=== PATIENT | male | born 1950 | race Caucasian/White ===

== ENCOUNTER → 2019-12-24 08:23 | Outpatient (BNVA) | payer MEDICARE, SELFPAY | PROVIDERS: Family Provider Family Medicine; PCP Family Medicine; Visit Provider Otolaryngology | DX: R05 Cough (principal); R47.02 Dysphasia | CPT/HCPCS: 31575; 99214 ==

== ENCOUNTER 2020-01-21 09:07 | Day surgery (SDC) | payer MEDICARE, SELFPAY ==
[2020-01-20 12:01] VITALS: BMI 54.6
[2020-01-21] VITALS (10 sets, daily range): BP systolic 103–177; BP diastolic 49–87; PULSE 69–80; RESP 18–27; TEMP 36.2–37.2; O2SAT 93–100
--- NOTE | 2020-01-21 10:22 | ECG_ITS ---
Measurements Intervals [place] Rate: 0 P: [place]: 0 QRS: 0 QRSD: 0 T: 0 QT: 0 QTc: 0 NSR Baseline artifact Electronically Signed On 01-22-2020 12:42:59 CDT by Homa Mercer [email or web address]
--- NOTE | 2020-01-21 10:42 | ANES.PREANE2 ---
Pre-Anesthetic Assessment Pre-Anesthetic Assessment: Height/Weight: Height 1.52 m Weight 127.006 kg Temp Pulse Resp BP Pulse Ox 98.3 F 80 22 H 177/87 96 01/21/20 10:02 01/21/20 10:02 01/21/20 10:02 01/21/20 10:02 01/21/20 10:02 Preop Diagnosis: dysphagia Proposed Procedure: Operation Date: 01/21/20 11:50 Proposed Procedures p EGD poss dilation and biopsy [id number] R47.02(Not Applicable) - Beau Dockery MD s Bronchoscopy(Not Applicable) - Beau Dockery MD Last intake: Intake Last Liquid Date 01/21/20 Last Liquid Time 07:00 Last Solid Date 01/20/20 Last Solid Time 21:00 Social: Packs per day: 1 Pack years: 8 Comment: Exam: Pre-Anes Outpt Exam: alert, oriented x 3, clear to auscultation bilaterally and regular rate & rhythm Airway: Submandibular: WNL Cervical ROM: Other MP: 3 Dentition: Caps Pulmonary: Pulmonary: Sleep apnea CV/HEM: CV/HEM: HTN Comments: rx'd 5y GI: GI: GERD Comments: dysphagia Musc/skel: Musc/skel: Lower Back Pain (right radiculopathy) Neuropsych: Comments: Parkinson's with stimulator Anesthetic Plan: ASA status: 3 PFSH Anesthesia PFSH: Medical History (Updated 12/24/19 @ 09:32 by Beau Dockery MD) Dysphasia Hypertension Parkinson disease Social History Smoking and tobacco status: former smoker Alcohol intake: current Alcohol intake frequency: few times a week Data Anesthesia Cardiac Studies: No Data to Display
[2020-01-21] MEDS: sodium chloride 0.9% 1,000 ML 30 ML IV (11:00)
--- NOTE | 2020-01-21 11:35 | W.PM.OPSUD ---
Surgery/Procedure H&P Update DATE OF PROCEDURE: January 21, 2020 DATE H&P PERFORMED: 12/24/19 H&P UPDATE INFORMATION: I have reviewed H&P completed within last 30 days, I have examined patient prior to procedure and No changes to prior documentation PREOP DIAGNOSIS: dysphagia PLANNED PROCEDURE: Operation Date: 01/21/20 11:50 Proposed Procedures p EGD poss dilation and biopsy [id number] R47.02(Not Applicable) - Beau Dockery MD s Bronchoscopy(Not Applicable) - Beau Dockery MD
--- NOTE | 2020-01-21 12:09 | P.OP_ITS ---
Operative Report Date of procedure: January 21, 2020 Pre-op Diagnosis: dysphagia Post-op diagnosis: same Post-op Findings: Inflammatory changes of bronchopulmonary segments, stricture versus achalasia cricopharyngeus, erosive distal esophagitis, antral gastritis Procedure Done: Flexible fiberoptic bronchoscopy with bronchoalveolar lavage, esophagogastroduodenoscopy with biopsy of esophagus and gastric mucosa, dilation to 58 Upper Sor[place] Pathology: Gastric biopsy, esophageal biopsy, bronchoalveolar lavage for lipid- laden macrophage only Surgeon: Beau Dockery Anesthesia: General Condition: stable Disposition: PACU Brief History: Mr. Matthew is a 69-year-old male with dysphasia who has failed medical management. Procedure: The patient was taken to the operating room and under satisfactory general endotracheal anesthesia the bronchoscope was introduced into the trachea. Right and left bronchopulmonary segments 1 through 10 were examined mild to moderate inflammatory changes without endobronchial lesions were identified. A BAL was performed from the right lower lobe. This was sent for lipid-laden macrophages only. The gastroscope was introduced into the trachea the scope had some difficulty passing the cricopharyngeus area. The esophagus stomach and duodenum were examined the duodenal mucosa was normal the gastric mucosa demonstrated some mild inflammatory changes and a biopsy was taken the distal esophagus was significant for an erosion of approximately 10% of the distal esophagus measuring approximately 1.5 cm in extension. A biopsy was taken. Patient tolerated procedure well was allowed to awaken after he was dilated to a 58 Upper Sorbian. He was then taken to the recovery room where he was observed during observation care instructions and counseling were given once the patient verbalized understanding of all instructions and met discharge criteria was discharged in satisfactory and stable condition.
--- NOTE | 2020-01-21 12:23 | SUR.PHASEI ---
1214 PT TO PACU SLEEPY WITH GOOD RESP NOTED HOB AT 30 PT SX WITH LORI PT HAS DIFFICULTY NORMALLY MOVING ORAL SECRETIONS. ORAL AIRWAY OUT PER EXECUTIVE CYBER LEADER AT BEDSIDE PT MORE ALERT COUGHS AND MOVES SECRETIONS ASSISTED WITH LORI SX. VSS
--- NOTE | 2020-01-21 12:35 | SUR.PHASEI ---
PT MORE AWAKE PT ASSISTED UP IN BED AND NOW ON RA TRIAL. PT VERBALIZED APPROP QUESTIONS, PT ISOLATION MASK PLACED PER PT REQUEST HE WAS WEARING ONE PREOPERATIVELY.
--- NOTE | 2020-01-21 12:40 | SUR.PHASEI ---
1236 PT PLACED ON 3LNC FOR COMFORT SATS DOWN TO 93% QUICKLY UP TO 97%
[2020-01-21] MEDS: cetylpyridinium Lozenge 1 EACH MUCOUS MEM (13:22)
== END 2020-01-21 14:50 | disposition home or self-care (01) ==
PROVIDERS: Family Provider Family Medicine; PCP Family Medicine; Visit Provider Otolaryngology
PROC: 0DJ08ZZ Inspection of Upper Intestinal Tract, Via Natural or Artificial Opening Endoscopic (ICD-10-PCS; CPT 43235; principal; 2020-01-21 11:50)
PROC: 0BJ08ZZ Inspection of Tracheobronchial Tree, Via Natural or Artificial Opening Endoscopic (ICD-10-PCS; CPT 31622; 2020-01-21 11:50)
DX: R13.10 Dysphagia, unspecified (principal); K20.9 Esophagitis, unspecified; Z82.49 Family history of ischemic heart disease and other diseases of the circulatory system; Z83.3 Family history of diabetes mellitus; Z87.891 Personal history of nicotine dependence; I10 Essential (primary) hypertension; K21.9 Gastro-esophageal reflux disease without esophagitis
CPT/HCPCS: 31624; 43239; 43450; 74360; 12345; 80500; 88305; 88313; 93005; 93010; J2001; J2704; J3010; J7030

== ENCOUNTER 2020-01-23 16:45 | Emergency (ER) | payer MEDICARE, SELFPAY ==
[2020-01-23 16:48] VITALS: BP 171/88; PULSE 95; RESP 20; TEMP 36.7; O2SAT 96; BMI 39.0
--- NOTE | 2020-01-23 17:10 | ED_ITS ---
Entered by Emily Thacker, acting as scribe for Osbaldo Eason MD, [facility] [place] - SOB/Dyspnea General: Chief Complaint: Shortness of Breath/Dyspnea Stated Complaint: Complication after surgery/drainage Time Seen by Provider: 01/23/20 17:09 Source: patient Mode of arrival: ambulatory Limitations: no limitations History of Present Illness: HPI Narrative: 69 yo male presents with shortness of breath and cough. pt states this started 2 days ago. pt states he had a recent EGD. pt states he has had chest pain with cough. pt denies any other symptoms at this time. Patient had an EGD and a bronchoscopy 2 days ago as well as an esophageal dilation at the same time. Patient states that since then he has had increased secretions causing increased cough and shortness of breath. Because of his symptoms he presented to the emergency department to be evaluated MD elicited complaint: shortness of breath and cough Onset (ago): day(s) (2 days ago) Timing: constant and progressively worsening Severity: moderate Exacerbating factors: coughing and deep breaths Relieving factors: nothing Associated symptoms: Reports chest pain (with cough) and cough; Deny abdominal pain, fever(s), nausea, polydipsia, polyuria or vomiting Treatment prior to arrival: none Related Data: Home oxygen amount: none Review of Systems General: Reports: 10 or more systems reviewed and unremarkable except in HPI and below Const: Denies: fever, chills or body aches Eyes: Denies: change in vision or blurry vision ENMT: Reports: throat pain (post EGD) Card: Reports: chest pain (with cough) Resp: Reports: shortness of breath and productive cough GI: Denies: abdominal pain, nausea or vomiting : Denies: flank pain, painful urination, urinary frequency, urinary urgency or urinary hesitancy Musc: Denies: neck pain, back pain or extremity swelling Skin/Breast: Denies: rash, itching or redness Neuro: Denies: headache, numbness in extremities or weakness in extremities Endo: Denies: excessive urination, excessive thirst or tired all the time [facility] ED PFSH: Medical History (Updated 12/24/19 @ 09:32 by Beau Dockery MD) Dysphasia Hypertension Parkinson disease Social History Smoking and tobacco status: never smoked Alcohol intake: current Alcohol intake frequency: few times a week Physical Exam Const: COMMON NORMALS: no apparent distress, average body habitus, oriented x3, no limitations, healthy appearing, alert and well nourished HENMT: COMMON NORMALS: normocephalic, head/scalp atraumatic and moist oral mucous membranes HEAD & SCALP: normocephalic and atraumatic Eye: COMMON NORMALS: PERRL, EOMs intact bilaterally, conjunctivae normal and no scleral icterus CONJUNCTIVA: Yes conjunctivae normal PUPIL: Yes PERRL Neck/C-Spine: COMMON NORMALS: full ROM, supple, no meningeal signs, no JVD and no carotid bruits Chest: COMMONS NORMALS: inspection of chest normal and palpation of chest normal Cardio: COMMON NORMALS: no JVD, regular rate, regular rhythm, S1 normal heart sound, S2 normal heart sound, no gallops, no clicks, no murmurs, no rub and peripheral pulses 2+ throughout RATE: regular rate RHYTHM: regular rhythm HEART SOUNDS: S1 normal and S2 normal PERIPHERAL PULSES: pulses 2+ throughout GI: COMMON NORMALS: normal to inspection, nondistended, normoactive bowel sounds, soft to palpation, non-tender, no hepatosplenomegaly, no masses and no bruits PALPATION: Yes soft and Yes no hepatosplenomegaly : COMMON NORMALS: Yes no CVA tenderness BLADDER/KIDNEY EXAM: Yes no CVA tenderness Back/Pelvis: COMMON NORMALS: no CVA tenderness Extremity: COMMON NORMALS: normal to inspection, full ROM, normal capillary refill, no calf tenderness and no pedal edema Neuro: COMMON NORMALS: oriented x3 SENSORIUM/ORIENTATION: Yes alert MENINGEAL SIGNS: Yes no meningeal signs Skin: COMMON NORMALS: no rashes or lesions noted, no wounds, skin turgor normal, no jaundice, no petechiae and no mottling GENERAL SKIN EXAM: no rashes or lesions noted and turgor normal Course Reevaluation(s): Reevaluation #1: Discussed his labs and imaging findings with him. Other than mild leukocytosis, negative. Leukocytosis might be reactive following his procedures, bronchoscopy and upper GI endoscopy. He obtained improvement following the DuoNeb treatment. We will discharge him home with an albuterol inhaler prescription and cough medication prescription. He voiced understanding and is in agreement with the plan. Time: 19:22 Vital Signs: Vital signs: Vital Signs Temperature 98.1 F 01/23/20 16:48 Pulse Rate 82 01/23/20 19:35 Respiratory Rate 16 01/23/20 19:35 Blood Pressure 156/98 01/23/20 19:35 Pulse Oximetry 98 01/23/20 19:35 MDM - SOB/Dyspnea MDM Narrative: Medical decision making narrative: Patient with increased cough and shortness of breath following an upper GI endoscopy, bronchoscopy and esophageal dilation done 2 days ago. On examination patient had clear lung so unds. Evaluation was unremarkable in the emergency department other than mild leukocytosis which I believe is reactive. Chest x-ray negative for acute findings. The patient obtain significant improvement following a DuoNeb treatment. He is discharged home and managed as a case of acute bronchitis. Lab Data: Labs: Lab Results 01/23/20 01/23/20 01/23/20 Range/Units 17:22 17:27 17:27 WBC 15.0 H (4.0-10.0) 10^3/ uL RBC 4.83 (4.1-5.3) 10^6/u L Hgb 14.9 (11.7-16.6) g/dL Hct 45.8 (42.0-52.0) % MCV 94.8 H (80-94) fL MCH 30.8 (28.0-34.0) pg MCHC 32.5 (30.0-36.0) g/dL RDW 12.6 (12.1-15.1) % Plt Count 189 (130-400) 10^3/c mm MPV 11.1 H (7.4-10.4) fL Neut % (Auto) 74.7 % Lymph % (Auto) 10.5 % Moody % (Auto) 12.7 % Eos % (Auto) 0.3 % Baso % (Auto) 0.5 % Neut # (Auto) 11.2 H (1.8-7.7) 10^3/u L Lymph # (Auto) 1.6 (0.8-4.8) 10^3/u L Moody # (Auto) 1.9 H (0.2-0.9) 10^3/u L Eos # (Auto) 0.1 (0.0-0.8) 10^3/u L Baso # (Auto) 0.1 (0.0-0.1) 10^3/u L Nucleated RBC % (a uto) 0 % Nucleated RBCs # 0.0 /100WBC D-Dimer 0.42 (0-0.59) ug/mIFE U Sodium (136-145) mmol/L Potassium (3.5-5.1) mmol/L Chloride (98-107) mmol/L Carbon Dioxide (22-29) mmol/L Anion Gap (5-19) BUN (8-23) mg/dL Creatinine (0.7-1.2) mg/dL GFR Calculation (90-130) mL/min Glucose (65-115) mg/dL Calculated Osmolal ity (285-295) mOsm/k g Calcium (8.5-10.5) mg/dL Total Bilirubin (0.15-1.2) mg/dL AST (0-40) U/L ALT (0-41) U/L Alkaline Phosphata se (40-130) IU/L Total Protein (6.6-8.7) g/dL Albumin (3.5-5.2) g/dL Globulin (1.3-4.6) g/dL Influenza Type A A g Negative (Negative) POC Influenza B Ag Negative (Negative) 01/23/20 Range/Units 17:27 WBC (4.0-10.0) 10^3/ uL RBC (4.1-5.3) 10^6/u L Hgb (11.7-16.6) g/dL Hct (42.0-52.0) % MCV (80-94) fL MCH (28.0-34.0) pg MCHC (30.0-36.0) g/dL RDW (12.1-15.1) % Plt Count (130-400) 10^3/c mm MPV (7.4-10.4) fL Neut % (Auto) % Lymph % (Auto) % Moody % (Auto) % Eos % (Auto) % Baso % (Auto) % Neut # (Auto) (1.8-7.7) 10^3/u L Lymph # (Auto) (0.8-4.8) 10^3/u L Moody # (Auto) (0.2-0.9) 10^3/u L Eos # (Auto) (0.0-0.8) 10^3/u L Baso # (Auto) (0.0-0.1) 10^3/u L Nucleated RBC % (a uto) % Nucleated RBCs # /100WBC D-Dimer (0-0.59) ug/mIFE U Sodium 137 (136-145) mmol/L Potassium 4.0 (3.5-5.1) mmol/L Chloride 101 (98-107) mmol/L Carbon Dioxide 24 (22-29) mmol/L Anion Gap 16.0 (5-19) BUN 23 (8-23) mg/dL Creatinine 1.1 (0.7-1.2) mg/dL GFR Calculation 66.6 L (90-130) mL/min Glucose 115 (65-115) mg/dL Calculated Osmolal ity 282 L (285-295) mOsm/k g Calcium 9.3 (8.5-10.5) mg/dL Total Bilirubin 0.6 (0.15-1.2) mg/dL AST 15 (0-40) U/L ALT < 5 (0-41) U/L Alkaline Phosphata se 68 (40-130) IU/L Total Protein 6.6 (6.6-8.7) g/dL Albumin 3.8 (3.5-5.2) g/dL Globulin 2.8 (1.3-4.6) g/dL Influenza Type A A g (Negative) POC Influenza B Ag (Negative) Imaging Data^: CXR: Radiologist's impression: [address] [address] XRay Report Signed Patient: Laura Matthew #: [id number] : 1Acct#:[id number] Age/Sex: 69 / MADM Date: 01/23/20 Loc: ERRoom/Bed: Attending Dr: Ordering Provider/Ordering MD: Osbaldo Eason MD, [facility] [place] of Service: 01/23/20 Procedure(s): XR chest 2V* [id number] Accession Number(s): [id number] Report Number: [id number] PROCEDURE INFORMATION: Exam: XR Chest, 2 Views Exam date and time: 01/23/2020 6:01 PM Age: 69 years old Clinical indication: Shortness of breath and other: Lethargy; Prior surgery; Surgery type: Endoscopy yesterday; Additional info: SOB TECHNIQUE: Imaging protocol: XR of the chest Views: 2 views. COMPARISON: CR Chest 2 views* [id number] 09/23/2019 12:28 PM FINDINGS: Lungs: No visible active interstitial or alveolar airspace disease. Pleural space: Unremarkable. No pleural effusion. No pneumothorax. Heart/Mediastinum: Mild cardiomegaly. Bones/joints: Age-appropriate degenerative disease of the spine. Other findings: Bilateral electrical stimulating devices. Heavy body habitus. XR/XR chest 2V* [id number] IMPRESSION: Nonacute. Dictated By:Milton Coffey Signed By:Milton CoffeySicholo Date/Time:01/23/201816 Discharge Plan Discharge Patient Disposition: Home, Self-Care Condition: Stable Prescriptions: New albuterol sulfate 90 mcg/actuation HFA aerosol inhaler 4 inh INHALATION Q4H PRN (Reason: shortness of breath or wheezing) Qty: 8.5 RF: 0 promethazine-codeine 6.25-10 mg/5 mL syrup 5 ml PO Q6H PRN (Reason: cough) Qty: 100 RF: 0 Continued metoprolol succinate 50 mg tablet extended release 24 hr 50 mg PO DAILY RF: 0 carbidopa-levodopa [Sinemet CR] 50-200 mg tablet extended release 1.5 tab PO .FIVE TIMES DAILY RF: 0 gabapentin 100 mg capsule 100 mg PO TID RF: 0 clonazepam 0.5 mg tablet 0.5 mg PO DAILY RF: 0 ropinirole 1 mg tablet 1 mg PO QID RF: 0 Discharge Orders: Discharge Order (Routine); Ordered 01/23/20 Ordered By: Osbaldo Eason Referrals: Braxton Dobbins MD [Primary Care Provider] - 1-3 days Patient Instructions: Acute Bronchitis (ED) Activity Restrictions/Additional Instructions: Return for any new or worsening symptoms. Use the inhaler every 4 hours for the next 2 days then as needed thereafter. Take the cough medicine as needed for cough. Do not drive or operate heavy machinery while taking the cough medicine as it will make you drowsy. Discharge Date/Time: 01/23/20 19:38 Coding Level of Care Code ED Publications Distribution Clerk for Chg Fwd Exam Comprehensive The documentation recorded by the [place] Bridget Annette, accurately reflects the service I personally performed and the decisions made by , Osbaldo Eason MD, [facility] [place] Jan 23, 2020 16:45
--- NOTE | 2020-01-23 17:21 | XRR_ITS ---
PROCEDURE INFORMATION: Exam: XR Chest, 2 Views Exam date and time: 01/23/2020 6:01 PM Age: 69 years old Clinical indication: Shortness of breath and other: Lethargy; Prior surgery; Surgery type: Endoscopy yesterday; Additional info: SOB TECHNIQUE: Imaging protocol: XR of the chest Views: 2 views. COMPARISON: CR Chest 2 views* [id number] 09/23/2019 12:28 PM FINDINGS: Lungs: No visible active interstitial or alveolar airspace disease. Pleural space: Unremarkable. No pleural effusion. No pneumothorax. Heart/Mediastinum: Mild cardiomegaly. Bones/joints: Age-appropriate degenerative disease of the spine. Other findings: Bilateral electrical stimulating devices. Heavy body habitus. XR/XR chest 2V* [id number] IMPRESSION: Nonacute.
[2020-01-23 17:25] VITALS: PULSE 87; RESP 18; O2SAT 98
[2020-01-23] MEDS: ipratropium-albuterol 3 mL Neb INHALATION (17:30)
[2020-01-23 17:35] VITALS: PULSE 88
[2020-01-23 17:56] LABS: D Dimer 0.42 ug/mIFEU (0-0.59)
[2020-01-23 17:57] LABS: Alanine Aminotransferase < 5 U/L (0-41); Albumin Level 3.8 g/dL (3.5-5.2); Alkaline Phosphatase 68 IU/L (40-130); Aspartate Amino Transferase 15 U/L (0-40); Blood Urea Nitrogen 23 mg/dL (8-23); Calcium 9.3 mg/dL (8.5-10.5); Carbon Dioxide 24 mmol/L (22-29); Chloride 101 mmol/L (98-107); Globulin 2.8 g/dL (1.3-4.6); Glomerular Filtration Rate 66.6 mL/min (90-130); Glucose 115 mg/dL (65-115); Osmolality Calculated 282 mOsm/kg (285-295); Sodium 137 mmol/L (136-145); Total Bilirubin 0.6 mg/dL (0.15-1.2); Total Protein 6.6 g/dL (6.6-8.7)
[2020-01-23 18:04] LABS: Influenza A by IFA Negative (Negative); Influenza B by IFA Negative (Negative)
[2020-01-23 18:07] LABS: Basophils # 0.1 10^3/uL (0.0-0.1); Basophils % 0.5 %; Eosinophils # 0.1 10^3/uL (0.0-0.8); Eosinophils % 0.3 %; Hematocrit 45.8 % (42.0-52.0); Hemoglobin 14.9 g/dL (11.7-16.6); Lymphocytes # 1.6 10^3/uL (0.8-4.8); Lymphocytes % 10.5 %; Mean Corpuscular HGB Conc 32.5 g/dL (30.0-36.0); Mean Corpuscular Hemoglobin 30.8 pg (28.0-34.0); Mean Corpuscular Volume 94.8 fL (80-94); Mean Platelet Volume 11.1 fL (7.4-10.4); Monocytes # 1.9 10^3/uL (0.2-0.9); Monocytes % 12.7 %; Neutrophils # 11.2 10^3/uL (1.8-7.7); Neutrophils % 74.7 %; Nucleated Red Blood Cells % 0 %; Platelet Count 189 10^3/cmm (130-400); Red Blood Count 4.83 10^6/uL (4.1-5.3); Red Cell Distribution Width 12.6 % (12.1-15.1)
[2020-01-23 18:31] VITALS: BP 196/85; RESP 16; O2SAT 97
[2020-01-23 19:35] VITALS: BP 156/98; PULSE 82; RESP 16; O2SAT 98
== END 2020-01-23 19:38 | disposition home or self-care (01) ==
PROVIDERS: Emergency Provider Family Medicine; Family Provider Family Medicine; PCP Family Medicine
DX: J20.9 Acute bronchitis, unspecified (principal); I10 Essential (primary) hypertension; G20 Parkinson's disease
CPT/HCPCS: 12345; 71046; 80053; 85025; 85378; 87804; 94640; 99282

== ENCOUNTER 2020-01-24 09:51 | Inpatient (IN) | payer MEDICARE, SELFPAY ==
[2020-01-24] VITALS (21 sets, daily range): BP systolic 119–196; BP diastolic 64–92; PULSE 57–104; RESP 14–24; TEMP 35.1–36.8; O2SAT 95–100; BMI 39.7
--- NOTE | 2020-01-24 10:02 | W.ED.GENADLT ---
HPI - General Adult General: Stated complaint: THROAT SWELLING PFSH ED PFSH: Medical History (Updated 12/24/19 @ 09:32 by Beau Dockery MD) Dysphasia Hypertension Parkinson disease Social History Smoking and tobacco status: never smoked Alcohol intake: current Alcohol intake frequency: few times a week Discharge Plan Discharge Prescriptions: No Action metoprolol succinate 50 mg tablet extended release 24 hr 50 mg PO DAILY RF: 0 carbidopa-levodopa [Sinemet CR] 50-200 mg tablet extended release 1.5 tab PO .FIVE TIMES DAILY RF: 0 gabapentin 100 mg capsule 100 mg PO TID RF: 0 clonazepam 0.5 mg tablet 0.5 mg PO DAILY RF: 0 ropinirole 1 mg tablet 1 mg PO QID RF: 0 albuterol sulfate 90 mcg/actuation HFA aerosol inhaler 4 inh INHALATION Q4H PRN (Reason: shortness of breath or wheezing) Qty: 8.5 RF: 0 promethazine-codeine 6.25-10 mg/5 mL syrup 5 ml PO Q6H PRN (Reason: cough) Qty: 100 RF: 0 Coding Level of Care Code ED Retail Support Manager for Chg Fwd
--- NOTE | 2020-01-24 10:11 | XR_ITS ---
WS: [id number] XR chest 1V portable [id number] REASON FOR EXAM: cough/congestion FINDINGS: Cardiomegaly changes are noted . Arteriosclerotic changes in the arch of the aorta. Bilater al electrical stimulating devices are seen. The lung rock are clear there is no pneumonia, pleural effusion, pulmonary edema, or mass effect. XR/XR chest 1V portable [id number] IMPRESSION: Cardiomegaly Bilateral electrical stimulator.
--- NOTE | 2020-01-24 10:16 | CTR_ITS ---
PROCEDURE INFORMATION: Exam: CT Neck With Contrast Exam date and time: 01/24/2020 10:23 AM Age: 69 years old Clinical indication: Dysphagia / difficulty swallowing; Additional info: Difficulty breathing/swallowing following egd/bronchoscopy TECHNIQUE: Imaging protocol: Computed tomography images of the neck with intravenous contrast. Total DLP: 937.35 mGy-cm Radiation optimization: All CT scans at this facility use at least one of these dose optimization techniques: automated exposure control; mA and/or kV adjustment per patient size (includes targeted exams where dose is matched to clinical indication); or iterative reconstruction. Contrast material: OMNI 300; Contrast volume: 48 ml; Contrast route: LT AC; COMPARISON: No relevant prior studies available. FINDINGS: Nasopharynx: Unremarkable. Oropharynx: Narrowing of the oropharyngeal airway. No significant tonsillar enlargement. Hypopharynx: Narrowing of the hypopharyngeal airway. Larynx: Epiglottis appears swollen in conjunction with more generalized soft tissue swelling described below. Retropharyngeal space: There is ill-defined soft tissue edema in the retropharyngeal space with thickening of the soft tissue and contribution to narrowing of the hypopharyngeal and oropharyngeal airway. Submandibular/Parotid glands: Glands are normal in size. Thyroid: No nodules. Lymph nodes: No lymphadenopathy. Trachea: Visualized trachea is unremarkable. Lungs: Unremarkable as visualized. Bones/joints: There is multilevel disc degeneration and facet arthropathy in the cervical spine. Soft tissues: There is deep right lateral cervical soft tissue swelling and irregular fluid collections extending from the level of the expected location of the right piriform sinus inferiorly to envelop the right superior cornu of the thyroid cartilage, and more inferiorly between the thyroid cartilage in the right lobe of the thyroid. This contributes to narrowing of the hypopharyngeal airway. There is stranding in the subcutaneous tissue of the anterior neck which can be due to inflammation or edema. CT/CT neck w con* [id number] IMPRESSION: Retropharyngeal and right deep cervical soft tissue swelling and fluid collections contributing to narrowing of the oropharyngeal and hypopharyngeal airway. Radiation Dose CTDIVOL = (mGy): DLP = 937.35 (mGy-cm)
--- NOTE | 2020-01-24 10:22 | CTR_ITS ---
PROCEDURE INFORMATION: Exam: CT Chest With Contrast Exam date and time: 01/24/2020 10:28 AM Age: 69 years old Clinical indication: Shortness of breath; Additional info: Recent egd/bronchoscopy; Trouble breathing/swallowing TECHNIQUE: Imaging protocol: Computed tomography of the chest with intravenous contrast. Total DLP: 939.71 mGy-cm Radiation optimization: All CT scans at this facility use at least one of these dose optimization techniques: automated exposure control; mA and/or kV adjustment per patient size (includes targeted exams where dose is matched to clinical indication); or iterative reconstruction. Contrast material: OMNI 300; Contrast volume: 48 ml; Contrast route: LT AC; COMPARISON: CR XR chest 1V portable [id number] 01/24/2020 10:16 AM FINDINGS: Tubes, catheters and devices: Stable left-sided pain management/neurostimulator device in in the left neck. Stable right-sided pain management/neurostimulator device in the right neck. Moderate thoracic spondylosis. Lungs: Unremarkable. No consolidation. No masses. Pleural space: Unremarkable. No pneumothorax. No pleural effusion. Heart: Severe calcified coronary artery disease. Aorta: Unremarkable. No aortic aneurysm. Lymph nodes: Unremarkable. No enlarged lymph nodes. Liver: Multiple hepatic cysts at least one of which measures larger than 1.0 cm in size. Other low-attenuation lesions in the liver are too small to characterize. The largest in the left posterior liver measures 2.6 x 2.0 x 1.4 cm. Gallbladder and bile ducts: Surgical clips in the gallbladder fossa consistent with cholecystectomy. Spleen: Calcified splenic granulomas. Kidneys and ureters: Right renal cyst measuring >1.0 cm . Left renal cyst measuring < 1.0 cm . Bones/joints: See Tubes, catheters and devices finding. Soft tissues: Unremarkable. CT/CT chest w con* [id number] IMPRESSION: 1. Stable left-sided pain management/neurostimulator device in in the left neck. 2. Severe calcified coronary artery disease. Radiation Dose CTDIVOL = (mGy): DLP = 939.71 (mGy-cm)
[2020-01-24 10:35] LABS: Basophils # 0.1 10^3/uL (0.0-0.1); Basophils % 0.5 %; Eosinophils % 0.1 %; Hematocrit 46.4 % (42.0-52.0); Hemoglobin 15.9 g/dL (11.7-16.6); Lymphocytes # 1.1 10^3/uL (0.8-4.8); Mean Corpuscular HGB Conc 34.3 g/dL (30.0-36.0); Mean Corpuscular Hemoglobin 30.7 pg (28.0-34.0); Mean Corpuscular Volume 89.6 fL (80-94); Mean Platelet Volume 10.9 fL (7.4-10.4); Monocytes # 2.1 10^3/uL (0.2-0.9); Monocytes % 10.3 %; Neutrophils # 17.3 10^3/uL (1.8-7.7); Neutrophils % 83.1 %; Nucleated Red Blood Cells % 0 %; Platelet Count 211 10^3/cmm (130-400); Red Blood Count 5.18 10^6/uL (4.1-5.3); Red Cell Distribution Width 12.2 % (12.1-15.1); White Blood Count 20.9 10^3/uL (4.0-10.0)
[2020-01-24 10:38] LABS: Alanine Aminotransferase 10 U/L (0-41); Albumin Level 4.2 g/dL (3.5-5.2); Alkaline Phosphatase 78 IU/L (40-130); Anion Gap 14.9 (5-19); Aspartate Amino Transferase 23 U/L (0-40); Blood Urea Nitrogen 18 mg/dL (8-23); Calcium 9.4 mg/dL (8.5-10.5); Carbon Dioxide 26 mmol/L (22-29); Chloride 97 mmol/L (98-107); Globulin 3.3 g/dL (1.3-4.6); Glomerular Filtration Rate 83.9 mL/min (90-130); Glucose 165 mg/dL (65-115); Osmolality Calculated 278 mOsm/kg (285-295); Potassium 3.9 mmol/L (3.5-5.1); Sodium 134 mmol/L (136-145); Total Bilirubin 1.8 mg/dL (0.15-1.2); Total Protein 7.5 g/dL (6.6-8.7)
[2020-01-24] MEDS: iohexol 300 mg/mL 100 mL Btl IV ×2 (11:03→11:04)
[2020-01-24] MEDS: piperacillin-tazobactam 3.375 GM in sodium chloride 0.9% (plus) 50 ML IV ×2 (12:01→21:15)
[2020-01-24] MEDS: dexamethasone 10 mg/mL INJ IVP (12:19)
[2020-01-24 12:27] LABS: Lactate (Lactic Acid level) 1.1 mmol/L (0.5-2.2)
[2020-01-24] MEDS: midazolam 1 mg/mL INJ 2 mL 2 MG IVP (12:45)
[2020-01-24] MEDS: ketamine 100 mg/mL Inj 5 mL 400 MG IM (12:50)
[2020-01-24 12:52] LABS: Influenza A by IFA Negative (Negative); Influenza B by IFA Negative (Negative)
[2020-01-24] MEDS: lidocaine 2% INJ 20 mL INJECTION (13:00)
[2020-01-24] MEDS: succinylcholine 20 mg/mL SDV 10mL 193.911 MG IV (13:09)
--- NOTE | 2020-01-24 13:09 | XR_ITS ---
WS: [id number] XR chest 1V portable [id number] REASON FOR EXAM: intubation FINDINGS: Examination: View chest Endotracheal tube is now seen in good position and a feeding tube in the stomach. In the right lower lung there is evidence of atelectasis changes. These imaging accentuated since previous exam January. A dual electrode stimulators are seen. XR/XR chest 1V portable [id number] IMPRESSION: Tracheal tube in good position as well as good positioning of the feeding tube.
[2020-01-24] MEDS: propofol 1,000 MG/100 ML INJ 7.8 MG IV (13:27)
[2020-01-24 13:58] LABS: ABG PCO2 35.4 mmHg (35-45); ABG PH Result 7.41 (7.35-7.45); Alveolar-Arterial Oxygen Gradi 274.5 mmHg (5-10); Base Excess ABG -1.7 mmol/L (-2.0-2.0); Blood Gas Allen Test Pos; Blood Gas Sample Site Radial, left; Blood Gas Sample Type Arterial; Blood Gas Tidal Volume 0.5; Carboxyhemoglobin 0.6 %THgb (0.4-20.1); HCO3 ABG 22.3 mmol/L (22-26); HGB O2 Sat 99.2 % (95-100); Ionized Calcium Level - ABG 1.1 mmol/L (1.1-1.4); Methemoglobin 0.4 % (0.4-1.5); Oxygen Device VENT; Potassium Level - ABG 4.3 mmol/L (3.5-5.0); Total Hemoglobin 16.3 g/dL (14-18)
--- NOTE | 2020-01-24 14:41 | P.HP_ITS ---
Providers/Chief Complaint Primary Care Provider: Braxton Dobbins MD Chief Complaint: THROAT SWELLING History of Present Illness Fabiola Matthew is a 69 year old male with a past medical history of Parkinson's disease, with a brain stimulator placed, hypertension, depression, anxiety, who presents to the emergency room due to complaints of cough, shortness of breath, sore throat, dysphasia. Most of the history was obtained from patient's sister, patient's girlfriend, secondhand accounts. Patient is currently intubated, and sedated on the ventilator. Patient has a history of Parkinson's disease, he was having complaints of productive cough, globus sensation, which was thought to be secondary to his Parkinson's disease and possibly cricopharyngeus muscle dysfunction, possibly stricture. On January 20, 2018, patient had a flexible fiberoptic bronchoscopy with bronchial lavage, and a esophagogastroduodenoscopy with biopsy of esophagus and gastric mucosa and dilation by Dr. Dockery patient went home, against the advice of family member state at home by himself. The next morning on , patient had some complaints of sore throat, he was able to have dinner with his girlfriend, he did complain of some sore throat, dysphasia, no fevers. 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 Patient presented to the emergency room on Sunday night, with similar complaints, was diagnosed with a sore throat, and sent home. However patient continued to have sore throat, dysphasia, which progressed to difficulty breathing, episodes of shortness of breath, no fevers, no vomiting, no lightheadedness, dizziness. Patient presented to the emergency room, Retropharyngeal and right deep cervical soft tissue swelling and fluid collections contributing to narrowing of the oropharyngeal and hypopharyngeal airway. Due to concerns for compromised airway and shortness of breath, patient was intubated by Dr. Camp. Her presentation patient was afebrile, respiratory rate 20s to 27, blood pressure 131/61, pulse ox 99, white blood cell count 20.9, arterial blood gas on ventilator shows pH is 7.41, PCO2 35.4, bicarb 22.3. Influenza was negative. No recent travel. No infectious contacts. No known contact to COVID 19. Review of Systems General: Reports: ROS unobtainable due to endotracheal tube and ROS unobtainable due to mental status Medications/Allergies Home Medications Medication Instructions Recorded Confirmed Last Taken Type furosemide [Lasix] 40 mg PO DAILY 01/24/20 01/24/20 Unknown History potassium chloride 20 meq PO DAILY 01/24/20 01/24/20 Unknown History sertraline 25 mg PO DAILY 01/24/20 01/24/20 Unknown History tramadol 50 mg PO BID PRN 01/24/20 01/24/20 Unknown History Allergies Allergy/AdvReac Type Severity Reaction Status Date / Time No Known Allergies Allergy Unverified 12/24/19 08:42 PFSH Acute PFSH: Medical History (Updated 01/24/20 @ 15:02 by Sam Lackey MD) Dysphasia Hypertension Parkinson disease Social History Smoking and tobacco status: former smoker Alcohol intake: current Alcohol intake frequency: few times a week Vitals/I&O/Wt Last Vital Signs Temp 98.3 F 01/24/20 10:06 Pulse 96 01/24/20 12:54 Resp 20 H 01/24/20 13:27 BP 196/92 01/24/20 10:06 Pulse Ox 96 01/24/20 12:48 01/23/20 01/24/20 01/24/20 22:59 06:59 14:59 Intake Total 0 / 0 Balance 0 / 0 Weight last 48 hrs Weight 129.274 kg Physical Exam Const: COMMON NORMALS: no apparent distress OTHER: Intubated, sedated HENMT: COMMON NORMALS: normocephalic HEAD & SCALP: normocephalic Eye: COMMON NORMALS: PERRL GENERAL EYE: normal appearance of both eyes PUPIL: Yes PERRL DIRECT OPHTHALMOSCOPY: Yes no papilledema Neck/C-Spine: COMMON NORMALS: full ROM, no lymphadenopathy, no JVD and thyroid normal THYROID: thyroid normal Lymph: LYMPHATIC: no lymphadenopathy noted Resp: COMMON NORMALS: normal respiratory effort, no retractions, no use of accessory muscles and clear to auscultation bilaterally AUSCULTATION: clear to auscultation bilaterally Cardio: COMMON NORMALS: no JVD, regular rate, regular rhythm, S1 normal heart sound, S2 normal heart sound, no gallops, no clicks and no murmurs RATE: regular rate RHYTHM: regular rhythm HEART SOUNDS: S1 normal and S2 normal GI: COMMON NORMALS: normal to inspection, nondistended, normoactive bowel sounds, soft to palpation, non-tender and no hepatosplenomegaly PALPATION: Yes soft and Yes no hepatosplenomegaly Extremity: COMMON NORMALS: normal to inspection, full ROM and no pedal edema Neuro: OTHER: Intubated and sedated PERRLA Psych: COMMON NORMALS: thought process normal Urinary Catheter Management^: [place]: Cath Placed During This Visit: yes Urinary Catheter Date of Insertion: 01/24/20 Urinary Catheter Time of Insertion: 13:56 Data : 01/24/20 10:15 01/24/20 10:15 Micro: Microbiology 01/24/20 11:59 Blood Culture - Preliminary Blood SPECIMEN COLLECTED 01/24/20 10:15 Blood Culture - Preliminary Blood SPECIMEN COLLECTED A&P Assessment and plan (1) Dysphasia: -Retropharyngeal and right deep cervical soft tissue swelling and fluid collections contributing to narrowing of the oropharyngeal and hypopharyngeal airway. Oropharynx narrowing of oropharyngeal airway. Retropharyngeal space: There is ill-defined soft tissue edema in the retrophar yngeal space with thickening of the soft tissue and contribution to narrowing of the hypopharyngeal and oropharyngeal airway. -Patient was intubated, and sedated in the emergency room due to concerns for shortness of breath and compromised airway -CT chest no pneumomediastinum, no fevers, normotensive -Differential includes retropharyngeal abscess, retropharyngeal swelling Plan: -Admit to cardiac intensive care unit -Mechanical ventilation, minimize FiO2, minimize PEEP -Lovenox for DVT prophylaxis -Pepcid for GI prophylaxis -Propofol and fentanyl for sedation -Broad-spectrum antibiotics vancomycin, Zosyn, Flagyl -Solu-Medrol 40 every 12 hours -Tube feeding -Blood cultures -Patient's sister and girlfriend notified -I have spoken to Dr. Dockery, he is out of town, continue interventions as above, plan for extubation hopefully on Sunday -If patient has fevers, tachycardia, increased inflammatory markers, will monitor for acute mediastinitis and or empyema Status: Acute Code(s): R47.02 - Dysphasia (2) Parkinson disease: -Continue carbidopa levodopa -Continue Requip Status: Acute Code(s): G20 - Parkinson's disease (3) Hypertension: Continue metoprolol Status: Acute Code(s): I10 - Essential (primary) hypertension (4) Depression with anxiety: -Continue sertraline Status: Acute Code(s): F41.8 - Other specified anxiety disorders Attestations Medical Necessity Statement*: Patient requires admission, inpatient, ICU admission, greater than 2 minutes, for retropharyngeal soft tissue swelling versus abscess Coding Level of Care Code Acute Director Business Systems for [facility] Fwd Diagnoses Dysphasia R47.02 Parkinson disease G20 Hypertension I10 Depression with anxiety F41.8
[2020-01-24] MEDS: metroNIDAZOLE IV 500 MG/100 ML PREMIX 100 MG IV ×2 (16:17→23:51)
[2020-01-24] MEDS: ropinirole 1 mg Tablet OG-TUBE ×2 (16:18→21:55)
[2020-01-24] MEDS: enoxaparin 40 mg/0.4 mL Syringe SUBCUT (16:18)
[2020-01-24] MEDS: carbidopa-levodopa 25-100mg Tablet 3 EACH OG-TUBE ×3 (16:18→23:52)
[2020-01-24] MEDS: gabapentin 300 mg Capsule PO ×2 (16:18→21:56)
[2020-01-24] MEDS: propofol 1,000 MG/100 ML INJ 31 MG IV ×3 (16:29→23:34)
[2020-01-24 16:33] LABS: C Reactive Protein 198.2 mg/L (0.0-4.9)
[2020-01-24 18:03] LABS: Glucose Point of Care 207 mg/dL (70-110)
[2020-01-24] MEDS: dextrose 5%-sod chloride 0.45% 1,000 ML 75 ML IV (18:06)
[2020-01-24] MEDS: famotidine 20 mg/2 mL INJ IVP (18:06)
[2020-01-25] VITALS (22 sets, daily range): BP systolic 118–156; BP diastolic 63–78; PULSE 52–69; RESP 13–18; TEMP 34.9–37.1; O2SAT 89–95
[2020-01-25] MEDS: propofol 1,000 MG/100 ML INJ 31 MG IV ×2 (02:57→06:21)
[2020-01-25] MEDS: piperacillin-tazobactam 3.375 GM in sodium chloride 0.9% (plus) 50 ML IV ×3 (04:55→21:44)
[2020-01-25] MEDS: carbidopa-levodopa 25-100mg Tablet 3 EACH OG-TUBE ×6 (04:58→23:20)
[2020-01-25] MEDS: ropinirole 1 mg Tablet OG-TUBE ×5 (05:00→22:41)
[2020-01-25 05:06] LABS: Basophils % 0.2 %; Eosinophils % 0.1 %; Hematocrit 43.4 % (42.0-52.0); Hemoglobin 14.4 g/dL (11.7-16.6); Lymphocytes # 0.8 10^3/uL (0.8-4.8); Lymphocytes % 5.4 %; Mean Corpuscular HGB Conc 33.2 g/dL (30.0-36.0); Mean Corpuscular Hemoglobin 30.6 pg (28.0-34.0); Mean Corpuscular Volume 92.3 fL (80-94); Mean Platelet Volume 11.4 fL (7.4-10.4); Monocytes # 0.8 10^3/uL (0.2-0.9); Neutrophils # 13.7 10^3/uL (1.8-7.7); Neutrophils % 88.3 %; Nucleated Red Blood Cells % 0 %; Platelet Count 170 10^3/cmm (130-400); Red Cell Distribution Width 12.4 % (12.1-15.1); White Blood Count 15.5 10^3/uL (4.0-10.0)
[2020-01-25 05:33] LABS: Estmated Average Glucose 126
[2020-01-25 05:37] LABS: Procalcitonin 0.66 ng/mL (0-0.5)
[2020-01-25 05:40] LABS: Alanine Aminotransferase < 5 U/L (0-41); Albumin Level 3.5 g/dL (3.5-5.2); Alkaline Phosphatase 68 IU/L (40-130); Aspartate Amino Transferase 22 U/L (0-40); Blood Urea Nitrogen 29 mg/dL (8-23); Calcium 8.9 mg/dL (8.5-10.5); Carbon Dioxide 24 mmol/L (22-29); Chloride 99 mmol/L (98-107); Globulin 2.9 g/dL (1.3-4.6); Glomerular Filtration Rate 74.3 mL/min (90-130); Glucose 246 mg/dL (65-115); Magnesium 2.3 mg/dL (1.7-2.3); Osmolality Calculated 283 mOsm/kg (285-295); Phosphorus 4.2 mg/dL (2.5-4.5); Sodium 134 mmol/L (136-145); Total Bilirubin 1.1 mg/dL (0.15-1.2); Total Protein 6.4 g/dL (6.6-8.7)
[2020-01-25 05:46] LABS: ABG PCO2 40.9 mmHg (35-45); ABG PH Result 7.37 (7.35-7.45); Arterial Blood Gas Hematocrit 45.8 % (42-52); Base Excess ABG -1.7 mmol/L (-2.0-2.0); Blood Gas Allen Test Pos; Blood Gas Sample Site Radial, right; Blood Gas Sample Type Arterial; Blood Gas Tidal Volume 0.5; HCO3 ABG 23.6 mmol/L (22-26); Oxygen Device VENT; PO2 ABG 57.3 mmHg (80.0-100.0)
[2020-01-25 08:09] LABS: Glucose Point of Care 182 mg/dL (70-110)
[2020-01-25] MEDS: gabapentin 300 mg Capsule PO ×3 (08:59→21:43)
[2020-01-25] MEDS: CLONazepam 0.5 mg Tablet PO (08:59)
[2020-01-25] MEDS: sertraline 50 mg Tablet 25 MG PO (08:59)
[2020-01-25] MEDS: metroNIDAZOLE IV 500 MG/100 ML PREMIX 100 MG IV ×3 (09:01→23:20)
[2020-01-25] MEDS: metoprolol succinate ER (24 HR) 50 mg Tablet PO (09:02)
[2020-01-25] MEDS: famotidine 20 mg/2 mL INJ IVP ×2 (09:02→17:00)
[2020-01-25 09:27] LABS: Glucose Point of Care 190 mg/dL (70-110)
[2020-01-25] MEDS: propofol 1,000 MG/100 ML INJ 38.8 MG IV ×4 (09:57→23:41)
--- NOTE | 2020-01-25 11:54 | PM.PN ---
Subjective Subjective: Interval history: Patient had 1 hypothermic episode overnight, remains normotensive, has good tidal volumes, minimal PEEP, minimal FiO2, blood cultures so far unremarkable, good urine output Family has been made aware, plans on consulting Dr. Dockery tomorrow, possible aspiration, Vitals/I&O/Wt Last Vital Signs Temp 94.8 F L 01/25/20 06:00 Pulse 56 L 01/25/20 08:00 Resp 14 01/25/20 10:13 BP 118/68 01/25/20 08:00 Pulse Ox 94 01/25/20 08:00 01/24/20 01/25/20 01/25/20 22:59 06:59 14:59 Intake Total 734.91 / 784.91 450 / 1234.91 100 / 100 Output Total 280 / 280 950 / 1230 Balance 454.91 / 504.91 -500 / 4.91 100 / 100 Weight last 48 hrs Weight 129.274 kg Physical Exam Narrative: EXAM NARRATIVE: Intubated, sedated, on a ventilator HENMT: COMMON NORMALS: normocephalic HEAD & SCALP: normocephalic Neck/C-Spine: COMMON NORMALS: no JVD Resp: COMMON NORMALS: normal respiratory effort, no retractions, no use of accessory muscles and clear to auscultation bilaterally AUSCULTATION: clear to auscultation bilaterally Cardio: COMMON NORMALS: no JVD, regular rate, regular rhythm, S1 normal heart sound and S2 normal heart sound RATE: regular rate RHYTHM: regular rhythm HEART SOUNDS: S1 normal and S2 normal GI: COMMON NORMALS: normal to inspection, nondistended, normoactive bowel sounds, soft to palpation, non-tender, no hepatosplenomegaly, no masses and no bruits PALPATION: Yes soft and Yes no hepatosplenomegaly Extremity: COMMON NORMALS: normal capillary refill, no clubbing, cyanosis or edema, no calf tenderness and no pedal edema Urinary Catheter Management^: [place]: Cath Placed During This Visit: yes Urinary Catheter Date of Insertion: 01/24/20 Urinary Catheter Time of Insertion: 13:56 Data : 01/25/20 04:15 01/25/20 04:15 Micro: Microbiology 01/24/20 10:15 Blood Culture - Preliminary Blood NEGATIVE TO DATE 01/24/20 13:25 Gram Stain - Final Sputum - Endotracheal Tube Aspirate Sputum Culture - Preliminary 01/24/20 11:59 Blood Culture - Preliminary Blood SPECIMEN COLLECTED A&P Assessment and plan (1) Dysphasia: -Retropharyngeal and right deep cervical soft tissue swelling and fluid collections contributing to narrowing of the oropharyngeal and hypopharyngeal airway. Oropharynx narrowing of oropharyngeal airway. Retropharyngeal space: There is ill-defined soft tissue edema in the retropharyngeal space with thickening of the soft tissue and contribution to narrowing of the hypopharyngeal and oropharyngeal airway. -Patient was intubated, and sedated in the emergency room due to concerns for shortness of breath and compromised airway -CT chest no pneumomediastinum, no fevers, normotensive -Differential includes retropharyngeal abscess, retropharyngeal swelling Plan: -Admit to cardiac intensive care unit -Mechanical ventilation, minimize FiO2, minimize PEEP -Lovenox for DVT prophylaxis -Pepcid for GI prophylaxis -Propofol and fentanyl for sedation -Broad-spectrum antibiotics vancomycin, Zosyn, Flagyl -Solu-Medrol 40 every 12 hours -Tube feeding -Blood cultures -Patient has had 1 hypothermic episode, continue to monitor, titrate down propofol if required -Patient's sister and girlfriend notified -I have spoken to Dr. Dockery, he is out of town, continue interventions as above, plan for extubation hopefully on Sunday -If patient has fevers, tachycardia, increased inflammatory markers, will monitor for acute mediastinitis and or empyema Status: Acute Code(s): R47.02 - Dysphasia (2) Parkinson disease: -Continue carbidopa levodopa -Continue Requip Status: Acute Code(s): G20 - Parkinson's disease (3) Hypertension: Continue metoprolol Status: Acute Code(s): I10 - Essential (primary) hypertension (4) Depression with anxiety: -Continue sertraline Status: Acute Code(s): F41.8 - Other specified anxiety disorders Attestations Medical Necessity Statement*: Physician due to dysphasia, retropharyngeal abscess swelling, requiring mechanical ventilation Coding Level of Care Code Acute Slab Grinder for [facility] F[facility] Diagnoses Dysphasia R47.02 Parkinson disease G20 Hypertension I10 Depression with anxiety F41.8
[2020-01-25 12:07] LABS: Glucose Point of Care 205 mg/dL (70-110)
--- NOTE | 2020-01-25 13:07 | PC.PT ---
PT note; PT evaluation remains on hold, per nursing, patient still intubated and sedated
[2020-01-25] MEDS: dextrose 5%-sod chloride 0.45% 1,000 ML 75 ML IV (13:58)
[2020-01-25] MEDS: enoxaparin 40 mg/0.4 mL Syringe SUBCUT (16:11)
[2020-01-25 17:41] LABS: Creatine Phosphokinase 42 U/L (39-308); Vancomycin Trough 15.8 ug/mL (10-15)
[2020-01-25 19:13] LABS: Glucose Point of Care 178 mg/dL (70-110)
[2020-01-26] VITALS (21 sets, daily range): BP systolic 127–177; BP diastolic 66–96; PULSE 59–79; RESP 13–22; TEMP 35.9–36.4; O2SAT 91–97
[2020-01-26] MEDS: propofol 1,000 MG/100 ML INJ 38.8 MG IV ×2 (02:17→04:54)
[2020-01-26] MEDS: piperacillin-tazobactam 3.375 GM in sodium chloride 0.9% (plus) 50 ML IV ×3 (04:08→19:39)
[2020-01-26] MEDS: dextrose 5%-sod chloride 0.45% 1,000 ML 75 ML IV ×2 (04:09→19:40)
[2020-01-26] MEDS: carbidopa-levodopa 25-100mg Tablet 3 EACH OG-TUBE ×5 (04:10→19:44)
[2020-01-26 05:08] LABS: ABG PH Result 7.36 (7.35-7.45); Arterial Blood Gas Hematocrit 43.4 % (42-52); Base Excess ABG -0.6 mmol/L (-2.0-2.0); Blood Gas Allen Test Pos; Blood Gas Sample Site Radial, right; Blood Gas Sample Type Arterial; Blood Gas Tidal Volume 0.5; HCO3 ABG 25.1 mmol/L (22-26); Oxygen Device VENT; PO2 ABG 97.3 mmHg (80.0-100.0)
[2020-01-26 05:41] LABS: Basophils % 0.2 %; Eosinophils # 1.4 10^3/uL (0.0-0.8); Eosinophils % 7.5 %; Hematocrit 44.4 % (42.0-52.0); Hemoglobin 14.2 g/dL (11.7-16.6); Mean Corpuscular Hemoglobin 30.7 pg (28.0-34.0); Mean Corpuscular Volume 95.9 fL (80-94); Monocytes # 1.3 10^3/uL (0.2-0.9); Monocytes % 6.8 %; Neutrophils # 15.1 10^3/uL (1.8-7.7); Neutrophils % 79.1 %; Nucleated Red Blood Cells % 0 %; Platelet Count 172 10^3/cmm (130-400); Red Blood Count 4.63 10^6/uL (4.1-5.3); Red Cell Distribution Width 12.4 % (12.1-15.1); White Blood Count 19.1 10^3/uL (4.0-10.0)
[2020-01-26] MEDS: ropinirole 1 mg Tablet OG-TUBE ×5 (05:48→21:18)
[2020-01-26 06:11] LABS: Alanine Aminotransferase < 5 U/L (0-41); Albumin Level 2.8 g/dL (3.5-5.2); Alkaline Phosphatase 65 IU/L (40-130); Anion Gap 11.6 (5-19); Aspartate Amino Transferase 16 U/L (0-40); Blood Urea Nitrogen 23 mg/dL (8-23); Calcium 8.7 mg/dL (8.5-10.5); Carbon Dioxide 25 mmol/L (22-29); Chloride 102 mmol/L (98-107); Globulin 3.3 g/dL (1.3-4.6); Glomerular Filtration Rate 83.9 mL/min (90-130); Glucose 278 mg/dL (65-115); Magnesium 2.7 mg/dL (1.7-2.3); Osmolality Calculated 285 mOsm/kg (285-295); Phosphorus 3.6 mg/dL (2.5-4.5); Potassium 4.6 mmol/L (3.5-5.1); Sodium 134 mmol/L (136-145); Total Bilirubin 0.4 mg/dL (0.15-1.2); Total Protein 6.1 g/dL (6.6-8.7)
[2020-01-26 06:48] LABS: Procalcitonin 0.42 ng/mL (0-0.5)
[2020-01-26 06:55] LABS: Slide Review Slide Review Perform
--- NOTE | 2020-01-26 07:00 | XR_ITS ---
WS: [id number] CHEST XRAY TECHNIQUE: Portable chest. CLINICAL INFORMATION: sob COMPARISON: January 24, 2020 FINDINGS: Shallow inspiration. Cardiomegaly. Mild pulmonary vascular congestion. Tiny left pleural ef fusion. Thoracic curve convex right. Hypertrophic changes thoracic spine. Tubes/Lines: Endotracheal tube with tip above the meliza measuring 2.6 cm. Enteric tube with tip belo w the diaphragm. XR/XR chest 1V portable [id number] IMPRESSION: 1. Cardiomegaly with mild pulmonary vascular congestion. No focal pneumonia. 2. Small left pleural effusion. 3. Endotracheal tube and enteric tubes in good position. 4. Bilateral electrode stimulators may represent vagal nerve stimulators
[2020-01-26 07:32] LABS: Glucose Point of Care 183 mg/dL (70-110)
--- NOTE | 2020-01-26 08:12 | P.CONIM_ITS ---
Providers/Reason For Consult Consulting Physican/Specialty*: Nose and throat Reason for Consult*: Swelling in pharynx Attending Physician: Topher Azar MD Primary Care Provider: Braxton Dobbins MD History of Present Illness History of Present Illness Fabiola Matthew is a 69 year old male who is well-known to me. Presented to the hospital with shortness of breath. Fabiola Matthew is a 69 year old male with a past medical history of Parkinson's disease, with a brain stimulator placed, hypertension, depression, anxiety, who presents to the emergency room due to complaints of cough, shortness of breath, sore throat, dysphasia. Patient is currently intubated, and sedated on the ventilator. Patient has a history of Parkinson's disease, he was having complaints of productive cough, globus sensation, which was thought to be secondary to his Parkinson's disease and poss ibly cricopharyngeus muscle dysfunction, possibly stricture. On January 20, 2018, I performed a flexible fiberoptic bronchoscopy with bronchial lavage, and a esophagogastroduodenoscopy with biopsy of esophagus and gastric mucosa and dilation. The patient went home, against the advice of family member state at home by himself. The next morning on , patient had some complaints of sore throat, he was able to have dinner with his girlfriend, he did complain of some sore throat, dysphasia, no fevers. 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 Patient presented to the emergency room on Sunday night, with similar complaints, was diagnosed with a sore throat, and sent home. However patient continued to have sore throat, dysphasia, which progressed to difficulty breathing, episodes of shortness of breath, no fevers, no vomiting, no lightheadedness, dizziness. Patient presented to the emergency room, Ret ropharyngeal and right deep cervical soft tissue swelling and fluid collections contributing to narrowing of the oropharyngeal and hypopharyngeal airway. Due to concerns for compromised airway and shortness of breath, patient was intubated by Dr. Camp. Her presentation patient was afebrile, respiratory rate 20s to 27, blood pressure 131/61, pulse ox 99, white blood cell count 20.9, arterial blood gas on ventilator shows pH is 7.41, PCO2 35.4, bicarb 22.3. Influenza was negative. No recent travel. No infectious contacts. No known contact to COVID 19. He was intubated. The history today was given by his significant other Alanna. Review of Systems Const: Reports: change in weight Eyes: Denies: change in vision ENMT: Reports: nasal discharge; Denies: throat pain, painful swallowing, hoarseness, oral sores/lesions, ear pain, ear discharge, change in hearing, disequilibrium, nasal congestion, nose bleeds or facial/sinus pain Card: Reports: other (No abnormal BP, CAD, [place], Heart Stent, Hypertension); Denies: chest pain or palpitations Resp: Reports: non-productive cough GI: Reports: heartburn/indigestion; Denies: belching Musc: Reports: other (no neck stiffness); Denies: neck pain or muscle weakness Skin/Breast: Denies: rash, itching, new lesion or changing lesion Neuro: Denies: numbness in extremities, dizziness, vertigo or seizure-like activity Endo: Reports: other (no diabetes mellitus, goiter, and thyroid problems ) Tomy/Lymph: Denies: easy bruising, easy bleeding or enlarged lymph nodes All/Imm: Denies: hives Meds/Allergies Home Medications and Allergies Home Medications Medication Instructions Recorded Confirmed Type carbidopa ER 50 mg-levodopa 200 mg See Rx Instructions .ROUTE 12/24/19 01/24/20 History tablet,extended release .COMPLEX tab clonazepam 0.5 mg tablet 0.5 mg PO DAILY 12/24/19 01/24/20 History gabapentin 100 mg capsule 300 mg PO TID 12/24/19 01/24/20 History metoprolol succinate 50 mg 50 mg PO DAILY 12/24/19 01/24/20 History tablet,extended release 24 hr ropinirole 1 mg tablet See Rx Instructions .ROUTE .COMPLEX 12/24/19 01/24/20 History albuterol sulfate 4 inh INHALATION Q4H PRN #8.5 gm 01/23/20 01/24/20 Rx promethazine-codeine 5 ml PO Q6H PRN #100 ml 01/23/20 01/24/20 Rx furosemide [Lasix] 40 mg PO DAILY 01/24/20 01/24/20 History potassium chloride 20 meq PO DAILY 01/24/20 01/24/20 History sertraline 25 mg PO DAILY 01/24/20 01/24/20 History tramadol 50 mg PO BID PRN 01/24/20 01/24/20 History Allergies Allergy/AdvReac Type Severity Reaction Status Date / Time No Known Allergies Allergy Unverified 12/24/19 08:42 Current Medications Current Medications Generic Name Dose Route Start Last Admin Trade Name Freq PRN Reason Stop Dose Admin Carbidopa/Levodopa 3 each 01/24/20 15:14 01/26/20 04:10 Sinemet OG-TUBE 3 each 6XD BIBI Administration Clonazepam 0.5 mg 01/25/20 09:00 01/25/20 08:59 Klonopin PO 0.5 mg DAILY BIBI Administration Enoxaparin Sodium 40 mg 01/24/20 16:00 01/25/20 16:11 Lovenox SUBCUT 40 mg Q24H BIBI Administration Famotidine 20 mg 01/24/20 18:00 01/25/20 17:00 Pepcid Inj IVP 20 mg BID BIBI Administration Gabapentin 300 mg 01/24/20 15:14 01/25/20 21:43 Neurontin PO 300 mg TID BIBI Administration Propofol 1,000 mg in 100 mls @ 0 mls/hr 01/24/20 12:30 01/26/20 07:41 Diprivan IV Infused .Q0M BIBI Titration Protocol Per Protocol Fentanyl 1,000 mcg/ Sodium 100 mls @ 0 mls/hr 01/24/20 15:14 01/26/20 05:57 Chloride IV 40 mcg/hr .Q0M BIBI 4 mls/hr Administration Protocol Per Protocol Dextrose/Sodium Chloride 1,000 mls @ 75 mls/hr 01/24/20 15:14 01/26/20 04:09 Dextrose 5%-Sod Chloride 0.45% IV 75 mls/hr .[id number] BIBI Administration Vancomycin HCl 2,000 mg/ 500 mls @ 250 mls/hr 01/24/20 16:30 01/26/20 05:52 Sodium Chloride IV 250 mls/hr Q12H BIBI Administration Protocol Piperacillin Sod/Tazobactam 50 mls @ 12.5 mls/hr 01/24/20 18:00 01/26/20 04:08 Sod 3.375 gm/ Sodium Chloride IV 12.5 mls/hr Q8H BIBI Administration Protocol Metronidazole 500 mg in 100 mls @ 100 mls/hr 01/24/20 16:00 01/26/20 01:33 Flagyl Iv IV Infused Q8H BIBI Infusion Protocol Methylprednisolone Sodium Succinate 40 mg 01/25/20 08:00 01/25/20 17:00 Solu-Medrol IVP 40 mg BID BIBI Administration Metoprolol Succinate 50 mg 01/25/20 09:00 01/25/20 09:02 Toprol Xl PO 50 mg DAILY BIBI Administration Ropinirole HCl 1 mg 01/24/20 15:14 01/26/20 05:48 Requip OG-TUBE 1 mg 5XD BIBI Administration Sertraline HCl 25 mg 01/25/20 09:00 01/25/20 08:59 Zoloft PO 25 mg DAILY BIBI Administration PFSH Acute PFSH: Medical History (Updated 01/26/20 @ 08:15 by Beau Dockery MD) Airway obstruction Dysphasia Hypertension Parkinson disease Family History Other Cancer Hypertension Denies family history of Diabetes Social History Smoking and tobacco status: former smoker Alcohol intake: current Alcohol intake frequency: few times a week Vitals/I&O/Wt Last Vital Signs Temp 97.6 F 01/26/20 04:00 Pulse 60 01/26/20 04:00 Resp 14 01/26/20 07:36 BP 132/72 01/26/20 04:00 Pulse Ox 93 01/26/20 04:00 01/25/20 01/26/20 01/26/20 22:59 06:59 14:59 Intake Total 350 / 2195.25 4011.333 / 6206.583 100 / 100 Output Total 1900 / 1900 750 / 2650 Balance -1550 / 295.25 3261.333 / 3556.583 100 / 100 Weight last 48 hrs Weight 285 lb Physical Exam Const: GENERAL APPEARANCE: patient mechanically ventilated HENMT: COMMON NORMALS: normocephalic, head/scalp atraumatic, EAC's normal, nasal mucous membranes and turbinates normal and moist oral mucous membranes HEAD & SCALP: normal to inspection, normocephalic and atraumatic FACE & SINUS: normal facial exam NOSE: nasal mucous membranes and turbinates normal EXTERNAL AUDITORY CANAL: EAC's normal MOUTH: oral and palatal mucosa normal, lip normal, tongue normal, salivary glands and ducts normal and moist mucous membranes abnormal Neck/C-Spine: COMMON NORMALS: no lymphadenopathy, supple and thyroid normal THYROID: thyroid normal Urinary Catheter Management^: [place]: Cath Placed During This Visit: yes Urinary Catheter Date of Insertion: 01/24/20 Urinary Catheter Time of Insertion: 13:56 Data Micro: Micro: Microbiology 01/24/20 11:59 Blood Culture - Pr eliminary Blood NEGATIVE TO JED E 01/24/20 10:15 Blood Culture - Pr eliminary Blood NEGATIVE TO JED E 01/24/20 13:25 Gram Stain - Final Sputum - Endotrac heal Tube Aspirate Sputum Culture - P reliminary A&P Assessment and plan (1) Depression with anxiety: Status: Acute Code(s): F41.8 - Other specified anxiety disorders (2) Parkinson disease: Status: Acute Code(s): G20 - Parkinson's disease (3) Hypertension: Status: Acute Code(s): I10 - Essential (primary) hypertension (4) Dysphasia: Status: Acute Code(s): R47.02 - Dysphasia (5) Airway obstruction: I performed a nasopharyngoscopy bedside. The flexible fiberoptic nasopha ryngoscope was used to examine the hypopharynx and larynx secondary to hyperactive gag reflex. The details of the exam are identified within the substance of the physical examination portion of the record. The exam was performed after anesthetizing the naris with topical 4% lidocaine. The patient tolerated procedure well and no complications occurred. [id number] although difficult to assess does not appear that there is substantial amount of edema and hypopharynx the larynx was not able to be visualized secondary to the ET tube placement. Would recommend extubation of the bronchoscope. He can be reintubated if there is still edema. Appreciate the opportunity to be present during extubation. Status: Acute Code(s): J98.8 - Other specified respiratory disorders Coding Level of Care Code Acute Liaison Inspection Laboratory Assistant for [facility] Exam Expanded Problem Focused Diagnoses Depression with anxiety F41.8 Parkinson disease G20 Hypertension I10 Dysphasia R47.02 Airway obstruction J98.8
[2020-01-26] MEDS: CLONazepam 0.5 mg Tablet PO (08:49)
[2020-01-26] MEDS: sertraline 50 mg Tablet 25 MG PO (08:49)
[2020-01-26] MEDS: metoprolol succinate ER (24 HR) 50 mg Tablet PO (08:49)
[2020-01-26] MEDS: gabapentin 300 mg Capsule PO ×3 (08:49→21:18)
[2020-01-26] MEDS: metroNIDAZOLE IV 500 MG/100 ML PREMIX 100 MG IV (08:50)
[2020-01-26] MEDS: famotidine 20 mg/2 mL INJ IVP ×2 (08:50→17:51)
--- NOTE | 2020-01-26 08:51 | PM.PN ---
Subjective Subjective: Interval history: The patient is currently intubated. Dr. Dockery has seen the patient and the goal will be extubation today. The patient seems to be comfortable on the ventilator. His temperature is more stable today. Vitals/I&O/Wt Last Vital Signs Temp 97.6 F 01/26/20 04:00 Pulse 60 01/26/20 04:00 Resp 14 01/26/20 07:36 BP 132/72 01/26/20 04:00 Pulse Ox 93 01/26/20 04:00 01/25/20 01/26/20 01/26/20 22:59 06:59 14:59 Intake Total 350 / 2195.25 4011.333 / 6206.583 100 / 100 Output Total 1900 / 1900 750 / 2650 Balance -1550 / 295.25 3261.333 / 3556.583 100 / 100 Weight last 48 hrs Weight 285 lb Physical Exam Narrative: EXAM NARRATIVE: General: Sedated on the ventilator Eyes: Pupils equal, round and reactive to light and accommodation bilaterally. Mouth: ET tube in place without obvious thrush noted. Cardiac: Regular rate and rhythm with a grade 2/6 systolic murmur Lungs: Clear to auscultation bilaterally Abdomen: Soft, nontender, no hepatomegaly appreciated. Extremities: Trace edema in the bilateral lower extremities Urinary Catheter Management^: [place]: Cath Placed During This Visit: yes Urinary Catheter Date of Insertion: 01/24/20 Urinary Catheter Time of Insertion: 13:56 Data : 01/26/20 05:17 01/26/20 05:17 Micro: Microbiology 01/24/20 13:25 Gram Stain - Final Sputum - Endotracheal Tube Aspirate Sputum Culture - Final 01/24/20 11:59 Blood Culture - Preliminary Blood NEGATIVE TO DATE 01/24/20 10:15 Blood Culture - Preliminary Blood NEGATIVE TO DATE A&P Additional A&P Information 1. Retropharyngeal edema -because of the patient's edema is unclear at this time. It could be secondary to infection versus swelling after his procedure last week, or possibly unrelated to these. I spoke with Dr. Dockery who would like to extubate the patient today if possible in conjunction with Dr. Camp. They will plan to extubate over a bronchoscope to look for swelling that may prevent successful extubation. They will look for signs of abscess or further edema at that time. I appreciate their assistance and expertise with this patient. 2. Leukocytosis -the patient's white blood cell count has increased to 19. The underlying cause of this is possibly secondary to being on IV steroids. I cannot rule out an underlying abscess. We will see what they visualized with the bronchoscope and go from there in terms of need for further antibiotics. Currently he is on vancomycin, Zosyn and Flagyl. 3. Hypertension -patient's blood pressure is currently stable. Continue new with current medications. 4. Parkinson's disease -continue with home medications. 5. Nutritional support -continue with tube feedings until the patient is able to be extubated and swallow. 6. Prophylaxis -continue with GI prophylaxis and DVT prophylaxis. Attestations Medical Necessity Statement*: The patient continues to need inpatient therapy for the above issues. He continues need ICU care as he is intubated. Time Spent in Patient Care: Greater than 35 minutes (>than 50% of time spent in counselling and/or direct pt care on unit). Coding Level of Care Code Acute Levi Maker for Katherin Campos
[2020-01-26] MEDS: propofol 1,000 MG/100 ML INJ 23.3 MG IV (09:53)
--- NOTE | 2020-01-26 11:14 | PM.ACPR ---
Procedure/Consent Time out: Time Out Performed: Yes Consent: Consent for Procedure: Agrees to proceed with procedure Additional Consent Information: Consent was obtained verbally Procedure Narrative: Name of the procedure: Fiberoptic bronchoscopy endotracheal intubation. Medication: Ketamine 100 mg, Versed 1 mg, fentanyl 25 mcg, Precedex drip, nebulized lidocaine, atomized lidocaine Date: 01/24/2020, time: 2 PM Brief history: This is a 69-year-old gentleman who underwent cricopharyngeal dilation for stenosis presented to the emergency department with worsening shortness of breath with change in voice and drooling. A CT scan revealed significant swelling of the airway involving the epiglottis. Description of the procedure: The procedure was explained to the patient and a verbal consent was obtained. The patient was in bed sitting at a 90 degree angle. He was given the aforementioned medications. The fiberoptic bronchoscopy intubation was then attempted. On the first attempt, the vocal cords could not be visualized and the patient rapidly desaturated within less than a minute. The patient then underwent bag mask ventilation with improvement in his oxygen saturation level. An oral airway was then inserted and the bronchoscope was advanced through the oral airway. There was significant erythema and swelling in the glottic area. The epiglottis was swollen and erythematous. The true vocal cords were not visible. The false vocal cords were erythematous and swollen. Given the patient's critical clinical condition, the fiberoptic bronchoscope was rapidly advanced through the vocal cords after anesthetizing with 1% lidocaine. The endotracheal tube was then advanced over the bronchoscope. There was positive color change for end-tidal CO2 detector, positive fogging, bilateral positive breath sound and absence of epigastric breath sound, there was bilateral chest rise. There was no immediate complications. The patient was stable with stable hemodynamics. Acute Procedures Epistaxis Control: Time out performed: Yes
[2020-01-26 11:15] LABS: Glucose Point of Care 176 mg/dL (70-110)
--- NOTE | 2020-01-26 12:52 | PM.CONSULT ---
Providers/Reason For Consult Consulting Physican/Specialty*: Pulmonary critical care medicine Reason for Consult*: Threatened airway following cricopharyngeal dilation Attending Physician: Braxton Dobbins MD Primary Care Provider: Braxton Dobbins MD History of Present Illness History of Present Illness Fabiola Matthew is a 69 year old male that I had evaluated on January 23 in the ED with threatened airway. The patient recently underwent cricopharyngeal dilation for stenosis. On the CT scan obtained in the ED, the patient had significant swelling of the hypopharynx and retropharyngeal area with narrowing of the oral and hypopharyngeal airway. The patient was intubated with fiberoptic bronchoscope and treated with broad-spectrum antibiotic and steroid therapy. I had evaluated the patient today. The patient was doing well on the ventilator pressure support mode. Subsequently the patient was extubated. Dr. Dockery had performed a bronchoscopy during the removal of the endotracheal tube. Post extubation laryngoscopy did not reveal any significant erythema or swelling of the true or false vocal cords. There was no significant swelling in the subglottic or tracheal area. Post extubation, the patient is doing well. He is little sleepy but easily arousable following commands and answering questions. Oxygen saturation is 92% without any stridor or any use of accessory muscle . Review of Systems Narrative: Limited due to clinical condition. Meds/Allergies Home Medications and Allergies Home Medications Medication Instructions Recorded Confirmed Type carbidopa ER 50 mg-levodopa 200 mg See Rx Instructions .ROUTE 12/24/19 01/24/20 History tablet,extended release .COMPLEX tab clonazepam 0.5 mg tablet 0.5 mg PO DAILY 12/24/19 01/24/20 History gabapentin 100 mg capsule 300 mg PO TID 12/24/19 01/24/20 History metoprolol succinate 50 mg 50 mg PO DAILY 12/24/19 01/24/20 History tablet,extended release 24 hr ropinirole 1 mg tablet See Rx Instructions .ROUTE .COMPLEX 12/24/19 01/24/20 History albuterol sulfate 4 inh INHALATION Q4H PRN #8.5 gm 01/23/20 01/24/20 Rx promethazine-codeine 5 ml PO Q6H PRN #100 ml 01/23/20 01/24/20 Rx furosemide [Lasix] 40 mg PO DAILY 01/24/20 01/24/20 History potassium chloride 20 meq PO DAILY 01/24/20 01/24/20 History sertraline 25 mg PO DAILY 01/24/20 01/24/20 History tramadol 50 mg PO BID PRN 01/24/20 01/24/20 History Allergies Allergy/AdvReac Type Severity Reaction Status Date / Time No Known Allergies Allergy Unverified 12/24/19 08:42 Current Medications Current Medications Generic Name Dose Route Start Last Admin Trade Name Frederick PRN Reason Stop Dose Admin Carbidopa/Levodopa 3 each 01/24/20 15:14 01/26/20 11:22 Sinemet OG-TUBE 3 each 6XD BIBI Administration Clonazepam 0.5 mg 01/25/20 09:00 01/26/20 08:49 Klonopin PO 0.5 mg DAILY BIBI Administration Enoxaparin Sodium 40 mg 01/24/20 16:00 01/25/20 16:11 Lovenox SUBCUT 40 mg Q24H BIBI Administration Famotidine 20 mg 01/24/20 18:00 01/26/20 08:50 Pepcid Inj IVP 20 mg BID BIBI Administration Gabapentin 300 mg 01/24/20 15:14 01/26/20 08:49 Neurontin PO 300 mg TID BIBI Administration Fentanyl 1,000 mcg/ Sodium 100 mls @ 0 mls/hr 01/24/20 15:14 01/26/20 11:06 Chloride IV 0 mcg/hr .Q0M BIBI 0 mls/hr Titration Protocol Per Protocol Dextrose/Sodium Chloride 1,000 mls @ 75 mls/hr 01/24/20 15:14 01/26/20 04:09 Dextrose 5%-Sod Chloride 0.45% IV 75 mls/hr .[id number] BIBI Administration Piperacillin Sod/Tazobactam 50 mls @ 12.5 mls/hr 01/24/20 18:00 01/26/20 11:23 Sod 3.375 gm/ Sodium Chloride IV 12.5 mls/hr Q8H BIBI Administration Protocol Metoprolol Succinate 50 mg 01/25/20 09:00 01/26/20 08:49 Toprol Xl PO 50 mg DAILY BIBI Administration Ropinirole HCl 1 mg 01/24/20 15:14 01/26/20 09:53 Requip OG-TUBE 1 mg 5XD BIBI Administration PFSH Acute PFSH: Medical History Airway obstruction Dysphasia Hypertension Parkinson disease Family History Other Cancer Hypertension Denies family history of Diabetes Social History Smoking and tobacco status: former smoker Alcohol intake: current Alcohol intake frequency: few times a week Vitals/I&O/Wt Last Vital Signs Temp 96.6 F L 01/26/20 08:00 Pulse 63 01/26/20 08:00 Resp 13 01/26/20 11:06 BP 138/72 01/26/20 08:00 Pulse Ox 95 01/26/20 08:00 01/25/20 01/26/20 01/26/20 22:59 06:59 14:59 Intake Total 350 / 2195.25 4011.333 / 6206.583 197.048 / 197.048 Output Total 1900 / 1900 750 / 2650 Balance -1550 / 295.25 3261.333 / 3556.583 197.048 / 197.048 Physical Exam Narrative: EXAM NARRATIVE: General: Patient is sleepy, easily arousable, answers questions and follows commands, no acute distress Neck: No JVD, no cervical or supraclavicular lymphadenopathy. There is no significant swelling in the submandibular area and anterior neck Respiratory: Auscultation: Bilateral clear to auscultation both anterior and posteriorly, no crackles wheezing or rhonchi Cardiovascular: Regular rate and rhythm, S1-S2 present, no murmur, no right ventricular heave, no peripheral edema. Abdomen: Soft, nontender, nondistended, positive bowel sound Skin: No rash Neuro: The patient appears to be sleepy however easily arousable and follows commands no focal deficit Urinary Catheter Management^: [place]: Cath Placed During This Visit: yes Urinary Catheter Date of Insertion: 01/24/20 Urinary Catheter Time of Insertion: 13:56 Data Labs: Other Labs: I have reviewed the patient's laboratory, radiologic and microbiologic data. The patient has leukocytosis possibly secondary to the steroid. The hyperglycemia is also likely secondary to the steroids. Chest x-ray obtained this morning revealed questionable pulmonary vascular congestion. There was no evidence of infiltrate. Micro: Micro: Microbiology 01/24/20 13:25 Gram Stain - Final Sputum - Endotrac heal Tube Aspirate Sputum Culture - F inal 01/24/20 11:59 Blood Culture - Pr eliminary Blood NEGATIVE TO JED E 01/24/20 10:15 Blood Culture - Pr eliminary Blood NEGATIVE TO JED E A&P Assessment and plan (1) Airway obstruction: The patient suffered from significant upper airway swelling resulting in significant narrowing of the airway. He was intubated on Sunday and was treated with broad-spectrum antibiotic and steroid. He was extubated today and post extubation laryngoscopy did not reveal any significant vocal cord edema, erythema. There is also no significant subglottic airway narrowing. I am going to discontinue the steroid therapy at this point. I will continue with Zosyn which will provide adequate coverage. The patient is currently doing well without any evidence of respiratory difficulty. Once the patient is able to swallow I will start all his home medications. The patient will likely be ready to be transferred to the floor soon. I am giving him 40 mg of IV Lasix. Thank you for the consultation. Status: Acute Code(s): J98.8 - Other specified respiratory disorders Coding Level of Care Code Acute Tester [employer] for [facility] Diagnoses Airway obstruction J98.8
[2020-01-26] MEDS: FUROsemide 10 mg/mL SDV 2mL 40 MG IVP (13:44)
--- NOTE | 2020-01-26 14:41 | PC.OT ---
OT note: Pt just recently extubated when therapist went to ICU to attempt eval. Discussed with nursing and will hold at this time. Will attempt again tomorrow as able.
[2020-01-26] MEDS: enoxaparin 40 mg/0.4 mL Syringe SUBCUT (15:02)
--- NOTE | 2020-01-26 15:57 | PM.OP ---
Operative Report Date of procedure: January 26, 2020 Pre-op Diagnosis: airway obstruction Post-op diagnosis: same Post-op Findings: Normal patent airway Procedure Done: Direct laryngoscopy Pathology: none sent Surgeon: Beau Dockery Anesthesia: None Complications: None Condition: stable Disposition: no change Procedure: The flexible fiberoptic nasopharyngoscope was used to examine the hypopharynx and larynx after the patient was extubated over the bronchoscope. The exam showed no significant airway obstruction. The procedure was terminated. The patient tolerated the procedure well.
--- NOTE | 2020-01-26 15:59 | PC.PT ---
PT note; nursing recommends hold PT evaluation today, patient now extubated hopefully we'll be able to participate tomorrow
[2020-01-26 16:24] LABS: Glucose Point of Care 148 mg/dL (70-110)
--- NOTE | 2020-01-26 16:45 | PC.NURSE ---
Addendum entered by Desiree Burton 01/26/20 16:46: Witnessed Rosas Blanco RN waste 110 mL of fentanyl. Original Note: fentanyl waste 110ml of fentanyl wasted. Witnessed by Tiny Burton RN.
[2020-01-26] MEDS: amlodipine 5 mg Tablet 2.5 MG PO (18:05)
[2020-01-27] VITALS (15 sets, daily range): BP systolic 108–169; BP diastolic 68–92; PULSE 67–83; RESP 14–30; TEMP 36.3–36.4; O2SAT 90–96
[2020-01-27] MEDS: carbidopa-levodopa 25-100mg Tablet 3 EACH OG-TUBE ×6 (00:58→19:58)
[2020-01-27] MEDS: TRAMadol 50 mg Tablet PO (01:01)
[2020-01-27] MEDS: piperacillin-tazobactam 3.375 GM in sodium chloride 0.9% (plus) 50 ML IV ×3 (03:58→20:54)
[2020-01-27 04:21] LABS: Basophils % 0.2 %; Eosinophils % 0.1 %; Hematocrit 43.3 % (42.0-52.0); Hemoglobin 14.3 g/dL (11.7-16.6); Lymphocytes % 12.5 %; Mean Corpuscular Hemoglobin 30.3 pg (28.0-34.0); Mean Corpuscular Volume 91.7 fL (80-94); Mean Platelet Volume 11.5 fL (7.4-10.4); Monocytes # 1.6 10^3/uL (0.2-0.9); Monocytes % 10.1 %; Neutrophils # 12.1 10^3/uL (1.8-7.7); Neutrophils % 75.6 %; Nucleated Red Blood Cells % 0 %; Platelet Count 224 10^3/cmm (130-400); Red Blood Count 4.72 10^6/uL (4.1-5.3); Red Cell Distribution Width 12.4 % (12.1-15.1); White Blood Count 16.1 10^3/uL (4.0-10.0)
[2020-01-27 04:43] LABS: Alanine Aminotransferase < 5 U/L (0-41); Albumin Level 3.2 g/dL (3.5-5.2); Alkaline Phosphatase 60 IU/L (40-130); Anion Gap 13.1 (5-19); Aspartate Amino Transferase 22 U/L (0-40); Blood Urea Nitrogen 24 mg/dL (8-23); Calcium 8.8 mg/dL (8.5-10.5); Carbon Dioxide 27 mmol/L (22-29); Chloride 104 mmol/L (98-107); Glomerular Filtration Rate 74.3 mL/min (90-130); Glucose 139 mg/dL (65-115); Magnesium 2.3 mg/dL (1.7-2.3); Osmolality Calculated 289 mOsm/kg (285-295); Phosphorus 3.3 mg/dL (2.5-4.5); Potassium 4.1 mmol/L (3.5-5.1); Sodium 140 mmol/L (136-145); Total Bilirubin 0.5 mg/dL (0.15-1.2); Total Protein 6.2 g/dL (6.6-8.7)
[2020-01-27] MEDS: dextrose 5%-sod chloride 0.45% 1,000 ML 75 ML IV (05:51)
[2020-01-27] MEDS: ropinirole 1 mg Tablet OG-TUBE ×5 (05:52→19:57)
[2020-01-27 07:36] LABS: Glucose Point of Care 102 mg/dL (70-110)
--- NOTE | 2020-01-27 08:13 | PM.PN ---
Subjective Subjective: Interval history: The patient is feeling well today. He is not having any shortness of breath or chest pains. The patient has been able to swallow clear liquids. He has been able to swallow pills as well. He has no pain at this time. He does feel weak in general. Vitals/I&O/Wt Last Vital Signs Temp 96.8 F L 01/26/20 14:00 Pulse 74 01/27/20 04:00 Resp 25 H 01/27/20 04:00 BP 135/74 01/27/20 04:00 Pulse Ox 93 01/27/20 04:00 01/26/20 01/27/20 01/27/20 22:59 06:59 14:59 Intake Total 1150 / 2596.769 7398 / 2897.048 Output Total 1900 / 3550 1400 / 4950 Balance -750 / -2202.952 150 / -2052.952 Physical Exam Narrative: EXAM NARRATIVE: General: Sedated on the ventilator Mouth: Mucosal membranes are moist without signs of thrush. Cardiac: Regular rate and rhythm without murmur Lungs: Clear to auscultation bilaterally, no wheezes, crackles or rhonchi. Abdomen: Soft, nontender, no hepatomegaly appreciated. Extremities: Trace edema in the bilateral lower extremities Urinary Catheter Management^: [place]: Cath Placed During This Visit: yes Urinary Catheter Date of Insertion: 01/24/20 Urinary Catheter Time of Insertion: 13:56 Data : 01/27/20 03:56 01/27/20 03:56 Micro: Microbiology 01/24/20 13:25 Gram Stain - Final Sputum - Endotracheal Tube Aspirate Sputum Culture - Final A&P Additional A&P Information 1. Retropharyngeal edema -the patient swelling has significantly improved. Dr. Dockery and Dr. Camp evaluated the patient and a bronchoscopy was done during extubation and the swelling has gone down well. The patient is showing no further signs of complications with breathing. We will continue with Zosyn and likely Augmentin as an outpatient. 2. Leukocytosis -the patient's white blood cell count has begun to decrease. The patient's steroids were stopped yesterday. Continue with Zosyn. 3. Hypertension -patient's blood pressure was elevated yesterday and amlodipine 2.5 mg was started. his blood pressure is in a more normal range. Continue with current medications. 4. Parkinson's disease -continue with home medications. 5. Nutritional support -the patient is currently doing well with clear liquids. We will have speech therapy evaluate and advance his diet as tolerated. 6. Prophylaxis -continue with GI prophylaxis and DVT prophylaxis. Attestations Medical Necessity Statement*: My hope is to be able to discharge him over the next few days. The patient is more stable and we will transfer him to the medical floor. Coding Level of Care Code Acute Cloth Shrinking Machine Operator Helper for Katherin Campos
[2020-01-27] MEDS: CLONazepam 0.5 mg Tablet PO (08:24)
[2020-01-27] MEDS: gabapentin 300 mg Capsule PO ×3 (08:24→19:58)
[2020-01-27] MEDS: metoprolol succinate ER (24 HR) 50 mg Tablet PO (08:24)
[2020-01-27] MEDS: amlodipine 5 mg Tablet 2.5 MG PO (08:24)
[2020-01-27] MEDS: FUROsemide 20 mg Tablet PO (08:24)
[2020-01-27] MEDS: famotidine 20 mg/2 mL INJ IVP ×2 (08:25→18:21)
--- NOTE | 2020-01-27 11:30 | PC.NURSE ---
Removed ramirez catheter, catheter tip in place. Patient tolerated well. Called report to Farzana Partida RN. Took patient to 259-1 in wheelchair. Patient resting in bed, bed in lowest position, call light in place. Farzana Partida RN at bedside.
--- NOTE | 2020-01-27 12:04 | PC.SOCIAL ---
IMM Updated Updated pt on Pg 2 IMM. NO questions voiced. Provided pt a copy & left on their bedside table. Signed, dated, & timed copy in chart.
[2020-01-27] MEDS: enoxaparin 40 mg/0.4 mL Syringe SUBCUT (15:08)
--- NOTE | 2020-01-27 15:15 | PM.PN ---
Subjective Subjective: Interval history: Doing better with no difficulty breathing. Vitals/I&O/Wt Last Vital Signs Temp 97.5 F L 01/27/20 11:29 Pulse 76 01/27/20 11:29 Resp 18 01/27/20 11:29 BP 149/90 01/27/20 11:29 Pulse Ox 93 01/27/20 11:29 01/27/20 01/27/20 01/27/20 06:59 14:59 22:59 Intake Total 1550 / 2897.048 750 / 750 Output Total 1400 / 4950 Balance 150 / -2052.952 750 / 750 Physical Exam Narrative: EXAM NARRATIVE: Const: The patient is in no apparent distress, average body habitus, oriented x3, no limitations and healthy appearing GENERAL APPEARANCE: Cooperative, comfortable, well kempt and well developed ORIENTATION/CONSCIOUSNESS: Awake, oriented to person, oriented to place and oriented to time HENMT: Normocephalic, head/scalp atraumatic, head and scalp normal to inspection, FACE & SINUS: Normal facial exam, sinuses nontender and face symmetric NOSE: external nose normal, nares normal, no nasal polyps, nasal mucous membranes and turbinates normal and septum deviated EXTERNAL EAR: External ears normal EXTERNAL AUDITORY CANAL: EAC's normal TYMPANIC MEMBRANE: TM's normal bilaterally HEARING: Normal to whisper AU ORAL CAVITY: Oral and palatal mucosa normal, lip normal, tongue normal, salivary glands and ducts normal and moist mucous membranes abnormal OROPHARYNX: Oropharynx normal, uvula midline Urinary Catheter Management^: [place]: Cath Placed During This Visit: yes Urinary Catheter Date of Insertion: 01/24/20 Urinary Catheter Time of Insertion: 13:56 Data : 01/27/20 03:56 01/27/20 03:56 A&P Additional A&P Information Retropharyngeal edema - agree with Dr. Dobbins Attestations Medical Necessity Statement*: Follow-up extubation Coding Level of Care Code Acute Public Service Officer for Katherin Campos
--- NOTE | 2020-01-27 18:29 | PC.NURSE ---
Received report from DARIEN Ramírez at 1035. States patient received an esophageal dilation on sun, then went out to eat on eating steak. Came in on sunday due to swelling and irritation, was exubated in ER on sunday. Went to ICU, exubated on sunday, swallow eval this am, mechanical soft diet. Can take pills whole, NKA. Is hypertension takes amlodipine 2.5mg. Has been on oxygen 2L/NC stats at 98%. No home oxygen. PT/OT treating and evaling. Has Parkinson's, A&Ox3, Sinus Rhythm, Lungs are clear, ramirez removed in ICU. IV's in R forearm, R hand, and Left hand. Has SCDs and Lovenox. Up with assist x1 and walker.
--- NOTE | 2020-01-27 19:39 | PC.NURSE ---
Call to Dr. Dobbins as patient has not had BM for 5 days and is needing something to help. He ordered Lactulose 30 GM Q6H until BM.
[2020-01-27] MEDS: lactulose oral liq 20 gm/30 mL UDC 30 GM PO (19:58)
[2020-01-28] VITALS (9 sets, daily range): BP systolic 140–180; BP diastolic 77–95; PULSE 69–87; RESP 16–20; TEMP 36.3–37.1; O2SAT 92–96
[2020-01-28] MEDS: carbidopa-levodopa 25-100mg Tablet 3 EACH OG-TUBE ×6 (00:16→23:04)
[2020-01-28] MEDS: piperacillin-tazobactam 3.375 GM in sodium chloride 0.9% (plus) 50 ML IV ×3 (04:12→19:28)
[2020-01-28 06:15] LABS: Basophils # 0.1 10^3/uL (0.0-0.1); Basophils % 0.4 %; Eosinophils # 0.1 10^3/uL (0.0-0.8); Hematocrit 46.2 % (42.0-52.0); Hemoglobin 15.1 g/dL (11.7-16.6); Lymphocytes # 1.7 10^3/uL (0.8-4.8); Lymphocytes % 13.6 %; Mean Corpuscular HGB Conc 32.7 g/dL (30.0-36.0); Mean Corpuscular Volume 91.7 fL (80-94); Mean Platelet Volume 11.2 fL (7.4-10.4); Monocytes # 1.4 10^3/uL (0.2-0.9); Monocytes % 11.3 %; Neutrophils # 8.5 10^3/uL (1.8-7.7); Neutrophils % 69.8 %; Nucleated Red Blood Cells % 0 %; Platelet Count 215 10^3/cmm (130-400); Red Blood Count 5.04 10^6/uL (4.1-5.3); Red Cell Distribution Width 12.2 % (12.1-15.1); White Blood Count 12.2 10^3/uL (4.0-10.0)
[2020-01-28 06:35] LABS: Alanine Aminotransferase < 5 U/L (0-41); Albumin Level 3.1 g/dL (3.5-5.2); Alkaline Phosphatase 65 IU/L (40-130); Anion Gap 15.6 (5-19); Aspartate Amino Transferase 26 U/L (0-40); Blood Urea Nitrogen 18 mg/dL (8-23); Carbon Dioxide 26 mmol/L (22-29); Chloride 100 mmol/L (98-107); Globulin 2.7 g/dL (1.3-4.6); Glomerular Filtration Rate 83.9 mL/min (90-130); Glucose 102 mg/dL (65-115); Magnesium 2.2 mg/dL (1.7-2.3); Osmolality Calculated 283 mOsm/kg (285-295); Phosphorus 3.6 mg/dL (2.5-4.5); Potassium 3.6 mmol/L (3.5-5.1); Sodium 138 mmol/L (136-145); Total Bilirubin 0.6 mg/dL (0.15-1.2); Total Protein 5.8 g/dL (6.6-8.7)
--- NOTE | 2020-01-28 08:27 | XR_ITS ---
WS: [id number] PORTABLE CHEST HISTORY: Cough COMPARISON: 01/26/2020 Generators for bilateral stimulators project over the lungs. Generators obscure portions of the lungs . No consolidations are identified. Better inspiration as compared to the most recent study. Nasogastric and endotracheal tubes have been removed. No pleural effusion or pneumothorax. Cardiac size: Normal. Mediastinum/Aorta: Normal mediastinum. No osseous abnormality seen. XR/XR chest 1V portable [id number] IMPRESSION: 1. Improved aeration with less vascular congestion as compared to the most rec ent study. 2. Portions of the lungs are being obscured by the vagal nerve stimulator gene rators. 3. No pneumonia.
--- NOTE | 2020-01-28 08:28 | PM.PN ---
Subjective Subjective: Interval history: The patient is feeling better today. He has still had some difficulty getting to the bathroom, however has been able to get there with assistance. The patient has had a cough and has some sputum production. He has been able to swallow reasonably well. He still has some pain and swelling in the throat, however he feels that it is improved compared to yesterday. Vitals/I&O/Wt Last Vital Signs Temp 98.4 F 01/28/20 08:00 Pulse 87 01/28/20 08:00 Resp 20 H 01/28/20 08:00 BP 140/84 01/28/20 08:00 Pulse Ox 96 01/28/20 08:00 01/27/20 01/28/20 01/28/20 22:59 06:59 14:59 Intake Total 650 / 1400 70.625 / 1470.625 Output Total 450 / 450 300 / 750 Balance 200 / 950 -229.375 / 720.625 Physical Exam Narrative: EXAM NARRATIVE: General: Alert and oriented x3 Mouth: Mucosal membranes are moist without signs of thrush. Cardiac: Regular rate and rhythm without murmur Lungs: Decreased air movement in the right lower lung. No wheezes or rhonchi noted. Abdomen: Soft, nontender, no hepatomegaly appreciated. Extremities: Trace edema in the bilateral lower extremities Urinary Catheter Management^: [place]: Cath Placed During This Visit: yes Urinary Catheter Date of Insertion: 01/24/20 Urinary Catheter Time of Insertion: 13:56 Data : 01/28/20 05:22 01/28/20 05:22 A&P Additional A&P Information 1. Retropharyngeal edema -the patient swelling has continued to improve. The patient is showing no further signs of complications with breathing. His voice is starting to improve and his swallowing is improving. We will continue with Zosyn for another day and likely Augmentin as an outpatient. Possible discharge tomorrow. 2. Leukocytosis -the patient's white blood cell count has continued to decrease. Continue with Zosyn. 3. Hypertension -patient's blood pressure has improved with amlodipine 2.5 mg. It is still slightly elevated, so we will increase to 5 mg. 4. Parkinson's disease -continue with home medications. 5. Nutritional support -the patient is currently doing well with mechanical soft diet. Continue per recommendations of speech therapy. 6. Prophylaxis -continue with GI prophylaxis and DVT prophylaxis. Attestations Medical Necessity Statement*: The patient continues to need inpatient care. Hopefully he can be discharged over the next 1 to 2 days. We will continue with IV antibiotics. Coding Level of Care Code Acute [place] Consultant for Katherin Campos
[2020-01-28] MEDS: CLONazepam 0.5 mg Tablet PO (09:11)
[2020-01-28] MEDS: amlodipine 5 mg Tablet PO (09:12)
[2020-01-28] MEDS: ropinirole 1 mg Tablet OG-TUBE ×5 (09:12→19:31)
[2020-01-28] MEDS: metoprolol succinate ER (24 HR) 50 mg Tablet PO (09:12)
[2020-01-28] MEDS: gabapentin 300 mg Capsule PO ×3 (09:12→19:31)
[2020-01-28] MEDS: FUROsemide 20 mg Tablet PO (09:12)
[2020-01-28] MEDS: famotidine 20 mg/2 mL INJ IVP ×2 (09:25→19:05)
[2020-01-28] MEDS: TRAMadol 50 mg Tablet PO (11:54)
[2020-01-28] MEDS: enoxaparin 40 mg/0.4 mL Syringe SUBCUT (14:57)
[2020-01-29] VITALS (8 sets, daily range): BP systolic 136–159; BP diastolic 73–89; PULSE 70–84; RESP 18–24; TEMP 36.4–36.8; O2SAT 94–97
[2020-01-29] MEDS: piperacillin-tazobactam 3.375 GM in sodium chloride 0.9% (plus) 50 ML IV ×3 (04:35→20:24)
[2020-01-29] MEDS: ropinirole 1 mg Tablet OG-TUBE ×5 (04:36→21:33)
[2020-01-29] MEDS: carbidopa-levodopa 25-100mg Tablet 3 EACH OG-TUBE ×6 (04:36→23:01)
--- NOTE | 2020-01-29 08:03 | P.PN_ITS ---
Subjective Subjective: Interval history: The patient had some elevated blood pressures yesterday up into the 180s and was unable to ambulate with physical therapy secondary to this. He has had some significant difficulty with ambulation still and feels weak in general. The patient continues to have a cough and some phlegm in his throat. He feels that he is gradually improving, however contin ues to be significantly weak. Vitals/I&O/Wt Last Vital Signs Temp 97.7 F 01/29/20 04:00 Pulse 72 01/29/20 04:00 Resp 24 H 01/29/20 04:00 BP 147/79 01/29/20 04:00 Pulse Ox 95 01/29/20 04:00 01/28/20 01/29/20 01/29/20 22:59 06:59 14:59 Intake Total 410 / 679.375 530 / 1209.375 Output Total 675 / 925 Balance -265 / -245.625 530 / 284.375 Physical Exam Narrative: EXAM NARRATIVE: General: Alert and oriented x3 Mouth: Mucosal membranes are moist without signs of thrush. Cardiac: Regular rate and rhythm without murmur Lungs: Decreased air movement bilaterally. No wheezes or rhonchi noted. Abdomen: Soft, nontender, no hepatomegaly appreciated. Extremities: Trace edema in the bilateral lower extremities Urinary Catheter Management^: Zarco: Cath Placed During This Visit: yes Urinary Catheter Date of Insertion: 01/24/20 Urinary Catheter Time of Insertion: 13:56 Data : 01/28/20 05:22 01/28/20 05:22 A&P Additional A&P Information 1. Retropharyngeal edema -the patient swelling has continued to improve. The patient is showing no further signs of complications with breathing. His voice is starting to improve and his swallowing is improving. We will continue with Zosyn and likely Augmentin as an outpatient. The patient continues to feel weak, and will need to be discharged to a care home facility. We will work on getting this set up likely for tomorrow. 2. Leukocytosis -the patient's white blood cell count has continued to decrease. Continue with Zosyn. 3. Hypertension -the patient's blood pressure has been getting significantly elevated. His metoprolol has been increased. Continue with amlodipine. We will watch this throughout the day to be sure that it is not getting significantly elevated again. Likely discharge to care home tomorrow. 4. Parkinson's disease -continue with home medications. 5. Nutritional support -the patient is currently doing well with mechanical soft diet. Continue per recommendations of speech therapy. 6. Prophylaxis -continue with GI prophylaxis and DVT prophylaxis. Attestations Medical Necessity Statement*: The patient continues need inpatient therapy as we work on managing his blood pressure and swelling in his throat. I suspect that we will be able to discharge him tomorrow as long as things continue to improve. Coding Level of Care Code Acute Climatology Professor for Katherin Campos
[2020-01-29] MEDS: gabapentin 300 mg Capsule PO ×3 (09:04→20:23)
[2020-01-29] MEDS: amlodipine 5 mg Tablet PO (09:05)
[2020-01-29] MEDS: FUROsemide 20 mg Tablet PO (09:05)
[2020-01-29] MEDS: metoprolol succinate ER (24 HR) 100 mg Tablet PO (09:05)
[2020-01-29] MEDS: famotidine 20 mg/2 mL INJ IVP ×2 (09:35→18:12)
--- NOTE | 2020-01-29 11:07 | PC.CHAP ---
Pastoral Care Encounter/Spiritual Assessment Type of Contact [] Declined clinical research management associate visit [] Patient/Family/Request visit [] Outpatient visit [] Follow-up visit [] Physician referral [] Code/Alert [x] Routine visit [] Staff referral [] Actively dying [] Patient sleeping [] Family support [] [] Out of room [] Palliative care [] [] Receiving care in room [] Pre-surgical visit [] Trauma [] Long length of stay [] ICU visit [] Other: Relational/Emotional Strength [x] Patient feels connected with others/family/visitors/staff [] Distress [] Loneliness/isolation [] Abandonment Spirituality of Patient [x] Person of Yesika [x] Attends Mormonism of their Yesika [x] Believes in Prayer [x] Reads Bible or Bahai materials [] There are Spiritual issues to be addressed Civil Engineering Teacher Interventions [x] Prayer [x] Active listening [x] Non-anxious presence [x] Spiritual/emotional support [] Crisis/trauma care [x] Spiritual counseling [] Bereavement support [] Provided bereavement packet [] Provided Bible/devotional materials [] Provided toy/stuffed animal, coloring book to patient or family member [] Provided Communion [] Anointing/Grant [] Salvation [] Completed spiritual assessment [] Other: Impact on Illness or Injury [] Angry [] Fearful [x] Anxious [] Often cries [] Exhaustion [] Unable to work [] Unable to attend sabianism [] Unable to walk/stand [] Unable to read [] Unable to drive [] Unable to eat/drink [] Unable to sleep [] Unable to be with family [] Patient intubated [] Other: Summary Time spent with patient 5 minutes
--- NOTE | 2020-01-29 13:46 | P.PN_ITS ---
Subjective Subjective: Interval history: Doing well. Some mild discomfort in the throat. He is breathing fine Vitals/I&O/Wt Last Vital Signs Temp 97.6 F 01/29/20 11:18 Pulse 70 01/29/20 11:18 Resp 18 01/29/20 11:18 BP 142/84 01/29/20 11:18 Pulse Ox 97 01/29/20 11:18 01/28/20 01/29/20 01/29/20 22:59 06:59 14:59 Intake Total 410 / 679.375 530 / 1209.375 650 / 650 Output Total 675 / 925 600 / 600 Balance -265 / -245.625 530 / 284.375 50 / 50 Physical Exam Narrative: EXAM NARRATIVE: Const: The patient is in no apparent distress, average body habitus, oriented x3, no limitations and healthy appearing GENERAL APPEARANCE: Cooperative, comfortable, well kempt and well developed ORIENTATION/CONSCIOUSNESS: Awake, oriented to person, oriented to place and oriented to time HENMT: Normocephalic, head/scalp atraumatic, head and scalp normal to inspection, FACE & SINUS: Normal facial exam, sinuses nontender and face symmetric NOSE: external nose normal, nares normal, no nasal polyps, nasal mucous membranes and turbinates normal and septum deviated ORAL CAVITY: Oral and palatal mucosa normal, lip normal, tongue normal, salivary glands and ducts normal and moist mucous membranes abnormal OROPHARYNX: Oropharynx normal, uvula midline Eye: PERRL, EOMs intact bilaterally, conjunctivae normal, no scleral icterus and normal visual rock by confrontation. Alignment normal, periorbital findings normal, eyelids normal, conjunctivae normal, sclerae normal, corneas normal. Neck/C-Spine: Full ROM, no lymphadenopathy in levels I-IV, supple, no meningeal signs, no JVD Urinary Catheter Management^: Zarco: Cath Placed During This Visit: yes Urinary Catheter Date of Insertion: 01/24/20 Urinary Catheter Time of Insertion: 13:56 Data : 01/28/20 05:22 01/28/20 05:22 Micro: Microbiology 01/24/20 11:59 Blood Culture - Final Blood NO GROWTH AFTER 5 DAYS 01/24/20 10:15 Blood Culture - Final Blood NO GROWTH AFTER 5 DAYS A&P Additional A&P Information Retropharyngeal edema -continues improvement. Attestations Medical Necessity Statement*: Retropharyngeal edema needing follow-up Coding Level of Care Code Acute Provider Relations Representative for Chg Andres
[2020-01-29] MEDS: enoxaparin 40 mg/0.4 mL Syringe SUBCUT (15:09)
[2020-01-30] MEDS: piperacillin-tazobactam 3.375 GM in sodium chloride 0.9% (plus) 50 ML IV (03:12)
[2020-01-30] MEDS: carbidopa-levodopa 25-100mg Tablet 3 EACH OG-TUBE ×3 (03:12→11:24)
[2020-01-30 04:00] VITALS: BP 153/85; PULSE 70; RESP 16; TEMP 36.7; O2SAT 96
[2020-01-30] MEDS: ropinirole 1 mg Tablet OG-TUBE ×2 (05:25→10:20)
[2020-01-30 07:33] VITALS: BP 162/82; PULSE 71; RESP 16; TEMP 36.8; O2SAT 94
[2020-01-30 07:39] VITALS: PULSE 71; RESP 18; O2SAT 96
[2020-01-30] MEDS: FUROsemide 20 mg Tablet PO (08:31)
[2020-01-30] MEDS: gabapentin 300 mg Capsule PO (08:32)
[2020-01-30] MEDS: amlodipine 5 mg Tablet PO (08:32)
[2020-01-30] MEDS: metoprolol succinate ER (24 HR) 100 mg Tablet PO (08:32)
[2020-01-30] MEDS: famotidine 20 mg/2 mL INJ IVP (08:32)
--- NOTE | 2020-01-30 09:42 | P.DS_ITS ---
Discharge Providers Date of Admission: 01/24/20 14:15 Date of Discharge: January 30, 2020 Attending Provider at Admission: Braxton Dobbins MD Attending Provider at Discharge: Braxton Dobbins MD Primary Care Provider: Braxton Dobbins MD Diagnoses at Discharge Discharge Diagnosis (1) Airway obstruction: Status: Acute (2) Parkinson disease: Status: Acute (3) Hypertension: Status: Acute (4) Dysphasia: Status: Acute Reason for Visit Reason for Visit: Reason For Visit: THROAT SWELLING Hospital Course Hospital Course: The patient was admitted to the hospital secondary to swelling in his upper airway that led to dyspnea and necessity of intubation to protect his airway. The patient had recently had a dilation of the upper airway secondary to breathing issues. CT scan shows signs of retropharyngeal edema with fluid collections concerning for possible infection. The patient was placed on Zosyn, steroids and was on the ventilator for 2 days. The patient was seen by Dr. Dockery and Dr. Camp and he was extubated after 2 days. They did a bronchoscopy at the time of extubation and no further significant swelling was noted. The patient has done well since extubation and his breathing has gradually improved as has his dyspnea. He does continue to have a cough. The patient's blood pressure was also significantly elevated during his hospitalization and we have been working to bring this down. His blood pressure is now in the 140s to 150s range systolic. His metoprolol has been increased and amlodipine was added. These may need to be further adjusted depending on how he does as an outpatient. The patient has had significant weakness since intubation and has required physical therapy. He is starting to improve with this, however we will continue to need physical therapy in order to complete his ADLs at home. The patient will be admitted to a fdc facility for rehabilitation. He has a good prognosis. Currently the patient is doing well and is in agreement with discharge home. All questions were answered. Physical Exam Narrative: EXAM NARRATIVE: General: Alert and oriented x3 Mouth: Mucosal membranes are moist without signs of thrush. Cardiac: Regular rate and rhythm without murmur Lungs: Decreased air movement bilaterally. No wheezes or rhonchi noted. Abdomen: Soft, nontender, no hepatomegaly appreciated. Extremities: Trace edema in the bilateral lower extremities Urinary Catheter Management^: Zarco: Cath Placed During This Visit: yes Urinary Catheter Date of Insertion: 01/24/20 Urinary Catheter Time of Insertion: 13:56 Discharge Data Data Completed and Pending: Completed Studies During Hospitalization Category Date Time Status CT chest w con* 7 1260 Urgent Cat Scan 01/24/20 10:[address] neck w con* 70 491 Urgent Cat Scan 01/24/20 10:16 Completed XR chest 1V swetha ble [id number] Routine Exams 01/26/20 07:00 Completed XR chest 1V swetha ble [id number] Routine Exams 01/28/20 08:27 Completed XR chest 1V swetha ble [id number] Stat Exams 01/24/20 13:09 Completed XR chest 1V swetha ble [id number] Urgent Exams 01/24/20 10:11 Completed Vitals: Last Vital Signs Temp 98.2 F 01/30/20 07:33 Pulse 71 01/30/20 07:39 Resp 18 01/30/20 07:39 BP 162/82 01/30/20 07:33 Pulse Ox 96 01/30/20 07:39 Discharge Plan Discharge Patient Disposition: Xfer SNF Condition: Good Prescriptions: New codeine-guaifenesin 10-100 mg/5 mL liquid 5 ml PO Q6H PRN (Reason: cough) Qty: 120 RF: 0 amoxicillin-pot clavulanate [Augmentin] 875-125 mg tablet 1 tab PO BID Qty: 14 RF: 0 amlodipine 5 mg Tablet 5 mg PO DAILY Qty: 30 RF: 0 metoprolol succinate 100 mg Tablet Extended Release 24 Hr 100 mg PO DAILY Qty: 30 RF: 0 Continued carbidopa-levodopa [Sinemet CR] 50-200 mg tablet extended release See Rx Instructions .ROUTE .COMPLEX RF: 0 gabapentin 100 mg capsule 300 mg PO TID RF: 0 clonazepam 0.5 mg tablet 0.5 mg PO DAILY RF: 0 ropinirole 1 mg tablet See Rx Instructions .ROUTE .COMPLEX RF: 0 Lasix 40 mg Tablet 40 mg PO DAILY RF: 0 tramadol 50 mg Tablet 50 mg PO BID PRN (Reason: Pain) RF: 0 sertraline 25 mg Tablet 25 mg PO DAILY RF: 0 potassium chloride 20 mEq Tablet Extended Release 20 meq PO DAILY RF: 0 albuterol sulfate 90 mcg/actuation HFA aerosol inhaler 4 inh INHALATION Q4H PRN (Reason: shortness of breath or wheezing) Qty: 8.5 RF: 0 Discontinued metoprolol succinate 50 mg tablet extended release 24 hr 50 mg PO DAILY RF: 0 promethazine-codeine 6.25-10 mg/5 mL syrup 5 ml PO Q6H PRN (Reason: cough) Qty: 100 RF: 0 Discharge Orders: Discharge Order (Routine); Ordered 01/30/20 Ordered By: Braxton Dobbins Referrals: Braxton Dobbins MD [Primary Care Provider] - (Follow-up with Dr. Dobbins upon discharge from fdc facility.) Discharge Diet: As Directed and Soft Mechanical Discharge Activity: Increase activity as tolerated and As per PT/OT instructions Discharge Attestations Time Spent in Discharge Care*: greater than 30 min Specific Discharge Activities: Specific discharge activities: educating patient, educating and/or supporting family/caregiver and documenting/other paperwork Quality Metrics Clinical Quality Measures During this hospital stay, did patient experience: None Coding Level of Care Code Acute Torch Straightener And Heater for Chg Fwd Diagnoses Airway obstruction J98.8 Parkinson disease G20 Hypertension I10 Dysphasia R47.02
[2020-01-30 10:41] VITALS: BP 162/82; PULSE 71; RESP 18; TEMP 36.8; O2SAT 96
[2020-01-30 10:58] VITALS: BP 143/79; PULSE 75; RESP 18; TEMP 36.6; O2SAT 94
== END 2020-01-30 12:50 | disposition skilled nursing facility (03) | DRG 208 ==
LOC: ER 14:42 → ICU 14:57 → MEDSURG 01-27 10:58
PROVIDERS: Family Medicine; Internal Medicine; Physician Assistant; Admitting Provider Family Medicine; Emergency Provider Family Medicine; Family Provider Family Medicine; PCP Family Medicine; Visit Provider Family Medicine
DX: J98.8 Other specified respiratory disorders (principal); G20 Parkinson's disease; I10 Essential (primary) hypertension; R13.10 Dysphagia, unspecified; J39.2 Other diseases of pharynx; F41.8 Other specified anxiety disorders; Z87.891 Personal history of nicotine dependence; Z79.52 Long term (current) use of systemic steroids; Z79.2 Long term (current) use of antibiotics; Z79.82 Long term (current) use of aspirin; Z79.84 Long term (current) use of oral hypoglycemic drugs; Z79.899 Other long term (current) drug therapy
CPT/HCPCS: 12345; 36415; 36416; 36600; 51702; 70491; 71045; 71046; 71260; 80051; 80053; 80202; 80500; 82550; 82803; 82810; 82962; 83036; 83605; 83735; 83986; 84100; 84145; 85025; 85378; 86140; 86141; 87040; 87070; 87205; 87804; 88305; 88313; 92610; 93005; 93010; 94002; 94003; 94640; 94664; 94799; 96372; 96374; 96375; 97110; 97116; 97161; 97166; 97530; 97535; 99282; 99283; J0330; J1100; J1650; J1940; J2001; J2250; J2543; J2704; J2920; J2930; J3010; J3370; J3490; J7030; J7040; J7611; J7799; Q9967; S0030

== ENCOUNTER 2020-02-25 08:09 | Emergency (ER) | payer MEDICARE, SELFPAY ==
[2020-02-25] VITALS (8 sets, daily range): BP systolic 120–161; BP diastolic 51–75; PULSE 86–95; RESP 16–24; TEMP 36.7–37; O2SAT 94–96; BMI 36.2
--- NOTE | 2020-02-25 08:48 | XR_ITS ---
WS: [id number] CHEST XRAY TECHNIQUE: Portable chest. CLINICAL INFORMATION: dyspnea/cough COMPARISON: January 28, 2020 FINDINGS: Bilateral vagal nerve stimulators extending cephalad off the [id number]. Heart: Cardiomegaly. Shallow inspiration. Lungs: Lungs are well aerated. No acute pulmonary infiltrates. Bones: Normal visualized bony structures. XR/XR chest 1V portable [id number] IMPRESSION: Bilateral vagal nerve stimulators. No acute chest findings.
--- NOTE | 2020-02-25 08:48 | W.ED.WEAKNES ---
HPI - Weakness General: Chief complaint: Weakness Stated complaint: GENERAL WEAKNESS, RECENT UTI Time Seen by Provider: 02/25/20 08:38 History of Present Illness: HPI Narrative: 69-year-old male brought in by EMS after he fell at home. He is complaining of generalized weakness he fell out of bed and was unable to get up he was down for somewhere in the range of an hour and finally was able to call someone he states he called his primary care doctor's office and then EMS came to get him brought him to the emergency room denies striking his head denies loss of consciousness is been having a fever with a measured temp up to 100 the last 2 days he has been being treated with Cipro from Dr. Dobbins for urinary tract infection feels like he is not getting his bladder completely emptied at times he denies any flank pain. Is not on any anticoagulants he has a mild cough with production of thin almost watery sputum was observed in the exam room. He does deny any abdominal pain he has had nausea but no vomiting or diarrhea denies hematochezia melena hematemesis coffee-ground emesis no hematuria. Due to his generalized weakness and frequency and urgency with urination he has been wearing a diaper which is a new event for him. MD Complaint: generalized weakness and lack of energy Onset (ago): day(s) Duration: constant Location: generalized Severity: severe Relieving factors: none Exacerbating factors: none Context: new medication (Ciprofloxacin) Associated symptoms: Reports chills, decreased appetite, dysuria, fever(s) and nausea; Denies syncope or vomiting Review of Systems Const: Reports: fever, chills and change in appetite ENMT: Denies: throat pain, ear pain, nasal discharge or nasal congestion Card: Denies: syncope Resp: Denies: shortness of breath, productive cough or non-productive cough GI: Reports: nausea; Denies: vomiting : Reports: painful urination, urinary frequency and urinary urgency; Denies: flank pain Skin/Breast: Denies: rash or itching [facility] ED PFSH: Medical History Airway obstruction Dysphasia Hypertension Parkinson disease Family History Other Cancer Hypertension Denies family history of Diabetes Social History Smoking and tobacco status: former smoker Alcohol intake: current Alcohol intake frequency: few times a week 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 Physical Exam Const: COMMON NORMALS: no apparent distress GENERAL APPEARANCE: cooperative and comfortable ORIENTATION/CONSCIOUSNESS: Yes awake, Yes oriented to person, Yes oriented to place and Yes oriented to time HENMT: COMMON NORMALS: normocephalic, head/scalp atraumatic, hearing grossly normal bilaterally, external ears normal, moist oral mucous membranes and oropharynx normal HEAD & SCALP: normocephalic and atraumatic EXTERNAL EAR: Yes external ears normal Eye: COMMON NORMALS: PERRL, EOMs intact bilaterally, conjunctivae normal and no scleral icterus CONJUNCTIVA: Yes conjunctivae normal PUPIL: Yes PERRL Neck/C-Spine: COMMON NORMALS: full ROM, no lymphadenopathy, supple and no JVD Lymph: LYMPHATIC: no lymphadenopathy noted and no lymphedema noted Resp: COMMON NORMALS: normal respiratory effort, no retractions, no use of accessory muscles and clear to auscultation bilaterally AUSCULTATION: clear to auscultation bilaterally Cardio: COMMON NORMALS: no JVD, regular rate, regular rhythm and no murmurs RATE: regular rate RHYTHM: regular rhythm GI: COMMON NORMALS: soft to palpation and no hepatosplenomegaly AUSCULTATION: Yes normoactive bowel sounds PALPATION: Yes soft, No tender, No guarding and Yes no hepatosplenomegaly Extremity: COMMON NORMALS: normal to inspection, normal capillary refill, no clubbing, cyanosis or edema, no calf tenderness and no pedal edema Neuro: SENSORIUM/ORIENTATION: Yes oriented to person, Yes oriented to place and Yes oriented to time Skin: COMMON NORMALS: no rashes or lesions noted GENERAL SKIN EXAM: no rashes or lesions noted Course Vital Signs: Vital signs: Vital Signs Temperature 98.6 F 02/25/20 09:06 Pulse Rate 90 02/25/20 12:05 Respiratory Rate 18 02/25/20 13:58 Blood Pressure 135/69 02/25/20 12:05 Pulse Oximetry 95 02/25/20 12:05 MDM - Weakness MDM Narrative: Medical decision making narrative: Reviewed findings with the patient and his attending Dr. Dobbins really cannot find any significant is very slightly lowered sodium PET scan for by his Lasix is white count is slightly elevated but it is actually lower than it usually is. He was able to ambulate and is not significantly orthostatic given a liter of fluids we will go and discharge him home continue Cipro him follow-up later this week with Dr. Dobbins to evaluate for possible home health assistance. Based on the patient's recent hospitalization we did try to get him admitted to the local [facility] but were unable to do so he could not qualify instead he opted to go home and do home health and follow-up with Dr. Dobbins Lab Data: Labs: Lab Results 02/25/20 02/25/20 02/25/20 Range/Units 08:25 08:25 09:55 WBC 14.2 H (4.0-10.0) 10^3/ uL RBC 4.51 (4.1-5.3) 10^6/u L Hgb 13.7 (11.7-16.6) g/dL Hct 40.8 L (42.0-52.0) % MCV 90.5 (80-94) fL MCH 30.4 (28.0-34.0) pg MCHC 33.6 (30.0-36.0) g/dL RDW 12.6 (12.1-15.1) % Plt Count 119 L (130-400) 10^3/c mm MPV 11.3 H (7.4-10.4) fL Neut % (Auto) 88.1 % Lymph % (Auto) 3.7 % Hinds % (Auto) 6.2 % Eos % (Auto) 0.0 % Baso % (Auto) 0.5 % Neut # (Auto) 12.5 H (1.8-7.7) 10^3/u L Lymph # (Auto) 0.5 L (0.8-4.8) 10^3/u L Hinds # (Auto) 0.9 (0.2-0.9) 10^3/u L Eos # (Auto) 0.0 (0.0-0.8) 10^3/u L Baso # (Auto) 0.1 (0.0-0.1) 10^3/u L Nucleated RBC % (a uto) 0 % Nucleated RBCs # 0.0 /100WBC Sodium 131 L (136-145) mmol/L Potassium 3.5 (3.5-5.1) mmol/L Chloride 94 L (98-107) mmol/L Carbon Dioxide 23 (22-29) mmol/L Anion Gap 17.5 (5-19) BUN 15 (8-23) mg/dL Creatinine 1.1 (0.7-1.2) mg/dL GFR Calculation 66.6 L (90-130) mL/min Glucose 155 H (65-115) mg/dL Calculated Osmolal ity 271 L (285-295) mOsm/k g Calcium 8.7 (8.5-10.5) mg/dL Total Bilirubin 1.2 (0.15-1.2) mg/dL AST 30 (0-40) U/L ALT 13 (0-41) U/L Alkaline Phosphata se 78 (40-130) IU/L Total Protein 6.7 (6.6-8.7) g/dL Albumin 3.5 (3.5-5.2) g/dL Globulin 3.2 (1.3-4.6) g/dL Urine Color Yellow (Yellow) Urine Appearance Clear (CLEAR) Urine pH 5.0 (5-7) Ur Specific Gravit y 1.020 (1.005-1.030) Urine Protein 1+ H (Negative) Urine Glucose (UA) Norm (Normal) Urine Ketones 1+ H (Negative) Urine Blood 2+ H (Negative) Urine Nitrate Negative (Negative) Urine Bilirubin 1+ H (NEGATIVE) Urine Urobilinogen 1 H (Negative) mg/dL Ur Leukocyte Maribel ase 1+ H (Negative) Urine RBC 0-4 H (0-2) /hpf Urine WBC 40-55 H (0-5) /hpf Ur Squamous Epith Cells 5-10 H (0-5) Urine Bacteria 1+ H (NONE) Urine Mucus 2+ Discharge Plan Discharge Patient Disposition: Home, Self-Care Clinical Impression: Generalized weakness, Parkinson disease, Acute UTI Condition: Stable Prescriptions: No Action carbidopa-levodopa [Sinemet CR] 50-200 mg tablet extended release See Rx Instructions .ROUTE .COMPLEX RF: 0 gabapentin 100 mg capsule 300 mg PO TID RF: 0 clonazepam 0.5 mg tablet 0.5 mg PO BEDTIME PRN (Reason: unknown) RF: 0 ropinirole 1 mg tablet See Rx Instructions .ROUTE .COMPLEX RF: 0 furosemide [Lasix] 40 mg Tablet 40 mg PO DAILY PRN (Reason: unknown) RF: 0 tramadol 50 mg Tablet 50 mg PO BID PRN (Reason: Pain) RF: 0 potassium chloride 20 mEq Tablet Extended Release 20 meq PO DAILY RF: 0 metoprolol succinate 100 mg Tablet Extended Release 24 Hr 100 mg PO DAILY Qty: 30 RF: 0 amlodipine 5 mg Tablet 5 mg PO DAILY Qty: 30 RF: 0 famotidine 40 mg tablet 40 mg PO DAILY RF: 0 Cipro 500 mg Tablet 500 mg PO BID RF: 0 Aspir-81 81 mg Tablet,Delayed Release (Dr/Ec) 81 mg PO DAILY RF: 0 Tylenol Extra Strength 500 mg Tablet 500 mg PO PRN RF: 0 Brainstrong Memory Support 1 tab PO DAILY RF: 0 Cenforce-200 200 mg PO PRN RF: 0 Discharge Orders: Discharge Order (Routine); Ordered 02/25/20 Ordered By: Diogenes Gomes Referrals: Braxton Dobbins MD [Primary Care Provider] - Activity Restrictions/Additional Instructions: Follow-up with Dr. Dobbins within the week. Discharge Date/Time: 02/25/20 14:58 Coding Level of Care Code ED Director Of National Sales for Chg Fwd Exam Comprehensive
[2020-02-25 08:59] LABS: Basophils # 0.1 10^3/uL (0.0-0.1); Basophils % 0.5 %; Hematocrit 40.8 % (42.0-52.0); Hemoglobin 13.7 g/dL (11.7-16.6); Lymphocytes # 0.5 10^3/uL (0.8-4.8); Lymphocytes % 3.7 %; Mean Corpuscular HGB Conc 33.6 g/dL (30.0-36.0); Mean Corpuscular Hemoglobin 30.4 pg (28.0-34.0); Mean Corpuscular Volume 90.5 fL (80-94); Mean Platelet Volume 11.3 fL (7.4-10.4); Monocytes # 0.9 10^3/uL (0.2-0.9); Monocytes % 6.2 %; Neutrophils # 12.5 10^3/uL (1.8-7.7); Neutrophils % 88.1 %; Nucleated Red Blood Cells % 0 %; Platelet Count 119 10^3/cmm (130-400); Red Blood Count 4.51 10^6/uL (4.1-5.3); Red Cell Distribution Width 12.6 % (12.1-15.1); White Blood Count 14.2 10^3/uL (4.0-10.0)
[2020-02-25] MEDS: ondansetron 2 mg/ML SDV 2 mL 4 MG IVP (09:02)
[2020-02-25] MEDS: sodium chloride 0.9% 1,000 ML 999 ML IV ×2 (09:02→10:42)
[2020-02-25 09:10] LABS: Alanine Aminotransferase 13 U/L (0-41); Albumin Level 3.5 g/dL (3.5-5.2); Alkaline Phosphatase 78 IU/L (40-130); Anion Gap 17.5 (5-19); Aspartate Amino Transferase 30 U/L (0-40); Blood Urea Nitrogen 15 mg/dL (8-23); Calcium 8.7 mg/dL (8.5-10.5); Carbon Dioxide 23 mmol/L (22-29); Chloride 94 mmol/L (98-107); Globulin 3.2 g/dL (1.3-4.6); Glomerular Filtration Rate 66.6 mL/min (90-130); Glucose 155 mg/dL (65-115); Osmolality Calculated 271 mOsm/kg (285-295); Potassium 3.5 mmol/L (3.5-5.1); Sodium 131 mmol/L (136-145); Total Bilirubin 1.2 mg/dL (0.15-1.2); Total Protein 6.7 g/dL (6.6-8.7)
[2020-02-25 10:33] LABS: Urine Appearance Clear (CLEAR); Urine Color Yellow (Yellow)
[2020-02-25 10:34] LABS: Add Urine Microscopic? YES; Bilirubin Urine 1+ (NEGATIVE); Blood Urine 2+ (Negative); Glucose Urine UA Norm (Normal); Ketones Urine 1+ (Negative); Leukocyte Esterase Urine 1+ (Negative); Nitrate Urine Negative (Negative); Protein Urine 1+ (Negative); Urobilinogen Urine 1 mg/dL (Negative)
[2020-02-25 10:42] LABS: Add Urine Culture? Yes; Bacteria Urine 1+; Mucus Urine 2+; RBC Urine 0-4 /hpf (0-2); WBC Urine 40-55 /hpf (0-5)
--- NOTE | 2020-02-25 14:33 | DCPLANNER ---
farm field manager was asked to speak with patient about home health services. farm field manager spoke with patient about home health services, patient stated that he would like to use [facility], case management rn had patient sign Patient Choice Letter stating that [facility] was his first choice. farm field manager also gave patient the performance data sheet for medicare. farm field manager was then asked to see if patient could go to a senior living facility. farm field manager spoke with patient, he stated that he was just at [facility], and would like to go back their. farm field manager called [facility] and spoke with Agnes, faxed patents information to the nursing facility. Agnes from [facility] called case management rn and stated that after reviewing patients records that he would not be able to go back to the snf on the hospital stay that he had due to the reason of ED visit was not related. farm field manager informed ED physician and nurse that patient would not be able to go back to the snf. farm field manager called [facility] to see if the company had received a referral for patient for home health. farm field manager was told they did have a referral and that patient was on the schedule for a nurse and physical therapy to go and see patient on 02.26.20 to start services. farm field manager informed ED physician and nurse that patient would be seen by home health on 02.26.20.
--- NOTE | 2020-02-25 14:57 | PC.CHAP ---
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] Patient/Family/Request visit [] Outpatient visit [] Follow-up visit [] Physician referral [] Code/Alert [] Routine visit [] Staff referral [] Actively dying [] Patient sleeping [] Family support [] [] Out of room [] Palliative care [] [] Receiving care in room [] Pre-surgical visit [] Trauma [] Long length of stay [] ICU visit [x] Other: ER Relational/Emotional Strength [x] Patient feels connected with others/family/visitors/staff [x] Distress [] Loneliness/isolation [] Abandonment Spirituality of Patient [x] Person of Yesika [x] Attends Temple of their Yesika [x] Believes in Prayer [x] Reads Bible or Mandaen materials [] There are Spiritual issues to be addressed Preschool Assistant Principal Interventions [x] Prayer [x] Active listening [x] Non-anxious presence [x] Spiritual/emotional support [] Crisis/trauma care [] Spiritual counseling [] Bereavement support [] Provided bereavement packet [] Provided Bible/devotional materials [] Provided toy/stuffed animal, coloring book to patient or family member [] Provided Communion [] Anointing/[place] [] Salvation [] Completed spiritual assessment [] Other: Impact on Illness or Injury [] Angry [x] Fearful [x] Anxious [] Often cries [] Exhaustion [] Unable to work [x] Unable to attend quaker [x] Unable to walk/stand [] Unable to read [x] Unable to drive [] Unable to eat/drink [] Unable to sleep [] Unable to be with family [] Patient intubated [] Other: Summary Patient is somewhat anxious about being alone at home. He is unable to go to a Penitentiary at this time. He shared he has fallen 3 times in the last 2 days. Once at midnight and was unable to get up, he was able to reach the phone and call his son, who came and helped him. Daughter is coming to take him home. Patient is a person of strong yesika and request prayer. We prayed for strength in his body and peace in his mind. Time spent with patient 20 min
== END 2020-02-25 14:58 | disposition home or self-care (01) ==
PROVIDERS: Emergency Provider Family Medicine; Family Provider Family Medicine; PCP Family Medicine
DX: R53.1 Weakness (principal); G20 Parkinson's disease; N39.0 Urinary tract infection, site not specified; Z79.82 Long term (current) use of aspirin; I10 Essential (primary) hypertension; Z87.891 Personal history of nicotine dependence
CPT/HCPCS: 12345; 36415; 71045; 80053; 81001; 85025; 87040; 87086; 96360; 96361; 96374; 96375; 99284; J2405; J7030

== ENCOUNTER 2020-03-26 06:00 | Outpatient (RCR) | payer MEDICARE, SELFPAY | END 2020-04-04 23:59 | disposition home or self-care (01) | LOC: SPS 06:00 | PROVIDERS: PCP Family Medicine; Referring Provider Family Medicine; Visit Provider Family Medicine | DX: G20 Parkinson's disease (principal) | CPT/HCPCS: 92524; 92610; 97162 ==

== ENCOUNTER 2020-04-05 06:00 | Outpatient (RCR) | payer MEDICARE, SELFPAY | END 2020-05-04 23:59 | disposition home or self-care (01) | LOC: SPS 06:00 | PROVIDERS: PCP Family Medicine; Visit Provider Family Medicine | DX: G20 Parkinson's disease (principal) | CPT/HCPCS: 92507; 97110; 97112 ==

== ENCOUNTER 2020-04-07 13:14 | Emergency (ER) | payer OTHER, SELFPAY ==
[2020-04-07 13:21] VITALS: BP 147/72; PULSE 85; RESP 17; TEMP 37.1; O2SAT 95; BMI 37.6
[2020-04-07 13:27] VITALS: O2SAT 94
--- NOTE | 2020-04-07 13:43 | ED_ITS ---
HPI - Fall General: Chief Complaint: Fall Stated Complaint: fall Time Seen by Provider: 04/07/20 13:19 History of Present Illness: HPI Narrative: 70-year-old male who has a history of Parkinson's. He slipped in the bathroom and hit his left hand he has a small skin tear on the dorsum of the left hand is not actively bleeding he denies any other injury or illness he reports his fall just to be a mechanical fall of stumbling. No other recent illness or injury he is awake and alert denies striking his head. He has an abrasion of the back of his hand he states his immunizations are up-to-date MD complaint: fall Onset (ago): minute(s) Fall from: standing Fall witnessed: no Place fall occurred: other (At hospital while visiting) Loss of consciousness: None Prolonged down time: no Symptoms prior to fall: none Context: tripped/slipped Location of injury - extremities: Left: hand (Skin tear dorsum of hand) Severity: mild Associated symptoms-after fall: Denies abdominal pain or chest pain Review of Systems Const: Denies: fever(s), chills, body aches, change in appetite, fatigue or malaise ENMT: Denies: throat pain, ear or mastoid pain, nasal discharge or nasal congestion Card: Denies: chest pain, edema, dyspnea on exertion or orthopnea Resp: Denies: dyspnea, productive cough or non-productive cough GI: Denies: abdominal pain, nausea, vomiting, hematemesis, coffee ground emesis, diarrhea, constipation, bloating, hematochezia or melena : Denies: flank pain, dysuria, urinary frequency or urinary urgency Skin/Breast: Denies: rash or pruritus PFSH ED PFSH: Medical History Airway obstruction Dysphasia Hypertension Parkinson disease Family History Other Cancer Hypertension Denies family history of Diabetes Social History Smoking and tobacco status: former smoker Alcohol intake: current Alcohol intake frequency: few times a week 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 Physical Exam Const: COMMON NORMALS: average body habitus, patient oriented x3 and alert GENERAL APPEARANCE: cooperative, comfortable, well kempt and well developed NUTRITIONAL APPEARANCE: obese ORIENTATION/CONSCIOUSNESS: Yes awake, Yes oriented to person and Yes oriented to place HENMT: COMMON NORMALS: normocephalic, atraumatic, EAC's normal, TM's normal bilaterally, Normal external nose present, moist oral mucous membranes and oropharynx normal HEAD & SCALP: normocephalic and atraumatic NOSE: Normal external nose present EXTERNAL AUDITORY CANAL: EAC's normal TYMPANIC MEMBRANE: TM's normal bilaterally MOUTH: Normal oral and palatal mucosa present, lip normal and tongue normal THROAT: posterior oropharynx normal and tonsils normal Eye: COMMON NORMALS: Equal, round and reactive pupils present, EOMs intact bilaterally, conjunctivae normal and no scleral icterus CONJUNCTIVA: Yes conjunctivae normal PUPIL: Yes Equal, round and reactive pupils present Neck/C-Spine: COMMON NORMALS: full ROM, no lymphadenopathy, supple, no meningeal signs and Thyroid normal THYROID: Thyroid normal and asymmetrical Lymph: LYMPHATIC: no lymphadenopathy noted Resp: COMMON NORMALS: normal respiratory effort, No retractions, No use of accessory muscles and clear to auscultation bilaterally AUSCULTATION: clear to auscultation bilaterally Cardio: COMMON NORMALS: regular rate and regular rhythm RATE: regular rate RHYTHM: regular rhythm HEART SOUNDS: no murmurs GI: COMMON NORMALS: Normal to inspection, nondistended, normoactive bowel sounds present, Soft to palpation and No hepatosplenomegaly present PALPATION: Yes Soft to palpation and Yes No hepatosplenomegaly present : COMMON NORMALS: Yes no CVA tenderness BLADDER/KIDNEY EXAM: Yes no CVA tenderness Back/Pelvis: COMMON NORMALS: no CVA tenderness LUMBAR SPINE/LOWER BACK: Yes normal to inspection Extremity: COMMON NORMALS: no clubbing, cyanosis or edema, no calf tenderness and no pedal edema Neuro: COMMON NORMALS: patient oriented x3 SENSORIUM/ORIENTATION: Yes alert, Yes oriented to person and Yes oriented to place MENINGEAL SIGNS: Yes no meningeal signs Psych: APPEARANCE: Yes well kempt Skin: COMMON NORMALS: no rashes or lesions noted and turgor normal NARRATIVE SKIN EXAM: [id number] skin tear on the dorsum of the left hand no active bleeding no gaping not amenable repair. GENERAL SKIN EXAM: no rashes or lesions noted and turgor normal Course Vital Signs: Vital signs: Vital Signs Temperature 98.8 F 04/07/20 13:21 Pulse Rate 73 04/07/20 14:53 Respiratory Rate 17 04/07/20 13:21 Blood Pressure 137/75 04/07/20 14:53 Pulse Oximetry 95 04/07/20 14:53 MDM - Fall 2 MDM Narrative: Medical decision making narrative: Patient is doing well x-ray shows no fracture we will go ahead and discharge home wound care instructions given topical antibiotic to the abrasion follow-up as needed Discharge Plan Discharge Patient Disposition: Home, Self-Care Clinical Impression: Parkinson disease, Fall, Abrasion Condition: Stable Prescriptions: New mupirocin 2 % ointment 1 applic TOPICAL TID Qty: 15 RF: 0 No Action carbidopa-levodopa [Sinemet CR] 50-200 mg tablet extended release See Rx Instructions .ROUTE .COMPLEX RF: 0 gabapentin 100 mg capsule 300 mg PO TID RF: 0 clonazepam 0.5 mg tablet 0.5 mg PO BEDTIME PRN (Reason: unknown) RF: 0 ropinirole 1 mg tablet See Rx Instructions .ROUTE .COMPLEX RF: 0 furosemide [Lasix] 40 mg Tablet 40 mg PO DAILY PRN (Reason: unknown) RF: 0 tramadol 50 mg Tablet 50 mg PO BID PRN (Reason: Pain) RF: 0 potassium chloride 20 mEq Tablet Extended Release 20 meq PO DAILY RF: 0 metoprolol succinate 100 mg Tablet Extended Release 24 Hr 100 mg PO DAILY Qty: 30 RF: 0 amlodipine 5 mg Tablet 5 mg PO DAILY Qty: 30 RF: 0 famotidine 40 mg tablet 40 mg PO DAILY RF: 0 aspirin [Aspir-81] 81 mg Tablet,Delayed Release (Dr/Ec) 81 mg PO DAILY RF: 0 acetaminophen [Tylenol Extra Strength] 500 mg Tablet 500 mg PO PRN RF: 0 Cenforce-200 200 mg PO PRN PRN (Reason: Sexual Activity) RF: 0 sertraline 25 mg Tablet 25 mg PO DAILY RF: 0 Referrals: Braxton Dobbins MD [Primary Care Provider] - Discharge Diet: Usual diet Discharge Activity: Resume usual activity Discharge Date/Time: 04/07/20 14:53 Coding Level of Care Code ED Right Of Way Man for Katherin Campos
--- NOTE | 2020-04-07 13:53 | XR_ITS ---
WS: [id number] XR hand LT min 3V* [id number] REASON FOR EXAM: fall/pain FINDINGS: Severe degenerated of arthritis of the distal and interphalangeal joints of the second thro ugh fifth phalanges. Large [place] the nodes are seen along the interphalangeal joints. Degenerate changes of the greater lesser multangular. No definite fractures are seen in the hand. IMPRESSION: Severe osteoarthritic changes of the hand. No definite fractures identified.
[2020-04-07 14:53] VITALS: BP 137/75; PULSE 73; O2SAT 95
== END 2020-04-07 14:53 | disposition home or self-care (01) ==
PROVIDERS: Emergency Provider Family Medicine; PCP Family Medicine
DX: S60.512A Abrasion of left hand, initial encounter (principal); G20 Parkinson's disease; Z79.82 Long term (current) use of aspirin; W01.0XXA Fall on same level from slipping, tripping and stumbling without subsequent striking against object, initial encounter; I10 Essential (primary) hypertension; Z87.891 Personal history of nicotine dependence
CPT/HCPCS: 12345; 73130; 99281; 99282

== ENCOUNTER 2020-04-13 11:56 | Outpatient (CLI) | payer MEDICARE, SELFPAY ==
--- NOTE | 2020-04-13 12:07 | FL_ITS ---
WS: [id number] MODIFIED BARIUM SWALLOW HISTORY: Pharyngeal dysphagia FLUOROSCOPY TIME: 0.9 minutes. Modified barium swallow was performed by the speech pathologist. Fluoroscopy was provided with the pa tient in a lateral projection. Multiple food consistencies were provided. Limited evaluation due to body habitus. Patient was able to swallow the food consistencies without di fficulty. No laryngeal aspiration or penetration. Barium tablet swallowed without difficulty. FL/FL barium swallow modifd [id number] IMPRESSION: Limited swallowing evaluation but no aspiration identified. Please see speech therapist report also for recommendations.
== END 2020-04-13 11:57 | disposition home or self-care (01) ==
LOC: RAD 11:56
PROVIDERS: PCP Family Medicine; Visit Provider Family Medicine
DX: R13.13 Dysphagia, pharyngeal phase (principal)
CPT/HCPCS: 74230; 92611

== ENCOUNTER 2020-04-16 13:52 | Inpatient (IN) | payer MEDICARE, SELFPAY ==
[2020-04-16 14:09] VITALS: BP 160/73; PULSE 82; RESP 22; TEMP 37; O2SAT 95; BMI 41.8
--- NOTE | 2020-04-16 14:49 | XRR_ITS ---
PROCEDURE INFORMATION: Exam: XR Chest, 2 Views Exam date and time: 04/16/2020 3:44 PM Age: 70 years old Clinical indication: Shortness of breath; Prior surgery; Surgery type: Dvs; Patient HX: Short of breath, legs swollen for a week or 2 getting worse; Additional info: SOB TECHNIQUE: Imaging protocol: XR of the chest Views: 2 views. COMPARISON: No relevant prior studies available. FINDINGS: Lungs: Mildly hyperaerated lungs consistent with deep inspiratory effort vs reactive airway disease vs mild COPD . Pleural space: Unremarkable. No pleural effusion. No pneumothorax. Heart/Mediastinum: Unremarkable. No cardiomegaly. Bones/joints: Low density bone consistent with osteopenia/osteoporosis. Other findings: Bilateral pain management/neurostimulator devices in place. XR/XR chest 2V* [id number] IMPRESSION: Mildly hyperaerated lungs consistent with deep inspiratory effort vs reactive airway disease vs mild COPD .
[2020-04-16 15:40] LABS: Add Urine Microscopic? NO
[2020-04-16 15:45] LABS: Basophils # 0.1 10^3/uL (0.0-0.1); Basophils % 1.4 %; Bilirubin Urine Neg (NEGATIVE); Blood Urine Neg (Negative); Eosinophils # 0.1 10^3/uL (0.0-0.8); Eosinophils % 1.2 %; Glucose Urine UA Norm (Normal); Hematocrit 46.4 % (42.0-52.0); Hemoglobin 14.9 g/dL (11.7-16.6); Ketones Urine Negative (Negative); Leukocyte Esterase Urine Negative (Negative); Lymphocytes # 1.8 10^3/uL (0.8-4.8); Lymphocytes % 19.9 %; Mean Corpuscular HGB Conc 32.1 g/dL (30.0-36.0); Mean Corpuscular Hemoglobin 30.6 pg (28.0-34.0); Mean Corpuscular Volume 95.3 fL (80-94); Mean Platelet Volume 11.2 fL (7.4-10.4); Monocytes # 0.9 10^3/uL (0.2-0.9); Monocytes % 9.7 %; Neutrophils % 66.3 %; Nitrate Urine Negative (Negative); Nucleated Red Blood Cells % 0 %; Platelet Count 202 10^3/cmm (130-400); Protein Urine Neg (Negative); Red Blood Count 4.87 10^6/uL (4.1-5.3); Red Cell Distribution Width 13.1 % (12.1-15.1); Urine Appearance Clear (CLEAR); Urine Color Yellow (Yellow); Urobilinogen Urine Neg (Negative); White Blood Count 9.1 10^3/uL (4.0-10.0); pH Urine 5 (5-7)
[2020-04-16 16:54] VITALS: BP 162/75; PULSE 76; RESP 18; O2SAT 98
[2020-04-16 17:30] LABS: Alanine Aminotransferase 6 U/L (0-41); Albumin Level 4.1 g/dL (3.5-5.2); Alkaline Phosphatase 83 IU/L (40-130); Anion Gap 18.3 (5-19); Aspartate Amino Transferase 21 U/L (0-40); Blood Urea Nitrogen 23 mg/dL (8-23); Calcium 9.3 mg/dL (8.5-10.5); Carbon Dioxide 23 mmol/L (22-29); Chloride 103 mmol/L (98-107); Creatinine Clr Calc Pharmacy 109.1419; Globulin 2.7 g/dL (1.3-4.6); Glomerular Filtration Rate 83.7 mL/min (90-130); Glucose 122 mg/dL (65-115); NT Pro B Type Natriuretic Pept 225 pg/mL (0-125); Osmolality Calculated 288 mOsm/kg (285-295); Potassium 4.3 mmol/L (3.5-5.1); Sodium 140 mmol/L (136-145); Total Bilirubin 0.4 mg/dL (0.15-1.2); Total Protein 6.8 g/dL (6.6-8.7)
[2020-04-16] MEDS: FUROsemide 10 mg/mL SDV 4mL 40 MG IVP (18:35)
[2020-04-16 19:05] VITALS: BP 156/95; PULSE 86; RESP 20; O2SAT 96
--- NOTE | 2020-04-16 19:37 | PM.HP ---
Providers/Chief Complaint Admitting Physician: Danisha James MD Primary Care Provider: Braxton Dobbins MD Chief Complaint: swelling History of Present Illness Fabiola Matthew is a 70 year old male with history of Parkinson's, dysphagia, hypertension came in with chief complaint of gradual shortness of breath. Patient is stating that for last 6 to 8 weeks he has been feeling more short of breath on exertion, he has been gaining weight as well, he attributes gaining weight to his eating habits, he has gained about 25 pounds in the last 6 weeks. Patient is stating that he has been having choking sensation for quite some time, he is able to swallow liquid and solid diet without any difficulty but occasionally he gets this choking sensation which would make him short of breath, and dizzy. Today he was eating Setswana fries when the same thing happened, he started choking, experienced multiple bouts of cough, felt dizzy, no syncopal event. He was intubated in January for retropharyngeal edema, bronchoscopy did not reveal swelling after extubation, patient required physical therapy because of his weakness after his stay in the ICU, he was also discharged on metoprolol and amlodipine because her systolic blood pressure was ranging between 140s to 150s. He is taking Lasix but does not carry official diagnosis of heart failure. His swelling started from his feet which is progressing towards his knees now. He is endorsing orthopnea and PND, no feel shortness of breath on mild to moderate activities. he has not noticed any flulike symptoms, fever, productive cough, chest pain, palpitations, dysuria, diarrhea. 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 His Parkinson's seems to be well compensated, he follows up with neurologist in [place]. Diagnostics in the ER revealed Hypertension, he was saturating well on room air, clinical signs of heart failure however BNP not high, normal blood work, I do not see an EKG however x-ray showing neurostimulator's with very mild signs of pulmonary venous congestion Review of Systems Const: Reports: body aches and fatigue; Denies: fever(s) or chills Eyes: Denies: change in vision ENMT: Denies: throat pain Card: Reports: swelling of feet/ankles, dyspnea on exertion and orthopnea; Denies: chest pain Resp: Reports: dyspnea; Denies: productive cough or non-productive cough GI: Reports: constipation; Denies: abdominal pain, nausea or vomiting : Denies: flank pain Musc: Denies: neck pain Skin/Breast: Reports: new lesions (Fell in the bathroom on Sunday, petechia purpura left arm); Denies: rash Neuro: Denies: headache(s) Psych: Denies: anxiety or depression Endo: Denies: polyuria Tomy/Lymph: Denies: easy bruising All/Imm: Denies: urticaria Medications/Allergies Home Medications Medication Instructions Recorded Confirmed Last Taken Type carbidopa ER 50 mg-levodopa 200 mg See Rx Instructions .ROUTE 12/24/19 04/16/20 04/16/20 History tablet,extended release .COMPLEX tab clonazepam 0.5 mg tablet 0.5 mg PO BEDTIME PRN 12/24/19 04/16/20 04/15/20 History gabapentin 100 mg capsule 300 mg PO TID 12/24/19 04/16/20 04/16/20 History ropinirole 1 mg tablet See Rx Instructions .ROUTE .COMPLEX 12/24/19 04/16/20 04/16/20 History furosemide [Lasix] 40 mg PO DAILY PRN 01/24/20 04/16/20 04/16/20 History potassium chloride 20 meq PO DAILY 01/24/20 04/16/20 04/16/20 History tramadol 50 mg PO BID PRN 01/24/20 04/16/20 Unknown History metoprolol succinate 100 mg PO DAILY #30 tab 01/30/20 04/16/20 04/16/20 Rx Cenforce-200 200 mg PO PRN PRN 02/25/20 04/16/20 Unknown History acetaminophen [Tylenol Extra 500 - 1,000 mg PO PRN 02/25/20 04/16/20 Unknown History Strength] aspirin [Aspir-81] See Rx Instructions .ROUTE .COMPLEX 02/25/20 04/16/20 04/13/20 History famotidine 40 mg PO DAILY 02/25/20 04/16/20 04/16/20 History sertraline 25 mg PO DAILY PRN 04/07/20 04/16/20 04/07/20 History amlodipine 10 mg PO DAILY 04/16/20 04/16/20 04/16/20 History Allergies Allergy/AdvReac Type Severity Reaction Status Date / Time No Known Allergies Allergy Verified 04/16/20 14:13 PFSH Acute PFSH: Medical History (Updated 04/16/20 @ 20:28 by Moody Gauthier MD) Airway obstruction Dysphasia Modified barium swallow done 3 days ago 04/13/2020 did not reveal any aspiration Hypertension Parkinson disease Presence of neurostimulator Surgical History (Updated 04/16/20 @ 20:23 by Moody Gauthier MD) History of bronchoscopy Did not reveal retropharyngeal mass or swelling done in Previous back surgery S/P cholecystectomy S/P total knee arthroplasty Family History Other Cancer Hypertension Denies family history of Diabetes Social History Smoking and tobacco status: never smoked Alcohol intake: current Alcohol intake frequency: few times a week 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 Vitals/I&O/Wt Last Vital Signs Temp 98.6 F 04/16/20 14:09 Pulse 86 04/16/20 19:05 Resp 20 H 04/16/20 19:05 BP 156/95 04/16/20 19:05 Pulse Ox 96 04/16/20 19:05 Weight last 48 hrs Weight 136.078 kg Physical Exam Narrative: EXAM NARRATIVE: Head to toe examination Morbidly obese elderly male Pleasant Sitting at the bedside No active resting tremor Able to state above-mentioned his He has good facial expressions Has cushingoid appearing, nonpitting edema of arms and back of his neck S1, S2 no murmur appreciated I did not appreciate any JVD however bilateral lower extremity edema extending up to his knees bilaterally 3+ Pedal edema No active signs of cellulitis however has petechia purpura of left forearm Abdomen soft, distended, visceral obesity, bowel sound present Lungs are clear to auscultation with very mild rhonchi at the bases Appropriate mood and affect Alert oriented x3 GCS 15 No active respiratory distress Data : 04/16/20 15:36 04/16/20 16:36 A&P Assessment and plan (1) Lower extremity edema: Bilateral lower extremity edema gradually worsening He has been taking Lasix with adequate urine output I would stop his amlodipine which can contribute towards lower extremity swelling and constipation and he is endorsing both Change Lasix to Bumex 1 mg which has better GI absorption, however it will be equivalent to 40 mg of Lasix I want to monitor his response of Bumex first then he might need increased dose Echo in the morning Check TSH No proteinuria His BNP is not significantly high but because of high BMI I would not rely on BNP at this point Clinically he has signs of congestive heart failure Status: Acute (2) Sensation of foreign body in esophagus: Bronchoscopy in January did not reveal any foreign body or mass I am not sure if Parkinson's has a role to play for this etiology I am not hearing any stridor or wheezing Status: Acute (3) Insomnia: My concern for obstructive sleep apnea is high which could be contributing to versus congestive heart failure Patient is endorsing insomnia, inability to maintain sleep No official sleep study is done We will check pulse oximeter overnight Status: Acute (4) Morbid obesity: Patient is aware of complications of high BMI, he has tried multiple dietary modifications to keep his weight under normal limit but has failed, he lives alone and struggles to maintain his weight within limits Status: Acute (5) Parkinson disease: No active decompensation, I would continue his medications for now no need to increase frequency or dosages Status: Acute Additional A&P Information DVT prophylaxis: Lovenox Cardiac diet Pulse oximetry study to see if he would benefit from sleep study We will check A1c Attestations Medical Necessity Statement*: Anticipating discharge in less than 48 hours currently need evaluation for new onset edema, rule out congestive heart failure Time Spent in Patient Care: 60 Coding Level of Care Code Acute Refrigeration Specialist for Katherin Campos Diagnoses Lower extremity edema R60.0 Sensation of foreign body in esophagus K22.8 Insomnia G47.00 Morbid obesity E66.01 Parkinson disease G20
[2020-04-16 19:58] VITALS: BP 157/80; PULSE 74; RESP 19; TEMP 36.6; O2SAT 96
--- NOTE | 2020-04-16 20:12 | W.ED.SOB ---
HPI - SOB/Dyspnea General: Chief Complaint: Shortness of Breath/Dyspnea Stated Complaint: swelling Time Seen by Provider: 04/16/20 14:19 Source: patient Mode of arrival: ambulatory Limitations: no limitations History of Present Illness: HPI Narrative: Patient is a 70-year-old gentleman who was sent to the emergency department by his primary care provider with concerns of increasing lower extremity swelling and weight gain. The patient has gained at least 25 pounds recently. He does have associated shortness of breath. He has no history of congestive heart failure. He has occasional increased swelling and has to take Lasix for this. He denies any fever or cough. His primary care provider wanted to do a direct admit for overnight diuresis, however due to these coronavirus pandemic direct admits on hold now so he sent him here for evaluation and admission MD elicited complaint: shortness of breath Timing: constant and progressively worsening Severity: moderate Relieving factors: nothing Associated symptoms: Deny abdominal pain, fever(s), nausea, palpitations, polydipsia, polyuria or vomiting Review of Systems General: Reports: 10 or more systems reviewed and unremarkable except in HPI and below Const: Denies: fever(s), chills or body aches ENMT: Denies: throat pain, enlarged tonsils, odynophagia, hoarseness, mouth pain or swelling of lips/tongue Card: Denies: palpitations, irregular heart rhythm, edema or swelling of feet/ankles Resp: Reports: dyspnea and non-productive cough; Denies: productive cough GI: Denies: abdominal pain, nausea or vomiting : Denies: flank pain, dysuria, urinary frequency, urinary urgency or urinary hesitancy Musc: Reports: extremity swelling; Denies: neck pain or back pain Skin/Breast: Denies: rash, pruritus or erythema Neuro: Denies: headache(s), numbness in extremities or weakness in extremities Endo: Denies: polyuria, polydipsia or tired all the time PFSH ED PFSH: Medical History (Updated 04/16/20 @ 22:03 by Osbaldo Eason MD, [facility] [place]) Airway obstruction Dysphasia Modified barium swallow done 3 days ago 04/13/2020 did not reveal any aspiration Hypertension Parkinson disease Presence of neurostimulator Surgical History (Updated 04/16/20 @ 20:23 by oMody Gauthier MD) History of bronchoscopy Did not reveal retropharyngeal mass or swelling done in Previous back surgery S/P cholecystectomy S/P total knee arthroplasty Family History Other Cancer Hypertension Denies family history of Diabetes Social History Smoking and tobacco status: never smoked Alcohol intake: current Alcohol intake frequency: few times a week 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 Physical Exam Const: COMMON NORMALS: no acute distress, average body habitus, patient oriented x3, no limitations, healthy appearing, alert and well nourished HENMT: COMMON NORMALS: normocephalic, atraumatic and moist oral mucous membranes HEAD & SCALP: normocephalic and atraumatic Neck/C-Spine: COMMON NORMALS: no meningeal signs and no JVD Resp: COMMON NORMALS: normal respiratory effort, No retractions, No use of accessory muscles, clear to auscultation bilaterally and percussion normal AUSCULTATION: clear to auscultation bilaterally and diminished lung sounds PERCUSSION: percussion normal Cardio: COMMON NORMALS: no JVD, regular rate, regular rhythm, S1 normal heart sound present, S2 normal heart sound present, No gallops present (Cardio), No clicks present (Cardio), No murmurs present (Cardio), No rub (Cardio) and Peripheral pulses 2+ throughout RATE: regular rate RHYTHM: regular rhythm HEART SOUNDS: S1 normal heart sound present and S2 normal heart sound present PERIPHERAL PULSES: Peripheral pulses 2+ throughout GI: COMMON NORMALS: Normal to inspection, nondistended, normoactive bowel sounds present, Soft to palpation, non-tender, No hepatosplenomegaly present, no masses and no bruits PALPATION: Yes Soft to palpation and Yes No hepatosplenomegaly present : COMMON NORMALS: Yes no CVA tenderness BLADDER/KIDNEY EXAM: Yes no CVA tenderness Back/Pelvis: COMMON NORMALS: no CVA tenderness Extremity: COMMON NORMALS: normal to inspection, full ROM, capillary refill normal and no calf tenderness NARRATIVE EXTREMITY EXAM: Significant pitting pedal edema, also has some swelling in both hands. GENERAL: Yes edema Neuro: COMMON NORMALS: patient oriented x3 SENSORIUM/ORIENTATION: Yes alert MENINGEAL SIGNS: Yes no meningeal signs Skin: COMMON NORMALS: no rashes or lesions noted, no wounds, turgor normal, no jaundice, no petechiae and no mottling GENERAL SKIN EXAM: no rashes or lesions noted and turgor normal Course Consultations: Consultation #1: Dr. James, hospitalist. She kindly accepted patient to her service. Time: 18:20 Vital Signs: Vital signs: Vital Signs Temperature 97.8 F 04/16/20 19:58 Pulse Rate 74 04/16/20 19:58 Respiratory Rate 19 H 04/16/20 19:58 Blood Pressure 157/80 04/16/20 19:58 Pulse Oximetry 96 04/16/20 19:58 MDM - SOB/Dyspnea MDM Narrative: Medical decision making narrative: 70-year-old gentleman with significant weight gain and fluid overload. He does not have a history of congestive heart failure, and evaluation here is not consistent with congestive heart failure. He is admitted in observation status for further evaluation and management. Medical Records: Attestation: I reviewed the patient's medical records. Lab Data: Attestation: I reviewed the patient's lab results. Labs: Lab Results 04/16/20 04/16/20 04/16/20 Range/Units 15:36 15:36 16:36 WBC 9.1 (4.0-10.0) 10^3/ uL RBC 4.87 (4.1-5.3) 10^6/u L Hgb 14.9 (11.7-16.6) g/dL Hct 46.4 (42.0-52.0) % MCV 95.3 H (80-94) fL MCH 30.6 (28.0-34.0) pg MCHC 32.1 (30.0-36.0) g/dL RDW 13.1 (12.1-15.1) % Plt Count 202 (130-400) 10^3/c mm MPV 11.2 H (7.4-10.4) fL Neut % (Auto) 66.3 % Lymph % (Auto) 19.9 % Lipscomb % (Auto) 9.7 % Eos % (Auto) 1.2 % Baso % (Auto) 1.4 % Neut # (Auto) 6.0 (1.8-7.7) 10^3/u L Lymph # (Auto) 1.8 (0.8-4.8) 10^3/u L Lipscomb # (Auto) 0.9 (0.2-0.9) 10^3/u L Eos # (Auto) 0.1 (0.0-0.8) 10^3/u L Baso # (Auto) 0.1 (0.0-0.1) 10^3/u L Nucleated RBC % (a uto) 0 % Nucleated RBCs # 0.0 /100WBC Sodium 140 (136-145) mmol/L Potassium 4.3 (3.5-5.1) mmol/L Chloride 103 (98-107) mmol/L Carbon Dioxide 23 (22-29) mmol/L Anion Gap 18.3 (5-19) BUN 23 (8-23) mg/dL Creatinine 0.9 (0.7-1.2) mg/dL GFR Calculation 83.7 L (90-130) mL/min Glucose 122 H (65-115) mg/dL Estimat Average Gl ucose Hemoglobin A1c (4.0-6.0) % Calculated Osmolal ity 288 (285-295) mOsm/k g Calcium 9.3 (8.5-10.5) mg/dL Total Bilirubin 0.4 (0.15-1.2) mg/dL AST 21 (0-40) U/L ALT 6 (0-41) U/L Alkaline Phosphata se 83 (40-130) IU/L NT-Pro-B Natriuret Pep 225 H (0-125) pg/mL Total Protein 6.8 (6.6-8.7) g/dL Albumin 4.1 (3.5-5.2) g/dL Globulin 2.7 (1.3-4.6) g/dL TSH (0.27-4.20) uIU/ mL Urine Color Yellow (Yellow) Urine Appearance Clear (CLEAR) Urine pH 5 (5-7) Ur Specific Gravit y 1.020 (1.005-1.030) Urine Protein Neg (Negative) Urine Glucose (UA) Norm (Normal) Urine Ketones Negative (Negative) Urine Blood Neg (Negative) Urine Nitrate Negative (Negative) Urine Bilirubin Neg (NEGATIVE) Urine Urobilinogen Neg (Negative) mg/dL Ur Leukocyte Maribel ase Negative (Negative) 04/16/20 04/16/20 Range/Units 16:36 16:36 WBC (4.0-10.0) 10^3/ uL RBC (4.1-5.3) 10^6/u L Hgb (11.7-16.6) g/dL Hct (42.0-52.0) % MCV (80-94) fL MCH (28.0-34.0) pg MCHC (30.0-36.0) g/dL RDW (12.1-15.1) % Plt Count (130-400) 10^3/c mm MPV (7.4-10.4) fL Neut % (Auto) % Lymph % (Auto) % Lipscomb % (Auto) % Eos % (Auto) % Baso % (Auto) % Neut # (Auto) (1.8-7.7) 10^3/u L Lymph # (Auto) (0.8-4.8) 10^3/u L Lipscomb # (Auto) (0.2-0.9) 10^3/u L Eos # (Auto) (0.0-0.8) 10^3/u L Baso # (Auto) (0.0-0.1) 10^3/u L Nucleated RBC % (a uto) % Nucleated RBCs # /100WBC Sodium (136-145) mmol/L Potassium (3.5-5.1) mmol/L Chloride (98-107) mmol/L Carbon Dioxide (22-29) mmol/L Anion Gap (5-19) BUN (8-23) mg/dL Creatinine (0.7-1.2) mg/dL GFR Calculation (90-130) mL/min Glucose (65-115) mg/dL Estimat Average Gl ucose 131 Hemoglobin A1c 6.2 H (4.0-6.0) % Calculated Osmolal ity (285-295) mOsm/k g Calcium (8.5-10.5) mg/dL Total Bilirubin (0.15-1.2) mg/dL AST (0-40) U/L ALT (0-41) U/L Alkaline Phosphata se (40-130) IU/L NT-Pro-B Natriuret Pep (0-125) pg/mL Total Protein (6.6-8.7) g/dL Albumin (3.5-5.2) g/dL Globulin (1.3-4.6) g/dL TSH 0.93 (0.27-4.20) uIU/ mL Urine Color (Yellow) Urine Appearance (CLEAR) Urine pH (5-7) Ur Specific Gravit y (1.005-1.030) Urine Protein (Negative) Urine Glucose (UA) (Normal) Urine Ketones (Negative) Urine Blood (Negative) Urine Nitrate (Negative) Urine Bilirubin (NEGATIVE) Urine Urobilinogen (Negative) mg/dL Ur Leukocyte Maribel ase (Negative) Imaging Data^: CXR: Radiologist's impression: [address] [address] XRay Report Signed Patient: Laura Matthew #: [id number] : 1Acct#:[id number] Age/Sex: 70 / MADM Date: 04/16/20 Loc: ERRoom/Bed: Attending Dr: Ordering Provider/Ordering MD: Osbaldo Eason MD, [facility] [place] Date of Service: 04/16/20 Procedure(s): XR chest 2V* [id number] Accession Number(s): [id number] Report Number: [id number] PROCEDURE INFORMATION: Exam: XR Chest, 2 Views Exam date and time: 04/16/2020 3:44 PM Age: 70 years old Clinical indication: Shortness of breath; Prior surgery; Surgery type: Dvs; Patient HX: Short of breath, legs swollen for a week or 2 getting worse; Additional info: SOB TECHNIQUE: Imaging protocol: XR of the chest Views: 2 views. COMPARISON: No relevant prior studies available. FINDINGS: Lungs: Mildly hyperaerated lungs consistent with deep inspiratory effort vs reactive airway disease vs mild COPD . Pleural space: Unremarkable. No pleural effusion. No pneumothorax. Heart/Mediastinum: Unremarkable. No cardiomegaly. Bones/joints: Low density bone consistent with osteopenia/osteoporosis. Other findings: Bilateral pain management/neurostimulator devices in place. XR/XR chest 2V* [id number] IMPRESSION: Mildly hyperaerated lungs consistent with deep inspiratory effort vs reactive airway disease vs mild COPD . Dictated By:Daniel Cabral MD Signed By:Daniel Cabraligned Date/Time:04/16/20 1609 DD/ 1608 Discharge Plan Discharge Patient Disposition: Admitted As Inpatient Admit Provider: Danisha James Clinical Impression: Anasarca Condition: Stable Interventions: ED Discharge Assessment Last Done: 04/16/20 16:54 ED Charges Last Done: 04/16/20 16:58 Discharge Date/Time: 04/16/20 19:15 Coding Level of Care Code ED Cutch Cleaner for Katherin Campos
[2020-04-16 21:06] LABS: Estmated Average Glucose 131; Hemoglobin A1C 6.2 % (4.0-6.0)
[2020-04-16 21:16] LABS: Thyroid Stimulating Hormone 0.93 uIU/mL (0.27-4.20)
[2020-04-16] MEDS: carbidopa-levodopa ER 50-200mg Tablet 1.5 EACH PO (21:26)
[2020-04-16] MEDS: enoxaparin 40 mg/0.4 mL Syringe SUBCUT (21:26)
[2020-04-16] MEDS: gabapentin 300 mg Capsule PO (21:26)
[2020-04-16] MEDS: ropinirole 1 mg Tablet 3 MG PO (23:45)
[2020-04-17] VITALS (8 sets, daily range): BP systolic 119–166; BP diastolic 73–83; PULSE 67–79; RESP 18–20; TEMP 36.4–36.7; O2SAT 94–98
[2020-04-17] MEDS: ropinirole 1 mg Tablet 3 MG PO ×6 (02:14→22:06)
[2020-04-17] MEDS: carbidopa-levodopa ER 50-200mg Tablet 1.5 EACH PO ×6 (02:15→22:06)
[2020-04-17] MEDS: acetaminophen 500 mg Tablet PO (02:15)
[2020-04-17 05:28] LABS: Basophils # 0.1 10^3/uL (0.0-0.1); Basophils % 1.2 %; Eosinophils # 0.1 10^3/uL (0.0-0.8); Eosinophils % 1.4 %; Hematocrit 43.8 % (42.0-52.0); Hemoglobin 14.3 g/dL (11.7-16.6); Lymphocytes # 1.7 10^3/uL (0.8-4.8); Lymphocytes % 19.9 %; Mean Corpuscular HGB Conc 32.6 g/dL (30.0-36.0); Mean Corpuscular Hemoglobin 30.9 pg (28.0-34.0); Mean Corpuscular Volume 94.6 fL (80-94); Mean Platelet Volume 11.1 fL (7.4-10.4); Monocytes % 12.2 %; Neutrophils # 5.3 10^3/uL (1.8-7.7); Neutrophils % 63.3 %; Nucleated Red Blood Cells % 0 %; Platelet Count 189 10^3/cmm (130-400); Red Blood Count 4.63 10^6/uL (4.1-5.3); Red Cell Distribution Width 13.1 % (12.1-15.1); White Blood Count 8.4 10^3/uL (4.0-10.0)
[2020-04-17 06:11] LABS: Anion Gap 16.8 (5-19); Blood Urea Nitrogen 23 mg/dL (8-23); Calcium 9.3 mg/dL (8.5-10.5); Carbon Dioxide 27 mmol/L (22-29); Chloride 100 mmol/L (98-107); Glomerular Filtration Rate 74.1 mL/min (90-130); Glucose 129 mg/dL (65-115); Osmolality Calculated 288 mOsm/kg (285-295); Potassium 3.8 mmol/L (3.5-5.1); Sodium 140 mmol/L (136-145)
--- NOTE | 2020-04-17 06:21 | PC.NURSE ---
Shift Summary pt slept well, took meds whole, and had good urine output.
[2020-04-17] MEDS: metoprolol succinate ER (24 HR) 100 mg Tablet PO (09:12)
[2020-04-17] MEDS: gabapentin 300 mg Capsule PO ×3 (09:12→22:06)
[2020-04-17] MEDS: potassium chloride ER 10 mEq Tablet 20 MEQ PO (09:12)
[2020-04-17] MEDS: bumetanide 1 mg Tablet PO (09:13)
[2020-04-17] MEDS: aspirin 81 mg EC Tablet PO (09:13)
--- NOTE | 2020-04-17 13:41 | PM.PN ---
Subjective Subjective: Interval history: Feels maybe a bit better but not significantly. Not as short of breath presently. Negative about a liter overnight. Symptoms have been progressive over the last couple of months to the point that has been limiting his ability. Echocardiogram was being performed while I was in the room with him. Vitals/I&O/Wt Last Vital Signs Temp 97.6 F 04/17/20 11:15 Pulse 69 04/17/20 11:15 Resp 18 04/17/20 11:15 BP 152/83 04/17/20 11:15 Pulse Ox 98 04/17/20 11:15 04/16/20 04/17/20 04/17/20 22:59 06:59 14:59 Intake Total 800 / 800 480 / 480 Output Total 1875 / 1875 300 / 300 Balance -1075 / -1075 180 / 180 Weight last 48 hrs Weight 136.078 kg Physical Exam Narrative: EXAM NARRATIVE: Awake and alert, flat affect related to Parkinson's Extraocular movements are intact, mucous membranes are moist Clear anteriorly, decreased at the bases, no accessory muscle use Regular rhythm but distant heart sounds Abdomen is obese, soft, nontender No Zarco At least 2+ if not 3+ pitting edema Bruising to left arm secondary to recent fall as well as a healing of scratch also from the fall Data : 04/17/20 04:40 04/17/20 04:40 A&P Assessment and plan (1) Lower extremity edema: Bilateral lower extremity edema gradually worsening with significant reported weight gain TSH normal No proteinuria BNP is not significantly high Clinically appears to have CHF Status: Acute (2) Sensation of foreign body in esophagus: Bronchoscopy in January did not reveal any foreign body or mass Status: Acute (3) Insomnia: With daytime somnolence. Suggestive of obstructive sleep apnea. Obesity hypoventilation could also be present Status: Acute (4) Morbid obesity: Patient is aware of complications of high BMI, he has tried multiple dietary modifications to keep his weight under normal limit but has failed, he lives alone and struggles to maintain his weight within limits Status: Acute (5) Parkinson disease: No active decompensation, on Sinemet, has neurostimulator Status: Acute Additional A&P Information Given limited response to oral Lasix, has been changed to bumetanide, monitor response Daily weights and I's and O's Amlodipine held, agree with stopping under the circumstances Follow-up pending echo report A1c is 6.2, would benefit from education on consistent carbohydrate diet Will need follow-up of blood sugars with PCP to consider potentially metformin or other options if does not improve PT evaluation Check ABG and exertional oxygen levels Continue Lovenox for DVT prophylaxis Supportive care otherwise Plans were discussed with patient he was given an opportunity to ask questions 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 He has had a significant enough weight gain reported by him and his primary care provider, as well as a better response to IV diuresis then reported by oral diuresis that I would like to continue management a bit longer. Could benefit from other evaluation and education as noted above. Coding Level of Care Code Acute Rail Car Maintenance Mechanic for Chg Fwd Diagnoses Lower extremity edema R60.0 Sensation of foreign body in esophagus K22.8 Insomnia G47.00 Morbid obesity E66.01 Parkinson disease G20
[2020-04-17 14:34] LABS: ABG PCO2 39.8 mmHg (35-45); ABG PH Result 7.46 (7.35-7.45); Arterial Blood Gas Hematocrit 47.5 % (42-52); Base Excess ABG 3.8 mmol/L (-2.0-2.0); Blood Gas Allen Test Pos; Blood Gas Sample Site Radial, right; Blood Gas Sample Type Arterial; Oxygen Device ROOM AIR; PO2 ABG 77.4 mmHg (80.0-100.0)
--- NOTE | 2020-04-17 15:33 | PC.CHAP ---
Pastoral Care Encounter/Spiritual Assessment Type of Contact [] Declined cmo & president visit [] Patient/Family/Request visit [] Outpatient visit [] Follow-up visit [] Physician referral [] Code/Alert [X] Routine visit [] Staff referral [] Actively dying [] Patient sleeping [] Family support [] [] Out of room [] Palliative care [] [] Receiving care in room [] Pre-surgical visit [] Trauma [] Long length of stay [] ICU visit [] Other: Relational/Emotional Strength [] Patient feels connected with others/family/visitors/staff [] Distress [] Loneliness/isolation [] Abandonment Spirituality of Patient [] Person of Yesika [] Attends Amish of their Yesika [] Believes in Prayer [] Reads Bible or Anglican materials [] There are Spiritual issues to be addressed Ceramic Maker Demonstrator Interventions [X] Prayer [] Active listening [] Non-anxious presence [] Spiritual/emotional support [] Crisis/trauma care [] Spiritual counseling [] Bereavement support [] Provided bereavement packet [] Provided Bible/devotional materials [] Provided toy/stuffed animal, coloring book to patient or family member [] Provided Communion [] Anointing/[place] [] Salvation [] Completed spiritual assessment [] Other: Impact on Illness or Injury [] Angry [] Fearful [] Anxious [] Often cries [] Exhaustion [] Unable to work [] Unable to attend jew [] Unable to walk/stand [] Unable to read [] Unable to drive [] Unable to eat/drink [] Unable to sleep [] Unable to be with family [] Patient intubated [] Other: Summary Time spent with patient
--- NOTE | 2020-04-17 18:29 | USCV_ITS ---
Fabiola Matthew Age: 70 Gender: M : 1950 Exam Date: 04/17/2020 08:32 Ordering Phys: Osbaldo Eason MD [facility] [place] Technologist: Margie Gómez Exam Location: [facility] [place] Indication: Anasarca BP: 119 / 73 HR: 73 Rhythm: Sinus Technical Quality: Technically difficult study MEASUREMENTS (Male / Female) Normal Values 2D ECHO LV Diastolic Diameter PLAX 5.5 cm 4.2 - 5.9 / 3.9 - 5.3 cm LV Systolic Diameter PLAX 3.5 cm LV Chamber Size 4.9 cm IVS Diastolic Thickness 1.1 cm 0.6 - 1.0 / 0.6 - 0.9 cm IVS Systolic Thickness 1.4 cm LVPW Diastolic Thickness 1.1 cm 0.6 - 1.0 / 0.6 - 0.9 cm LVPW Systolic Thickness 1.8 cm RV Chamber Size 4.0 cm LVOT Diameter 2.1 cm LV Ejection Fraction 2D Teich 64.7 % LA Diameter 4.6 cm LA Width 3.9 cm LA Height 7.9 cm RA Width 3.6 cm RA Height 5.8 cm Aorta at Sinotubular Diameter 2.1 cm M-MODE LV Diastolic Diameter MM 6.5 cm 4.2 - 5.9 / 3.9 - 5.3 cm LV Systolic Diameter MM 4.0 cm LV Ejection Fraction MM Teich 67.9 % IVS Diastolic Thickness MM 1.3 cm 0.6 - 1.0 / 0.6 - 0.9 cm IVS Systolic Thickness MM 2.2 cm LVPW Diastolic Thickness MM 1.3 cm 0.6 - 1.0 / 0.6 - 0.9 cm LVPW Systolic Thickness MM 1.5 cm RV Diastolic Diameter MM 1.3 cm Aortic Annulus Diameter 3.5 cm LA Ao Ratio MM 1.3 MV E Point Septal Separation 0.6 cm DOPPLER AV Peak Velocity 108.0 cm/s LVOT Peak Velocity 104.0 cm/s AV Area Cont Eq vti 3.0 cm squared AV Area Cont Eq pk 3.2 cm squared MV Area PHT 3.3 cm squared Mitral E to A Ratio 1.0 MV E' Velocity 10.0 cm/s Mitral E to MV E' Ratio 7.2 Mitral E to LV E' Lateral Ratio 7.1 Mitral E to LV E' Septal Ratio 7.3 TR Peak Velocity 279.0 cm/s TR Peak Gradient 31.0 mmHg TR Mean Velocity 243.2 cm/s TR Mean Gradient 23.9 mmHg TR Velocity Time Integral 99.3 cm TV Peak E Velocity 87.0 cm/s Right Atrial Pressure 3.0 mmHg Pulmonary Artery Systolic Pressu 34.1 mmHg PV Peak Velocity 69.0 cm/s RV Acceleration Time 0.1 s RV Ejection Time 0.3 s RV AcT/ET 0.3 FINDINGS Left Ventricle Normal left ventricular size and systolic function, EF 65%.no regional wall motion abnormalities. Grade I/IV diastolic dysfunction (abnormal relaxation filling pattern), normal to mildly elevated filling pressures. Right Ventricle Possibly normal RV size and ejection fraction Right Atrium Possibly of normal size Left Atrium Mildly increased left atrial size. Mitral Valve Mild mitral annular calcification. Trace to mild mitral valve regurgitation. Aortic Valve No gross abnormalities noted Tricuspid Valve Trace tricuspid valve regurgitation. Pulmonic Valve Pulmonic valve not well visualized. Pericardium No pericardial effusion. Aorta Normal aortic annulus size. CONCLUSIONS Normal left ventricular size and systolic function, EF 65%.no regional wall motion abnormalities. Grade I/IV diastolic dysfunction (abnormal relaxation filling pattern), normal to mildly elevated filling pressures. Mildly increased left atrial size. Mild mitral annular calcification. Trace to mild mitral valve regurgitation. The right atrium and right ventricle could not be visualized as well. Trace tricuspid valve regurgitation. Estimated pulmonary artery peak systolic pressure 34 mmHg. There is no pericardial effusion. Technically difficult study because of the poor apical window. Dr Vladislav Barbour MD FACC (Electronically Signed) Final Date: 17 April 2020 23:40 S
[2020-04-17] MEDS: enoxaparin 40 mg/0.4 mL Syringe SUBCUT (22:06)
[2020-04-18] MEDS: carbidopa-levodopa ER 50-200mg Tablet 1.5 EACH PO ×6 (02:41→22:40)
[2020-04-18] MEDS: ropinirole 1 mg Tablet 3 MG PO ×6 (02:41→22:40)
[2020-04-18 03:51] VITALS: BP 143/81; PULSE 64; RESP 20; TEMP 36.5; O2SAT 97
[2020-04-18 05:29] LABS: Blood Urea Nitrogen 22 mg/dL (8-23); Calcium 9.1 mg/dL (8.5-10.5); Carbon Dioxide 27 mmol/L (22-29); Chloride 100 mmol/L (98-107); Creatine Phosphokinase 69 U/L (39-308); Creatinine Clr Calc Pharmacy 97.7982; Glomerular Filtration Rate 74.1 mL/min (90-130); Glucose 142 mg/dL (65-115); Magnesium 2.1 mg/dL (1.7-2.3); Osmolality Calculated 285 mOsm/kg (285-295); Sodium 138 mmol/L (136-145)
[2020-04-18 07:50] VITALS: BP 155/84; PULSE 69; RESP 18; TEMP 36.7; O2SAT 96
[2020-04-18] MEDS: bumetanide 1 mg Tablet PO (09:15)
[2020-04-18] MEDS: metoprolol succinate ER (24 HR) 100 mg Tablet PO (09:16)
[2020-04-18] MEDS: potassium chloride ER 10 mEq Tablet 20 MEQ PO (09:16)
[2020-04-18] MEDS: gabapentin 300 mg Capsule PO ×3 (09:16→21:39)
[2020-04-18 11:19] VITALS: BP 119/77; PULSE 69; RESP 22; TEMP 36.5
[2020-04-18 15:41] VITALS: BP 143/83; PULSE 61; RESP 22; TEMP 36.4; O2SAT 96
--- NOTE | 2020-04-18 18:27 | NUR.SHIFT ---
Shift summary, up walking in escalera x 4 times, zero complaints of pain
[2020-04-18 19:35] VITALS: BP 132/77; PULSE 66; RESP 24; TEMP 36.5; O2SAT 97
--- NOTE | 2020-04-18 21:11 | PM.PN ---
Subjective Subjective: Interval history: Does feel better today. Legs are little bit smaller. Still feels limited in his ability because of the degree of edema. 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 Vitals/I&O/Wt Last Vital Signs Temp 97.7 F 04/18/20 19:35 Pulse 66 04/18/20 19:35 Resp 24 H 04/18/20 19:35 BP 132/77 04/18/20 19:35 Pulse Ox 97 04/18/20 19:35 04/18/20 04/18/20 04/18/20 06:59 14:59 22:59 Intake Total 720 / 720 240 / 960 Output Total 200 / 2700 400 / 400 1225 / 1625 Balance -200 / -1260 320 / 320 -985 / -665 Weight last 48 hrs Weight 134.989 kg Physical Exam Narrative: EXAM NARRATIVE: Awake and alert, more animated today, sitting on the side of the bed Clear patient bilaterally without any rales rhonchi or wheezes Regular rhythm but distant heart sounds Abdomen is obese, soft, nontender No Zarco 2+ lower extremity edema, improved from yesterday No new skin findings Speech clear, tremor noted Data : 04/17/20 04:40 04/18/20 04:58 A&P Assessment and plan (1) Lower extremity edema: Bilateral lower extremity edema gradually worsening with significant reported weight gain TSH normal No proteinuria BNP is not significantly high Clinically appears to have CHF Status: Acute (2) Diastolic CHF: Ejection fraction 65% with grade 1/4 diastolic dysfunction. Estimated pulmonary artery peak systolic pressure 34 mmHg. Status: Acute Qualifiers: Heart failure chronicity: acute Qualified Code(s): I50.31 - Acute diastolic (congestive) heart failure (3) Hyperglycemia: With hemoglobin A1c at 6.2 Status: Acute (4) Sensation of foreign body in esophagus: Bronchoscopy in January did not reveal any foreign body or mass Status: Acute (5) Parkinson disease: No active decompensation, on Sinemet, has neurostimulator Status: Acute (6) Insomnia: With daytime somnolence. ALLEN/OHS are considerations however overnight pulse oximetry testing did not show any significant hypoxemia. 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 His Parkinson's is already a limitation on his mobility and the degree of edema he had at presentation was further impacting his ability to attend to his ADLs. Coding Level of Care Code Acute Driver Recruiter for Katherin Campos Diagnoses Lower extremity edema R60.0 Diastolic CHF I50.31 Heart failure chronicity: acute Hyperglycemia R73.9 Sensation of foreign body in esophagus K22.8 Parkinson disease G20 Insomnia G47.00 Morbid obesity E66.01
[2020-04-18] MEDS: enoxaparin 40 mg/0.4 mL Syringe SUBCUT (21:38)
[2020-04-19] VITALS: BP 131/66; PULSE 71; RESP 24; TEMP 36.5; O2SAT 94
[2020-04-19] MEDS: carbidopa-levodopa ER 50-200mg Tablet 1.5 EACH PO ×2 (03:00→07:08)
[2020-04-19] MEDS: ropinirole 1 mg Tablet 3 MG PO ×2 (03:00→07:08)
[2020-04-19 04:00] VITALS: BP 155/82; PULSE 66; RESP 20; TEMP 36.5; O2SAT 95
[2020-04-19 07:54] VITALS: BP 157/83; PULSE 65; RESP 19; TEMP 36.5; O2SAT 92
--- NOTE | 2020-04-19 08:11 | P.DS_ITS ---
Discharge Providers Date of Admission: 04/17/20 15:44 Date of Discharge: April 19, 2020 Attending Provider at Admission: Danisha James MD Attending Provider at Discharge: Braxton Dobbins MD Primary Care Provider: Braxton Dobbins MD Diagnoses at Discharge Discharge Diagnosis (1) Lower extremity edema: Status: Acute (2) Diastolic CHF: Status: Acute Qualifiers: Heart failure chronicity: acute Qualified Code(s): I50.31 - Acute diastolic (congestive) heart failure (3) Hyperglycemia: Status: Acute (4) Sensation of foreign body in esophagus: Status: Acute (5) Parkinson disease: Status: Acute Problem details: (6) Morbid obesity: Status: Acute (7) Hypersomnia: Status: Acute Reason for Visit Reason for Visit: swelling Hospital Course Hospital Course: The patient was admitted for concerns of significant dyspnea with exertion with a 25 pound weight gain over the last couple of months and significant swelling in his bilateral lower extremities. The patient was started on Bumex IV and had good results. He had a negative balance of approximately 3-1/2 L of fluid during his hospital stay. With this the patient's breathing is significantly improved. He denies any active chest pains. The patient was on amlodipine and this could certainly have been worsening his lower extremity edema. This will be discontinued and he will be started on losartan. The patient had an echocardiogram and it did show signs of grade 1/4 diastolic failure. There is concern that the patient may have underlying sleep apnea as he is tired throughout the day, snores at night and wakes up frequently at night. We will set up an outpatient sleep study to further evaluate. Overall the patient is doing well and would like to be discharged home today. We will follow-up with him in clinic next week and work on getting the sleep st udy set up. Physical Exam Narrative: EXAM NARRATIVE: General: Alert and oriented x3 Cardiac: Regular rate and rhythm without murmurs Lungs: No significant crackles in the bases, mild bilateral wheezing, no rhonchi. Abdomen: Soft, nontender without masses appreciated. Extremities: +1 pitting edema in the bilateral lower extremities. Discharge Data Data Completed and Pending: Completed Studies During Hospitalization Category Date Time Status XR chest 2V* 7104 6 Urgent Exams 04/16/20 14:49 Completed CV echo complete* 90009 Urgent Ultrasound 04/17/20 18:29 Completed Vitals: Last Vital Signs Temp 97.7 F 04/19/20 07:54 Pulse 65 04/19/20 07:54 Resp 19 H 04/19/20 07:54 BP 157/83 04/19/20 07:54 Pulse Ox 92 04/19/20 07:54 Discharge Plan Discharge Patient Disposition: Home, Self-Care Condition: Good Prescriptions: New bumetanide 1 mg Tablet 1 mg PO DAILY Qty: 30 RF: 0 losartan 25 mg tablet 25 mg PO DAILY Qty: 30 RF: 0 Continued carbidopa-levodopa [Sinemet CR] 50-200 mg tablet extended release See Rx Instructions .ROUTE .COMPLEX RF: 0 gabapentin 100 mg capsule 300 mg PO TID RF: 0 clonazepam 0.5 mg tablet 0.5 mg PO BEDTIME PRN (Reason: unknown) RF: 0 ropinirole 1 mg tablet See Rx Instructions .ROUTE .COMPLEX RF: 0 tramadol 50 mg Tablet 50 mg PO BID PRN (Reason: Pain) RF: 0 potassium chloride 20 mEq Tablet Extended Release 20 meq PO DAILY RF: 0 metoprolol succinate 100 mg Tablet Extended Release 24 Hr 100 mg PO DAILY Qty: 30 RF: 0 famotidine 40 mg tablet 40 mg PO DAILY RF: 0 aspirin [Aspir-81] 81 mg Tablet,Delayed Release (Dr/Ec) See Rx Instructions .ROUTE .COMPLEX RF: 0 acetaminophen [Tylenol Extra Strength] 500 mg Tablet 500 - 1,000 mg PO PRN RF: 0 Cenforce-200 200 mg PO PRN PRN (Reason: Sexual Activity) RF: 0 sertraline 25 mg Tablet 25 mg PO DAILY PRN (Reason: unknown) RF: 0 Discontinued furosemide [Lasix] 40 mg Tablet 40 mg PO DAILY PRN (Reason: unknown) RF: 0 amlodipine 5 mg tablet 10 mg PO DAILY RF: 0 Discharge Orders: Discharge Order (Routine); Ordered 04/19/20 Ordered By: Braxton Dobbins Referrals: Braxton Dobbins MD [Primary Care Provider] - Discharge Diet: Diabetic Discharge Activity: Increase activity as tolerated Discharge Attestations Time Spent in Discharge Care*: greater than 30 min Quality Metrics Clinical Quality Measures During this hospital stay, did patient experience: None Coding Level of Care Code Acute Internal Corrosion Specialist for Chg Fwd Diagnoses Lower extremity edema R60.0 Diastolic CHF I50.31 Heart failure chronicity: acute Hyperglycemia R73.9 Sensation of foreign body in esophagus K22.8 Parkinson disease G20 Morbid obesity E66.01 Hypersomnia G47.10
[2020-04-19] MEDS: bumetanide 1 mg Tablet PO (08:14)
[2020-04-19] MEDS: metoprolol succinate ER (24 HR) 100 mg Tablet PO (08:14)
[2020-04-19] MEDS: famotidine 20 mg Tablet 40 MG PO (08:14)
[2020-04-19] MEDS: gabapentin 300 mg Capsule PO (08:14)
[2020-04-19] MEDS: potassium chloride ER 10 mEq Tablet 20 MEQ PO (08:14)
[2020-04-19 08:53] VITALS: BP 157/83; PULSE 65; RESP 19; TEMP 36.5; O2SAT 92
== END 2020-04-19 09:45 | disposition home or self-care (01) | DRG 291 ==
LOC: ER 14:19 → MEDSURG 19:07
PROVIDERS: Family Medicine; Internal Medicine; Admitting Provider Hospitalist; PCP Family Medicine; Visit Provider Hospitalist
DX: I11.0 Hypertensive heart disease with heart failure (principal); I50.31 Acute diastolic (congestive) heart failure; Z68.41 Body mass index [BMI] 40.0-44.9, adult; E66.01 Morbid (severe) obesity due to excess calories; G47.10 Hypersomnia, unspecified; G20 Parkinson's disease; R73.9 Hyperglycemia, unspecified; Z79.82 Long term (current) use of aspirin; R13.10 Dysphagia, unspecified
CPT/HCPCS: 12345; 36415; 36600; 71046; 80048; 80053; 81003; 82550; 82803; 83036; 83735; 83880; 84443; 85025; 93306; 94762; 96372; 96375; 99282; G0378; J1650; J1940

== ENCOUNTER 2020-05-05 06:00 | Outpatient (RCR) | payer MEDICARE, SELFPAY | END 2020-06-04 23:59 | disposition home or self-care (01) | LOC: SPS 06:00 | PROVIDERS: PCP Family Medicine; Visit Provider Family Medicine | DX: G20 Parkinson's disease (principal) | CPT/HCPCS: 92507; 97110 ==

== ENCOUNTER 2020-05-12 15:05 | Outpatient (CLI) | payer MEDICARE, SELFPAY ==
--- NOTE | 2020-05-12 15:11 | USCV_ITS ---
Fabiola Matthew Age: 70 Gender: M : 1950 Exam Date: 05/12/2020 15:27 Ordering Phys: Braxton Dobbins MD Technologist: CONSTANTINE HAZEL Exam Location: [facility] – [place] Indication: EDEMA PROCEDURES: Venous duplex imaging was performed in bilateral lower extremities. The following venous structures were evaluated: common femoral vein, profunda vein, proximal portion of the greater saphenous vein, superficial femoral vein, and the popliteal vein. In addition, the posterior tibial and peroneal trunk were evaluated. Serial compression, augmentation maneuvers, and spectral Doppler flow evaluation were performed. FINDINGS: Normal 2-D Doppler and augmentation and compressibility throughout the lower extremity venous structures. Additional imaging through the proximal calf veins also reveals no thrombus. Limited evaluation of the greater saphenous vein is patent with no thrombus. CONCLUSIONS No DVT bilateral lower extremities. Dr. Tonya Wheeler DO (Electronically Signed) Final Date: 12 May 2020 15:56 S
== END 2020-05-12 15:06 | disposition home or self-care (01) ==
LOC: RAD 15:08
PROVIDERS: PCP Family Medicine; Visit Provider Family Medicine
DX: R60.0 Localized edema (principal)
CPT/HCPCS: 93970

== ENCOUNTER 2020-06-05 06:00 | Outpatient (RCR) | payer MEDICARE, SELFPAY | END 2020-07-05 23:59 | disposition home or self-care (01) | LOC: SPS 06:00 | PROVIDERS: PCP Family Medicine; Visit Provider Family Medicine | DX: G20 Parkinson's disease (principal) | CPT/HCPCS: 92507 ==

== ENCOUNTER 2020-06-25 12:01 | Emergency (ER) | payer MEDICARE, SELFPAY ==
[2020-06-25 12:12] VITALS: BP 173/65; PULSE 92; RESP 20; TEMP 36.2; O2SAT 97; BMI 42.5
--- NOTE | 2020-06-25 12:23 | XR_ITS ---
WS: [id number] EXAM: AP CHEST: PORTABLE UPRIGHT DATE OF EXAM: 06/25/2020, 1246 hour COMPARISON: Chest x-ray from 04/16/2020. HISTORY: Patient is 70 years old with dyspnea. Edema in both legs. History of Parkinson's disease with bilater al neurostimulator leads. FINDINGS: The cardiac silhouette is stable. Considered upper limits of normal. The mediastinal contours are similar. The pulmonary vascularity is normal. Left lung is clear. There is suspicion for a patchy infiltrate in the right mid chest presumably either in the superior segment of the lower lobe or righ t upper lobe. There is no effusion or pneumothorax. No acute bony abnormality is seen. Bilateral n eural stimulator generator packs and leads are seen overlying the chest and in both sides of the neck XR/XR chest 1V portable [id number] IMPRESSION: Suspicion for patchy pneumonitis within the right mid outer chest.
--- NOTE | 2020-06-25 12:23 | USCV_ITS ---
Fabiola Matthew Age: 70 Gender: M : 1950 Exam Date: 06/25/2020 13:56 Ordering Phys: Rosa Elena Cazares DO Technologist: CONSTANTINE HAZEL [place] [facility] [place] Indication: pain and swelling HISTORY: Lower extremity swelling. Lower extremity pain. PROCEDURES: Bilaterally, the common femoral, superficial femoral, profunda femoral, popliteal, posterior tibial, greater saphenous veins, and the peroneal trunk were identified and interrogated in the standard fashion. These veins were found to be easily compressible with spontaneous blood flow. FINDINGS: Normal 2-D Doppler and augmentation and compressibility throughout the lower extremity venous structures. Additional imaging through the proximal calf veins also reveals no thrombus. Limited evaluation of the greater saphenous vein is patent with no thrombus.. CONCLUSIONS No DVT bilateral lower extremities. Dr. Tonya Wheeler DO (Electronically Signed) Final Date: 25 June 2020 16:12 S
--- NOTE | 2020-06-25 12:24 | ECG_ITS ---
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 Measurements Intervals Seaview Rate: 83 P: 37 WI: 173 QRS: -83 QRSD: 122 T: 88 QT: 369 QTc: 435 Interpretive Statements SINUS RHYTHM Baseline artifact LEFT AXIS DEVIATION [QRS AXIS < -30] LEFT VENTRICULAR HYPERTROPHY Compared to ECG 01/21/2020 10:33:18 Left-axis deviation now present Left ventricular hypertrophy now present ST (T wave) deviation now present Myocardial infarct finding now present Electronically Signed On 06-26-2020 19:36:38 CDT by Landon Bone M.D. [id number]
[2020-06-25 12:35] LABS: Basophils # 0.1 10^3/uL (0.0-0.1); Basophils % 1.1 %; Eosinophils # 0.1 10^3/uL (0.0-0.8); Eosinophils % 1.5 %; Hematocrit 45.8 % (42.0-52.0); Hemoglobin 15.2 g/dL (11.7-16.6); Lymphocytes # 1.9 10^3/uL (0.8-4.8); Lymphocytes % 20.4 %; Mean Corpuscular HGB Conc 33.2 g/dL (30.0-36.0); Mean Corpuscular Hemoglobin 30.8 pg (28.0-34.0); Mean Corpuscular Volume 92.9 fL (80-94); Mean Platelet Volume 10.9 fL (7.4-10.4); Monocytes # 1.1 10^3/uL (0.2-0.9); Neutrophils # 5.92 10^3/uL (1.8-7.7); Neutrophils % 63.5 %; Nucleated Red Blood Cells % 0 %; Platelet Count 188 10^3/cmm (130-400); Red Blood Count 4.93 10^6/uL (4.1-5.3); Red Cell Distribution Width 12.5 % (12.1-15.1); White Blood Count 9.3 10^3/uL (4.0-10.0)
[2020-06-25] MEDS: FUROsemide 10 mg/mL SDV 4mL 40 MG IVP (12:40)
[2020-06-25 12:43] VITALS: BP 165/61; PULSE 83; RESP 24; O2SAT 97
[2020-06-25 12:46] LABS: INR 0.95 (0.8-1.2)
[2020-06-25 12:54] LABS: Troponin(5th) Baseline 15 ng/L (0-15)
[2020-06-25 13:02] LABS: Alanine Aminotransferase 20 U/L (0-41); Albumin Level 4.1 g/dL (3.5-5.2); Alkaline Phosphatase 80 IU/L (40-130); Anion Gap 13.4 (5-19); Aspartate Amino Transferase 19 U/L (0-40); Blood Urea Nitrogen 24 mg/dL (8-23); Calcium 9.2 mg/dL (8.5-10.5); Carbon Dioxide 25 mmol/L (22-29); Chloride 106 mmol/L (98-107); Globulin 2.6 g/dL (1.3-4.6); Glomerular Filtration Rate 74.1 mL/min (90-130); Glucose 119 mg/dL (65-115); NT Pro B Type Natriuretic Pept 246 pg/mL (0-125); Osmolality Calculated 288 mOsm/kg (285-295); Potassium 4.4 mmol/L (3.5-5.1); Sodium 140 mmol/L (136-145); Total Bilirubin 0.6 mg/dL (0.15-1.2); Total Protein 6.7 g/dL (6.6-8.7)
[2020-06-25 13:03] VITALS: BP 167/94; PULSE 80; RESP 20
[2020-06-25 13:28] LABS: Protein Urine Neg (Negative); Specific Gravity, Urine 1.015 (1.005-1.030); Urine Appearance Clear (CLEAR); Urine Color Straw (Yellow); pH Urine 6 (5-7)
[2020-06-25 13:29] LABS: Bilirubin Urine Neg (NEGATIVE); Blood Urine Neg (Negative); Glucose Urine UA Norm (Normal); Ketones Urine Negative (Negative); Leukocyte Esterase Urine Negative (Negative); Nitrate Urine Negative (Negative); Urobilinogen Urine Neg (Negative)
[2020-06-25 13:33] LABS: Add Urine Culture? No; Bacteria Urine TRACE; Squamous Epithelial Cell Urine 0-4 (0-5)
--- NOTE | 2020-06-25 13:38 | ED_ITS ---
HPI - Extremity Problem General: Chief complaint: Extremity Problem,Nontraumatic Stated complaint: SWOLLEN LEGS Time Seen by Provider: 06/25/20 12:19 Source: patient Mode of arrival: ambulatory Limitations: no limitations History of Present Illness: HPI Narrative: Mr. Matthew is a 70-year-old male who comes in complaining of increased leg swelling over the past several months. He has shortness of breath with exertion and orthopnea. He denies any chest pain. Patient states the pain is gotten progressively worse to the point he has a hard time even lifting his legs. He denies any fevers, chills, cough or chest pain. Patient denies having history of congestive heart failure. He states that he is supposed to see a decontamination worker in regards to this and a referral from his primary medical doctor but he has been unable to make that appointment up to this time. Associated symptoms: Deny chest pain, fever(s) or rash Review of Systems Const: Denies: fever(s), chills, body aches, fatigue, malaise or diaphoresis Eyes: Denies: change in vision, blurry vision, photophobia, eye discomfort, eye discharge or eye redness ENMT: Denies: throat pain, odynophagia, hoarseness, swelling of lips/tongue, ear or mastoid pain, ear discharge, change in hearing or nasal discharge Card: Reports: edema, swelling of feet/ankles, dyspnea on exertion and orthopnea; Denies: chest pain, palpitations, irregular heart rhythm, lightheadedness, syncope or pre-syncope Resp: Denies: dyspnea, productive cough, non-productive cough, wheezing, hemoptysis or chest congestion GI: Denies: abdominal pain, nausea, vomiting, hematemesis, coffee ground emesis, heartburn, diarrhea, constipation, GI cramping, hematochezia or melena : Denies: flank pain, dysuria, urinary frequency, urinary urgency or hematuria Musc: Denies: neck pain, back pain, extremity pain, extremity swelling, joint pain, joint swelling, joint redness, joint warmth or joint stiffness Skin/Breast: Denies: rash, pruritus, erythema or skin tenderness Neuro: Denies: headache(s), numbness in extremities, weakness in extremities, sensory changes, lack of coordination, difficulty walking, dizziness, vertigo, confusion, Slurred speech present or seizure-like activity Tomy/Lymph: Denies: easy bruising, easy bleeding, petechiae, purpura or enlarged lymph nodes All/Imm: Denies: urticaria, throat swelling, tongue swelling, facial swelling or acute wheezing PFSH ED PFSH: Medical History (Updated 06/25/20 @ 14:34 by Rosa Elena Cazares) Airway obstruction Dysphasia Modified barium swallow done 3 days ago 04/13/2020 did not reveal any aspiration Hypertension Parkinson disease Presence of neurostimulator Surgical History (Updated 04/16/20 @ 20:23 by Moody Gauthier MD) History of bronchoscopy Did not reveal retropharyngeal mass or swelling done in Previous back surgery S/P cholecystectomy S/P total knee arthroplasty Family History Other Cancer Hypertension Denies family history of Diabetes Social History Smoking and tobacco status: never smoked Alcohol intake: current Alcohol intake frequency: few times a week 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 Physical Exam Const: COMMON NORMALS: no acute distress, patient oriented x3, no limitations, healthy appearing and well nourished GENERAL APPEARANCE: cooperative, well kempt and well developed HENMT: COMMON NORMALS: normocephalic, atraumatic, external ears normal, EAC's normal and Normal external nose present HEAD & SCALP: normal to inspection, normocephalic and atraumatic FACE & SINUS: normal facial exam and face symmetric NOSE: Normal external nose present and Normal nares present EXTERNAL EAR: Yes external ears normal EXTERNAL AUDITORY CANAL: EAC's normal MOUTH: Normal oral and palatal mucosa present, lip normal and tongue normal Eye: COMMON NORMALS: Equal, round and reactive pupils present and conjunctivae normal GENERAL EYE: appearance normal, both eyes and all related structures ALIGNMENT: Yes alignment normal PERIORBITAL: periorbital findings normal EYELID: eyelids normal CONJUNCTIVA: Yes conjunctivae normal SCLERA: sclerae normal PUPIL: Yes Equal, round and reactive pupils present Neck/C-Spine: COMMON NORMALS: full ROM, no lymphadenopathy, supple, no meningeal signs and no JVD GENERAL: Yes normal visual inspection and Yes tra dhara midline Chest: COMMONS NORMALS: normal inspection of the chest and normal palpation of entire chest wall Resp: COMMON NORMALS: normal respiratory effort, No retractions, No use of accessory muscles and clear to auscultation bilaterally EFFORT & INSPECTION: Yes able to speak in complete sentences and Yes symmetric chest movement AUSCULTATION: clear to auscultation bilaterally, no crackles, no rales, no rhonchi and no wheezes Cardio: COMMON NORMALS: no JVD, regular rate, regular rhythm, S1 normal heart sound present and S2 normal heart sound present RATE: regular rate RHYTHM: regular rhythm HEART SOUNDS: S1 normal heart sound present, S2 normal heart sound present, no click, no gallops, no murmurs, no rubs and abnormal split S2 GI: COMMON NORMALS: Soft to palpation and No hepatosplenomegaly present PALPATION: Yes Soft to palpation, No Tenderness to palpation present (GI), No Guarding due to palpation present (GI), No Rigid due to palpation, Yes No hepatosplenomegaly present, No Hernia present, No Palpable mass present and No Pulsatile mass present : COMMON NORMALS: Yes no CVA tenderness BLADDER/KIDNEY EXAM: Yes no CVA tenderness Back/Pelvis: COMMON NORMALS: no CVA tenderness, thoracic and lumbar spine normal to inspection, no thoracic nor lumbar tenderness and thoraco-lumbar ROM normal Extremity: COMMON NORMALS: full ROM, capillary refill normal, no joint enlargement, no clubbing, cyanosis or edema and no calf tenderness NARRATIVE EXTREMITY EXAM: Large amount of swelling and edema to the bilateral lower extremities up to the thigh Neuro: COMMON NORMALS: patient oriented x3, CN's II-XII intact bilaterally, moves all extremities, no focal motor deficits and no sensory deficits noted MENINGEAL SIGNS: Yes no meningeal signs SPEECH: speech normal Psych: COMMON NORMALS: mental status grossly normal, Normal thought process present, cooperative, normal affect, speech normal and activity/motor behavior normal APPEARANCE: Yes well kempt SPEECH: Yes normal speech THOUGHT PROCESS: Normal thought process present Skin: COMMON NORMALS: no rashes or lesions noted, turgor normal, no jaundice, no petechiae and no mottling GENERAL SKIN EXAM: no rashes or lesions noted and turgor normal Course Vital Signs: Vital signs: Vital Signs Temperature 97.1 F L 06/25/20 12:12 Pulse Rate 80 06/25/20 13:03 Respiratory Rate 20 H 06/25/20 13:03 Blood Pressure 167/94 06/25/20 13:03 Pulse Oximetry 97 06/25/20 12:43 MDM - Extremity (Nontraumatic) MDM Narrative: Medical decision making narrative: Mr. Matthew is a nice 70-year-old male who comes in complaining of increased leg swelling, dyspnea on exertion and orthopnea. Clinically his lungs are clear and his chest x-ray shows a questionable pneumonitis but no evidence of vascular congestion. I reviewed the case in full with Dr. Dobbins who states the patient is usually not very compliant with his diuretics. He recommended increasing the patient's butamben tied to 2 mg daily along with increasing his potassium to 40 mEq daily. He would like the patient to see him in his office next week for recheck. I will go and cover his cellulitis his lower extremities and his pneumonia with Omnicef and Zithromax. I reviewed all these plans with the patient and he is in agreement. Lab Data: Attestation: I reviewed the patient's lab results. Labs: Lab Results 06/25/20 06/25/20 06/25/20 Range/Units 12:25 12:25 12:25 WBC 9.3 (4.0-10.0) 10^3/ uL RBC 4.93 (4.1-5.3) 10^6/u L Hgb 15.2 (11.7-16.6) g/dL Hct 45.8 (42.0-52.0) % MCV 92.9 (80-94) fL MCH 30.8 (28.0-34.0) pg MCHC 33.2 (30.0-36.0) g/dL RDW 12.5 (12.1-15.1) % Plt Count 188 (130-400) 10^3/c mm MPV 10.9 H (7.4-10.4) fL Neut % (Auto) 63.5 % Lymph % (Auto) 20.4 % [place] % (Auto) 12.0 % Eos % (Auto) 1.5 % Baso % (Auto) 1.1 % Neut # (Auto) 5.92 (1.8-7.7) 10^3/u L Lymph # (Auto) 1.9 (0.8-4.8) 10^3/u L [place] # (Auto) 1.1 H (0.2-0.9) 10^3/u L Eos # (Auto) 0.1 (0.0-0.8) 10^3/u L Baso # (Auto) 0.1 (0.0-0.1) 10^3/u L Nucleated RBC % (a uto) 0 % Nucleated RBCs # 0.0 /100WBC PT 13.00 (12.1-14.9) SECO NDS INR 0.95 (0.8-1.2) Sodium 140 (136-145) mmol/L Potassium 4.4 (3.5-5.1) mmol/L Chloride 106 (98-107) mmol/L Carbon Dioxide 25 (22-29) mmol/L Anion Gap 13.4 (5-19) BUN 24 H (8-23) mg/dL Creatinine 1.0 (0.7-1.2) mg/dL GFR Calculation 74.1 L (90-130) mL/min Glucose 119 H (65-115) mg/dL Calculated Osmolal ity 288 (285-295) mOsm/k g Calcium 9.2 (8.5-10.5) mg/dL Magnesium 2.0 (1.7-2.3) mg/dL Total Bilirubin 0.6 (0.15-1.2) mg/dL AST 19 (0-40) U/L ALT 20 (0-41) U/L Alkaline Phosphata se 80 (40-130) IU/L Troponin T Baselin e (0-15) ng/L NT-Pro-B Natriuret Pep 246 H (0-125) pg/mL Total Protein 6.7 (6.6-8.7) g/dL Albumin 4.1 (3.5-5.2) g/dL Globulin 2.6 (1.3-4.6) g/dL Urine Color (Yellow) Urine Appearance (CLEAR) Urine pH (5-7) Ur Specific Gravit y (1.005-1.030) Urine Protein (Negative) Urine Glucose (UA) (Normal) Urine Ketones (Negative) Urine Blood (Negative) Urine Nitrate (Negative) Urine Bilirubin (NEGATIVE) Urine Urobilinogen (Negative) mg/dL Ur Leukocyte Maribel ase (Negative) Urine RBC (0-2) /hpf Urine WBC (0-5) /hpf Ur Squamous Epith Cells (0-5) Amorphous Sediment Urine Bacteria (NONE) 06/25/20 06/25/20 Range/Units 12:25 13:00 WBC (4.0-10.0) 10^3/ uL RBC (4.1-5.3) 10^6/u L Hgb (11.7-16.6) g/dL Hct (42.0-52.0) % MCV (80-94) fL MCH (28.0-34.0) pg MCHC (30.0-36.0) g/dL RDW (12.1-15.1) % Plt Count (130-400) 10^3/c mm MPV (7.4-10.4) fL Neut % (Auto) % Lymph % (Auto) % [place] % (Auto) % Eos % (Auto) % Baso % (Auto) % Neut # (Auto) (1.8-7.7) 10^3/u L Lymph # (Auto) (0.8-4.8) 10^3/u L [place] # (Auto) (0.2-0.9) 10^3/u L Eos # (Auto) (0.0-0.8) 10^3/u L Baso # (Auto) (0.0-0.1) 10^3/u L Nucleated RBC % (a uto) % Nucleated RBCs # /100WBC PT (12.1-14.9) SECO NDS INR (0.8-1.2) Sodium (136-145) mmol/L Potassium (3.5-5.1) mmol/L Chloride (98-107) mmol/L Carbon Dioxide (22-29) mmol/L Anion Gap (5-19) BUN (8-23) mg/dL Creatinine (0.7-1.2) mg/dL GFR Calculation (90-130) mL/min Glucose (65-115) mg/dL Calculated Osmolal ity (285-295) mOsm/k g Calcium (8.5-10.5) mg/dL Magnesium (1.7-2.3) mg/dL Total Bilirubin (0.15-1.2) mg/dL AST (0-40) U/L ALT (0-41) U/L Alkaline Phosphata se (40-130) IU/L Troponin T Baselin e 15 (0-15) ng/L NT-Pro-B Natriuret Pep (0-125) pg/mL Total Protein (6.6-8.7) g/dL Albumin (3.5-5.2) g/dL Globulin (1.3-4.6) g/dL Urine Color Straw (Yellow) Urine Appearance Clear (CLEAR) Urine pH 6 (5-7) Ur Specific Gravit y 1.015 (1.005-1.030) Urine Protein Neg (Negative) Urine Glucose (UA) Norm (Normal) Urine Ketones Negative (Negative) Urine Blood Neg (Negative) Urine Nitrate Negative (Negative) Urine Bilirubin Neg (NEGATIVE) Urine Urobilinogen Neg (Negative) mg/dL Ur Leukocyte Maribel ase Negative (Negative) Urine RBC None (0-2) /hpf Urine WBC None (0-5) /hpf Ur Squamous Epith Cells 0-4 H (0-5) Amorphous Sediment Not Reportable Urine Bacteria Trace (NONE) Imaging Data^: CXR: Radiologist's impression: [address] [address] XRay Report Signed Patient: Fabiola Matthew Unit #: [id number] : 1950 Age/Sex: 70 / M ADM Date: 06/25/20 Loc: ER Room/Bed: Attending Dr: Ordering Provider/Ordering MD: Rosa Elena Cazares DO Date of Service: 06/25/20 Procedure(s): XR chest 1V portable [id number] Accession Number(s): [id number] Report Number: [id number] WS: [id number] EXAM: AP CHEST: PORTABLE UPRIGHT DATE OF EXAM: 06/25/2020, 1246 hour COMPARISON: Chest x-ray from 04/16/2020. HISTORY: Patient is 70 years old with dyspnea. Edema in both legs. History of Parkinson's disease with bilateral neurostimulator leads. FINDINGS: The cardiac silhouette is stable. Considered upper limits of normal. The mediastinal contours are similar. The pulmonary vascularity is normal. Left lung is clear. There is suspicion for a patchy infiltrate in the right mid chest presumably either in the superior segment of the lower lobe or right upper lobe. There is no effusion or pneumothorax. No acute bony abnormality is seen. Bilateral neural stimulator generator packs and leads are seen overlying the chest and in both sides of the neck XR/XR chest 1V portable [id number] IMPRESSION: Suspicion for patchy pneumonitis within the right mid outer chest. Dictated By: Dave Locke MD Signed By: Dave Locke MD Signed Date/Time: 06/25/20 1245 DD/ 1242 EKG Data^: EKG 1: Attestation: I personally reviewed and interpreted this EKG as follows: EKG interpretation date: 06/25/20 EKG interpretation time: 12:50 Interpretation: Normal sinus rhythm at 83 beats a minute, considerable baseline artifact, no definite significant ST or T wave changes, LVH. Discharge Plan Discharge Patient Disposition: Home Clinical Impression: Peripheral edema Cellulitis Qualifiers: Site of cellulitis: extremity Site of cellulitis of extremity: lower extremity Laterality: unspecified laterality Qualified Code(s): L03.119 - Cellulitis of unspecified part of limb Pneumonia Qualifiers: Pneumonia type: due to unspecified organism Laterality: right Lung location: upper lobe of lung Qualified Code(s): J18.9 - Pneumonia, unspecified organism Condition: Stable Prescriptions: New Zithromax Z-Varun 250 mg tablet See Rx Instructions .ROUTE .COMPLEX Qty: 6 RF: 0 cefdinir 300 mg capsule 300 mg PO Q12H 10 Days Qty: 20 RF: 0 No Action carbidopa-levodopa [Sinemet CR] 50-200 mg tablet extended release See Rx Instructions .ROUTE .COMPLEX RF: 0 gabapentin 100 mg capsule 300 mg PO TID RF: 0 clonazepam 0.5 mg tablet 0.5 mg PO BEDTIME PRN (Reason: unknown) RF: 0 ropinirole 1 mg tablet See Rx Instructions .ROUTE .COMPLEX RF: 0 tramadol 50 mg Tablet 50 mg PO BID PRN (Reason: Pain) RF: 0 potassium chloride 20 mEq Tablet Extended Release 20 meq PO DAILY RF: 0 metoprolol succinate 100 mg Tablet Extended Release 24 Hr 100 mg PO DAILY Qty: 30 RF: 0 famotidine 40 mg tablet 40 mg PO DAILY RF: 0 aspirin [Aspir-81] 81 mg Tablet,Delayed Release (Dr/Ec) See Rx Instructions .ROUTE .COMPLEX RF: 0 acetaminophen [Tylenol Extra Strength] 500 mg Tablet 500 - 1,000 mg PO PRN RF: 0 Cenforce-200 200 mg PO PRN PRN (Reason: Sexual Activity) RF: 0 Multiple Vitamins Tablet 1 tab PO DAILY RF: 0 bumetanide 1 mg tablet See Rx Instructions .ROUTE .COMPLEX RF: 0 sertraline 25 mg Tablet 25 mg PO DAILY PRN (Reason: unknown) RF: 0 losartan 25 mg tablet 25 mg PO DAILY Qty: 30 RF: 0 Discharge Orders: Discharge Order (Routine); Ordered 06/25/20 Ordered By: Rosa Elena Cazares Referrals: Braxton Dobbins MD [Primary Care Provider] - 1-3 days Discharge Diet: Cardiac Discharge Activity: Increase activity as tolerated Patient Instructions: Cellulitis (ED), Leg Edema (ED), Pneumonia (ED) Activity Restrictions/Additional Instructions: Please return to the ER immediately for any of the signs or symptoms listed on your discharge instruction sheets, worsening/changing of your symptoms, you are not getting better as quickly as expected, or for ANY other cause or concerns. Increase your Bumetanide to 2 mg daily and increase your potassium to 2 pills daily until instructed further by Dr. Dobbins. Take the antibiotics as I have prescribed you. Return to the ER for increased swelling, increased shortness of breath, chest pain, or for any other cause for concern. Coding Level of Care Code ED Environmental Monitoring Technician for Katherin Fwd Exam Comprehensive
[2020-06-25 14:30] VITALS: BP 181/108; PULSE 79; RESP 24
[2020-06-25 14:50] VITALS: BP 164/97; PULSE 81; RESP 22; O2SAT 97
== END 2020-06-25 14:43 | disposition home or self-care (01) ==
PROVIDERS: Emergency Provider Emergency Medicine; PCP Family Medicine
DX: R60.0 Localized edema (principal); L03.119 Cellulitis of unspecified part of limb; J18.9 Pneumonia, unspecified organism; Z79.82 Long term (current) use of aspirin; I10 Essential (primary) hypertension; G20 Parkinson's disease; Z96.659 Presence of unspecified artificial knee joint
CPT/HCPCS: 12345; 71045; 80053; 81001; 83735; 83880; 84484; 85025; 85610; 93005; 93970; 96374; 96375; 99283; 99284; J1940

== ENCOUNTER 2020-07-05 20:00 | Outpatient (CLI) | payer MEDICARE, SELFPAY | END 2020-07-05 20:01 | disposition home or self-care (01) | LOC: SLEEP 07-06 08:59 | PROVIDERS: PCP Family Medicine; Visit Provider Family Medicine | DX: G47.10 Hypersomnia, unspecified (principal); G47.33 Obstructive sleep apnea (adult) (pediatric) | CPT/HCPCS: 95810 ==

== ENCOUNTER 2020-07-27 10:06 | Inpatient (IN) | payer MEDICARE, SELFPAY ==
[2020-07-27] VITALS (14 sets, daily range): BP systolic 117–169; BP diastolic 63–84; PULSE 64–89; RESP 14–26; TEMP 36.5–36.7; O2SAT 92–100; BMI 42.3
--- NOTE | 2020-07-27 11:35 | XRR_ITS ---
PROCEDURE INFORMATION: Exam: XR Chest, 1 View Exam date and time: 07/27/2020 11:50 AM Age: 70 years old Clinical indication: Dyspnea; Prior surgery; Surgery type: Pacemaker, defib TECHNIQUE: Imaging protocol: XR of the chest Views: 1 view. COMPARISON: [place] XR chest 1V portable [id number] 06/25/2020 12:44 PM FINDINGS: Tubes, catheters and devices: Neural stimulators overlie the right and left thoraces. Lungs: Lungs are well aerated without a focal area of consolidation. Pleural space: Unremarkable. No pleural effusion. No pneumothorax. Heart/Mediastinum: The cardiac silhouette appears enlarged, some of which is magnification related to the AP projection. Bones/joints: Unremarkable. XR/XR chest 1V portable [id number] IMPRESSION: Lungs are well aerated without a focal area of consolidation.
--- NOTE | 2020-07-27 11:36 | ECG_ITS ---
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 Measurements Intervals [place] Rate: 72 P: NV: -1 QRS: 187 QRSD: 138 T: 4 QT: 390 QTc: 427 Interpretive Statements Possible sinus rhythm with Heavy baseline artifact- Need to repeat the study Electronically Signed On 07-27-2020 18:30:24 CDT by Vladislav Barbour M.D. [email or web address] [email or web address] Collegemercy health st[facility].[id number]
[2020-07-27 11:48] LABS: Basophils # 0.1 10^3/uL (0.0-0.1); Basophils % 1.3 %; Eosinophils # 0.2 10^3/uL (0.0-0.8); Eosinophils % 1.8 %; Hematocrit 45.1 % (42.0-52.0); Hemoglobin 14.6 g/dL (11.7-16.6); Lymphocytes # 1.9 10^3/uL (0.8-4.8); Lymphocytes % 18.9 %; Mean Corpuscular HGB Conc 32.4 g/dL (30.0-36.0); Mean Corpuscular Hemoglobin 30.6 pg (28.0-34.0); Mean Corpuscular Volume 94.5 fL (80-94); Mean Platelet Volume 10.9 fL (7.4-10.4); Monocytes # 1.2 10^3/uL (0.2-0.9); Monocytes % 12.3 %; Neutrophils # 6.49 10^3/uL (1.8-7.7); Neutrophils % 64.1 %; Nucleated Red Blood Cells % 0 %; Platelet Count 201 10^3/cmm (130-400); Red Blood Count 4.77 10^6/uL (4.1-5.3); Red Cell Distribution Width 12.6 % (12.1-15.1); White Blood Count 10.1 10^3/uL (4.0-10.0)
[2020-07-27] MEDS: FUROsemide 10 mg/mL SDV 10mL 80 MG IVP ×2 (11:54→21:11)
[2020-07-27 12:09] LABS: Troponin(5th) Baseline 19 ng/L (0-15)
--- NOTE | 2020-07-27 12:26 | ED_ITS ---
HPI - SOB/Dyspnea General: Chief Complaint: Shortness of Breath/Dyspnea Stated Complaint: SOB Time Seen by Provider: 07/27/20 11:25 History of Present Illness: HPI Narrative: This patient is a 70-year-old gentleman who comes in today with severe shortness of breath. He said is been gradually getting worse over the past year. It is to the point now where he can barely breathe. He has significant swelling in his legs. He said he has not been diagnosed with heart failure but according to his chart he has. He also has a history of Parkinson's disease. 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 He does not know of any covert exposures. He is on a fluid pill and feels like it still makes him pee a lot. Dr. Dobbins is his PCP. He also had some chest pain today when his shortness of breath got very severe. MD elicited complaint: shortness of breath and chest pain Pertinent past history: congestive heart failure Onset (ago): year(s) (Progressive over a year, became severe late this morning) Timing: constant Severity: severe Exacerbating factors: lying flat, exertion, movement and talking Relieving factors: rest and upright position Known history of: congestive heart failure Associated symptoms: Reports chest pain; Deny abdominal pain, fever(s), nausea or vomiting Review of Systems General: Reports: 10 or more systems reviewed and unremarkable except in HPI and below Const: Reports: fatigue; Denies: fever(s), chills or malaise Eyes: Denies: change in vision ENMT: Denies: odynophagia Card: Reports: chest pain, edema and swelling of feet/ankles Resp: Reports: dyspnea; Denies: productive cough or non-productive cough GI: Denies: abdominal pain, nausea or vomiting : Denies: flank pain Musc: Denies: neck pain or back pain Skin/Breast: Denies: rash Neuro: Denies: headache(s), numbness in extremities or weakness in extremities Tomy/Lymph: Denies: easy bruising or easy bleeding [facility] ED PFSH: Medical History Airway obstruction Dysphasia Modified barium swallow done 3 days ago 04/13/2020 did not reveal any aspiration Hypertension Parkinson disease Presence of neurostimulator Surgical History History of bronchoscopy Did not reveal retropharyngeal mass or swelling done in Previous back surgery S/P cholecystectomy S/P total knee arthroplasty Family History Other Cancer Hypertension Denies family history of Diabetes Social History Smoking and tobacco status: never smoked Alcohol intake: current Alcohol intake frequency: few times a week 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 Physical Exam Const: COMMON NORMALS: patient oriented x3, no limitations and alert GENERAL APPEARANCE: cooperative HENMT: HEAD & SCALP: normal to inspection FACE & SINUS: normal facial exam Eye: GENERAL EYE: appearance normal, both eyes and all related structures Neck/C-Spine: COMMON NORMALS: supple, no meningeal signs and no JVD Chest: COMMONS NORMALS: normal inspection of the chest Resp: EFFORT & INSPECTION: Yes tachypneic and Yes labored AUSCULTATION: diminished lung sounds Cardio: COMMON NORMALS: no JVD, regular rate, regular rhythm and No murmurs present (Cardio) RATE: regular rate RHYTHM: regular rhythm GI: COMMON NORMALS: Normal to inspection, nondistended, normoactive bowel sounds present, Soft to palpation and non-tender INSPECTION: Yes normal to inspection AUSCULTATION: Yes normoactive bowel sounds PALPATION: Yes Soft to palpation Back/Pelvis: COMMON NORMALS: thoracic and lumbar spine normal to inspection Extremity: COMMON NORMALS: normal to inspection GENERAL: Yes edema (3+ bilateral lower) Neuro: COMMON NORMALS: patient oriented x3, moves all extremities, no focal motor deficits and no sensory deficits noted SENSORIUM/ORIENTATION: Yes alert MENINGEAL SIGNS: Yes no meningeal signs Psych: COMMON NORMALS: mental status grossly normal, cooperative and normal affect Skin: COMMON NORMALS: no rashes or lesions noted and turgor normal GENERAL SKIN EXAM: no rashes or lesions noted and turgor normal Course ED course: Patient with significant fluid overload on clinical exam. Surprisingly his chest x-ray and BNP did not really reflect significant congestive heart failure. He was given a dose of IV Lasix and put out almost 2 L of urine during his stay in the ER. I spoke with Dr. Dobbins who will admit him for further diuresis and evaluation. Vital Signs: Vital signs: Vital Signs Temperature 97.7 F 07/27/20 19:47 Pulse Rate 70 07/27/20 19:47 Respiratory Rate 19 H 07/27/20 19:47 Blood Pressure 127/63 07/27/20 19:47 Pulse Oximetry 94 07/27/20 19:47 MDM - SOB/Dyspnea Lab Data: Labs: Lab Results 07/27/20 07/27/20 07/27/20 Range/Units 11:40 11:40 11:40 WBC 10.1 H (4.0-10.0) 10^3/ uL RBC 4.77 (4.1-5.3) 10^6/u L Hgb 14.6 (11.7-16.6) g/dL Hct 45.1 (42.0-52.0) % MCV 94.5 H (80-94) fL MCH 30.6 (28.0-34.0) pg MCHC 32.4 (30.0-36.0) g/dL RDW 12.6 (12.1-15.1) % Plt Count 201 (130-400) 10^3/c mm MPV 10.9 H (7.4-10.4) fL Neut % (Auto) 64.1 % Lymph % (Auto) 18.9 % [place] % (Auto) 12.3 % Eos % (Auto) 1.8 % Baso % (Auto) 1.3 % Neut # (Auto) 6.49 (1.8-7.7) 10^3/u L Lymph # (Auto) 1.9 (0.8-4.8) 10^3/u L [place] # (Auto) 1.2 H (0.2-0.9) 10^3/u L Eos # (Auto) 0.2 (0.0-0.8) 10^3/u L Baso # (Auto) 0.1 (0.0-0.1) 10^3/u L Nucleated RBC % (a uto) 0 % Nucleated RBCs # 0.0 /100WBC PT 12.40 (12.1-14.9) SECO NDS INR 0.90 (0.8-1.2) D-Dimer (0-0.59) ug/mIFE U Sodium 139 (136-145) mmol/L Potassium 4.3 (3.5-5.1) mmol/L Chloride 101 (98-107) mmol/L Carbon Dioxide 25 (22-29) mmol/L Anion Gap 17.3 (5-19) BUN 24 H (8-23) mg/dL Creatinine 0.9 (0.7-1.2) mg/dL GFR Calculation 83.7 L (90-130) mL/min Glucose 128 H (65-115) mg/dL Calculated Osmolal ity 294 (285-295) mOsm/k g Lactic Acid (0.5-2.2) mmol/L Lactic Acid (Sepsi s) (0.5-2.2) mmol/L Calcium 8.7 (8.5-10.5) mg/dL Magnesium 2.2 (1.7-2.3) mg/dL Total Bilirubin 0.8 (0.15-1.2) mg/dL AST 23 (0-40) U/L ALT 36 (0-41) U/L Alkaline Phosphata se 76 (40-130) IU/L Troponin T Baselin e (0-15) ng/L Troponin T 120 Min chilkat (0-15) ng/L Delta Troponin T (0-10) ABS# C-Reactive Protein (0.0-4.9) mg/L NT-Pro-B Natriuret Pep 200 H (0-125) pg/mL Total Protein 6.8 (6.6-8.7) g/dL Albumin 4.4 (3.5-5.2) g/dL Globulin 2.4 (1.3-4.6) g/dL Influenza Type A A g (Negative) Influenza Type B A g (Negative) SARS-CoV-2 Ag (Rap id) (Negative) 07/27/20 07/27/20 07/27/20 Range/Units 11:40 11:40 11:40 WBC (4.0-10.0) 10^3/ uL RBC (4.1-5.3) 10^6/u L Hgb (11.7-16.6) g/dL Hct (42.0-52.0) % MCV (80-94) fL MCH (28.0-34.0) pg MCHC (30.0-36.0) g/dL RDW (12.1-15.1) % Plt Count (130-400) 10^3/c mm MPV (7.4-10.4) fL Neut % (Auto) % Lymph % (Auto) % [place] % (Auto) % Eos % (Auto) % Baso % (Auto) % Neut # (Auto) (1.8-7.7) 10^3/u L Lymph # (Auto) (0.8-4.8) 10^3/u L [place] # (Auto) (0.2-0.9) 10^3/u L Eos # (Auto) (0.0-0.8) 10^3/u L Baso # (Auto) (0.0-0.1) 10^3/u L Nucleated RBC % (a uto) % Nucleated RBCs # /100WBC PT (12.1-14.9) SECO NDS INR (0.8-1.2) D-Dimer 0.85 H (0-0.59) ug/mIFE U Sodium (136-145) mmol/L Potassium (3.5-5.1) mmol/L Chloride (98-107) mmol/L Carbon Dioxide (22-29) mmol/L Anion Gap (5-19) BUN (8-23) mg/dL Creatinine (0.7-1.2) mg/dL GFR Calculation (90-130) mL/min Glucose (65-115) mg/dL Calculated Osmolal ity (285-295) mOsm/k g Lactic Acid 2.2 (0.5-2.2) mmol/L Lactic Acid (Sepsi s) (0.5-2.2) mmol/L Calcium (8.5-10.5) mg/dL Magnesium (1.7-2.3) mg/dL Total Bilirubin (0.15-1.2) mg/dL AST (0-40) U/L ALT (0-41) U/L Alkaline Phosphata se (40-130) IU/L Troponin T Baselin e 19 H (0-15) ng/L Troponin T 120 Min chilkat (0-15) ng/L Delta Troponin T (0-10) ABS# C-Reactive Protein (0.0-4.9) mg/L NT-Pro-B Natriuret Pep (0-125) pg/mL Total Protein (6.6-8.7) g/dL Albumin (3.5-5.2) g/dL Globulin (1.3-4.6) g/dL Influenza Type A A g (Negative) Influenza Type B A g (Negative) SARS-CoV-2 Ag (Rap id) (Negative) 07/27/20 07/27/20 07/27/20 Range/Units 11:40 12:45 12:45 WBC (4.0-10.0) 10^3/ uL RBC (4.1-5.3) 10^6/u L Hgb (11.7-16.6) g/dL Hct (42.0-52.0) % MCV (80-94) fL MCH (28.0-34.0) pg MCHC (30.0-36.0) g/dL RDW (12.1-15.1) % Plt Count (130-400) 10^3/c mm MPV (7.4-10.4) fL Neut % (Auto) % Lymph % (Auto) % [place] % (Auto) % Eos % (Auto) % Baso % (Auto) % Neut # (Auto) (1.8-7.7) 10^3/u L Lymph # (Auto) (0.8-4.8) 10^3/u L [place] # (Auto) (0.2-0.9) 10^3/u L Eos # (Auto) (0.0-0.8) 10^3/u L Baso # (Auto) (0.0-0.1) 10^3/u L Nucleated RBC % (a uto) % Nucleated RBCs # /100WBC PT (12.1-14.9) SECO NDS INR (0.8-1.2) D-Dimer (0-0.59) ug/mIFE U Sodium (136-145) mmol/L Potassium (3.5-5.1) mmol/L Chloride (98-107) mmol/L Carbon Dioxide (22-29) mmol/L Anion Gap (5-19) BUN (8-23) mg/dL Creatinine (0.7-1.2) mg/dL GFR Calculation (90-130) mL/min Glucose (65-115) mg/dL Calculated Osmolal ity (285-295) mOsm/k g Lactic Acid (0.5-2.2) mmol/L Lactic Acid (Sepsi s) (0.5-2.2) mmol/L Calcium (8.5-10.5) mg/dL Magnesium (1.7-2.3) mg/dL Total Bilirubin (0.15-1.2) mg/dL AST (0-40) U/L ALT (0-41) U/L Alkaline Phosphata se (40-130) IU/L Troponin T Baselin e (0-15) ng/L Troponin T 120 Min chilkat (0-15) ng/L Delta Troponin T (0-10) ABS# C-Reactive Protein 4.3 (0.0-4.9) mg/L NT-Pro-B Natriuret Pep (0-125) pg/mL Total Protein (6.6-8.7) g/dL Albumin (3.5-5.2) g/dL Globulin (1.3-4.6) g/dL Influenza Type A A g Negative (Negative) Influenza Type B A g Negative (Negative) SARS-CoV-2 Ag (Rap id) Negative (Negative) 07/27/20 07/27/20 Range/Units 13:55 13:55 WBC (4.0-10.0) 10^3/ uL RBC (4.1-5.3) 10^6/u L Hgb (11.7-16.6) g/dL Hct (42.0-52.0) % MCV (80-94) fL MCH (28.0-34.0) pg MCHC (30.0-36.0) g/dL RDW (12.1-15.1) % Plt Count (130-400) 10^3/c mm MPV (7.4-10.4) fL Neut % (Auto) % Lymph % (Auto) % [place] % (Auto) % Eos % (Auto) % Baso % (Auto) % Neut # (Auto) (1.8-7.7) 10^3/u L Lymph # (Auto) (0.8-4.8) 10^3/u L [place] # (Auto) (0.2-0.9) 10^3/u L Eos # (Auto) (0.0-0.8) 10^3/u L Baso # (Auto) (0.0-0.1) 10^3/u L Nucleated RBC % (a uto) % Nucleated RBCs # /100WBC PT (12.1-14.9) SECO NDS INR (0.8-1.2) D-Dimer (0-0.59) ug/mIFE U Sodium (136-145) mmol/L Potassium (3.5-5.1) mmol/L Chloride (98-107) mmol/L Carbon Dioxide (22-29) mmol/L Anion Gap (5-19) BUN (8-23) mg/dL Creatinine (0.7-1.2) mg/dL GFR Calculation (90-130) mL/min Glucose (65-115) mg/dL Calculated Osmolal ity (285-295) mOsm/k g Lactic Acid (0.5-2.2) mmol/L Lactic Acid (Sepsi s) 2.0 (0.5-2.2) mmol/L Calcium (8.5-10.5) mg/dL Magnesium (1.7-2.3) mg/dL Total Bilirubin (0.15-1.2) mg/dL AST (0-40) U/L ALT (0-41) U/L Alkaline Phosphata se (40-130) IU/L Troponin T Baselin e (0-15) ng/L Troponin T 120 Min chilkat 17.76 H (0-15) ng/L Delta Troponin T -1.24 L (0-10) ABS# C-Reactive Protein (0.0-4.9) mg/L NT-Pro-B Natriuret Pep (0-125) pg/mL Total Protein (6.6-8.7) g/dL Albumin (3.5-5.2) g/dL Globulin (1.3-4.6) g/dL Influenza Type A A g (Negative) Influenza Type B A g (Negative) SARS-CoV-2 Ag (Rap id) (Negative) Discharge Plan Discharge Patient Disposition: Placed in Observation Admit Provider: Braxton Dobbins Condition: Good Discharge Date/Time: 07/27/20 15:34 Coding Level of Care Code ED Manager Trust for Chg Fwd Exam Comprehensive
[2020-07-27 12:37] LABS: Lactic Sepsis W/Reflex 2.2 mmol/L (0.5-2.2)
[2020-07-27 12:38] LABS: D Dimer 0.85 ug/mIFEU (0-0.59)
[2020-07-27 12:39] LABS: C Reactive Protein 4.3 mg/L (0.0-4.9)
[2020-07-27 12:48] LABS: Alanine Aminotransferase 36 U/L (0-41); Albumin Level 4.4 g/dL (3.5-5.2); Alkaline Phosphatase 76 IU/L (40-130); Anion Gap 17.3 (5-19); Aspartate Amino Transferase 23 U/L (0-40); Blood Urea Nitrogen 24 mg/dL (8-23); Calcium 8.7 mg/dL (8.5-10.5); Carbon Dioxide 25 mmol/L (22-29); Chloride 101 mmol/L (98-107); Globulin 2.4 g/dL (1.3-4.6); Glomerular Filtration Rate 83.7 mL/min (90-130); Glucose 128 mg/dL (65-115); Magnesium 2.2 mg/dL (1.7-2.3); NT Pro B Type Natriuretic Pept 200 pg/mL (0-125); Osmolality Calculated 294 mOsm/kg (285-295); Potassium 4.3 mmol/L (3.5-5.1); Sodium 139 mmol/L (136-145); Total Bilirubin 0.8 mg/dL (0.15-1.2); Total Protein 6.8 g/dL (6.6-8.7)
--- NOTE | 2020-07-27 12:52 | PC.NURSE ---
patient swabbed for COVID at this time
[2020-07-27 13:18] LABS: Influenza A by IFA Negative (Negative); Influenza B by IFA Negative (Negative); SARS Covid-2 Antigen Negative (Negative)
[2020-07-27 13:30] LABS: Reflex Lactate Order REFLEX LACTIC ORDERD
--- NOTE | 2020-07-27 13:36 | ECG_ITS ---
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 Measurements Intervals [place] Rate: 64 P: 93 VT: 147 QRS: 50 QRSD: 110 T: -4 QT: 425 QTc: 442 Interpretive Statements Regular rhythm Heavy baseline artifact. Interpretation is not possible Need to repeat the EKG Electronically Signed On 07-27-2020 18:39:20 CDT by Vladislav Barbour M.D. [email or web address] Tr[email or web address], LLCoh[id number]
[2020-07-27 14:33] LABS: Troponin 5 2HR 17.76 ng/L (0-15)
[2020-07-27 14:36] LABS: Troponin 5 2HR Delta -1.24 ABS# (0-10)
--- NOTE | 2020-07-27 16:30 | PC.NURSE ---
Patient arrived to [facility] at 1555. Patient resting in bed, A&O. Patient cane at bedside, along with phone, clothes, watch, and home medications. Personal belongings placed in closet. No further needs at this time. Dr. Dobbins contacted for orders. Physician to see patient and put in orders.
[2020-07-27 18:23] LABS: Troponin 5 6HR 19.03 ng/L (0-15); Troponin 5 6HR Delta 0.03 ng/L (0-12)
--- NOTE | 2020-07-27 18:38 | PC.NURSE ---
Patient attempted to urinate in urinal, urine was spilled. Unable to measure output. Linen changed performed.
--- NOTE | 2020-07-27 18:49 | P.HP_ITS ---
Providers/Chief Complaint Admitting Physician: Braxton Dobbins MD Primary Care Provider: Braxton Dobbins MD Chief Complaint: SOB History of Present Illness Fabiola Matthew is a 70 year old male with past medical history of diastolic heart failure hypertension, Parkinson's disease who has been having progressively increasing shortness of breath over the last few weeks. The patient has been prescribed Bumex 2 mg twice daily at home, however he is not been taking the second dose as he is unable to take it prior to going to work and if he takes it twice after returning from work, he is up all night. The patient was getting off of work and found that he was having significant difficulty with ambulation secondary to shortness of breath. He began to develop chest pains and for this reason went to the ER. In the ER the patient was given IV Lasix and his chest pains improved and his dyspnea improved within a few hours. The patient continues to have significant fluid overload and was admitted for further diuresis. Review of Systems Narrative: The patient denies significant cough, nausea, vomiting, diarrhea, constipation, dysuria. He admits to dyspnea and chest pains and chronic problems with swallowing. Medications/Allergies Home Medications Medication Instructions Recorded Confirmed Last Taken Type carbidopa ER 50 mg-levodopa 200 mg See Rx Instructions .ROUTE 12/24/19 07/27/20 07/27/20 History tablet,extended release .COMPLEX tab gabapentin 100 mg capsule 300 mg PO TID 12/24/19 07/27/20 07/27/20 History ropinirole 1 mg tablet See Rx Instructions .ROUTE .COMPLEX 12/24/19 07/27/20 07/27/20 History potassium chloride 20 meq PO DAILY 01/24/20 07/27/20 07/27/20 History metoprolol succinate 100 mg PO DAILY #30 tab 01/30/20 07/27/20 07/27/20 Rx Cenforce-200 200 mg PO PRN PRN 02/25/20 07/27/20 Unknown History acetaminophen [Tylenol Extra 500 - 1,000 mg PO PRN 02/25/20 07/27/20 Unknown History Strength] aspirin [Aspir-81] See Rx Instructions .ROUTE .COMPLEX 02/25/20 07/27/20 07/27/20 History famotidine 40 mg PO DAILY 02/25/20 07/27/20 07/27/20 History sertraline 25 mg PO DAILY PRN 04/07/20 07/27/20 04/07/20 History losartan 25 mg PO DAILY #30 tab 04/19/20 07/27/20 07/27/20 Rx multivitamin [Multiple Vitamins] 1 tab PO DAILY 06/25/20 07/27/20 07/27/20 History clonazepam 0.5 mg tablet 1 mg PO BEDTIME PRN tab 07/01/20 07/27/20 Unknown History tramadol 50 mg tablet 50 mg PO TID PRN tab 07/01/20 07/27/20 07/25/20 History bumetanide 1 mg tablet See Rx Instructions .ROUTE .COMPLEX 07/23/20 07/27/20 07/26/20 History furosemide See Rx Instructions .ROUTE .COMPLEX 07/27/20 07/27/20 07/26/20 History Allergies Allergy/AdvReac Type Severity Reaction Status Date / Time No Known Allergies Allergy Verified 07/27/20 12:26 PFSH Acute PFSH: Medical History Airway obstruction Dysphasia Modified barium swallow done 3 days ago 04/13/2020 did not reveal any aspiration Hypertension Parkinson disease Presence of neurostimulator Surgical History History of bronchoscopy Did not reveal retropharyngeal mass or swelling done in Previous back surgery S/P cholecystectomy S/P total knee arthroplasty Family History Other Cancer Hypertension Denies family history of Diabetes Social History Smoking and tobacco status: never smoked Alcohol intake: current Alcohol intake frequency: few times a week 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 Cardiac: Regular rate and rhythm without murmurs Lungs: Decreased air entry bilaterally without crackles or rhonchi noted. No significant wheezes appreciated at this time. Abdomen: Soft, nontender, no hepatosplenomegaly noted Extremities: 2+ pitting edema to the bilateral lower extremities with a small ulceration on the right lower galo with mild erythema surrounding it without obvious signs of cellulitis. Data : 07/27/20 11:40 07/27/20 11:40 A&P Assessment and plan (1) Chronic venous insufficiency: Status: Acute (2) Diastolic CHF: Status: Acute Qualifiers: Heart failure chronicity: acute Qualified Code(s): I50.31 - Acute diastolic (congestive) heart failure (3) Parkinson disease: Status: Acute (4) Hypertension: Status: Acute (5) Bilateral claudication of lower limb: Status: Acute (6) Fluid overload: Status: Acute Additional A&P Information 1. Acute on chronic diastolic CHF with fluid overload -the patient has sign ificant fluid overload secondary to noncompliance with medications at home. The patient has diuresed well with IV Lasix in the ER. We will continue with Lasix milligrams twice a day IV and watch his potassium levels throughout this stay. The patient will be given compression socks and fluid restriction. The underlying cause is likely secondary to diastolic CHF that is complicated by obstructive sleep apnea. The patient has moderate obstructive sleep apnea but has not had the titration study done yet to get a CPAP. This is in the process of being set up. 2. Hypertension -the patient's blood pressures are slightly elevated at this time. My hope is that as the fluid levels come down, his blood pressure well as well. We will adjust meds if needed. 3. Parkinson's -continue with home medications. 4. Obstructive sleep apnea -the patient has moderate obstructive sleep apnea and we will continue to work on getting him set up for an outpatient sleep study. This has been difficult to set up secondary to his work schedule. 5. Intermittent claudication of the bilateral lower extremities -the patient has pain with ambulation and we will try to get an ultrasound done to further evaluate this. 6. Prophylaxis -Lovenox for prophylaxis. Attestations Medical Necessity Statement*: Patient is currently under observation for diuresis. We will follow his overall status to see if this crosses 2 midnights or not. My hope is that he can be diuresed and potentially be discharged home tomorrow evening. We will follow. Coding Level of Care Code Acute Electric Meter Tester Helper for Katherin Nguyễnd Diagnoses Chronic venous insufficiency I87.2 Diastolic CHF I50.31 Heart failure chronicity: acute Parkinson disease G20 Hypertension I10 Bilateral claudication of lower limb I73.9 Fluid overload E87.70
--- NOTE | 2020-07-27 18:52 | PC.NURSE ---
Dr. Dobbins notified patient had expiratory wheezes upon initial assessment. Physician to order prn breathing treatments.
[2020-07-27] MEDS: carbidopa-levodopa ER 50-200mg Tablet 1.5 EACH PO ×2 (21:09→23:46)
[2020-07-27] MEDS: gabapentin 300 mg Capsule PO (21:10)
[2020-07-27] MEDS: ropinirole 1 mg Tablet 3 MG PO (21:10)
[2020-07-27] MEDS: enoxaparin 40 mg/0.4 mL Syringe SUBCUT (21:14)
[2020-07-28] MEDS: carbidopa-levodopa ER 50-200mg Tablet 1.5 EACH PO ×5 (03:28→21:09)
[2020-07-28 03:30] VITALS: BP 152/78; PULSE 74; RESP 18; TEMP 36.5; O2SAT 93
[2020-07-28 04:30] LABS: Basophils # 0.1 10^3/uL (0.0-0.1); Basophils % 0.9 %; Eosinophils # 0.2 10^3/uL (0.0-0.8); Eosinophils % 1.9 %; Hematocrit 42.7 % (42.0-52.0); Lymphocytes % 21.4 %; Mean Corpuscular HGB Conc 32.8 g/dL (30.0-36.0); Mean Corpuscular Hemoglobin 30.7 pg (28.0-34.0); Mean Corpuscular Volume 93.6 fL (80-94); Monocytes # 1.1 10^3/uL (0.2-0.9); Monocytes % 11.3 %; Neutrophils # 5.88 10^3/uL (1.8-7.7); Nucleated Red Blood Cells % 0 %; Platelet Count 179 10^3/cmm (130-400); Red Blood Count 4.56 10^6/uL (4.1-5.3); Red Cell Distribution Width 12.4 % (12.1-15.1); White Blood Count 9.3 10^3/uL (4.0-10.0)
[2020-07-28 05:00] LABS: Alanine Aminotransferase 6 U/L (0-41); Albumin Level 3.9 g/dL (3.5-5.2); Alkaline Phosphatase 62 IU/L (40-130); Anion Gap 14.7 (5-19); Aspartate Amino Transferase 20 U/L (0-40); Blood Urea Nitrogen 22 mg/dL (8-23); Calcium 8.4 mg/dL (8.5-10.5); Carbon Dioxide 29 mmol/L (22-29); Chloride 98 mmol/L (98-107); Globulin 2.7 g/dL (1.3-4.6); Glomerular Filtration Rate 74.1 mL/min (90-130); Glucose 156 mg/dL (65-115); Magnesium 2.1 mg/dL (1.7-2.3); NT Pro B Type Natriuretic Pept 121 pg/mL (0-125); Osmolality Calculated 293 mOsm/kg (285-295); Potassium 3.7 mmol/L (3.5-5.1); Sodium 138 mmol/L (136-145); Total Bilirubin 0.9 mg/dL (0.15-1.2); Total Protein 6.6 g/dL (6.6-8.7)
[2020-07-28] MEDS: ropinirole 1 mg Tablet 3 MG PO ×5 (05:52→21:10)
[2020-07-28] MEDS: FUROsemide 10 mg/mL SDV 10mL 80 MG IVP ×2 (05:54→18:20)
--- NOTE | 2020-07-28 07:00 | USCV_ITS ---
Fabiola Matthew Age: 70 Gender: M : 1950 Exam Date: 07/28/2020 06:44 Ordering Phys: Braxton Dobbins MD Technologist: Exam Location: [facility] [place] Indication: CLAUDICATION RIGHT LEFT Brachial 153.00 mmHg Brachial 136.00 mmHg Pressure (mmHg) Waveform Pressure (mmHg) Waveform 159.00 Above Knee 172.00 190.00 Below Knee 165.00 175.00 CASE MANAGEMENT SPECIALIST 146.00 142.00 DPA 120.00 1.14 Ankle/Brachial Index 0.95 71.00 Pre-Exercise Toe Pressure 83.00 0.46 Pre-Exercise Toe/Brachial Index 0.54 FINDINGS Normal resting ABIs bilaterally Diminished resting TBI's bilaterally PVR waveforms showing loss of dicrotic notch CONCLUSIONS Features of mild to moderate peripheral artery disease on the right side Features of mild peripheral artery disease on the left side Dr Vladislav Barbour MD [facility] (Electronically Signed) Final Date: 28 July 2020 20:46 S
[2020-07-28 07:48] VITALS: PULSE 78; O2SAT 97
[2020-07-28 07:49] VITALS: BP 138/70; PULSE 72; RESP 24; TEMP 37; O2SAT 98
--- NOTE | 2020-07-28 08:43 | P.PN_ITS ---
Subjective Subjective: Interval history: The patient continues to have dyspnea, however it is improved compared to yesterday. He continues to have significant swelling in his bilateral lower extremities. Patient denies any chest pains today. He has good appetite at this point. He says that he has had good urine output with diuresis. Vitals/I&O/Wt Last Vital Signs Temp 98.6 F 07/28/20 07:49 Pulse 72 07/28/20 07:49 Resp 24 H 07/28/20 07:49 BP 138/70 07/28/20 07:49 Pulse Ox 98 07/28/20 07:49 07/27/20 07/28/20 07/28/20 22:59 06:59 14:59 Intake Total 370 / 370 10 / 380 360 / 360 Output Total 2325 / 2325 400 / 2725 Balance -1955 / -195 -390 / -2345 360 / 360 Weight last 48 hrs Weight 311 lb 6.4 oz Weight 303 lb Physical Exam Narrative: EXAM NARRATIVE: General: Alert and oriented x3 Mouth: Mucous membranes moist without lesions. Cardiac: Regular rate and rhythm without murmurs Lungs: Decreased air entry bilaterally without crackles or rhonchi noted. No significant wheezes appreciated at this time. Abdomen: Soft, nontender, no hepatosplenomegaly noted Extremities: 2+ pitting edema to the bilateral lower extremities with a small ulceration on the right lower galo with mild erythema surrounding it without obvious signs of cellulitis. Data : 07/28/20 03:50 07/28/20 03:50 A&P Assessment and plan (1) Chronic venous insufficiency: Status: Acute (2) Diastolic CHF: Status: Acute Qualifiers: Heart failure chronicity: acute Qualified Code(s): I50.31 - Acute diastolic (congestive) heart failure (3) Parkinson disease: Status: Acute (4) Hypertension: Status: Acute (5) Bilateral claudication of lower limb: Status: Acute (6) Fluid overload: Status: Acute Additional A&P Information 1. Acute on chronic diastolic CHF with fluid overload -the patient has significant fluid overload secondary to noncompliance with medications at home. The patient has diuresed well with IV Lasix in the ER and had decent diuresis overnight. We will continue with Lasix 80 milligrams twice a day IV and watch his potassium levels throughout this stay. The patient will be given compression socks and fluid restriction. The underlying cause is likely secondary to diastolic CHF that is complicated by obstructive sleep apnea. The patient has moderate obstructive sleep apnea but has not had the titration study done yet to get a CPAP. This is in the process of being set up. The patient continues have significant edema and he will need to stay for at least an extra 1 to 2 days to clear this off. 2. Hypertension -the patient's blood pressures are improving slightly. My hope is that as the fluid levels come down, his blood pressure well as well. We will adjust meds if needed. 3. Parkinson's -continue with home medications. 4. Obstructive sleep apnea -the patient has moderate obstructive sleep apnea and we will continue to work on getting him set up for an outpatient sleep study. This has been difficult to set up secondary to his work schedule. 5. Intermittent claudication of the bilateral lower extremities -ultrasound pending. 6. Prophylaxis -Lovenox for prophylaxis. Attestations Medical Necessity Statement*: The patient will be here for greater than 2 midnights due to treatment of acute on chronic diastolic heart failure. Will be switched to inpatient status. 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
[2020-07-28] MEDS: potassium chloride ER 10 mEq Tablet 20 MEQ PO (09:45)
[2020-07-28] MEDS: losartan 50 mg Tablet 25 MG PO (09:47)
[2020-07-28] MEDS: gabapentin 300 mg Capsule PO ×3 (09:47→21:08)
[2020-07-28] MEDS: sertraline 50 mg Tablet 25 MG PO (09:48)
[2020-07-28] MEDS: famotidine 20 mg Tablet 40 MG PO (09:49)
[2020-07-28] MEDS: metoprolol succinate ER (24 HR) 100 mg Tablet PO (09:50)
[2020-07-28 12:00] VITALS: BP 138/70; PULSE 76; RESP 24; TEMP 36.5; O2SAT 96
[2020-07-28 15:35] VITALS: BP 127/60; PULSE 73; RESP 25; TEMP 36.6; O2SAT 95
[2020-07-28] MEDS: enoxaparin 40 mg/0.4 mL Syringe SUBCUT (18:19)
--- NOTE | 2020-07-28 18:58 | PC.NURSE ---
Shift Summary No acute events overnight. Shortness of breath has improved. Patient on RA. Patient tolerating fluid restriction well. No needs identified at this time. Nurse to continue to monitor.
[2020-07-28 20:00] VITALS: BP 138/74; PULSE 69; RESP 20; TEMP 36.6; O2SAT 94
[2020-07-28] MEDS: CLONazepam 1 mg Tablet PO (21:08)
[2020-07-29] VITALS (8 sets, daily range): BP systolic 130–175; BP diastolic 66–84; PULSE 64–74; RESP 18–29; TEMP 36.5–36.8; O2SAT 92–96
[2020-07-29] MEDS: carbidopa-levodopa ER 50-200mg Tablet 1.5 EACH PO ×7 (00:20→23:51)
--- NOTE | 2020-07-29 05:41 | PC.NURSE ---
End of shift: Patient has rested well this shift. Patient has had no complaints of pain. Will Continue to monitor.
[2020-07-29] MEDS: ropinirole 1 mg Tablet 3 MG PO ×5 (06:06→21:38)
[2020-07-29] MEDS: FUROsemide 10 mg/mL SDV 10mL 80 MG IVP ×2 (06:07→17:50)
--- NOTE | 2020-07-29 07:25 | PC.NURSE ---
Patient up to side of bed at time of assessment. No needs identified at this time. Nurse to continue to monitor.
[2020-07-29] MEDS: gabapentin 300 mg Capsule PO ×3 (08:41→21:35)
[2020-07-29] MEDS: sertraline 50 mg Tablet 25 MG PO (08:41)
[2020-07-29] MEDS: potassium chloride ER 10 mEq Tablet 20 MEQ PO (08:42)
[2020-07-29] MEDS: losartan 50 mg Tablet 25 MG PO (08:42)
[2020-07-29] MEDS: famotidine 20 mg Tablet 40 MG PO (08:44)
[2020-07-29] MEDS: metoprolol succinate ER (24 HR) 100 mg Tablet PO (08:45)
--- NOTE | 2020-07-29 10:08 | PC.NURSE ---
pt walked 100 ft
--- NOTE | 2020-07-29 10:53 | ECG_ITS ---
[facility] Test Date: 2020-07-30 Pat Name: Fabiola Matthew Department: Room: 102 Gender: Male Rating Clerk: : 1950 Requested By: Braxton Khan Order Number: [id number] Seble MD: Vladislav Barbour M.D. Interpretive Statements NAME OF STUDY: LEXISCAN SESTAMIBI STRESS TEST INDICATION: Chest Pain, PROCEDURE: At the baseline, the EKG revealed normal sinus rhythm with normal ST-T's. Left axis deviation. Nonspecific IVCD.. The baseline blood pressure was 110/65 mm Hg with a heart rate of 64 beats/min. Lexiscan was infused over a period of 20 seconds. A total of 0.4 milligrams of Lexiscan was infused. The stress phase was continued for a total of 5 minutes. Heart rate at the end of the stress phase was 79 with a blood pressure 112/60. The EKG at the peak infusion revealed no significant changes. Sestamibi was injected 20 seconds after the Lexiscan infusion. Blood pressure at the end of the recovery phase was 118/62 with a heart rate of 78 per minute. CONCLUSION: 1. No significant EKG changes with the LexiScan infusion 2. No LexiScan induced chest pain or cardiac arrhythmia 3. Normal blood pressure and heart rate response 4. Sestamibi/sestamibi perfusion scan pending; see separate report. Electronically Signed On 07-30-2020 17:30:21 CDT by Vladislav Barbour M.D. [id number]
--- NOTE | 2020-07-29 10:54 | P.PN_ITS ---
Subjective Subjective: Interval history: The patient is now chest pain-free and he feels that his shortness of breath is improving. He continues to have some dyspnea with exertion and swelling in his bilateral lower extremities. He denies any nausea, vomiting, diarrhea, constipation at this time. Vitals/I&O/Wt Last Vital Signs Temp 97.7 F 07/29/20 07:03 Pulse 70 07/29/20 07:03 Resp 26 H 07/29/20 07:03 BP 149/84 07/29/20 08:42 Pulse Ox 96 07/29/20 07:03 07/28/20 07/29/20 07/29/20 22:59 06:59 14:59 Intake Total 340 / 970 360 / 360 Output Total 475 / 475 250 / 725 550 / 550 Balance -135 / 495 -250 / 245 -190 / -190 Weight last 48 hrs Weight 311 lb 6.4 oz Physical Exam Narrative: EXAM NARRATIVE: General: Alert and oriented x3 Cardiac: Regular rate and rhythm without murmurs Lungs: Decreased air entry bilaterally without crackles or rhonchi noted. No significant wheezes appreciated at this time. Abdomen: Soft, nontender, no hepatosplenomegaly noted Extremities: 2+ pitting edema to the bilateral lower extremities with a small ulceration on the right lower galo with mild erythema surrounding it without obvious signs of cellulitis. Data : 07/28/20 03:50 07/28/20 03:50 A&P Assessment and plan (1) Chronic venous insufficiency: Status: Acute (2) Diastolic CHF: Status: Acute Qualifiers: Heart failure chronicity: acute Qualified Code(s): I50.31 - Acute diastolic (congestive) heart failure (3) Parkinson disease: Status: Acute (4) Hypertension: Status: Acute (5) Bilateral claudication of lower limb: Status: Acute (6) Fluid overload: Status: Acute Additional A&P Information 1. Acute on chronic diastolic CHF with fluid overload -the patient has significant fluid overload secondary to noncompliance with medications at home. The patient is diuresing well but continues to have significant fluid in his bi lateral lower extremities. The patient will be given compression socks and fluid restriction. The underlying cause is likely secondary to diastolic CHF that is complicated by obstructive sleep apnea. The patient has moderate obstructive sleep apnea but has not had the titration study done yet to get a CPAP. This is in the process of being set up. The patient continues have significant edema and he will need to stay for at least an extra 1 to 2 days to clear this off. 2. Hypertension -the patient's blood pressures are improving slightly. My hope is that as the fluid levels come down, his blood pressure well as well. We will adjust meds if needed. 3. Parkinson's -continue with home medications. 4. Obstructive sleep apnea -the patient has moderate obstructive sleep apnea and we will continue to work on getting him set up for an outpatient sleep study. This has been difficult to set up secondary to his work schedule. 5. Intermittent claudication of the bilateral lower extremities -patient has mild to moderate disease in the right lower extremity and mild disease in the left lower extremity. At this time these are not significant enough to warrant further intervention, however if he begins to have ulcerations that will not heal or significant pain, he will likely need angiogram at that time. 6. Chest pain -the patient chest pain upon admission that was central and little bsternal. This has improved with Lasix therapy. The patient has not had a cardiac stress test in years, so we will get one to rule out further disease. 7. Prophylaxis -Lovenox for prophylaxis. Attestations Medical Necessity Statement*: Patient will be here for greater than 2 midnights due to treatment of acute on chronic diastolic CHF with fluid overload and chest pain. 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
--- NOTE | 2020-07-29 11:08 | PC.CHAP ---
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 [] Patient/Family/Request visit [] Outpatient visit [] Follow-up visit [] Physician referral [] Code/Alert [x] Routine visit [] Staff referral [] Actively dying [] Patient sleeping [] Family support [] [] Out of room [] Palliative care [] [x] Receiving care in room [] Pre-surgical visit [] Trauma [] Long length of stay [] ICU visit [] Other: Relational/Emotional Strength [x] Patient feels connected with others/family/visitors/staff [] Distress [] Loneliness/isolation [] Abandonment Spirituality of Patient [x] Person of Yesika [] Attends Gnosticist of their Yesika [x] Believes in Prayer [] Reads Bible or Muslim materials [] There are Spiritual issues to be addressed 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 Off Interventions [x] Prayer [x] Active listening [x] Non-anxious presence [x] Spiritual/emotional support [] Crisis/trauma care [x] Spiritual counseling [] Bereavement support [] Provided bereavement packet [] Provided Bible/devotional materials [] Provided toy/stuffed animal, coloring book to patient or family member [] Provided Communion [] Anointing/[place] [] Salvation [x] Completed spiritual assessment [] Other: Impact on Illness or Injury [] Angry [] Fearful [x] Anxious [] Often cries [] Exhaustion [] Unable to work [] Unable to attend congregation [] Unable to walk/stand [] Unable to read [] Unable to drive [] Unable to eat/drink [] Unable to sleep [] Unable to be with family [] Patient intubated [] Other: Summary Dealing with their heart not sure about what needs to be done at this time has a good attitude Time spent with patient 10 mins
[2020-07-29] MEDS: enoxaparin 40 mg/0.4 mL Syringe SUBCUT (17:51)
--- NOTE | 2020-07-29 19:43 | PC.NURSE ---
Rounding: Patient up to chair watching TV. Patient alert and oriented. Patient ambulated in the escalera with a walker. Patient denies any pain. Will continue to monitor.
[2020-07-29] MEDS: CLONazepam 1 mg Tablet PO (21:35)
[2020-07-30] VITALS (10 sets, daily range): BP systolic 118–157; BP diastolic 62–88; PULSE 63–80; RESP 15–22; TEMP 36.4–36.8; O2SAT 92–96
[2020-07-30] MEDS: carbidopa-levodopa ER 50-200mg Tablet 1.5 EACH PO ×4 (04:31→16:41)
[2020-07-30 04:35] LABS: Basophils # 0.1 10^3/uL (0.0-0.1); Eosinophils # 0.2 10^3/uL (0.0-0.8); Eosinophils % 2.2 %; Hematocrit 43.5 % (42.0-52.0); Hemoglobin 14.4 g/dL (11.7-16.6); Lymphocytes # 1.8 10^3/uL (0.8-4.8); Lymphocytes % 20.7 %; Mean Corpuscular HGB Conc 33.1 g/dL (30.0-36.0); Mean Corpuscular Hemoglobin 30.8 pg (28.0-34.0); Mean Corpuscular Volume 92.9 fL (80-94); Monocytes % 11.6 %; Neutrophils # 5.56 10^3/uL (1.8-7.7); Neutrophils % 62.6 %; Nucleated Red Blood Cells % 0 %; Platelet Count 169 10^3/cmm (130-400); Red Blood Count 4.68 10^6/uL (4.1-5.3); Red Cell Distribution Width 12.1 % (12.1-15.1); White Blood Count 8.9 10^3/uL (4.0-10.0)
[2020-07-30 05:01] LABS: Alanine Aminotransferase 6 U/L (0-41); Albumin Level 3.7 g/dL (3.5-5.2); Alkaline Phosphatase 67 IU/L (40-130); Blood Urea Nitrogen 24 mg/dL (8-23); Calcium 9.3 mg/dL (8.5-10.5); Carbon Dioxide 27 mmol/L (22-29); Chloride 95 mmol/L (98-107); Globulin 2.6 g/dL (1.3-4.6); Glucose 142 mg/dL (65-115); Magnesium 2.2 mg/dL (1.7-2.3); Osmolality Calculated 284 mOsm/kg (285-295); Sodium 134 mmol/L (136-145); Total Bilirubin 0.8 mg/dL (0.15-1.2); Total Protein 6.3 g/dL (6.6-8.7)
[2020-07-30 05:08] LABS: Anion Gap 15.4 (5-19); Aspartate Amino Transferase 24 U/L (0-40); Potassium 3.4 mmol/L (3.5-5.1)
--- NOTE | 2020-07-30 06:30 | PC.NURSE ---
End of shift: Patient did not want his morning dose of lasix due to not wanting to go to the bathroom his entire procedure. Passed along to oncoming shift. Patient stated he would take the lasix after his procedure. Patient otherwise had a uneventful shift, remains alert and oriented. Patient denies any pain this time.
[2020-07-30] MEDS: ropinirole 1 mg Tablet 3 MG PO ×3 (06:36→16:41)
[2020-07-30] MEDS: regadenoson 0.4 Mg/5 ml Syringe IVP (07:48)
[2020-07-30] MEDS: famotidine 20 mg Tablet 40 MG PO (10:06)
[2020-07-30] MEDS: losartan 50 mg Tablet 25 MG PO (10:07)
[2020-07-30] MEDS: sertraline 50 mg Tablet 25 MG PO (10:07)
[2020-07-30] MEDS: potassium chloride ER 10 mEq Tablet 20 MEQ PO (10:07)
[2020-07-30] MEDS: gabapentin 300 mg Capsule PO ×2 (10:07→16:41)
[2020-07-30] MEDS: metoprolol succinate ER (24 HR) 100 mg Tablet PO (10:07)
[2020-07-30] MEDS: FUROsemide 10 mg/mL SDV 10mL 80 MG IVP (10:08)
--- NOTE | 2020-07-30 10:54 | NMCV_ITS ---
NM billy perf SPECT r/s* [id number] Fabiola Matthew Age: 70 Gender: M : 1950 Exam Date: 07/30/2020 06:34 Ordering Phys: Braxton Dobbins MD Technologist: DESTIN Wilde Exam Location: [facility] Indications: SOB STRESS TEST Please see separate stress test report in [facility] for full findings IMAGE PROTOCOL Rest/Stress 1 Lexiscan Day Radiopharmaceutical Dose (mCi) Administration Site Administered by Rest: Tc-99m 11.0 IV DESTIN Diallo Sestamibi Stress:Tc-99m 33.0 IV DESTIN Diallo Sestamibi Rest: 30-Jul-2020 60 Discovery 630 Stress: 30-Jul-2020 30 Discovery 630 0.4mg Lexiscan. Supine position only as patient was unable to lay prone. SPECT RESULTS Technical Quality: Good Raw Data Analysis: Soft tissue attenuation; 311 lbs Image Corrections: No attenuation or motion correction applied Summed Stress Score: 3 Summed Rest Score: 0 Summed Difference Score: 3 PERFUSION FINDINGS Small size perfusion abnormality of mild severity of mid to apical inferior wall on stress images. FUNCTIONAL RESULTS (calculated via Gated SPECT) Stress Image LV EF (%): 62 Stress EDV (mL):148 TID: 1 Stress ESV (mL):56 FUNCTIONAL FINDINGS: The left ventricle is normal in size. Transient Ischemia Dilatation of 1. There is normal left ventricular systolic function. The left ventricular ejection fraction is normal with a value of 62%. There is normal left ventricular wall thickening. IMPRESSIONS 1. Small sized perfusion abnormality of mild severity of mid to apical inferior wall on stress images. 2. This may represent small area of ischemia in right coronary artery territory. However in absence of prone imaging, attenuation artifact cannot be completely ruled out. 3. Overall left ventricular systolic function is normal without regional wall motion abnormalities. 4. The left ventricular ejection fraction is normal with a value of 62% 5. No prior similar studies to compare. Pia Mike MD (Electronically Signed) Final Date: 30 July 2020 10:36 S
--- NOTE | 2020-07-30 12:13 | P.DS_ITS ---
Discharge Providers Date of Admission: 07/28/20 08:46 Date of Discharge: July 30, 2020 Attending Provider at Admission: Braxton Dobbins MD Attending Provider at Discharge: Braxton Dobbins MD Primary Care Provider: Braxton Dobbins MD Diagnoses at Discharge Discharge Diagnosis (1) Chronic venous insufficiency: Status: Acute (2) Diastolic CHF: Status: Acute Qualifiers: Heart failure chronicity: acute Qualified Code(s): I50.31 - Acute diastolic (congestive) heart failure (3) Parkinson disease: Status: Acute Problem details: (4) Hypertension: Status: Acute (5) Bilateral claudication of lower limb: Status: Acute (6) Fluid overload: Status: Acute Reason for Visit Reason for Visit: SOB Hospital Course Hospital Course: The patient presented to the emergency department significant shortness of breath associated with chest pain and fluid overload. He was given Lasix in the emergency department and started to improve. The patient was found to be significantly fluid overloaded and in diastolic heart failure. His troponins were negative and did not show any signs of an acute AL. The patient was given Lasix 80 mg IV every 12 hours and he had improvement with this. The patient had significant urine output during this timeframe. His fluids were l imited to 1200 mL/day. Because of the patient's chest pains, it was felt best to get a cardiac stress test. The Lexiscan portion showed that he had an area in the mid to apical inferior wall with decreased uptake. I spoke with Dr. Mike regarding this and she felt that this was likely artifact, however could not be sure without prone images. She recommended follow-up in the next 1 to 2 weeks with her bakery products checker. She felt that since the patient is no longer having chest pains, that it was safe to not have an angiogram at this time. I spoke with the patient regarding this and he is in agreement with the current plan of care. He will plan to follow-up with his bakery products checker in the next 1 to 2 weeks. He is to continue to take Bumex 2 mg by mouth twice a day at home for diuresis along with potassium. If his chest pain is returning, he is to return to the ER right away. The patient was also advised to wear compression socks. We will work on getting him set up for the titration portion of his sleep study. The patient also had an ultrasound of his bilateral arteries of the lower extremities and this showed mild to moderate disease in his right lower extremity. He can follow-up with Dr. Miller regarding this. I would not expect him to need intervention for this currently. Currently the patient is doing better and not as dyspneic as he was upon presentation. His swelling is down significantly. He is stable for discharge home this afternoon as long as the EKG portion of his stress test is negative. Physical Exam Narrative: EXAM NARRATIVE: General: Alert and oriented x3 Cardiac: Regular rate and rhythm without murmurs Lungs: Decreased air entry bilaterally without crackles or rhonchi noted. No significant wheezes appreciated at this time. Abdomen: Soft, nontender, no hepatosplenomegaly noted Extremities: 1+ pitting edema to the bilateral lower extremities with a small ulceration on the right lower galo with mild erythema surrounding it without obvious signs of cellulitis. Discharge Data Data Completed and Pending: Completed Studies During Hospitalization Category Date Time Status Sestamibi Stress Test Request Routi ne Exams 07/29/20 10:53 Draft XR chest 1V swetha ble [id number] Urgent Exams 07/27/20 11:35 Completed NM billy perf SPECT r/s* [id number] Routin e Nuc Med 07/30/20 10:54 [place] [id number] Rout ine Ultrasound 07/28/20 07:00 Completed Labs from last 24 hours 07/30/20 07/30/20 03:33 03:33 WBC 8.9 RBC 4.68 Hgb 14.4 Hct 43.5 MCV 92.9 MCH 30.8 MCHC 33.1 RDW 12.1 Plt Count 169 MPV 11.0 H Neut % (Auto) 62.6 Lymph % (Auto) 20.7 [place] % (Auto) 11.6 Eos % (Auto) 2.2 Baso % (Auto) 1.0 Neut # (Auto) 5.56 Lymph # (Auto) 1.8 [place] # (Auto) 1.0 H Eos # (Auto) 0.2 Baso # (Auto) 0.1 Nucleated RBC % (a uto) 0 Nucleated RBCs # 0.0 Sodium 134 L Potassium 3.4 L Chloride 95 L Carbon Dioxide 27 Anion Gap 15.4 BUN 24 H Creatinine 1.2 GFR Calculation 60.0 L Glucose 142 H Calculated Osmolal ity 284 L Calcium 9.3 Magnesium 2.2 Total Bilirubin 0.8 AST 24 ALT 6 Alkaline Phosphata se 67 C-React Prot High Sens 0.380 H Total Protein 6.3 L Albumin 3.7 Globulin 2.6 Vitals: Last Vital Signs Temp 98.3 F 07/30/20 04:00 Pulse 79 07/30/20 08:10 Resp 15 07/30/20 08:00 BP 157/88 07/30/20 10:07 Pulse Ox 94 07/30/20 08:00 Discharge Plan Discharge Patient Disposition: Home Condition: Stable Prescriptions: New ropinirole 1 mg Tablet 3 mg PO 5XD Qty: 150 RF: 0 Continued carbidopa-levodopa [Sinemet CR] 50-200 mg tablet extended release See Rx Instructions .ROUTE .COMPLEX RF: 0 gabapentin 100 mg capsule 300 mg PO TID RF: 0 ropinirole 1 mg tablet See Rx Instructions .ROUTE .COMPLEX RF: 0 clonazepam 0.5 mg tablet 1 mg PO BEDTIME PRN (Reason: unknown) RF: 0 metoprolol succinate 100 mg Tablet Extended Release 24 Hr 100 mg PO DAILY Qty: 30 RF: 0 tramadol 50 mg tablet 50 mg PO TID PRN (Reason: Pain) RF: 0 famotidine 40 mg tablet 40 mg PO DAILY RF: 0 aspirin [Aspir-81] 81 mg Tablet,Delayed Release (Dr/Ec) See Rx Instructions .ROUTE .COMPLEX RF: 0 acetaminophen [Tylenol Extra Strength] 500 mg Tablet 500 - 1,000 mg PO PRN RF: 0 Cenforce-200 200 mg PO PRN PRN (Reason: Sexual Activity) RF: 0 multivitamin [Multiple Vitamins] Tablet 1 tab PO DAILY RF: 0 bumetanide 1 mg tablet See Rx Instructions .ROUTE .COMPLEX RF: 0 sertraline 25 mg Tablet 25 mg PO DAILY PRN (Reason: unknown) RF: 0 losartan 25 mg tablet 25 mg PO DAILY Qty: 30 RF: 0 Changed potassium chloride 20 mEq Tablet Extended Release 20 meq PO BIDWM Qty: 0 RF: 0 Discontinued furosemide 40 mg tablet See Rx Instructions .ROUTE .COMPLEX RF: 0 Discharge Orders: Discharge Order (Routine); Ordered 07/30/20 Ordered By: Braxton Dobbins Referrals: Landon Bone M.D [Physician] - 7-10 days Braxton Dobbins MD [Primary Care Provider] - 1 week Discharge Diet: Cardiac Discharge Activity: Increase activity as tolerated Activity Restrictions/Additional Instructions: Please make sure you take your Bumex twice a day as written. Please wear compression socks during the day. 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
[2020-07-30] MEDS: potassium chloride ER 10 mEq Tablet 40 MEQ PO (13:03)
== END 2020-07-30 17:25 | disposition home or self-care (01) | DRG 293 ==
LOC: ER 11:25 → CSU 15:09
PROVIDERS: Emergency Medicine; Admitting Provider Family Medicine; PCP Family Medicine; Visit Provider Family Medicine
DX: I11.0 Hypertensive heart disease with heart failure (principal); I50.33 Acute on chronic diastolic (congestive) heart failure; G20 Parkinson's disease; Z96.82 Presence of neurostimulator; Z96.659 Presence of unspecified artificial knee joint; I70.213 Atherosclerosis of native arteries of extremities with intermittent claudication, bilateral legs; T50.1X6A Underdosing of loop [high-ceiling] diuretics, initial encounter; Z91.128 Patient's intentional underdosing of medication regimen for other reason; G47.33 Obstructive sleep apnea (adult) (pediatric); R07.9 Chest pain, unspecified; Z79.82 Long term (current) use of aspirin
CPT/HCPCS: 12345; 36415; 71045; 78452; 80053; 83605; 83735; 83880; 84484; 85025; 85378; 85610; 86140; 86141; 87426; 87804; 93005; 93017; 93923; 96372; 96375; 99283; A9500; G0378; J1650; J1940; J2785

== ENCOUNTER 2020-08-19 20:00 | Outpatient (CLI) | payer MEDICARE, SELFPAY | END 2020-08-19 20:01 | disposition home or self-care (01) | LOC: SLEEP 08-20 09:15 | PROVIDERS: PCP Family Medicine; Visit Provider Family Medicine | DX: G47.33 Obstructive sleep apnea (adult) (pediatric) (principal) | CPT/HCPCS: 95810; 95811 ==

== ENCOUNTER 2020-08-23 13:38 | Emergency (ER) | payer MEDICARE, SELFPAY ==
[2020-08-23 13:57] VITALS: RESP 18; O2SAT 18; BMI 43.3
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
[2020-08-23] MEDS: tetanus-dipt-pertussis 0.5 mL SDV IM (14:24)
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
--- NOTE | 2020-08-23 15:50 | PC.NURSE ---
MONITOR TECHNICIAN at bedside doing laceration repair
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
[2020-08-23 16:00] VITALS: BP 145/73; PULSE 72; RESP 18; TEMP 36.8; O2SAT 97
--- NOTE | 2020-08-24 09:05 | DCPLANNER ---
franchise manager had message to schedule a follow up appointment for patient with [facility]ound [facility]. franchise manager called [facility], spoke with Kathleen, gave clinic patients information. franchise manager was told that patients information would be printed and reviewed. Clinic will call patient with appointment information.
--- NOTE | 2020-09-01 14:00 | DCPLANNER ---
Patient had follow up appointment scheduled for 08.30.20 with Wound Care - patient did attend appointment.
== END 2020-08-23 16:05 | disposition home or self-care (01) ==
PROVIDERS: Emergency Provider Nurse Practitioner Family; PCP Family Medicine
DX: S60.221A Contusion of right hand, initial encounter (principal); S40.011A Contusion of right shoulder, initial encounter; Z79.82 Long term (current) use of aspirin; S61.411A Laceration without foreign body of right hand, initial encounter; I10 Essential (primary) hypertension; G20 Parkinson's disease; V89.2XXA Person injured in unspecified motor-vehicle accident, traffic, initial encounter; Z23 Encounter for immunization
CPT/HCPCS: 12004; 12345; 73130; 90715; 99281; 99283

== ENCOUNTER 2020-08-30 09:36 | Outpatient (CLI) | payer MEDICARE, SELFPAY | END 2020-08-30 09:37 | disposition home or self-care (01) | LOC: WOUND 09:37 | PROVIDERS: PCP Family Medicine; Visit Provider Nurse Practitioner Family | DX: S61.411D Laceration without foreign body of right hand, subsequent encounter (principal); S91.312D Laceration without foreign body, left foot, subsequent encounter; L03.115 Cellulitis of right lower limb; X58.XXXD Exposure to other specified factors, subsequent encounter | CPT/HCPCS: 11042; G0463 ==

== ENCOUNTER 2020-09-10 09:52 | Emergency (ER) | payer MEDICARE, SELFPAY ==
[2020-09-10 10:01] VITALS: BP 161/77; PULSE 81; RESP 18; TEMP 36.4; O2SAT 95; BMI 43.3
[2020-09-10 12:04] VITALS: RESP 18
--- NOTE | 2020-09-10 12:39 | ECG_ITS ---
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: : 1950 Requested By: Brook Glasgow Order Number: [id number] Reading MD: GEORGINA MORRELL Measurements Intervals [place] Rate: 90 P: 255 MD: 365 QRS: -66 QRSD: 135 T: 73 QT: 382 QTc: 470 Interpretive Statements ELECTRONIC ATRIAL PACEMAKER LEFT AXIS DEVIATION [QRS AXIS < -30] INTRAVENTRICULAR CONDUCTION DELAY [130+ ms QRS DURATION] Compared to ECG 07/27/2020 15:29:15 Left-axis deviation now present Intraventricular conduction delay now present Electronically Signed On 09-10-2020 19:28:08 RECRUIT INSTRUCTOR by GEORGINA MORRELL [email or web address]
--- NOTE | 2020-09-10 12:39 | XR_ITS ---
WS: [id number] XR chest 1V portable [id number] REASON FOR EXAM: dyspnea FINDINGS: The examination is unchanged compared to previous examination of 07/27/2020. Mild tortuosity and ecta jaqueline of the thoracic aorta. Normal heart size. No active pulmonary parenchymal or pleural disease is identified. Changes of degenerative spondylosis in the lower thoracic spine. XR/XR chest 1V portable [id number] IMPRESSION: No acute chest abnormality.
--- NOTE | 2020-09-10 12:50 | ED_ITS ---
Documented by User: Brook Riddle MD 09/19/20 17:10 HPI - Extremity Problem General: Chief complaint: Extremity Problem,Nontraumatic Stated complaint: swollen legs Time Seen by Provider: 09/10/20 12:15 History of Present Illness: HPI Narrative: This patient is a 70-year-old male comes in today with complaints of leg pain, cramping, swelling, weeping. He has a history of CHF and has had this problem before. He sees wound care and his PCP is Dr. Dobbins. He said he ran out of his gabapentin and ropinirole that he uses for leg cramps at home. He took his last dose this morning. He said he has been taking his diuretic as prescribed. He is having increasing shortness of breath as well. He denies fever cough. He is very uncomfortable. Complaint: extremity pain and extremity swelling Onset (ago): day(s) (2 or 3) Pain Consistency: constant Location: lower extremity Quality: aching and other (Cramping) Radiation: none Relieving factors: nothing Exacerbating factors: nothing Associated symptoms: Reports short of breath; Deny chest pain, fever(s) or rash Context: history of peripheral vascular disease (CHF) Review of Systems General: Reports: 10 or more systems reviewed and unremarkable except in HPI and below Const: Reports: fatigue and malaise; Denies: fever(s) or chills Eyes: Denies: change in vision ENMT: Denies: odynophagia Card: Reports: swelling of feet/ankles; Denies: chest pain Resp: Denies: dyspnea, productive cough or non-productive cough GI: Denies: abdominal pain, nausea or vomiting : Denies: flank pain Musc: Reports: extremity pain and extremity swelling; Denies: neck pain or back pain Skin/Breast: Denies: rash Neuro: Denies: headache(s), numbness in extremities or weakness in extremities Tomy/Lymph: Denies: easy bruising or easy bleeding [facility] ED PFSH: Medical History (Updated 09/18/20 @ 00:00 by ) Airway obstruction Dysphasia Modified barium swallow done 3 days ago 04/13/2020 did not reveal any aspiration Hypertension Parkinson disease Presence of neurostimulator Surgical History History of bronchoscopy Did not reveal retropharyngeal mass or swelling done in Previous back surgery S/P cholecystectomy S/P total knee arthroplasty Family History Other Cancer Hypertension Denies family history of Diabetes Social History Smoking and tobacco status: never smoked Alcohol intake: current Alcohol intake frequency: few times a week 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 Physical Exam Const: COMMON NORMALS: patient oriented x3, no limitations and alert GENERAL APPEARANCE: cooperative NUTRITIONAL APPEARANCE: obese HENMT: HEAD & SCALP: normal to inspection FACE & SINUS: normal facial exam Eye: GENERAL EYE: appearance normal, both eyes and all related structures Neck/C-Spine: COMMON NORMALS: supple, no meningeal signs and no JVD Chest: COMMONS NORMALS: normal inspection of the chest Resp: COMMON NORMALS: normal respiratory effort and No use of accessory muscles AUSCULTATION: crackles and diminished lung sounds Cardio: COMMON NORMALS: no JVD, regular rate, regular rhythm and No murmurs present (Cardio) RATE: regular rate RHYTHM: regular rhythm GI: COMMON NORMALS: Normal to inspection, nondistended, normoactive bowel sounds present, Soft to palpation and non-tender INSPECTION: Yes normal to inspection AUSCULTATION: Yes normoactive bowel sounds PALPATION: Yes Soft to palpation Back/Pelvis: COMMON NORMALS: thoracic and lumbar spine normal to inspection Extremity: NARRATIVE EXTREMITY EXAM: Edema in both lower legs all the way up to the thighs. Mildly red. Weeping. Neuro: COMMON NORMALS: patient oriented x3, moves all extremities, no focal motor deficits and no sensory deficits noted SENSORIUM/ORIENTATION: Yes alert MENINGEAL SIGNS: Yes no meningeal signs Psych: COMMON NORMALS: mental status grossly normal, cooperative and normal affect Skin: COMMON NORMALS: no rashes or lesions noted and turgor normal GENERAL SKIN EXAM: no rashes or lesions noted and turgor normal Course ED course: Mr. Matthew's labs unfortunately seem to have been misplaced between here in the lab. It was quite some time before this was noted and labs had to be redrawn. I did not want to give him any Lasix until I had seen his kidney function. Fortunately that came back normal and I gave him a dose of IV Lasix. I think once he diuresis some he will be okay to go home. His sats are good. His chest x-ray does not show significant amount of failure and his BNP is not markedly elevated. I think part of his problem was that he was out of medications for his leg cramps. I will refill those for him and hopefully he can go home later. Vital Signs: Vital signs: Vital Signs Temperature 97.6 F 09/10/20 10:01 Pulse Rate 78 09/10/20 20:23 Respiratory Rate 18 09/10/20 20:23 Blood Pressure 171/104 09/10/20 20:23 Pulse Oximetry 98 09/10/20 20:23 MDM - Extremity (Nontraumatic) Lab Data: Labs: Lab Results 09/10/20 09/10/20 09/10/20 Range/Units 16:00 16:00 16:00 WBC 8.5 (4.0-10.0) 10^3/ uL RBC 4.29 (4.1-5.3) 10^6/u L Hgb 13.3 (11.7-16.6) g/dL Hct 40.4 L (42.0-52.0) % MCV 94.2 H (80-94) fL MCH 31.0 (28.0-34.0) pg MCHC 32.9 (30.0-36.0) g/dL RDW 12.5 (12.1-15.1) % Plt Count 201 (130-400) 10^3/c mm MPV 10.8 H (7.4-10.4) fL Neut % (Auto) 64.5 % Lymph % (Auto) 18.2 % Loving % (Auto) 13.1 % Eos % (Auto) 2.2 % Baso % (Auto) 1.2 % Neut # (Auto) 5.49 (1.8-7.7) 10^3/u L Lymph # (Auto) 1.6 (0.8-4.8) 10^3/u L Loving # (Auto) 1.1 H (0.2-0.9) 10^3/u L Eos # (Auto) 0.2 (0.0-0.8) 10^3/u L Baso # (Auto) 0.1 (0.0-0.1) 10^3/u L Nucleated RBC % (a uto) 0 % Nucleated RBCs # 0.0 /100WBC Sodium 141 (136-145) mmol/L Potassium 3.9 (3.5-5.1) mmol/L Chloride 103 (98-107) mmol/L Carbon Dioxide 28 (22-29) mmol/L Anion Gap 13.9 (5-19) BUN 14 (8-23) mg/dL Creatinine 1.0 (0.7-1.2) mg/dL GFR Calculation 74.1 L (90-130) mL/min Glucose 133 H (65-115) mg/dL Calculated Osmolal ity 294 (285-295) mOsm/k g Calcium 8.9 (8.5-10.5) mg/dL Total Bilirubin 0.9 (0.15-1.2) mg/dL AST 26 (0-40) U/L ALT 48 H (0-41) U/L Alkaline Phosphata se 74 (40-130) IU/L Troponin T Baselin e 24 H (0-15) ng/L Troponin T 120 Min ely [place] (0-15) ng/L Delta Troponin T (0-10) ABS# NT-Pro-B Natriuret Pep 223 H (0-125) pg/mL Total Protein 5.7 L (6.6-8.7) g/dL Albumin 3.8 (3.5-5.2) g/dL Globulin 1.9 (1.3-4.6) g/dL 09/10/20 Range/Units 18:12 WBC (4.0-10.0) 10^3/ uL RBC (4.1-5.3) 10^6/u L Hgb (11.7-16.6) g/dL Hct (42.0-52.0) % MCV (80-94) fL MCH (28.0-34.0) pg MCHC (30.0-36.0) g/dL RDW (12.1-15.1) % Plt Count (130-400) 10^3/c mm MPV (7.4-10.4) fL Neut % (Auto) % Lymph % (Auto) % Loving % (Auto) % Eos % (Auto) % Baso % (Auto) % Neut # (Auto) (1.8-7.7) 10^3/u L Lymph # (Auto) (0.8-4.8) 10^3/u L Loving # (Auto) (0.2-0.9) 10^3/u L Eos # (Auto) (0.0-0.8) 10^3/u L Baso # (Auto) (0.0-0.1) 10^3/u L Nucleated RBC % (a uto) % Nucleated RBCs # /100WBC Sodium (136-145) mmol/L Potassium (3.5-5.1) mmol/L Chloride (98-107) mmol/L Carbon Dioxide (22-29) mmol/L Anion Gap (5-19) BUN (8-23) mg/dL Creatinine (0.7-1.2) mg/dL GFR Calculation (90-130) mL/min Glucose (65-115) mg/dL Calculated Osmolal ity (285-295) mOsm/k g Calcium (8.5-10.5) mg/dL Total Bilirubin (0.15-1.2) mg/dL AST (0-40) U/L ALT (0-41) U/L Alkaline Phosphata se (40-130) IU/L Troponin T Baselin e (0-15) ng/L Troponin T 120 Min ely [place] 27.16 H (0-15) ng/L Delta Troponin T 3.16 (0-10) ABS# NT-Pro-B Natriuret Pep (0-125) pg/mL Total Protein (6.6-8.7) g/dL Albumin (3.5-5.2) g/dL Globulin (1.3-4.6) g/dL Discharge Plan Discharge Patient Disposition: Home Clinical Impression: Lower extremity edema, Cellulitis of lower extremity Condition: Stable Prescriptions: New ropinirole 3 mg tablet 3 mg PO TID PRN (Reason: leg cramps) Qty: 90 RF: 0 gabapentin 300 mg capsule 300 mg PO TID Qty: 90 RF: 0 Lasix 40 mg tablet 40 mg PO QAM Qty: 10 RF: 0 No Action carbidopa-levodopa [Sinemet CR] 50-200 mg tablet extended release See Rx Instructions .ROUTE .COMPLEX RF: 0 gabapentin 100 mg capsule 300 mg PO TID RF: 0 ropinirole 1 mg tablet See Rx Instructions .ROUTE .COMPLEX RF: 0 clonazepam 0.5 mg tablet 1 mg PO BEDTIME PRN (Reason: unknown) RF: 0 metoprolol succinate 100 mg Tablet Extended Release 24 Hr 100 mg PO DAILY Qty: 30 RF: 0 tramadol 50 mg tablet 50 mg PO TID PRN (Reason: Pain) RF: 0 famotidine 40 mg tablet 40 mg PO DAILY RF: 0 aspirin [Aspir-81] 81 mg Tablet,Delayed Release (Dr/Ec) See Rx Instructions .ROUTE .COMPLEX RF: 0 acetaminophen [Tylenol Extra Strength] 500 mg Tablet 500 - 1,000 mg PO PRN RF: 0 Cenforce-200 200 mg PO PRN PRN (Reason: Sexual Activity) RF: 0 multivitamin [Multiple Vitamins] Tablet 1 tab PO DAILY RF: 0 bumetanide 1 mg tablet See Rx Instructions .ROUTE .COMPLEX RF: 0 potassium chloride 20 mEq Tablet Extended Release 20 meq PO BIDWM Qty: 0 RF: 0 sertraline 25 mg Tablet 25 mg PO DAILY PRN (Reason: unknown) RF: 0 losartan 25 mg tablet 25 mg PO DAILY Qty: 30 RF: 0 Discharge Orders: Discharge Order (Routine); Ordered 09/10/20 Ordered By: Kem Scales Referrals: Braxton Dobbins MD [Primary Care Provider] - 1-3 days Discharge Diet: Low Salt Discharge Activity: Resume usual activity Patient Instructions: Cellulitis (ED), Leg Edema (ED) Activity Restrictions/Additional Instructions: Resume your normal dose of Bumex, 3 in the morning, and 3 in the afternoon. A lso take the medication you were prescribed daily in the morning for the next 3 days as well. Return to the emergency department for worsening leg swelling or redness, shortness of breath, other concerning symptoms. 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 Comprehensive Documented by User: Kem Scales DO 09/11/20 00:24 HPI - Extremity Problem General: Chief complaint: Extremity Problem,Nontraumatic Stated complaint: swollen legs Time Seen by Provider: 09/10/20 12:15 PFSH ED PFSH: Medical History (Updated 09/18/20 @ 00:00 by ) Airway obstruction Dysphasia Modified barium swallow done 3 days ago 04/13/2020 did not reveal any aspiration Hypertension Parkinson disease Presence of neurostimulator Surgical History History of bronchoscopy Did not reveal retropharyngeal mass or swelling done in Previous back surgery S/P cholecystectomy S/P total knee arthroplasty Family History Other Cancer Hypertension Denies family history of Diabetes Social History Smoking and tobacco status: never smoked Alcohol intake: current Alcohol intake frequency: few times a week Current occupation: [employer] Vital Signs: Vital signs: Vital Signs Temperature 97.6 F 09/10/20 10:01 Pulse Rate 78 09/10/20 20:23 Respiratory Rate 18 09/10/20 20:23 Blood Pressure 171/104 09/10/20 20:23 Pulse Oximetry 98 09/10/20 20:23 MDM - Extremity (Nontraumatic) MDM Narrative: Medical decision making narrative: 70-year-old male presenting with lower extremity edema. He was checked out to me by Dr. Riddle at shift change. He is put out over a liter after his IV Lasix. His legs appear mildly cellulitic. He will be placed on doxycycline for that. He will continue his Bumex 3 mg in the morning, and 3 in the afternoon prescribed by his PCP. He is not been taking the evening dose, so as he can go to sleep and stay asleep to get enough sleep to work the next day. He will go ahead and take these, we will add Lasix as well for 3 days to try to boost his diuresis. He knows to return for worsening shortness of breath or other symptoms. Lab Data: Labs: Lab Results 09/10/20 09/10/20 09/10/20 Range/Units 16:00 16:00 16:00 WBC 8.5 (4.0-10.0) 10^3/ uL RBC 4.29 (4.1-5.3) 10^6/u L Hgb 13.3 (11.7-16.6) g/dL Hct 40.4 L (42.0-52.0) % MCV 94.2 H (80-94) fL MCH 31.0 (28.0-34.0) pg MCHC 32.9 (30.0-36.0) g/dL RDW 12.5 (12.1-15.1) % Plt Count 201 (130-400) 10^3/c mm MPV 10.8 H (7.4-10.4) fL Neut % (Auto) 64.5 % Lymph % (Auto) 18.2 % Loving % (Auto) 13.1 % Eos % (Auto) 2.2 % Baso % (Auto) 1.2 % Neut # (Auto) 5.49 (1.8-7.7) 10^3/u L Lymph # (Auto) 1.6 (0.8-4.8) 10^3/u L Loving # (Auto) 1.1 H (0.2-0.9) 10^3/u L Eos # (Auto) 0.2 (0.0-0.8) 10^3/u L Baso # (Auto) 0.1 (0.0-0.1) 10^3/u L Nucleated RBC % (a uto) 0 % Nucleated RBCs # 0.0 /100WBC Sodium 141 (136-145) mmol/L Potassium 3.9 (3.5-5.1) mmol/L Chloride 103 (98-107) mmol/L Carbon Dioxide 28 (22-29) mmol/L Anion Gap 13.9 (5-19) BUN 14 (8-23) mg/dL Creatinine 1.0 (0.7-1.2) mg/dL GFR Calculation 74.1 L (90-130) mL/min Glucose 133 H (65-115) mg/dL Calculated Osmolal ity 294 (285-295) mOsm/k g Calcium 8.9 (8.5-10.5) mg/dL Total Bilirubin 0.9 (0.15-1.2) mg/dL AST 26 (0-40) U/L ALT 48 H (0-41) U/L Alkaline Phosphata se 74 (40-130) IU/L Troponin T Baselin e 24 H (0-15) ng/L Troponin T 120 Min ely [place] (0-15) ng/L Delta Troponin T (0-10) ABS# NT-Pro-B Natriuret Pep 223 H (0-125) pg/mL Total Protein 5.7 L (6.6-8.7) g/dL Albumin 3.8 (3.5-5.2) g/dL Globulin 1.9 (1.3-4.6) g/dL 09/10/20 Range/Units 18:12 WBC (4.0-10.0) 10^3/ uL RBC (4.1-5.3) 10^6/u L Hgb (11.7-16.6) g/dL Hct (42.0-52.0) % MCV (80-94) fL MCH (28.0-34.0) pg MCHC (30.0-36.0) g/dL RDW (12.1-15.1) % Plt Count (130-400) 10^3/c mm MPV (7.4-10.4) fL Neut % (Auto) % Lymph % (Auto) % Loving % (Auto) % Eos % (Auto) % Baso % (Auto) % Neut # (Auto) (1.8-7.7) 10^3/u L Lymph # (Auto) (0.8-4.8) 10^3/u L Loving # (Auto) (0.2-0.9) 10^3/u L Eos # (Auto) (0.0-0.8) 10^3/u L Baso # (Auto) (0.0-0.1) 10^3/u L Nucleated RBC % (a uto) % Nucleated RBCs # /100WBC Sodium (136-145) mmol/L Potassium (3.5-5.1) mmol/L Chloride (98-107) mmol/L Carbon Dioxide (22-29) mmol/L Anion Gap (5-19) BUN (8-23) mg/dL Creatinine (0.7-1.2) mg/dL GFR Calculation (90-130) mL/min Glucose (65-115) mg/dL Calculated Osmolal ity (285-295) mOsm/k g Calcium (8.5-10.5) mg/dL Total Bilirubin (0.15-1.2) mg/dL AST (0-40) U/L ALT (0-41) U/L Alkaline Phosphata se (40-130) IU/L Troponin T Baselin e (0-15) ng/L Troponin T 120 Min ely [place] 27.16 H (0-15) ng/L Delta Troponin T 3.16 (0-10) ABS# NT-Pro-B Natriuret Pep (0-125) pg/mL Total Protein (6.6-8.7) g/dL Albumin (3.5-5.2) g/dL Globulin (1.3-4.6) g/dL Discharge Plan Discharge Patient Disposition: Home Clinical Impression: Lower extremity edema, Cellulitis of lower extremity Condition: Stable Prescriptions: New ropinirole 3 mg tablet 3 mg PO TID PRN (Reason: leg cramps) Qty: 90 RF: 0 gabapentin 300 mg capsule 300 mg PO TID Qty: 90 RF: 0 Lasix 40 mg tablet 40 mg PO QAM Qty: 10 RF: 0 No Action carbidopa-levodopa [Sinemet CR] 50-200 mg tablet extended release See Rx Instructions .ROUTE .COMPLEX RF: 0 gabapentin 100 mg capsule 300 mg PO TID RF: 0 ropinirole 1 mg tablet See Rx Instructions .ROUTE .COMPLEX RF: 0 clonazepam 0.5 mg tablet 1 mg PO BEDTIME PRN (Reason: unknown) RF: 0 metoprolol succinate 100 mg Tablet Extended Release 24 Hr 100 mg PO DAILY Qty: 30 RF: 0 tramadol 50 mg tablet 50 mg PO TID PRN (Reason: Pain) RF: 0 famotidine 40 mg tablet 40 mg PO DAILY RF: 0 aspirin [Aspir-81] 81 mg Tablet,Delayed Release (Dr/Ec) See Rx Instructions .ROUTE .COMPLEX RF: 0 acetaminophen [Tylenol Extra Strength] 500 mg Tablet 500 - 1,000 mg PO PRN RF: 0 Cenforce-200 200 mg PO PRN PRN (Reason: Sexual Activity) RF: 0 multivitamin [Multiple Vitamins] Tablet 1 tab PO DAILY RF: 0 bumetanide 1 mg tablet See Rx Instructions .ROUTE .COMPLEX RF: 0 potassium chloride 20 mEq Tablet Extended Release 20 meq PO BIDWM Qty: 0 RF: 0 sertraline 25 mg Tablet 25 mg PO DAILY PRN (Reason: unknown) RF: 0 losartan 25 mg tablet 25 mg PO DAILY Qty: 30 RF: 0 Discharge Orders: Discharge Order (Routine); Ordered 09/10/20 Ordered By: Kem Scales Referrals: Braxton Dobbins MD [Primary Care Provider] - 1-3 days Discharge Diet: Low Salt Discharge Activity: Resume usual activity Patient Instructions: Cellulitis (ED), Leg Edema (ED) Activity Restrictions/Additional Instructions: Resume your normal dose of Bumex, 3 in the morning, and 3 in the afternoon. Also take the medication you were prescribed daily in the morning for the next 3 days as well. Return to the emergency department for worsening leg swelling or redness, shortness of breath, other concerning symptoms. Antibiotics as directed Coding Level of Care Code ED Ornamental Ironworking Supervisor for Katherin Fwkartik Exam Comprehensive
[2020-09-10] MEDS: gabapentin 300 mg Capsule PO (12:54)
[2020-09-10] MEDS: ropinirole 2 mg Tablet 3 MG PO (12:58)
[2020-09-10 14:00] VITALS: BP 130/106; PULSE 78; RESP 22; O2SAT 97
[2020-09-10 16:00] VITALS: BP 171/104; PULSE 78; RESP 18; O2SAT 98
[2020-09-10 16:10] LABS: Basophils # 0.1 10^3/uL (0.0-0.1); Basophils % 1.2 %; Eosinophils # 0.2 10^3/uL (0.0-0.8); Eosinophils % 2.2 %; Hematocrit 40.4 % (42.0-52.0); Hemoglobin 13.3 g/dL (11.7-16.6); Lymphocytes # 1.6 10^3/uL (0.8-4.8); Lymphocytes % 18.2 %; Mean Corpuscular HGB Conc 32.9 g/dL (30.0-36.0); Mean Corpuscular Volume 94.2 fL (80-94); Mean Platelet Volume 10.8 fL (7.4-10.4); Monocytes # 1.1 10^3/uL (0.2-0.9); Monocytes % 13.1 %; Neutrophils # 5.49 10^3/uL (1.8-7.7); Neutrophils % 64.5 %; Nucleated Red Blood Cells % 0 %; Platelet Count 201 10^3/cmm (130-400); Red Blood Count 4.29 10^6/uL (4.1-5.3); Red Cell Distribution Width 12.5 % (12.1-15.1); White Blood Count 8.5 10^3/uL (4.0-10.0)
[2020-09-10 16:41] LABS: Troponin(5th) Baseline 24 ng/L (0-15)
[2020-09-10 16:49] LABS: Alanine Aminotransferase 48 U/L (0-41); Albumin Level 3.8 g/dL (3.5-5.2); Alkaline Phosphatase 74 IU/L (40-130); Blood Urea Nitrogen 14 mg/dL (8-23); Calcium 8.9 mg/dL (8.5-10.5); Carbon Dioxide 28 mmol/L (22-29); Chloride 103 mmol/L (98-107); Globulin 1.9 g/dL (1.3-4.6); Glomerular Filtration Rate 74.1 mL/min (90-130); Glucose 133 mg/dL (65-115); NT Pro B Type Natriuretic Pept 223 pg/mL (0-125); Osmolality Calculated 294 mOsm/kg (285-295); Sodium 141 mmol/L (136-145); Total Bilirubin 0.9 mg/dL (0.15-1.2); Total Protein 5.7 g/dL (6.6-8.7)
[2020-09-10 16:59] LABS: Anion Gap 13.9 (5-19); Aspartate Amino Transferase 26 U/L (0-40); Potassium 3.9 mmol/L (3.5-5.1)
[2020-09-10] MEDS: FUROsemide 10 mg/mL SDV 10mL 80 MG IVP (17:53)
[2020-09-10 18:36] LABS: Troponin 5 2HR 27.16 ng/L (0-15); Troponin 5 2HR Delta 3.16 ABS# (0-10)
--- NOTE | 2020-09-10 18:39 | ECG_ITS ---
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1950 Requested By: Brook Glasgow Order Number: [id number] Reading MD: GEORGINA MORRELL Measurements Intervals [place] Rate: 76 P: IN: -1 QRS: -63 QRSD: 124 T: 22 QT: 424 QTc: 478 Interpretive Statements Sinus rhythm, artifact LEFT AXIS DEVIATION [QRS AXIS < -30] MODERATE INTRAVENTRICULAR CONDUCTION DELAY [110+ ms QRS DURATION] MODERATE VOLTAGE CRITERIA FOR LVH, CONSIDER NORMAL VARIANT [MEETS CRITERIA IN ONE OF: R(aVL), S(V1), R(V5), R(V5/V6)+S(V1)] Compared to ECG 09/10/2020 13:14:12 Atrial-paced complex(es) or rhythm no longer present Electronically Signed On 09-10-2020 19:31:37 CONTRACTS INTERN by GEORGINA MORRELL [email or web address]
[2020-09-10 20:23] VITALS: BP 171/104; PULSE 78; RESP 18; O2SAT 98
== END 2020-09-10 20:24 | disposition home or self-care (01) ==
PROVIDERS: Emergency Medicine; Emergency Provider Emergency Medicine; PCP Family Medicine
DX: R60.0 Localized edema (principal); L03.119 Cellulitis of unspecified part of limb; Z79.82 Long term (current) use of aspirin; I10 Essential (primary) hypertension; G20 Parkinson's disease
CPT/HCPCS: 12345; 71045; 80053; 83880; 84484; 85025; 93005; 96374; 96375; 99283; J1940

== ENCOUNTER 2020-09-20 09:50 | Outpatient (CLI) | payer MEDICARE, SELFPAY | END 2020-09-20 09:51 | disposition home or self-care (01) | LOC: WOUND 09:51 | PROVIDERS: PCP Family Medicine; Visit Provider Nurse Practitioner Family | DX: Z09 Encounter for follow-up examination after completed treatment for conditions other than malignant neoplasm (principal) | CPT/HCPCS: 99212 ==

== ENCOUNTER 2020-10-03 09:13 | Observation (INO) | payer MEDICARE, SELFPAY ==
[2020-10-03] VITALS (25 sets, daily range): BP systolic 127–174; BP diastolic 55–84; PULSE 64–95; RESP 16–36; TEMP 36.1–36.8; O2SAT 89–100; BMI 43.3
--- NOTE | 2020-10-03 09:20 | USR_ITS ---
PROCEDURE INFORMATION: Exam: US Duplex Lower Extremity Veins, Bilateral Exam date and time: 10/03/2020 9:31 AM Age: 70 years old Clinical indication: Swelling (edema) of limb; Lower extremity, bilateral TECHNIQUE: Imaging protocol: Real-time duplex ultrasound of the extremities with 2-D grossman scale, color Doppler flow and spectral waveform analysis with image documentation. Complete exam focused on the bilateral lower extremity veins. COMPARISON: No relevant prior studies available. FINDINGS: Right deep veins: The common femoral, femoral, proximal profunda femoral and popliteal veins are patent. Normal Doppler waveforms. Normal compressibility and/or augmentation response. Right superficial veins: No superficial thrombophlebitis. Left deep veins: The common femoral, femoral, proximal profunda femoral and popliteal veins are patent. Normal Doppler waveforms. Normal compressibility and/or augmentation response. Left superficial veins: No superficial thrombophlebitis. Soft tissues: Mild bilateral superficial soft tissue edema. US/[place] [id number] IMPRESSION: No deep vein thrombosis.
--- NOTE | 2020-10-03 09:21 | XRR_ITS ---
PROCEDURE INFORMATION: Exam: XR Chest, 1 View Exam date and time: 10/03/2020 9:31 AM Age: 70 years old Clinical indication: Dyspnea; Prior surgery TECHNIQUE: Imaging protocol: XR of the chest Views: 1 view. COMPARISON: CR XR chest 1V portable [id number] 09/10/2020 12:45 PM FINDINGS: Tubes, catheters and devices: Bilateral generators. Biateral deep brain stimulators? Lungs: No pneumonia or pulmonary edema. Pleural space: No pleural effusion or pneumothorax. Heart/Mediastinum: The cardiac silhouette appears enlarged, but potentially accentuated by the portable AP nature of the exam and a left epicardial fat pad. The mediastinal contours are normal. Bones/joints: No acute osseous abnormality. XR/XR chest 1V portable [id number] IMPRESSION: No acute abnormality.
--- NOTE | 2020-10-03 09:22 | ECG_ITS ---
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1950 Requested By: Rosa Elena Mederos Order Number: [id number] Seble MD: GEORGINA MORRELL Measurements Intervals [place] Rate: 74 P: 268 WV: 328 QRS: -43 QRSD: 126 T: 24 QT: 390 QTc: 435 Interpretive Statements ELECTRONIC ATRIAL PACEMAKER LEFT AXIS DEVIATION [QRS AXIS < -30] POSSIBLE LATERAL MYOCARDIAL INFARCTION , OF INDETERMINATE AGE [30 ms Q WAVE IN I/aVL/V5/V6] Compared to ECG 09/10/2020 15:56:37 Myocardial infarct finding now present Sinus rhythm no longer present Intraventricular conduction delay no longer present Electronically Signed On 10-03-2020 19:15:02 PROGRAMMER OR ANALYST by GEORGINA MORRELL [email or web address]
--- NOTE | 2020-10-03 09:23 | ED_ITS ---
HPI - SOB/Dyspnea General: Chief Complaint: Shortness of Breath/Dyspnea Stated Complaint: Swelling in Right Leg/SOB Time Seen by Provider: 10/03/20 09:15 Source: patient Mode of arrival: ambulatory Limitations: no limitations History of Present Illness: HPI Narrative: Mr. Matthew is a very nice 70-year-old male who comes in complaining of leg swelling and shortness of breath. Patient states that his symptoms have been coming on for about 2 weeks but are much worse today. He states that he has shortness of breath when he exerts himself but denies any chest pain. He also has shortness of breath when he lays flat. He states when he stops and rests it takes time but eventually his symptoms will improve. He denies fever, cough, sore throat, loss of sense of taste/smell. Patient states he not had symptoms like this before. He states his overall body weight is increased. He specifically denies chest pain. Patient is unaware of any other exacerbating or alleviating factors other than listed. He describes the symptoms as moderate to severe but worsening especially today. Associated symptoms: Reports orthopnea; Deny abdominal pain, chest congestion, chest pain, diaphoresis, dizziness, extremity pain, fever(s), hemoptysis, lightheadedness, nausea, palpitations, syncope or vomiting Review of Systems Const: Denies: fever(s), chills, body aches, fatigue, malaise or diaphoresis Eyes: Denies: change in vision, blurry vision, photophobia, eye discomfort, eye discharge, eye redness or yellow eyes ENMT: Denies: throat pain, odynophagia, hoarseness, swelling of lips/tongue, ear or mastoid pain, ear discharge, change in hearing or nasal discharge Card: Reports: dyspnea on exertion and orthopnea; Denies: chest pain, palpitations, irregular heart rhythm, edema, lightheadedness, syncope or pre-syncope Resp: Reports: dyspnea; Denies: productive cough, non-productive cough, wheezing, hemoptysis or chest congestion GI: Denies: abdominal pain, nausea, vomiting, hematemesis, coffee ground emesis, heartburn, diarrhea, constipation, GI cramping, hematochezia or melena : Denies: flank pain, dysuria, urinary frequency, urinary urgency or hematuria Musc: Denies: neck pain, back pain, extremity pain, extremity swelling, joint pain, joint swelling, joint redness, joint warmth or joint stiffness Skin/Breast: Denies: rash, pruritus, erythema, skin pain or skin tenderness Neuro: Denies: headache(s), numbness in extremities, weakness in extremities, sensory changes, lack of coordination, difficulty walking, dizziness, vertigo, confusion, Slurred speech present or seizure-like activity Tomy/Lymph: Denies: easy bruising, easy bleeding, petechiae, purpura or enlarged lymph nodes All/Imm: Denies: urticaria, throat swelling, tongue swelling, facial swelling or acute wheezing PFSH ED PFSH: Medical History Airway obstruction Dysphasia Modified barium swallow done 3 days ago 04/13/2020 did not reveal any aspiration Hypertension Parkinson disease Presence of neurostimulator Surgical History History of bronchoscopy Did not reveal retropharyngeal mass or swelling done in Previous back surgery S/P cholecystectomy S/P total knee arthroplasty Family History Other Cancer Hypertension Denies family history of Diabetes Social History Smoking and tobacco status: never smoked Alcohol intake: current Alcohol intake frequency: few times a week 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 Physical Exam Const: COMMON NORMALS: no acute distress, patient oriented x3, no limitations and alert GENERAL APPEARANCE: cooperative HENMT: COMMON NORMALS: normocephalic, atraumatic, external ears normal, EAC's normal and Normal external nose present HEAD & SCALP: normal to inspection, normocephalic and atraumatic FACE & SINUS: normal facial exam and face symmetric NOSE: Normal external nose present and Normal nares present EXTERNAL EAR: Yes external ears normal EXTERNAL AUDITORY CANAL: EAC's normal MOUTH: Normal oral and palatal mucosa present, lip normal and tongue normal Eye: COMMON NORMALS: Equal, round and reactive pupils present and conjunctivae normal GENERAL EYE: appearance normal, both eyes and all related structures ALIGNMENT: Yes alignment normal PERIORBITAL: periorbital findings normal EYELID: eyelids normal CONJUNCTIVA: Yes conjunctivae normal SCLERA: sclerae normal PUPIL: Yes Equal, round and reactive pupils present Neck/C-Spine: COMMON NORMALS: full ROM, no lymphadenopathy, supple, no meningeal signs and no JVD GENERAL: Yes normal visual inspection and Yes trachea midline Chest: COMMONS NORMALS: normal inspection of the chest and normal palpation of entire chest wall Resp: COMMON NORMALS: normal respiratory effort, No retractions, No use of accessory muscles and clear to auscultation bilaterally EFFORT & INSPECTION: Yes able to speak in complete sentences and Yes symmetric chest movement AUSCULTATION: clear to auscultation bilaterally, no crackles, rales, no rhonchi and no wheezes Cardio: COMMON NORMALS: no JVD, regular rate, regular rhythm, S1 normal heart sound present and S2 normal heart sound present RATE: regular rate RHYTHM: regular rhythm HEART SOUNDS: S1 normal heart sound present, S2 normal heart sound present, no click, no gallops, no murmurs and no rubs GI: COMMON NORMALS: Soft to palpation and No hepatosplenomegaly present PALPATION: Yes Soft to palpation, No Tenderness to palpation present (GI), No Guarding due to palpation present (GI), No Rigid due to palpation, Yes No hepatosplenomegaly present, No Hernia present, No Palpable mass present and No P ulsatile mass present : COMMON NORMALS: Yes no CVA tenderness BLADDER/KIDNEY EXAM: Yes no CVA tenderness Back/Pelvis: COMMON NORMALS: no CVA tenderness, thoracic and lumbar spine normal to inspection, no thoracic nor lumbar tenderness and thoraco-lumbar ROM normal Extremity: COMMON NORMALS: normal to inspection, full ROM, capillary refill normal, no joint enlargement, no clubbing, cyanosis or edema and no calf tenderness Neuro: COMMON NORMALS: patient oriented x3, CN's II-XII intact bilaterally, moves all extremities, no focal motor deficits and no sensory deficits noted SENSORIUM/ORIENTATION: Yes alert MENINGEAL SIGNS: Yes no meningeal signs SPEECH: speech normal Psych: COMMON NORMALS: mental status grossly normal, Normal thought process present, cooperative, normal affect, speech normal and activity/motor behavior normal SPEECH: Yes normal speech THOUGHT PROCESS: Normal thought process present Skin: COMMON NORMALS: no rashes or lesions noted, turgor normal, no jaundice, no petechiae and no mottling GENERAL SKIN EXAM: no rashes or lesions noted and turgor normal Course Vital Signs: Vital signs: Vital Signs Temperature 97.0 F L 10/03/20 09:18 Pulse Rate 93 10/03/20 11:25 Respiratory Rate 20 H 10/03/20 11:23 Blood Pressure 174/84 10/03/20 09:18 Pulse Oximetry 97 10/03/20 11:39 MDM - SOB/Dyspnea MDM Narrative: Medical decision making narrative: 1211 -patient has dyspnea on exertion with chest tightness along with increasing dyspnea. Patient's blood pressure has been high here. He is responding well to nitroglycerin paste and Lasix. Patient had an abnormal stress test in July but this was felt to be artifact and never worked up further. Patient could have an anginal equivalent causing his symptoms or this could just be an exacerbation of his heart failure. I endorsed the case to Dr. Clark who agrees to put the patient in for further work-up. Currently patient is stable at this time. Based upon history and exam and laboratory work-up I see no evidence aortic dissection or STEMI/NSTEMI or pulmonary embolism at this time. Lab Data: Attestation: I reviewed the patient's lab results. Labs: Lab Results 10/03/20 10/03/20 10/03/20 Range/Units 09:40 09:40 09:40 WBC 9.3 (4.0-10.0) 10^3/ uL RBC 4.35 (4.1-5.3) 10^6/u L Hgb 13.4 (11.7-16.6) g/dL Hct 41.9 L (42.0-52.0) % MCV 96.3 H (80-94) fL MCH 30.8 (28.0-34.0) pg MCHC 32.0 (30.0-36.0) g/dL RDW 12.6 (12.1-15.1) % Plt Count 198 (130-400) 10^3/c mm MPV 11.1 H (7.4-10.4) fL Neut % (Auto) 70.3 % Lymph % (Auto) 14.5 % [place] % (Auto) 11.6 % Eos % (Auto) 1.5 % Baso % (Auto) 1.1 % Neut # (Auto) 6.56 (1.8-7.7) 10^3/u L Lymph # (Auto) 1.4 (0.8-4.8) 10^3/u L [place] # (Auto) 1.1 H (0.2-0.9) 10^3/u L Eos # (Auto) 0.1 (0.0-0.8) 10^3/u L Baso # (Auto) 0.1 (0.0-0.1) 10^3/u L Nucleated RBC % (a uto) 0 % Nucleated RBCs # 0.0 /100WBC PT 13.30 (12.1-14.9) SECO NDS INR 0.98 (0.8-1.2) D-Dimer (0-0.59) ug/mIFE U Specimen Type Sample Site ABG pH (7.35-7.45) ABG pCO2 (35-45) mmHg ABG pO2 (80.0-100.0) mmH g ABG HCO3 (22-26) mmol/L ABG Base Excess (-2.0-2.0) mmol/ L Misha Test Hematocrit (42-52) % O2 Delivery Device FiO2 % Storeroom Supervisor ID Sodium 138 (136-145) mmol/L Potassium 4.1 (3.5-5.1) mmol/L Chloride 104 (98-107) mmol/L Carbon Dioxide 26 (22-29) mmol/L Anion Gap 12.1 (5-19) BUN 23 (8-23) mg/dL Creatinine 1.0 (0.7-1.2) mg/dL GFR Calculation 74.1 L (90-130) mL/min Glucose 160 H (65-115) mg/dL Calculated Osmolal ity 293 (285-295) mOsm/k g Calcium 8.8 (8.5-10.5) mg/dL Magnesium 2.1 (1.7-2.3) mg/dL Total Bilirubin 0.5 (0.15-1.2) mg/dL AST 25 (0-40) U/L ALT 45 H (0-41) U/L Alkaline Phosphata se 85 (40-130) IU/L Troponin T Baselin e (0-15) ng/L Delta Troponin T (0-10) ABS# NT-Pro-B Natriuret Pep 418 H (0-125) pg/mL Total Protein 5.8 L (6.6-8.7) g/dL Albumin 4.0 (3.5-5.2) g/dL Globulin 1.8 (1.3-4.6) g/dL Urine Color (Yellow) Urine Appearance (CLEAR) Urine pH (5-7) Ur Specific Gravit y (1.005-1.030) Urine Protein (Negative) Urine Glucose (UA) (Normal) Urine Ketones (Negative) Urine Blood (Negative) Urine Nitrate (Negative) Urine Bilirubin (Negative) Urine Urobilinogen (Negative) mg/dL Ur Leukocyte Maribel ase (Negative) Influenza Type A A g (Negative) Influenza Type B A g (Negative) SARS-CoV-2 Ag (Rap id) (Negative) 10/03/20 10/03/20 10/03/20 Range/Units 09:40 09:40 09:40 WBC (4.0-10.0) 10^3/ uL RBC (4.1-5.3) 10^6/u L Hgb (11.7-16.6) g/dL Hct (42.0-52.0) % MCV (80-94) fL MCH (28.0-34.0) pg MCHC (30.0-36.0) g/dL RDW (12.1-15.1) % Plt Count (130-400) 10^3/c mm MPV (7.4-10.4) fL Neut % (Auto) % Lymph % (Auto) % [place] % (Auto) % Eos % (Auto) % Baso % (Auto) % Neut # (Auto) (1.8-7.7) 10^3/u L Lymph # (Auto) (0.8-4.8) 10^3/u L [place] # (Auto) (0.2-0.9) 10^3/u L Eos # (Auto) (0.0-0.8) 10^3/u L Baso # (Auto) (0.0-0.1) 10^3/u L Nucleated RBC % (a uto) % Nucleated RBCs # /100WBC PT (12.1-14.9) SECO NDS INR (0.8-1.2) D-Dimer (0-0.59) ug/mIFE U Specimen Type Sample Site ABG pH (7.35-7.45) ABG pCO2 (35-45) mmHg ABG pO2 (80.0-100.0) mmH g ABG HCO3 (22-26) mmol/L ABG Base Excess (-2.0-2.0) mmol/ L Misha Test Hematocrit (42-52) % O2 Delivery Device FiO2 % Storeroom Supervisor ID Sodium (136-145) mmol/L Potassium (3.5-5.1) mmol/L Chloride (98-107) mmol/L Carbon Dioxide (22-29) mmol/L Anion Gap (5-19) BUN (8-23) mg/dL Creatinine (0.7-1.2) mg/dL GFR Calculation (90-130) mL/min Glucose (65-115) mg/dL Calculated Osmolal ity (285-295) mOsm/k g Calcium (8.5-10.5) mg/dL Magnesium (1.7-2.3) mg/dL Total Bilirubin (0.15-1.2) mg/dL AST (0-40) U/L ALT (0-41) U/L Alkaline Phosphata se (40-130) IU/L Troponin T Baselin e 21 H (0-15) ng/L Delta Troponin T (0-10) ABS# NT-Pro-B Natriuret Pep (0-125) pg/mL Total Protein (6.6-8.7) g/dL Albumin (3.5-5.2) g/dL Globulin (1.3-4.6) g/dL Urine Color Yellow (Yellow) Urine Appearance Clear (CLEAR) Urine pH 5 (5-7) Ur Specific Gravit y 1.020 (1.005-1.030) Urine Protein Neg (Negative) Urine Glucose (UA) Norm (Normal) Urine Ketones 1+ H (Negative) Urine Blood Neg (Negative) Urine Nitrate Negative (Negative) Urine Bilirubin Neg (Negative) Urine Urobilinogen 1 H (Negative) mg/dL Ur Leukocyte Maribel ase Negative (Negative) Influenza Type A A g Negative (Negative) Influenza Type B A g Negative (Negative) SARS-CoV-2 Ag (Rap id) (Negative) 10/03/20 10/03/20 10/03/20 Range/Units 09:40 09:40 11:21 WBC (4.0-10.0) 10^3/ uL RBC (4.1-5.3) 10^6/u L Hgb (11.7-16.6) g/dL Hct (42.0-52.0) % MCV (80-94) fL MCH (28.0-34.0) pg MCHC (30.0-36.0) g/dL RDW (12.1-15.1) % Plt Count (130-400) 10^3/c mm MPV (7.4-10.4) fL Neut % (Auto) % Lymph % (Auto) % [place] % (Auto) % Eos % (Auto) % Baso % (Auto) % Neut # (Auto) (1.8-7.7) 10^3/u L Lymph # (Auto) (0.8-4.8) 10^3/u L [place] # (Auto) (0.2-0.9) 10^3/u L Eos # (Auto) (0.0-0.8) 10^3/u L Baso # (Auto) (0.0-0.1) 10^3/u L Nucleated RBC % (a uto) % Nucleated RBCs # /100WBC PT (12.1-14.9) SECO NDS INR (0.8-1.2) D-Dimer 1.02 H (0-0.59) ug/mIFE U Specimen Type Arterial Sample Site Radial, left ABG pH 7.42 (7.35-7.45) ABG pCO2 37.7 (35-45) mmHg ABG pO2 79.8 L (80.0-100.0) mmH g ABG HCO3 24.4 (22-26) mmol/L ABG Base Excess 0.1 (-2.0-2.0) mmol/ L Misha Test Pos Hematocrit 42.1 (42-52) % O2 Delivery Device Room air FiO2 21.0 % Storeroom Supervisor ID Gd Sodium (136-145) mmol/L Potassium (3.5-5.1) mmol/L Chloride (98-107) mmol/L Carbon Dioxide (22-29) mmol/L Anion Gap (5-19) BUN (8-23) mg/dL Creatinine (0.7-1.2) mg/dL GFR Calculation (90-130) mL/min Glucose (65-115) mg/dL Calculated Osmolal ity (285-295) mOsm/k g Calcium (8.5-10.5) mg/dL Magnesium (1.7-2.3) mg/dL Total Bilirubin (0.15-1.2) mg/dL AST (0-40) U/L ALT (0-41) U/L Alkaline Phosphata se (40-130) IU/L Troponin T Baselin e (0-15) ng/L Delta Troponin T (0-10) ABS# NT-Pro-B Natriuret Pep (0-125) pg/mL Total Protein (6.6-8.7) g/dL Albumin (3.5-5.2) g/dL Globulin (1.3-4.6) g/dL Urine Color (Yellow) Urine Appearance (CLEAR) Urine pH (5-7) Ur Specific Gravit y (1.005-1.030) Urine Protein (Negative) Urine Glucose (UA) (Normal) Urine Ketones (Negative) Urine Blood (Negative) Urine Nitrate (Negative) Urine Bilirubin (Negative) Urine Urobilinogen (Negative) mg/dL Ur Leukocyte Maribel ase (Negative) Influenza Type A A g (Negative) Influenza Type B A g (Negative) SARS-CoV-2 Ag (Rap id) Negative (Negative) 10/03/20 Range/Units 11:42 WBC (4.0-10.0) 10^3/ uL RBC (4.1-5.3) 10^6/u L Hgb (11.7-16.6) g/dL Hct (42.0-52.0) % MCV (80-94) fL MCH (28.0-34.0) pg MCHC (30.0-36.0) g/dL RDW (12.1-15.1) % Plt Count (130-400) 10^3/c mm MPV (7.4-10.4) fL Neut % (Auto) % Lymph % (Auto) % [place] % (Auto) % Eos % (Auto) % Baso % (Auto) % Neut # (Auto) (1.8-7.7) 10^3/u L Lymph # (Auto) (0.8-4.8) 10^3/u L [place] # (Auto) (0.2-0.9) 10^3/u L Eos # (Auto) (0.0-0.8) 10^3/u L Baso # (Auto) (0.0-0.1) 10^3/u L Nucleated RBC % (a uto) % Nucleated RBCs # /100WBC PT (12.1-14.9) SECO NDS INR (0.8-1.2) D-Dimer (0-0.59) ug/mIFE U Specimen Type Sample Site ABG pH (7.35-7.45) ABG pCO2 (35-45) mmHg ABG pO2 (80.0-100.0) mmH g ABG HCO3 (22-26) mmol/L ABG Base Excess (-2.0-2.0) mmol/ L Misha Test Hematocrit (42-52) % O2 Delivery Device FiO2 % Storeroom Supervisor ID Sodium (136-145) mmol/L Potassium (3.5-5.1) mmol/L Chloride (98-107) mmol/L Carbon Dioxide (22-29) mmol/L Anion Gap (5-19) BUN (8-23) mg/dL Creatinine (0.7-1.2) mg/dL GFR Calculation (90-130) mL/min Glucose (65-115) mg/dL Calculated Osmolal ity (285-295) mOsm/k g Calcium (8.5-10.5) mg/dL Magnesium (1.7-2.3) mg/dL Total Bilirubin (0.15-1.2) mg/dL AST (0-40) U/L ALT (0-41) U/L Alkaline Phosphata se (40-130) IU/L Troponin T Baselin e (0-15) ng/L Delta Troponin T 1.17 (0-10) ABS# NT-Pro-B Natriuret Pep (0-125) pg/mL Total Protein (6.6-8.7) g/dL Albumin (3.5-5.2) g/dL Globulin (1.3-4.6) g/dL Urine Color (Yellow) Urine Appearance (CLEAR) Urine pH (5-7) Ur Specific Gravit y (1.005-1.030) Urine Protein (Negative) Urine Glucose (UA) (Normal) Urine Ketones (Negative) Urine Blood (Negative) Urine Nitrate (Negative) Urine Bilirubin (Negative) Urine Urobilinogen (Negative) mg/dL Ur Leukocyte Maribel ase (Negative) Influenza Type A A g (Negative) Influenza Type B A g (Negative) SARS-CoV-2 Ag (Rap id) (Negative) Imaging Data^: CXR: Attestation: I personally reviewed and interpreted this imaging study as follows: My impression: Cardiomegaly with mild pulmonary vascular congestion CT Chest: Radiologist's impression: [address] [id number] [address] Scan Report Signed Patient: Fabiola Matthew Unit #: [id number] : 1950 Age/Sex: 70 / M ADM Date: 10/03/20 Loc: ER Room/Bed: Attending Dr: Ordering Provider/Ordering MD: Rosa Elena Cazares DO Date of Service: 10/03/20 Procedure(s): CT angio chest PE prot [id number] Accession Number(s): [id number] Report Number: [id number] PROCEDURE INFORMATION: Exam: CT Angiography Chest With Contrast Exam date and time: 10/03/2020 10:40 AM Age: 70 years old Clinical indication: Shortness of breath; Additional info: Dyspnea, positive d-dimer TECHNIQUE: Imaging protocol: Computed tomographic angiography of the chest with intravenous contrast. 3D rendering (Not supervised by radiologist): MIP and/or 3D reconstructed images were created by the technologist. Radiation optimization: All CT scans at this facility use at least one of these dose optimization techniques: automated exposure control; mA and/or kV adjustment per patient size (includes targeted exams where dose is matched to clinical indication); or iterative reconstruction. Contrast material: OMNI 350; Contrast volume: 95 ml; Contrast route: INTRAVENOUS (IV); COMPARISON: 1. CT CHEST 01/24/2020 10:42 AM 2. XR CHEST 10/03/2020 9:33:44 AM RADIATION DOSE METRICS: Total DLP (mGy-cm): 582.88 FINDINGS: Limitations: The study is technically limited by breathing motion artifact. Tubes, catheters and devices: Bilateral anterior upper chest wall generators present, possibly for deep brain stimulators. Pulmonary arteries: No sign of pulmonary embolism. Aorta: No thoracic aortic aneurysm or dissection. Lungs: Minimal bilateral dependent atelectasis. Pleural space: No pneumothorax or pleural effusion. Heart: The heart is not enlarged. No pericardial effusion. There is coronary artery disease. Lymph nodes: Non pathologically enlarged mediastinal and bilateral hilar lymph nodes are present. Bones/joints: Multilevel disc degeneration in the thoracic spine. Soft tissues: No acute soft tissue abnormality. CT/CT angio chest PE protcl [id number] IMPRESSION: No sign of pulmonary embolism. Radiation Dose CTDIVOL = (mGy): DLP = 582.88 (mGy-cm) Dictated By: Yannick Lozano Signed By: Yannick Lozano Signed Date/Time: 10/03/20 1110 DD/ 1109 EKG Data^: EKG 1: Attestation: I personally reviewed and interpreted this EKG as follows: EKG Interpretation Date: 10/03/20 EKG interpretation time: 09:51 Interpretation: Normal sinus rhythm at 74 beats a minute, left axis deviation, no blocks, normal intervals, nonspecific ST and T wave changes. Significant baseline artifact. EKG 2: Attestation: I personally reviewed and interpreted this EKG as follows: EKG Interpretation Date: 10/03/20 EKG interpretation time: 11:43 Interpretation: Normal sinus rhythm at 82 beats a minute, left axis deviation, significant underlying baseline artifact, nonspecific ST-T wave changes. Discharge Plan Discharge Patient Disposition: Placed in Observation Admit Provider: Homer Clark Condition: Stable Prescriptions: No Action carbidopa-levodopa [Sinemet CR] 50-200 mg tablet extended release See Rx Instructions .ROUTE .COMPLEX RF: 0 ropinirole 1 mg tablet See Rx Instructions .ROUTE .COMPLEX RF: 0 clonazepam 0.5 mg tablet 1 mg PO BEDTIME PRN (Reason: Anxiety) RF: 0 metoprolol succinate 100 mg Tablet Extended Release 24 Hr 100 mg PO DAILY Qty: 30 RF: 0 tramadol 50 mg tablet 50 mg PO TID PRN (Reason: Pain) RF: 0 famotidine 40 mg tablet 40 mg PO DAILY RF: 0 aspirin [Aspir-81] 81 mg Tablet,Delayed Release (Dr/Ec) See Rx Instructions .ROUTE .COMPLEX RF: 0 acetaminophen [Tylenol Extra Strength] 500 mg Tablet 500 - 1,000 mg PO Q6H PRN (Reason: Pain) RF: 0 Cenforce-200 200 mg PO PRN PRN (Reason: Sexual Activity) RF: 0 bumetanide 1 mg tablet See Rx Instructions .ROUTE .COMPLEX RF: 0 potassium chloride 20 mEq Tablet Extended Release 20 meq PO BIDWM Qty: 0 RF: 0 sertraline 25 mg Tablet 25 mg PO DAILY RF: 0 losartan 25 mg tablet 25 mg PO DAILY Qty: 30 RF: 0 ropinirole 3 mg tablet 3 mg PO TID PRN (Reason: leg cramps) Qty: 90 RF: 0 gabapentin 300 mg capsule 300 mg PO TID Qty: 90 RF: 0 furosemide [Lasix] 40 mg tablet 40 mg PO QAM Qty: 10 RF: 0 Referrals: Braxton Dobbins MD [Primary Care Provider] - Coding Level of Care Code ED Shop Welder for Chg Fwd Exam Comprehensive
[2020-10-03 09:47] LABS: Add Urine Microscopic? NO
[2020-10-03 09:56] LABS: Basophils # 0.1 10^3/uL (0.0-0.1); Basophils % 1.1 %; Eosinophils # 0.1 10^3/uL (0.0-0.8); Eosinophils % 1.5 %; Hematocrit 41.9 % (42.0-52.0); Hemoglobin 13.4 g/dL (11.7-16.6); Lymphocytes # 1.4 10^3/uL (0.8-4.8); Lymphocytes % 14.5 %; Mean Corpuscular Hemoglobin 30.8 pg (28.0-34.0); Mean Corpuscular Volume 96.3 fL (80-94); Mean Platelet Volume 11.1 fL (7.4-10.4); Monocytes # 1.1 10^3/uL (0.2-0.9); Monocytes % 11.6 %; Neutrophils # 6.56 10^3/uL (1.8-7.7); Neutrophils % 70.3 %; Nucleated Red Blood Cells % 0 %; Platelet Count 198 10^3/cmm (130-400); Red Blood Count 4.35 10^6/uL (4.1-5.3); Red Cell Distribution Width 12.6 % (12.1-15.1); White Blood Count 9.3 10^3/uL (4.0-10.0)
[2020-10-03 10:02] LABS: INR 0.98 (0.8-1.2)
[2020-10-03 10:13] LABS: Troponin(5th) Baseline 21 ng/L (0-15)
[2020-10-03 10:19] LABS: Bilirubin Urine Neg (Negative); Blood Urine Neg (Negative); Glucose Urine UA Norm (Normal); Ketones Urine 1+ (Negative); Leukocyte Esterase Urine Negative (Negative); Nitrate Urine Negative (Negative); Protein Urine Neg (Negative); Urine Appearance Clear (CLEAR); Urine Color Yellow (Yellow); Urobilinogen Urine 1 mg/dL (Negative); pH Urine 5 (5-7)
[2020-10-03 10:22] LABS: Alanine Aminotransferase 45 U/L (0-41); Alkaline Phosphatase 85 IU/L (40-130); Anion Gap 12.1 (5-19); Aspartate Amino Transferase 25 U/L (0-40); Blood Urea Nitrogen 23 mg/dL (8-23); Calcium 8.8 mg/dL (8.5-10.5); Carbon Dioxide 26 mmol/L (22-29); Chloride 104 mmol/L (98-107); Globulin 1.8 g/dL (1.3-4.6); Glomerular Filtration Rate 74.1 mL/min (90-130); Glucose 160 mg/dL (65-115); Magnesium 2.1 mg/dL (1.7-2.3); NT Pro B Type Natriuretic Pept 418 pg/mL (0-125); Osmolality Calculated 293 mOsm/kg (285-295); Potassium 4.1 mmol/L (3.5-5.1); Sodium 138 mmol/L (136-145); Total Bilirubin 0.5 mg/dL (0.15-1.2); Total Protein 5.8 g/dL (6.6-8.7)
[2020-10-03] MEDS: acetaminophen 500 mg Tablet 1000 MG PO (10:23)
[2020-10-03 10:29] LABS: D Dimer 1.02 ug/mIFEU (0-0.59); Influenza A by IFA Negative (Negative); Influenza B by IFA Negative (Negative); SARS Covid-2 Antigen Negative (Negative)
--- NOTE | 2020-10-03 10:34 | CTR_ITS ---
PROCEDURE INFORMATION: Exam: CT Angiography Chest With Contrast Exam date and time: 10/03/2020 10:40 AM Age: 70 years old Clinical indication: Shortness of breath; Additional info: Dyspnea, positive d-dimer TECHNIQUE: Imaging protocol: Computed tomographic angiography of the chest with intravenous contrast. 3D rendering (Not supervised by radiologist): MIP and/or 3D reconstructed images were created by the technologist. Radiation optimization: All CT scans at this facility use at least one of these dose optimization techniques: automated exposure control; mA and/or kV adjustment per patient size (includes targeted exams where dose is matched to clinical indication); or iterative reconstruction. Contrast material: OMNI 350; Contrast volume: 95 ml; Contrast route: INTRAVENOUS (IV); COMPARISON: 1. CT CHEST 01/24/2020 10:42 AM 2. XR CHEST 10/03/2020 9:33:44 AM RADIATION DOSE METRICS: Total DLP (mGy-cm): 582.88 FINDINGS: Limitations: The study is technically limited by breathing motion artifact. Tubes, catheters and devices: Bilateral anterior upper chest wall generators present, possibly for deep brain stimulators. Pulmonary arteries: No sign of pulmonary embolism. Aorta: No thoracic aortic aneurysm or dissection. Lungs: Minimal bilateral dependent atelectasis. Pleural space: No pneumothorax or pleural effusion. Heart: The heart is not enlarged. No pericardial effusion. There is coronary artery disease. Lymph nodes: Non pathologically enlarged mediastinal and bilateral hilar lymph nodes are present. Bones/joints: Multilevel disc degeneration in the thoracic spine. Soft tissues: No acute soft tissue abnormality. CT/CT angio chest PE protcl [id number] IMPRESSION: No sign of pulmonary embolism. Radiation Dose CTDIVOL = (mGy): DLP = 582.88 (mGy-cm)
[2020-10-03] MEDS: iohexol 350 mg/mL 100 mL Btl IV (10:55)
[2020-10-03] MEDS: FUROsemide 10 mg/mL SDV 4mL 40 MG IVP (11:04)
[2020-10-03] MEDS: nitroglycerin 1 gm/inch oint Pkt 1 INCH TOPICAL (11:04)
--- NOTE | 2020-10-03 11:05 | PC.NURSE ---
Ultrasound and RT at bedside.
[2020-10-03] MEDS: ipratropium-albuterol 3 mL Neb INHALATION ×3 (11:20→20:26)
--- NOTE | 2020-10-03 11:22 | ECG_ITS ---
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
[2020-10-03 11:38] LABS: ABG PCO2 37.7 mmHg (35-45); ABG PH Result 7.42 (7.35-7.45); Arterial Blood Gas Hematocrit 42.1 % (42-52); Base Excess ABG 0.1 mmol/L (-2.0-2.0); Blood Gas Allen Test Pos; Blood Gas Operator Identificat GD; Blood Gas Sample Site Radial, left; Blood Gas Sample Type Arterial; HCO3 ABG 24.4 mmol/L (22-26); Oxygen Device ROOM AIR; PO2 ABG 79.8 mmHg (80.0-100.0)
[2020-10-03 12:06] LABS: Troponin 5 2HR 22.17 ng/L (0-15); Troponin 5 2HR Delta 1.17 ABS# (0-10)
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
[2020-10-03 14:31] LABS: Procalcitonin 0.05 ng/mL (0-0.5)
[2020-10-03 14:34] LABS: Thyroid Stimulating Hormone 1.11 uIU/mL (0.27-4.20)
[2020-10-03 14:42] LABS: Iron 49 ug/dL (59-158); Percent Saturation 16.2 % (20-50); Total Iron Binding Capacity 302 mcg/dl; Unsaturated Iron Binding 253 ug/dL (112-347)
[2020-10-03] MEDS: gabapentin 300 mg Capsule PO ×2 (14:59→20:31)
[2020-10-03] MEDS: enoxaparin 40 mg/0.4 mL Syringe SUBCUT (14:59)
[2020-10-03] MEDS: FUROsemide 10 mg/mL SDV 10mL 60 MG IVP (14:59)
[2020-10-03] MEDS: ropinirole 2 mg Tablet 3 MG PO ×3 (15:02→20:31)
--- NOTE | 2020-10-03 15:22 | ECG_ITS ---
[facility] Test Date: 2020-10-03 Pat Name: Fabiola Matthew Department: Room: 112 Gender: Male Butcher Fish: : 1950 Requested By: Rosa Elena Mederos Order Number: [id number] Seble MD: GEORGINA MORRELL Measurements Intervals [place] Rate: 76 P: 59 NH: 103 QRS: -1 QRSD: 142 T: 7 QT: 396 QTc: 447 Interpretive Statements Artifact cannot interpret Electronically Signed On 10-03-2020 19:15:46 ASSISTANT PROFESSOR OF HISTORY by GEORGINA MORRELL [id number]
[2020-10-03] MEDS: TRAMadol 50 mg Tablet PO (16:26)
[2020-10-03 16:34] LABS: Troponin 5 6HR 24.48 ng/L (0-15); Troponin 5 6HR Delta 3.48 ng/L (0-12)
[2020-10-03] MEDS: potassium chloride ER 20 mEq Tablet PO (17:14)
[2020-10-03] MEDS: carbidopa-levodopa ER 50-200mg Tablet 1.5 EACH PO ×2 (17:14→20:32)
[2020-10-03] MEDS: budesonide 0.5 mg/2 mL Neb INHALATION (20:26)
[2020-10-04] VITALS (21 sets, daily range): BP systolic 121–156; BP diastolic 59–82; PULSE 63–80; RESP 16–23; TEMP 35.8–37.1; O2SAT 90–97
[2020-10-04] MEDS: carbidopa-levodopa ER 50-200mg Tablet 1.5 EACH PO ×3 (00:03→11:43)
[2020-10-04] MEDS: ipratropium-albuterol 3 mL Neb INHALATION ×3 (02:24→14:22)
[2020-10-04] MEDS: FUROsemide 10 mg/mL SDV 10mL 60 MG IVP ×2 (02:48→14:09)
--- NOTE | 2020-10-04 03:45 | PC.NURSE ---
NURSING NOTE: SHIFT SUMMARY: PT ALERT AND ORIENTED X4; MOVES ALL EXTREMITIES AND FOLLOWS ALL COMMANDS. PT COMPLIANT WITH BIPAP THIS SHIFT; ONLY REMOVED MASK ONE TIME TO GET A DRINK. APPROXIMATELY 240 CC ORAL INTAKE SO FAR THIS SHIFT. VOIDING WITHOUT DIFFICULTY. DENIES PAIN. CURRENTLY RESTING WITH EYES CLOSED/BIPAP ON. RESP EVEN AND NON LABORED. NO DISTRESS NOTED AT THIS TIME. ALL VS AND ASSESSMENTS CHARTED.
[2020-10-04] MEDS: ropinirole 2 mg Tablet 3 MG PO ×3 (05:31→14:10)
[2020-10-04 05:39] LABS: Basophils # 0.1 10^3/uL (0.0-0.1); Basophils % 1.3 %; Eosinophils # 0.2 10^3/uL (0.0-0.8); Eosinophils % 2.3 %; Hematocrit 42.6 % (42.0-52.0); Hemoglobin 13.4 g/dL (11.7-16.6); Lymphocytes # 1.7 10^3/uL (0.8-4.8); Lymphocytes % 21.3 %; Mean Corpuscular HGB Conc 31.5 g/dL (30.0-36.0); Mean Corpuscular Hemoglobin 30.3 pg (28.0-34.0); Mean Corpuscular Volume 96.4 fL (80-94); Mean Platelet Volume 11.9 fL (7.4-10.4); Monocytes # 1.1 10^3/uL (0.2-0.9); Monocytes % 13.5 %; Neutrophils # 4.77 10^3/uL (1.8-7.7); Neutrophils % 60.3 %; Nucleated Red Blood Cells % 0 %; Platelet Count 194 10^3/cmm (130-400); Red Blood Count 4.42 10^6/uL (4.1-5.3); Red Cell Distribution Width 12.5 % (12.1-15.1); White Blood Count 7.9 10^3/uL (4.0-10.0)
[2020-10-04 06:03] LABS: Alanine Aminotransferase 7 U/L (0-41); Albumin Level 4.1 g/dL (3.5-5.2); Alkaline Phosphatase 73 IU/L (40-130); Anion Gap 14.6 (5-19); Aspartate Amino Transferase 21 U/L (0-40); Blood Urea Nitrogen 23 mg/dL (8-23); Calcium 8.9 mg/dL (8.5-10.5); Carbon Dioxide 29 mmol/L (22-29); Chloride 102 mmol/L (98-107); Globulin 2.2 g/dL (1.3-4.6); Glomerular Filtration Rate 74.1 mL/min (90-130); Glucose 151 mg/dL (65-115); Magnesium 2.2 mg/dL (1.7-2.3); Osmolality Calculated 301 mOsm/kg (285-295); Phosphorus 4.3 mg/dL (2.5-4.5); Potassium 3.6 mmol/L (3.5-5.1); Sodium 142 mmol/L (136-145); Total Bilirubin 0.7 mg/dL (0.15-1.2); Total Protein 6.3 g/dL (6.6-8.7)
[2020-10-04] MEDS: budesonide 0.5 mg/2 mL Neb INHALATION (08:03)
[2020-10-04] MEDS: losartan 50 mg Tablet 25 MG PO (08:41)
[2020-10-04] MEDS: aspirin 81 mg EC Tablet PO (08:44)
[2020-10-04] MEDS: sertraline 50 mg Tablet 25 MG PO (08:44)
[2020-10-04] MEDS: gabapentin 300 mg Capsule PO ×2 (08:44→14:10)
[2020-10-04] MEDS: metoprolol succinate ER (24 HR) 100 mg Tablet PO (08:44)
[2020-10-04] MEDS: potassium chloride ER 20 mEq Tablet PO (08:47)
--- NOTE | 2020-10-04 09:38 | PC.CHAP ---
Pastoral Care Encounter/Spiritual Assessment Type of Contact [] Declined lab tech visit [] Patient/Family/Request visit [] Outpatient visit [] Follow-up visit [] Physician referral [] Code/Alert [x] Routine visit [] Staff referral [] Actively dying [] Patient sleeping [] Family support [] [] Out of room [] Palliative care [] [] Receiving care in room [] Pre-surgical visit [] Trauma [] Long length of stay [] ICU visit [] Other: Relational/Emotional Strength [] Patient feels connected with others/family/visitors/staff [] Distress [] Loneliness/isolation [] Abandonment Spirituality of Patient [] Person of Yesika [] Attends Gnosticist of their Yesika [] Believes in Prayer [] Reads Bible or Confucianism materials [] There are Spiritual issues to be addressed Pmo Consultant Interventions [x] Prayer [x] Active listening [x] Non-anxious presence [x] Spiritual/emotional support [] Crisis/trauma care [] Spiritual counseling [] Bereavement support [] Provided bereavement packet [] Provided Bible/devotional materials [] Provided toy/stuffed animal, coloring book to patient or family member [] Provided Communion [] Anointing/[place] [] Salvation [x] Completed spiritual assessment [] Other: Impact on Illness or Injury [] Angry [] Fearful [] Anxious [] Often cries [] Exhaustion [] Unable to work [] Unable to attend amish [] Unable to walk/stand [] Unable to read [] Unable to drive [] Unable to eat/drink [] Unable to sleep [] Unable to be with family [] Patient intubated [] Other: Summary legs swelling again... being tested Time spent with patient 10 min
[2020-10-04] MEDS: enoxaparin 40 mg/0.4 mL Syringe SUBCUT (14:09)
--- NOTE | 2020-10-04 16:51 | PC.NURSE ---
Patient discharged home at this time, patient provided discharge instructions and all follow up appointments, Explained to patient and family at bedside all instructions with great detail in education on heart healthy diet and use of Bi pap; patient verbalized understanding of all instructions given. patient assisted to wheel chair and accompanied by staff and family to private vehicle. All belongings and discharge instructions in hand. Patient alert and in stable conditions.
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
== END 2020-10-04 16:30 | disposition home or self-care (01) ==
LOC: ER 09:19 → CSU 12:13
PROVIDERS: Admitting Provider Student in an Organized Health Care Education/Training Program; Emergency Provider Emergency Medicine; PCP Family Medicine; Visit Provider Internal Medicine
DX: R06.02 Shortness of breath (principal); G47.33 Obstructive sleep apnea (adult) (pediatric); I50.31 Acute diastolic (congestive) heart failure; E66.01 Morbid (severe) obesity due to excess calories; Z68.41 Body mass index [BMI] 40.0-44.9, adult; I87.2 Venous insufficiency (chronic) (peripheral); G20 Parkinson's disease; I11.0 Hypertensive heart disease with heart failure; Z79.82 Long term (current) use of aspirin
CPT/HCPCS: 12345; 36415; 36600; 71045; 71275; 80053; 81003; 82803; 83540; 83550; 83735; 83880; 84100; 84145; 84443; 84484; 85025; 85378; 85610; 87426; 87449; 87641; 87804; 93005; 93970; 94640; 94660; 94664; 96372; 96374; 96375; 97110; 97116; 97162; 99283; 99285; G0378; J1650; J1940; J7626; Q9967

== ENCOUNTER → 2020-10-28 11:25 | Outpatient (BNVA) | payer MEDICARE, SELFPAY | PROVIDERS: PCP Family Medicine; Visit Provider Nurse Practitioner Family | DX: Z20.828 Contact with and (suspected) exposure to other viral communicable diseases (principal) | CPT/HCPCS: 87635 ==

== ENCOUNTER 2020-11-16 10:04 | Outpatient (RCR) | payer MEDICARE, SELFPAY | END 2020-12-05 23:59 | disposition home or self-care (01) | LOC: SPS 10:04 | PROVIDERS: PCP Family Medicine; Referring Provider Nurse Practitioner Family; Visit Provider Nurse Practitioner Family | DX: G20 Parkinson's disease (principal) | CPT/HCPCS: 92524; 92526; 92610; 96125; 97110; 97112; 97163 ==

== ENCOUNTER 2020-12-06 06:00 | Outpatient (RCR) | payer MEDICARE, SELFPAY | END 2021-01-02 23:59 | disposition home or self-care (01) | LOC: SPS 06:00 | PROVIDERS: PCP Family Medicine; Referring Provider Nurse Practitioner Family; Visit Provider Nurse Practitioner Family | DX: G20 Parkinson's disease (principal) | CPT/HCPCS: 92507; 97110; 97112; 97129; 97130; 97164 ==

== ENCOUNTER 2020-12-29 06:00 | Outpatient (RCR) | payer MEDICARE, SELFPAY | END 2021-01-02 23:59 | disposition home or self-care (01) | LOC: SOT 06:00 | PROVIDERS: PCP Family Medicine; Referring Provider Family Medicine; Visit Provider Family Medicine | DX: G20 Parkinson's disease (principal); R26.81 Unsteadiness on feet | CPT/HCPCS: 97166 ==

== ENCOUNTER 2021-01-03 06:00 | Outpatient (RCR) | payer MEDICARE, SELFPAY | END 2021-02-02 23:59 | disposition home or self-care (01) | LOC: SPS 06:00 | PROVIDERS: PCP Family Medicine; Referring Provider Nurse Practitioner Family; Visit Provider Nurse Practitioner Family | DX: G20 Parkinson's disease (principal); R53.1 Weakness; R26.89 Other abnormalities of gait and mobility | CPT/HCPCS: 92507; 97035; 97110; 97112; 97129; 97130; 97140; 97535 ==

== ENCOUNTER 2021-01-03 06:00 | Outpatient (RCR) | payer MEDICARE, SELFPAY | END 2021-02-02 23:59 | disposition home or self-care (01) | LOC: SOT 06:00 | PROVIDERS: PCP Family Medicine; Referring Provider Family Medicine; Visit Provider Family Medicine | DX: G20 Parkinson's disease (principal) | CPT/HCPCS: 97035; 97110; 97140; 97530; 97535 ==

== ENCOUNTER 2021-02-03 06:00 | Outpatient (RCR) | payer MEDICARE, SELFPAY | END 2021-03-04 23:59 | disposition home or self-care (01) | LOC: SPS 06:00 | PROVIDERS: PCP Family Medicine; Referring Provider Nurse Practitioner Family; Visit Provider Nurse Practitioner Family | DX: G20 Parkinson's disease (principal); R53.1 Weakness; R26.89 Other abnormalities of gait and mobility | CPT/HCPCS: 92507; 97110; 97112 ==

== ENCOUNTER 2021-08-15 06:00 | Outpatient (RCR) | payer MEDICARE, SELFPAY | END 2021-09-04 23:59 | disposition home or self-care (01) | LOC: SPS 06:00 | PROVIDERS: PCP Family Medicine; Referring Provider Psychiatry & Neurology Neurology; Visit Provider Psychiatry & Neurology Neurology | DX: G20 Parkinson's disease (principal) | CPT/HCPCS: 92507; 92524; 97110; 97112; 97162 ==

== ENCOUNTER 2021-09-05 06:00 | Outpatient (RCR) | payer MEDICARE, SELFPAY | END 2021-09-15 23:00 | disposition home or self-care (01) | LOC: SPS 06:00 | PROVIDERS: PCP Family Medicine; Visit Provider Psychiatry & Neurology Neurology | DX: G20 Parkinson's disease (principal); E66.01 Morbid (severe) obesity due to excess calories | CPT/HCPCS: 92507; 97110; 97112 ==

== ENCOUNTER → 2022-04-19 09:25 | Outpatient (BNVA) | payer MEDICARE, SELFPAY | PROVIDERS: PCP Family Medicine; Visit Provider Nurse Practitioner Family | DX: I96 Gangrene, not elsewhere classified (principal); L97.822 Non-pressure chronic ulcer of other part of left lower leg with fat layer exposed | CPT/HCPCS: 11042; 99213 ==

== ENCOUNTER → 2022-04-26 07:59 | Outpatient (BNVA) | payer MEDICARE, SELFPAY | PROVIDERS: PCP Family Medicine; Visit Provider Nurse Practitioner Family | DX: L97.822 Non-pressure chronic ulcer of other part of left lower leg with fat layer exposed (principal); I96 Gangrene, not elsewhere classified | CPT/HCPCS: 11042 ==

== ENCOUNTER → 2022-05-03 08:04 | Outpatient (BNVA) | payer MEDICARE, SELFPAY | PROVIDERS: PCP Family Medicine; Visit Provider Thoracic Surgery (Cardiothoracic Vascular Surgery) | DX: M79.671 Pain in right foot (principal); E11.21 Type 2 diabetes mellitus with diabetic nephropathy; G20 Parkinson's disease; R26.89 Other abnormalities of gait and mobility; M20.20 Hallux rigidus, unspecified foot; M20.41 Other hammer toe(s) (acquired), right foot; M20.42 Other hammer toe(s) (acquired), left foot; M21.41 Flat foot [pes planus] (acquired), right foot; L60.3 Nail dystrophy; I73.9 Peripheral vascular disease, unspecified; M77.40 Metatarsalgia, unspecified foot; L97.822 Non-pressure chronic ulcer of other part of left lower leg with fat layer exposed | CPT/HCPCS: 73630; 97597; 99204; A6021 ==

== ENCOUNTER → 2022-05-09 10:33 | Outpatient (BNVA) | payer MEDICARE, SELFPAY | PROVIDERS: PCP Family Medicine; Visit Provider Family Medicine | DX: E11.9 Type 2 diabetes mellitus without complications (principal); E78.5 Hyperlipidemia, unspecified; E53.8 Deficiency of other specified B group vitamins | CPT/HCPCS: 80053; 80061; 82607; 83036; 85025 ==

== ENCOUNTER → 2022-05-17 08:50 | Outpatient (BNVA) | payer MEDICARE, SELFPAY | PROVIDERS: PCP Family Medicine; Visit Provider Thoracic Surgery (Cardiothoracic Vascular Surgery) | DX: I96 Gangrene, not elsewhere classified (principal); L97.822 Non-pressure chronic ulcer of other part of left lower leg with fat layer exposed | CPT/HCPCS: 97597; A6021 ==

== ENCOUNTER → 2022-05-24 09:47 | Outpatient (BNVA) | payer MEDICARE, SELFPAY | PROVIDERS: PCP Family Medicine; Visit Provider Thoracic Surgery (Cardiothoracic Vascular Surgery) | DX: I96 Gangrene, not elsewhere classified (principal); L97.822 Non-pressure chronic ulcer of other part of left lower leg with fat layer exposed | CPT/HCPCS: 97597; A6021; A6212 ==

== ENCOUNTER → 2022-05-31 10:01 | Outpatient (BNVA) | payer MEDICARE, SELFPAY | PROVIDERS: PCP Family Medicine; Visit Provider Nurse Practitioner Family | DX: I96 Gangrene, not elsewhere classified (principal); L97.822 Non-pressure chronic ulcer of other part of left lower leg with fat layer exposed | CPT/HCPCS: 11042; A6021; A6212 ==

== ENCOUNTER → 2022-06-07 10:22 | Outpatient (BNVA) | payer MEDICARE, SELFPAY | PROVIDERS: PCP Family Medicine; Visit Provider Nurse Practitioner Family | DX: Z09 Encounter for follow-up examination after completed treatment for conditions other than malignant neoplasm (principal) | CPT/HCPCS: 99212 ==

== ENCOUNTER → 2022-07-26 12:56 | Outpatient (BNVA) | payer MEDICARE, SELFPAY | PROVIDERS: PCP Family Medicine; Visit Provider Podiatrist Foot & Ankle Surgery | DX: E11.21 Type 2 diabetes mellitus with diabetic nephropathy (principal); G20 Parkinson's disease; R26.89 Other abnormalities of gait and mobility; M20.20 Hallux rigidus, unspecified foot; M20.41 Other hammer toe(s) (acquired), right foot; M20.42 Other hammer toe(s) (acquired), left foot; L60.3 Nail dystrophy; I73.9 Peripheral vascular disease, unspecified; M77.40 Metatarsalgia, unspecified foot; M21.41 Flat foot [pes planus] (acquired), right foot; Z79.84 Long term (current) use of oral hypoglycemic drugs; M21.42 Flat foot [pes planus] (acquired), left foot | CPT/HCPCS: 99214 ==

== ENCOUNTER → 2022-08-09 10:17 | Outpatient (BNVA) | payer MEDICARE, SELFPAY | PROVIDERS: PCP Family Medicine; Visit Provider Family Medicine | DX: I10 Essential (primary) hypertension (principal); G20 Parkinson's disease; Z23 Encounter for immunization; E11.65 Type 2 diabetes mellitus with hyperglycemia | CPT/HCPCS: 80053; 80061; 82607; 83036; 85025 ==

== ENCOUNTER 2022-10-21 11:46 | Emergency (ER) | payer MEDICARE, SELFPAY ==
[2022-10-21 11:48] VITALS: BP 162/85; PULSE 93; RESP 18; TEMP 37.2; O2SAT 95
[2022-10-21 11:55] VITALS: BP 162/85; PULSE 93; RESP 18; TEMP 37.2; O2SAT 95
--- NOTE | 2022-10-21 12:16 | XRR_ITS ---
PROCEDURE INFORMATION: Exam: XR Chest Exam date and time: 10/21/2022 12:30 PM Age: 72 years old Clinical indication: Cough; Prior surgery; Additional info: Cough congestion TECHNIQUE: Imaging protocol: Radiologic exam of the chest. Views: 1 view. COMPARISON: CR XR chest 1V portable [id number] 10/03/2020 9:33 AM FINDINGS: Tubes, catheters and devices: Bilateral neurostimulator generator is project on the upper lobes with stimulator wires extending up the neck. Lungs: Unremarkable. No consolidation. Pleural spaces: Unremarkable. No pleural effusion. No pneumothorax. Heart/Mediastinum: Unremarkable. No cardiomegaly. Bones/joints: Unremarkable. XR/XR chest 1V portable [id number] IMPRESSION: No significant cardiopulmonary abnormality.
--- NOTE | 2022-10-21 12:17 | ED_ITS ---
HPI - SOB/Dyspnea General: Chief Complaint: Shortness of Breath/Dyspnea Stated Complaint: SOB Time Seen by Provider: 10/21/22 12:12 History of Present Illness: HPI Narrative: 72-year-old male patient comes in today with productive cough of green sputum. Patient reports he had an upper respiratory infection at the first month and was treated with Augmentin. About 1 week ago he started feeling ill again after completion of antibiotic. Patient reports production of green sputum. Patient appears in no acute distress. Patient has a history of diabetes mellitus, Parkinson's disease, hypertension, depression, and dysphagia. Associated symptoms: Deny chest pain or fever(s) Review of Systems Const: Denies: fever(s) Card: Denies: chest pain Resp: Reports: dyspnea and productive cough PFSH ED PFSH: Medical History Airway obstruction Bilateral claudication of lower limb Chronic venous insufficiency Diastolic CHF Dysphasia Modified barium swallow done 3 days ago 04/13/2020 did not reveal any aspiration Hypersomnia Hypertension Morbid obesity Obstructive sleep apnea Parkinson disease Presence of neurostimulator Venous stasis dermatitis Surgical History History of bronchoscopy Did not reveal retropharyngeal mass or swelling done in Previous back surgery S/P cholecystectomy S/P total knee arthroplasty Family History Other Cancer Hypertension Denies family history of Diabetes Social History Smoking and tobacco status: never smoked Alcohol intake: current Alcohol intake frequency: few times a week 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 Physical Exam Const: COMMON NORMALS: alert HENMT: COMMON NORMALS: normocephalic HEAD & SCALP: normocephalic Eye: GENERAL EYE: appearance normal, both eyes and all related structures Resp: COMMON NORMALS: normal respiratory effort AUSCULTATION: diminished lung sounds bilateral in the lower lung rock GI: AUSCULTATION: Yes normoactive bowel sounds PALPATION: No Tenderness to palpation present (GI) Back/Pelvis: COMMON NORMALS: thoracic and lumbar spine normal to inspection Extremity: COMMON NORMALS: no pedal edema Neuro: SENSORIUM/ORIENTATION: Yes alert Skin: COMMON NORMALS: turgor normal GENERAL SKIN EXAM: turgor normal Course Vital Signs: Vital signs: Vital Signs Temperature 99.0 F 10/21/22 11:55 Pulse Rate 93 10/21/22 11:55 Respiratory Rate 18 10/21/22 11:55 Blood Pressure 162/85 10/21/22 11:55 Pulse Oximetry 95 10/21/22 11:55 Oxygen Delivery Me thod 10/21/22 11:55 MDM - SOB/Dyspnea Medical Decision Making 72-year-old male patient that lives at a assisted living facility, [facility], was brought in by EMS for concerns of increased shortness of breath. Patient appears nontoxic. Patient's respirations are even. Patient has an occasional cough which he reports some production of green sputum. Respirations are even lungs are decreased in the bases. Skin is warm and dry. No edema is noted in the extremity. Vital signs are normal. Patient's saturation of oxygen is 95% on room air. No increased respiratory effort. Differential diagnosis includes but not limited to lower respiratory infection, pneumonia, CHF, postviral cough. Chest x-ray was unremarkable. Laboratory values showed a white count of 11,000 but otherwise no significant abnormalities. Believe the patient probably has bronchitis, we will start him on doxycycline 100 mg twice a day for the next 7 days. Spouse requested COVID PCR testing. It was swabbed and remained outstanding at discharge. Lab Data 10/21/22 12:10 10/21/22 12:10 Labs/Radiology: Laboratory Results WBC 11.9 10^3/uL (4.0-10.0) H 10/21/22 12:10 RBC 4.50 10^6/uL (4.1-5.3) 10/21/22 12:10 Hgb 13.9 g/dL (11.7-16.6) 10/21/22 12:10 Hct 41.3 % (42.0-52.0) L 10/21/22 12:10 MCV 91.8 fl (80-94) 10/21/22 12:10 MCH 30.9 pg (28.0-34.0) 10/21/22 12:10 MCHC 33.7 g/dL (30.0-36.0) 10/21/22 12:10 RDW 12.3 % (12.1-15.1) 10/21/22 12:10 Plt Count 224 10^3/cmm (130-400) 10/21/22 12:10 MPV 10.2 fL (7.4-10.4) 10/21/22 12:10 Neut % (Auto) 80.3 % 10/21/22 12:10 Lymph % (Auto) 7.1 % 10/21/22 12:10 [place] % (Auto) 10.1 % 10/21/22 12:10 Eos % (Auto) 0.3 % 10/21/22 12:10 Baso % (Auto) 0.8 % 10/21/22 12:10 Neut # (Auto) 9.56 10^3/uL (1.8-7.7) H 10/21/22 12:10 Lymph # (Auto) 0.9 10^3/uL (0.8-4.8) 10/21/22 12:10 [place] # (Auto) 1.2 10^3/uL (0.2-0.9) H 10/21/22 12:10 Eos # (Auto) 0.0 10^3/uL (0.0-0.8) 10/21/22 12:10 Baso # (Auto) 0.1 10^3/uL (0.0-0.1) 10/21/22 12:10 Nucleated RBC % (auto) 0 % 10/21/22 12:10 Nucleated RBCs # 0.0 /100WBC 10/21/22 12:10 Sodium 136 mmol/L (136-145) 10/21/22 12:10 Potassium 3.8 mmol/L (3.5-5.1) 10/21/22 12:10 Chloride 98 mmol/L (98-107) 10/21/22 12:10 Carbon Dioxide 24 mmol/L (22-29) 10/21/22 12:10 Anion Gap 17.8 (5-19) 10/21/22 12:10 BUN 15 mg/dL (8-23) 10/21/22 12:10 Creatinine 1.0 mg/dL (0.7-1.2) 10/21/22 12:10 GFR Calculation Not Reportable 10/21/22 12:10 Glucose 141 mg/dL (65-115) H 10/21/22 12:10 Calculated Osmolality 285 mOsm/kg (285-295) 10/21/22 12:10 Calcium 9.0 mg/dL (8.5-10.5) 10/21/22 12:10 Total Bilirubin 0.6 mg/dL (0.15-1.2) 10/21/22 12:10 AST 28 U/L (0-40) 10/21/22 12:10 ALT 23 U/L (0-41) 10/21/22 12:10 Alkaline Phosphatase 92 U/L (40-130) 10/21/22 12:10 NT-Pro-B Natriuret Pep 99 pg/mL (0-125) 10/21/22 12:10 Total Protein 6.7 g/dL (6.6-8.7) 10/21/22 12:10 Albumin 4.0 g/dL (3.5-5.2) 10/21/22 12:10 Globulin 2.7 g/dL (1.3-4.6) 10/21/22 12:10 Urine Color Yellow (Yellow) 10/21/22 12:30 Urine Appearance Clear (CLEAR) 10/21/22 12:30 Urine pH 5 (5-7) 10/21/22 12:30 Ur Specific [place] 1.015 (1.005-1.030) 10/21/22 12:30 Urine Protein Neg (Negative) 10/21/22 12:30 Urine Glucose (UA) Norm (Normal) 10/21/22 12:30 Urine Ketones Negative (Negative) 10/21/22 12:30 Urine Blood Neg (Negative) 10/21/22 12:30 Urine Nitrate Negative (Negative) 10/21/22 12:30 Urine Bilirubin Neg (Negative) 10/21/22 12:30 Urine Urobilinogen Norm mg/dL (Negative) 10/21/22 12:30 Ur Leukocyte Esterase Negative (Negative) 10/21/22 12:30 Discharge Plan Discharge Patient Disposition: Home Clinical Impression: Acute lower respiratory infection Condition: Stable Prescriptions: New doxycycline monohydrate 100 mg capsule 100 mg PO BID 7 Days Qty: 14 0RF Discontinued amoxicillin-pot clavulanate 875-125 mg tablet 1 tab PO BID Qty: 14 0RF No Action clonazepam 0.5 mg tablet 1 mg PO BEDTIME PRN (Reason: Anxiety) Rx Instructions: (pt states he has not taken in a long time) (DME) Diabetic shoes and Accommodative Orthotics See Rx Instructions .Route .MEDSUPPLY Qty: 1 0RF Rx Instructions: As directed J P [facility] O ropinirole 1 mg tablet See Rx Instructions .ROUTE .COMPLEX Rx Instructions: Take 2 tabs PO TID and 3 tabs at bedtime (DME) diabetic shoes See Rx Instructions .Route .MEDSUPPLY Qty: 1 1RF Rx Instructions: Use diabetic shoes while ambulating. E11.9 DM2. carbidopa-levodopa 50-200 mg tablet extended release See Rx Instructions .ROUTE .COMPLEX Qty: 540 6RF Rx Instructions: 1.5 tab orally 6 times daily bumetanide 2 mg tablet 2 mg PO BID Qty: 180 3RF cyanocobalamin (vitamin B-12) [Vitamin B-12] 1,000 mcg tablet 1,000 mcg PO DAILY Qty: 30 6RF metformin 1,000 mg tablet 1,000 mg PO BID Qty: 180 3RF Rx Instructions: Take 1000 mg in the a.m. and 500 mg in the p.m. for 1 week, then increase to 1000 mg twice a day. ondansetron HCl 4 mg tablet 4 mg PO Q8H PRN (Reason: nausea and vomiting) Qty: 60 6RF ropinirole 3 mg tablet See Rx Instructions .ROUTE .COMPLEX Qty: 90 3RF Dose Instruction: TAKE 1 TABLET BY MOUTH ONCE DAILY AT BEDTIME NEEDED FOR LEG CRAMPS Rx Instructions: TAKE 1 TABLET BY MOUTH ONCE DAILY AT BEDTIME NEEDED FOR LEG CRAMPS (DME) OneTouch Ultra Test Strip See Rx Instructions .Route Qty: 100 12RF Rx Instructions: As directed once a day potassium chloride 20 mEq tablet,ER particles/crystals See Rx Instructions .ROUTE .COMPLEX Qty: 180 3RF Dose Instruction: Take 1 tablet by mouth twice daily Rx Instructions: Take 1 tablet by mouth twice daily metoprolol succinate 100 mg Tablet Extended Release 24 Hr 100 mg PO DAILY Qty: 30 0RF tramadol 50 mg tablet 50 mg PO TID PRN (Reason: Pain) famotidine 40 mg tablet 40 mg PO DAILY aspirin [Aspir-81] 81 mg Tablet,Delayed Release (Dr/Ec) See Rx Instructions .ROUTE .COMPLEX Rx Instructions: 81 mg orally every 3 days acetaminophen [Tylenol Extra Strength] 500 mg Tablet 500 - 1,000 mg PO Q6H PRN (Reason: Pain) Cenforce-200 200 mg PO PRN PRN (Reason: Sexual Activity) sertraline 25 mg Tablet 25 mg PO DAILY losartan 25 mg tablet 25 mg PO DAILY Qty: 30 0RF gabapentin 300 mg capsule 300 mg PO TID Qty: 90 0RF furosemide [Lasix] 40 mg tablet 40 mg PO QAM Qty: 10 0RF Discharge Orders: Discharge ED (Routine); Ordered 10/21/22 Ordered By: Kvng Wilkinson Referrals: Braxton Dobbins MD [Primary Care Provider] - Discharge Diet: Usual diet Discharge Activity: Increase activity as tolerated Patient Instructions: Acute Bronchitis (ED) Activity Restrictions/Additional Instructions: Encourage plenty of fluids within dietary restrictions. Give doxycycline, antibiotic, 1 capsule twice a day for the next 7 days. Follow-up with primary care in 3 days for recheck. Return to ED for worsening symptoms such as severe chest pain, worsening shortness of breath, inability to hold fluids down, or new concerns. Coding Level of Care Code ED Barrel Straightener for Chg Fwd Exam Comprehensive
[2022-10-21 12:27] LABS: Basophils # 0.1 10^3/uL (0.0-0.1); Basophils % 0.8 %; Eosinophils % 0.3 %; Hematocrit 41.3 % (42.0-52.0); Hemoglobin 13.9 g/dL (11.7-16.6); Lymphocytes # 0.9 10^3/uL (0.8-4.8); Lymphocytes % 7.1 %; Mean Corpuscular HGB Conc 33.7 g/dL (30.0-36.0); Mean Corpuscular Hemoglobin 30.9 pg (28.0-34.0); Mean Corpuscular Volume 91.8 fl (80-94); Mean Platelet Volume 10.2 fL (7.4-10.4); Monocytes # 1.2 10^3/uL (0.2-0.9); Monocytes % 10.1 %; Neutrophils # 9.56 10^3/uL (1.8-7.7); Neutrophils % 80.3 %; Nucleated Red Blood Cells % 0 %; Platelet Count 224 10^3/cmm (130-400); Red Cell Distribution Width 12.3 % (12.1-15.1); White Blood Count 11.9 10^3/uL (4.0-10.0)
[2022-10-21 12:34] LABS: Add Urine Microscopic? NO; Charge for UA Resulting for Rev
[2022-10-21 12:37] LABS: Bilirubin Urine Neg (Negative); Blood Urine Neg (Negative); Glucose Urine UA Norm (Normal); Ketones Urine Negative (Negative); Leukocyte Esterase Urine Negative (Negative); Nitrate Urine Negative (Negative); Protein Urine Neg (Negative); Specific Gravity, Urine 1.015 (1.005-1.030); Urine Appearance Clear (CLEAR); Urine Color Yellow (Yellow); Urobilinogen Urine Norm (Negative); pH Urine 5 (5-7)
[2022-10-21 12:54] LABS: Alanine Aminotransferase 23 U/L (0-41); Alkaline Phosphatase 92 U/L (40-130); Anion Gap 17.8 (5-19); Aspartate Amino Transferase 28 U/L (0-40); Blood Urea Nitrogen 15 mg/dL (8-23); Carbon Dioxide 24 mmol/L (22-29); Chloride 98 mmol/L (98-107); Globulin 2.7 g/dL (1.3-4.6); Glucose 141 mg/dL (65-115); NT Pro B Type Natriuretic Pept 99 pg/mL (0-125); Osmolality Calculated 285 mOsm/kg (285-295); Potassium 3.8 mmol/L (3.5-5.1); Sodium 136 mmol/L (136-145); Total Bilirubin 0.6 mg/dL (0.15-1.2); Total Protein 6.7 g/dL (6.6-8.7)
[2022-10-21] MEDS: doxycycline 100 mg Tablet PO (13:16)
[2022-10-21 13:37] VITALS: BP 160/78; PULSE 91; RESP 16; O2SAT 95
[2022-10-21 15:13] LABS: Adenovirus Not Detected (NOT DETECT); Chlamydia Pneumoniae Not Detected (NOT DETECT); Coronavirus 229E,HKU1,NL63,OC4 Not Detected (NOT DETECT); Human Metapneumovirus Not Detected (NOT DETECT); Human Rhinovirus/Enterovirus Not Detected (NOT DETECT); Influenza A Detected (NOT DETECT); Influenza A H1 Not Detected (NOT DETECT); Influenza A H1-2009 Detected (NOT DETECT); Influenza A H3 Not Detected (NOT DETECT); Influenza B Not Detected (NOT DETECT); Mycoplasma Pneumoniae Not Detected (NOT DETECT); Parainfluenza Virus Type 1 Not Detected (NOT DETECT); Parainfluenza Virus Type 2 Not Detected (NOT DETECT); Parainfluenza Virus Type 3 Not Detected (NOT DETECT); Parainfluenza Virus Type 4 Not Detected (NOT DETECT); Respiratory Syncytial Virus A Not Detected (NOT DETECT); Respiratory Syncytial Virus B Not Detected (NOT DETECT); SARS-COV-2 Not Detected (NOT DETECT)
[2022-10-21 15:18] LABS: Influenza A Detected (NOT DETECT); Influenza A H1 Not Detected (NOT DETECT); Influenza A H1-2009 Detected (NOT DETECT); Influenza A H3 Not Detected (NOT DETECT); Influenza B Not Detected (NOT DETECT); Results from Genmark
== END 2022-10-21 13:37 | disposition home or self-care (01) ==
PROVIDERS: Emergency Provider Nurse Practitioner Family; PCP Family Medicine
DX: J22 Unspecified acute lower respiratory infection (principal); Z79.84 Long term (current) use of oral hypoglycemic drugs; Z79.82 Long term (current) use of aspirin; I11.0 Hypertensive heart disease with heart failure; I50.30 Unspecified diastolic (congestive) heart failure; G20 Parkinson's disease; Z20.822 Contact with and (suspected) exposure to COVID-19
CPT/HCPCS: 71045; 80053; 81003; 83880; 85025; 87631; 87635; 99284

== ENCOUNTER → 2022-11-13 08:52 | Outpatient (BNVA) | payer MEDICARE, SELFPAY | PROVIDERS: PCP Family Medicine; Visit Provider Family Medicine | DX: I10 Essential (primary) hypertension (principal); G20 Parkinson's disease; E11.9 Type 2 diabetes mellitus without complications; R73.9 Hyperglycemia, unspecified; M77.40 Metatarsalgia, unspecified foot | CPT/HCPCS: 80053; 80061; 83036; 85025 ==

== ENCOUNTER → 2023-02-26 08:28 | Outpatient (BNVA) | payer MEDICARE, SELFPAY | PROVIDERS: PCP Family Medicine; Visit Provider Family Medicine | DX: I10 Essential (primary) hypertension (principal); E11.9 Type 2 diabetes mellitus without complications; R73.9 Hyperglycemia, unspecified | CPT/HCPCS: 80053; 80061; 82607; 83036; 85025 ==

== ENCOUNTER → 2023-02-27 16:05 | Outpatient (BNVA) | payer MEDICARE, SELFPAY | PROVIDERS: PCP Family Medicine; Visit Provider Family Medicine | DX: E11.9 Type 2 diabetes mellitus without complications (principal); R73.9 Hyperglycemia, unspecified; I10 Essential (primary) hypertension; F41.9 Anxiety disorder, unspecified; R13.10 Dysphagia, unspecified; G20 Parkinson's disease | CPT/HCPCS: 11721; 83036 ==

== ENCOUNTER 2023-03-27 08:19 | Outpatient (RCR) | payer MEDICARE, SELFPAY | END 2023-04-04 23:59 | disposition home or self-care (01) | LOC: SST 08:19 | PROVIDERS: Visit Provider Family Medicine | DX: R13.10 Dysphagia, unspecified (principal); R47.9 Unspecified speech disturbances | CPT/HCPCS: 92507; 92524; 92610 ==

== ENCOUNTER 2023-03-27 15:46 | Emergency (ER) | payer MEDICARE, SELFPAY ==
[2023-03-27 15:48] VITALS: BP 110/82; PULSE 81; RESP 16; TEMP 36.6; O2SAT 95
--- NOTE | 2023-03-27 16:07 | ECG_ITS ---
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 Measurements Intervals [place] Rate: 78 P: 0 DC: 0 QRS: 0 QRSD: 125 T: 19 QT: 402 QTc: 458 Interpretive Statements Supraventricular rhythm, possibly sinus Heavy baseline artifact Effective EKG, need to repeat Electronically Signed On 03-28-2023 22:16:41 CDT by Vladislav Barbour M.D. [id number]
[2023-03-27 16:29] VITALS: BP 129/56; O2SAT 98
[2023-03-27 16:37] LABS: Basophils # 0.1 10^3/uL (0.0-0.1); Basophils % 1.1 %; Eosinophils # 0.1 10^3/uL (0.0-0.8); Eosinophils % 0.8 %; Hematocrit 43.4 % (42.0-52.0); Hemoglobin 14.7 g/dL (11.7-16.6); Lymphocytes # 2.6 10^3/uL (0.8-4.8); Lymphocytes % 23.7 %; Mean Corpuscular HGB Conc 33.9 g/dL (30.0-36.0); Mean Corpuscular Hemoglobin 30.2 pg (28.0-34.0); Mean Corpuscular Volume 89.1 fl (80-94); Mean Platelet Volume 10.6 fL (7.4-10.4); Monocytes # 1.1 10^3/uL (0.2-0.9); Monocytes % 10.1 %; Neutrophils # 6.97 10^3/uL (1.8-7.7); Neutrophils % 63.4 %; Nucleated Red Blood Cells % 0 %; Platelet Count 225 10^3/cmm (130-400); Red Blood Count 4.87 10^6/uL (4.1-5.3); Red Cell Distribution Width 12.2 % (12.1-15.1)
--- NOTE | 2023-03-27 16:47 | XRR_ITS ---
PROCEDURE INFORMATION: Exam: XR Chest Exam date and time: 03/27/2023 4:56 PM Age: 73 years old Clinical indication: Pain; Angina pectoris; Additional info: Chest pain TECHNIQUE: Imaging protocol: Radiologic exam of the chest. Views: 1 view. COMPARISON: CR XR chest 1V portable [id number] 10/21/2022 12:30 PM FINDINGS: Tubes, catheters and devices: Electronic stimulator device is seen in the bilateral anterior chest. The leads extend cephalad. Lungs: Unremarkable. No consolidation. Pleural spaces: Unremarkable. No pleural effusion. No pneumothorax. Heart/Mediastinum: Unremarkable. No cardiomegaly. Bones/joints: Unremarkable. Other findings: Comparison to prior examination similar findings seen. XR/XR chest 1V portable [id number] IMPRESSION: 1. No acute findings. 2. Stable electronic stimulators in the anterior chest
--- NOTE | 2023-03-27 16:50 | ED_ITS ---
Documented by User: Diogenes Gomes DO 03/27/23 17:27 HPI - Chest Pain General: Chief Complaint: Chest Pain Stated Complaint: Chest pain Time Seen by Provider: 03/27/23 15:53 Source: patient Mode of arrival: EMS History of Present Illness: 73-year-old male presents emergency room with complaint of chest discomfort. He has a history of Parkinson's and he is in a fci for this. He has bi lateral deep brain stimulators. He was sitting playing cards today began having chest pain in the left upper chest that is worse when he takes a deep breath. He has had a little bit of a cough he denies any fever sweats or chills he has no known coronary artery disease. Chest pain continues to be reproducible with deep inspiration but not with palpation. Patient previously had a cardiac stress test in July 2020 which was unremarkable. MD complaint: chest pain Onset (ago): minute(s) Timing of current episode: episodic Prior episodes: Yes Onset: during rest Pain location: left chest Pain radiation: none Quality: sharp Associated symptoms: Deny abdominal pain, diaphoresis, dyspnea, fever(s), leg edema, nausea, palpitations, sense of impending doom, syncope or vomiting Review of Systems Const: Denies: fever(s), chills or diaphoresis ENMT: Denies: throat pain, ear or mastoid pain, nasal discharge or nasal congestion Card: Reports: chest pain; Denies: palpitations, irregular heart rhythm, edema or syncope Resp: Denies: dyspnea, productive cough or non-productive cough GI: Denies: abdominal pain, nausea or vomiting : Denies: flank pain, dysuria, urinary frequency or urinary urgency Skin/Breast: Denies: rash or pruritus PFSH ED PFSH: Medical History Airway obstruction Bilateral claudication of lower limb Chronic venous insufficiency Diastolic CHF Dysphasia Modified barium swallow done 3 days ago 04/13/2020 did not reveal any aspiration Hypersomnia Hypertension Morbid obesity Obstructive sleep apnea Parkinson disease Presence of neurostimulator Venous stasis dermatitis Surgical History History of bronchoscopy Did not reveal retropharyngeal mass or swelling done in Previous back surgery S/P cholecystectomy S/P total knee arthroplasty Family History Other Cancer Hypertension Denies family history of Diabetes Social History Smoking and tobacco status: never smoked Alcohol intake: current Alcohol intake frequency: few times a week 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 Physical Exam Const: GENERAL APPEARANCE: cooperative and comfortable ORIENTATION/CONSCIOUSNESS: Yes awake, Yes oriented to person, Yes oriented to place and Yes oriented to time HENMT: COMMON NORMALS: normocephalic, atraumatic and hearing grossly normal bilaterally HEAD & SCALP: normocephalic and atraumatic Resp: COMMON NORMALS: normal respiratory effort, No retractions, No use of accessory muscles and clear to auscultation bilaterally AUSCULTATION: clear to auscultation bilaterally Cardio: COMMON NORMALS: regular rate, regular rhythm and No murmurs present (Cardio) RATE: regular rate RHYTHM: regular rhythm GI: COMMON NORMALS: Soft to palpation and No hepatosplenomegaly present AUSCULTATION: Yes normoactive bowel sounds PALPATION: Yes Soft to palpation, No Tenderness to palpation present (GI), No Guarding due to palpation present (GI) and Yes No hepatosplenomegaly present Extremity: COMMON NORMALS: normal to inspection, capillary refill normal, no clubbing, cyanosis or edema, no calf tenderness and no pedal edema Neuro: SENSORIUM/ORIENTATION: Yes oriented to person, Yes oriented to place and Yes oriented to time Skin: COMMON NORMALS: no rashes or lesions noted GENERAL SKIN EXAM: no rashes or lesions noted Course Vital Signs: Vital signs: Vital Signs Temperature 97.8 F 03/27/23 15:48 Pulse Rate 81 03/27/23 15:48 Respiratory Rate 16 03/27/23 15:48 Blood Pressure 129/83 03/27/23 18:19 Pulse Oximetry 97 03/27/23 18:19 Oxygen Delivery Me thod Room Air 03/27/23 18:19 MDM - Chest Pain Medical Decision Making Care signed out to Dr. Merchant at change of shift. See final notes for diagnosis and disposition. Troponins pending. Lab Data 03/27/23 16:25 03/27/23 16:25 Radiology Impressions Chest X-Ray 03/27/23 16:47 IMPRESSION: 1. No acute findings. 2. Stable electronic stimulators in the anterior chest Laboratory Results WBC 11.0 10^3/uL (4.0-10.0) H 03/27/23 16:25 RBC 4.87 10^6/uL (4.1-5.3) 03/27/23 16:25 Hgb 14.7 g/dL (11.7-16.6) 03/27/23 16:25 Hct 43.4 % (42.0-52.0) 03/27/23 16:25 MCV 89.1 fl (80-94) 03/27/23 16:25 MCH 30.2 pg (28.0-34.0) 03/27/23 16:25 MCHC 33.9 g/dL (30.0-36.0) 03/27/23 16:25 RDW 12.2 % (12.1-15.1) 03/27/23 16:25 Plt Count 225 10^3/cmm (130-400) 03/27/23 16:25 MPV 10.6 fL (7.4-10.4) H 03/27/23 16:25 Neut % (Auto) 63.4 % 03/27/23 16:25 Lymph % (Auto) 23.7 % 03/27/23 16:25 Franklin % (Auto) 10.1 % 03/27/23 16:25 Eos % (Auto) 0.8 % 03/27/23 16:25 Baso % (Auto) 1.1 % 03/27/23 16:25 Neut # (Auto) 6.97 10^3/uL (1.8-7.7) 03/27/23 16:25 Lymph # (Auto) 2.6 10^3/uL (0.8-4.8) 03/27/23 16:25 Franklin # (Auto) 1.1 10^3/uL (0.2-0.9) H 03/27/23 16:25 Eos # (Auto) 0.1 10^3/uL (0.0-0.8) 03/27/23 16:25 Baso # (Auto) 0.1 10^3/uL (0.0-0.1) 03/27/23 16:25 Nucleated RBC % (auto) 0 % 03/27/23 16:25 Nucleated RBCs # 0.0 /100WBC 03/27/23 16:25 Sodium 140 mmol/L (136-145) 03/27/23 16:25 Potassium 3.8 mmol/L (3.5-5.1) 03/27/23 16:25 Chloride 100 mmol/L (98-107) 03/27/23 16:25 Carbon Dioxide 25 mmol/L (22-29) 03/27/23 16:25 Anion Gap 18.8 (5-19) 03/27/23 16:25 BUN 17 mg/dL (8-23) 03/27/23 16:25 Creatinine 1.0 mg/dL (0.7-1.2) 03/27/23 16:25 GFR Calculation Not Reportable 03/27/23 16:25 Glucose 103 mg/dL (65-115) 03/27/23 16:25 Calculated Osmolality 292 mOsm/kg (285-295) 03/27/23 16:25 Calcium 8.9 mg/dL (8.5-10.5) 03/27/23 16:25 Total Bilirubin 0.5 mg/dL (0.15-1.2) 03/27/23 16:25 AST 18 U/L (0-40) 03/27/23 16:25 ALT 20 U/L (0-41) 03/27/23 16:25 Alkaline Phosphatase 100 U/L (40-130) 03/27/23 16:25 Troponin T Baseline 17 ng/L (0-15) H 03/27/23 16:25 Troponin T 120 Minute 18.07 ng/L (0-15) H 03/27/23 19:28 Delta Troponin T 1.07 ABS# (0-10) 03/27/23 19:28 Total Protein 6.8 g/dL (6.6-8.7) 03/27/23 16:25 Albumin 4.3 g/dL (3.5-5.2) 03/27/23 16:25 Globulin 2.5 g/dL (1.3-4.6) 03/27/23 16:25 Discharge Plan Discharge Patient Disposition: Home Clinical Impression: Chest pain Condition: Stable Prescriptions: No Action clonazepam 0.5 mg tablet 1 mg PO BEDTIME PRN (Reason: Anxiety) Rx Instructions: (pt states he has not taken in a long time) (DME) Diabetic shoes and Accommodative Orthotics See Rx Instructions .Route .MEDSUPPLY Qty: 1 0RF Rx Instructions: As directed J P & O ropinirole 1 mg tablet See Rx Instructions .ROUTE .COMPLEX Rx Instructions: Take 2 tabs PO TID and 3 tabs at bedtime (DME) diabetic shoes See Rx Instructions .Route .MEDSUPPLY Qty: 1 1RF Rx Instructions: Use diabetic shoes while ambulating. E11.9 DM2. Xofluza 80 mg tablet 80 mg PO ONCE Qty: 1 0RF carbidopa-levodopa 50-200 mg tablet extended release See Rx Instructions .ROUTE .COMPLEX Qty: 540 6RF Rx Instructions: 1.5 tab orally 6 times daily bumetanide 2 mg tablet 2 mg PO BID Qty: 180 3RF cyanocobalamin (vitamin B-12) [Vitamin B-12] 1,000 mcg tablet 1,000 mcg PO DAILY Qty: 30 6RF ondansetron HCl 4 mg tablet 4 mg PO Q8H PRN (Reason: nausea and vomiting) Qty: 60 6RF ropinirole 3 mg tablet See Rx Instructions .ROUTE .COMPLEX Qty: 90 3RF Dose Instruction: TAKE 1 TABLET BY MOUTH ONCE DAILY AT BEDTIME NEEDED FOR LEG CRAMPS Rx Instructions: TAKE 1 TABLET BY MOUTH ONCE DAILY AT BEDTIME NEEDED FOR LEG CRAMPS potassium chloride 20 mEq tablet,ER particles/crystals See Rx Instructions .ROUTE .COMPLEX Qty: 180 3RF Dose Instruction: Take 1 tablet by mouth twice daily Rx Instructions: Take 1 tablet by mouth twice daily famotidine 40 mg tablet 40 mg PO DAILY Qty: 90 3RF simvastatin 10 mg tablet 10 mg PO DAILY Qty: 90 3RF (DME) OneTouch Ultra Test Strip See Rx Instructions .Route Qty: 100 12RF Rx Instructions: As directed once a day sertraline 100 mg tablet 100 mg PO DAILY Qty: 90 3RF metformin 1,000 mg tablet 1,000 mg PO BID Qty: 180 3RF Rx Instructions: Take 1000 mg in the a.m. and 500 mg in the p.m. for 1 week, then increase to 1000 mg twice a day. metoprolol succinate 100 mg Tablet Extended Release 24 Hr 100 mg PO DAILY Qty: 30 0RF tramadol 50 mg tablet 50 mg PO TID PRN (Reason: Pain) aspirin [Aspir-81] 81 mg Tablet,Delayed Release (Dr/Ec) See Rx Instructions .ROUTE .COMPLEX Rx Instructions: 81 mg orally every 3 days acetaminophen [Tylenol Extra Strength] 500 mg Tablet 500 - 1,000 mg PO Q6H PRN (Reason: Pain) Cenforce-200 200 mg PO PRN PRN (Reason: Sexual Activity) losartan 25 mg tablet 25 mg PO DAILY Qty: 30 0RF gabapentin 300 mg capsule 300 mg PO TID Qty: 90 0RF furosemide [Lasix] 40 mg tablet 40 mg PO QAM Qty: 10 0RF Discharge Orders: Discharge ED (Routine); Ordered 03/27/23 Ordered By: Mich Merchant Referrals: Braxton Dobbins MD [Primary Care Provider] - 1-3 days Discharge Diet: Advance as tolerated Discharge Activity: Resume usual activity Patient Instructions: Chest Pain (ED) Coding Level of Care Code ED Senior Systems Programmer for Chg Fwd Documented by User: Mich Merchant MD 03/27/23 20:05 HPI - Chest Pain General: Chief Complaint: Chest Pain Stated Complaint: Chest pain Time Seen by Provider: 03/27/23 15:53 PFS ED PFSH: Medical History Airway obstruction Bilateral claudication of lower limb Chronic venous insufficiency Diastolic CHF Dysphasia Modified barium swallow done 3 days ago 04/13/2020 did not reveal any aspiration Hypersomnia Hypertension Morbid obesity Obstructive sleep apnea Parkinson disease Presence of neurostimulator Venous stasis dermatitis Surgical History History of bronchoscopy Did not reveal retropharyngeal mass or swelling done in Previous back surgery S/P cholecystectomy S/P total knee arthroplasty Family History Other Cancer Hypertension Denies family history of Diabetes Social History Smoking and tobacco status: never smoked Alcohol intake: current Alcohol intake frequency: few times a week Current occupation: [employer] Vital Signs: Vital signs: Vital Signs Temperature 97.8 F 03/27/23 15:48 Pulse Rate 81 03/27/23 15:48 Respiratory Rate 16 03/27/23 15:48 Blood Pressure 129/83 03/27/23 18:19 Pulse Oximetry 97 03/27/23 18:19 Oxygen Delivery Me thod Room Air 03/27/23 18:19 MDM - Chest Pain Medical Decision Making Care signed out to Dr. Merchant at change of shift. See final notes for diagnosis and disposition. Troponins pending. Patient's 2-hour troponin here is normal no signs acute coronary syndrome he is stable for discharge he is to follow-up with PCP in 2 to 4 days return if worsening. Lab Data 03/27/23 16:25 03/27/23 16:25 Radiology Impressions Chest X-Ray 03/27/23 16:47 IMPRESSION: 1. No acute findings. 2. Stable electronic stimulators in the anterior chest Laboratory Results WBC 11.0 10^3/uL (4.0-10.0) H 03/27/23 16:25 RBC 4.87 10^6/uL (4.1-5.3) 03/27/23 16:25 Hgb 14.7 g/dL (11.7-16.6) 03/27/23 16:25 Hct 43.4 % (42.0-52.0) 03/27/23 16:25 MCV 89.1 fl (80-94) 03/27/23 16:25 MCH 30.2 pg (28.0-34.0) 03/27/23 16:25 MCHC 33.9 g/dL (30.0-36.0) 03/27/23 16:25 RDW 12.2 % (12.1-15.1) 03/27/23 16:25 Plt Count 225 10^3/cmm (130-400) 03/27/23 16:25 MPV 10.6 fL (7.4-10.4) H 03/27/23 16:25 Neut % (Auto) 63.4 % 03/27/23 16:25 Lymph % (Auto) 23.7 % 03/27/23 16:25 Franklin % (Auto) 10.1 % 03/27/23 16:25 Eos % (Auto) 0.8 % 03/27/23 16:25 Baso % (Auto) 1.1 % 03/27/23 16:25 Neut # (Auto) 6.97 10^3/uL (1.8-7.7) 03/27/23 16:25 Lymph # (Auto) 2.6 10^3/uL (0.8-4.8) 03/27/23 16:25 Franklin # (Auto) 1.1 10^3/uL (0.2-0.9) H 03/27/23 16:25 Eos # (Auto) 0.1 10^3/uL (0.0-0.8) 03/27/23 16:25 Baso # (Auto) 0.1 10^3/uL (0.0-0.1) 03/27/23 16:25 Nucleated RBC % (auto) 0 % 03/27/23 16:25 Nucleated RBCs # 0.0 /100WBC 03/27/23 16:25 Sodium 140 mmol/L (136-145) 03/27/23 16:25 Potassium 3.8 mmol/L (3.5-5.1) 03/27/23 16:25 Chloride 100 mmol/L (98-107) 03/27/23 16:25 Carbon Dioxide 25 mmol/L (22-29) 03/27/23 16:25 Anion Gap 18.8 (5-19) 03/27/23 16:25 BUN 17 mg/dL (8-23) 03/27/23 16:25 Creatinine 1.0 mg/dL (0.7-1.2) 03/27/23 16:25 GFR Calculation Not Reportable 03/27/23 16:25 Glucose 103 mg/dL (65-115) 03/27/23 16:25 Calculated Osmolality 292 mOsm/kg (285-295) 03/27/23 16:25 Calcium 8.9 mg/dL (8.5-10.5) 03/27/23 16:25 Total Bilirubin 0.5 mg/dL (0.15-1.2) 03/27/23 16:25 AST 18 U/L (0-40) 03/27/23 16:25 ALT 20 U/L (0-41) 03/27/23 16:25 Alkaline Phosphatase 100 U/L (40-130) 03/27/23 16:25 Troponin T Baseline 17 ng/L (0-15) H 03/27/23 16:25 Troponin T 120 Minute 18.07 ng/L (0-15) H 03/27/23 19:28 Delta Troponin T 1.07 ABS# (0-10) 03/27/23 19:28 Total Protein 6.8 g/dL (6.6-8.7) 03/27/23 16:25 Albumin 4.3 g/dL (3.5-5.2) 03/27/23 16:25 Globulin 2.5 g/dL (1.3-4.6) 03/27/23 16:25 Discharge Plan Discharge Patient Disposition: Home Clinical Impression: Chest pain Condition: Stable Prescriptions: No Action clonazepam 0.5 mg tablet 1 mg PO BEDTIME PRN (Reason: Anxiety) Rx Instructions: (pt states he has not taken in a long time) (DME) Diabetic shoes and Accommodative Orthotics See Rx Instructions .Route .MEDSUPPLY Qty: 1 0RF Rx Instructions: As directed J P & O ropinirole 1 mg tablet See Rx Instructions .ROUTE .COMPLEX Rx Instructions: Take 2 tabs PO TID and 3 tabs at bedtime (DME) diabetic shoes See Rx Instructions .Route .MEDSUPPLY Qty: 1 1RF Rx Instructions: Use diabetic shoes while ambulating. E11.9 DM2. Xofluza 80 mg tablet 80 mg PO ONCE Qty: 1 0RF carbidopa-levodopa 50-200 mg tablet extended release See Rx Instructions .ROUTE .COMPLEX Qty: 540 6RF Rx Instructions: 1.5 tab orally 6 times daily bumetanide 2 mg tablet 2 mg PO BID Qty: 180 3RF cyanocobalamin (vitamin B-12) [Vitamin B-12] 1,000 mcg tablet 1,000 mcg PO DAILY Qty: 30 6RF ondansetron HCl 4 mg tablet 4 mg PO Q8H PRN (Reason: nausea and vomiting) Qty: 60 6RF ropinirole 3 mg tablet See Rx Instructions .ROUTE .COMPLEX Qty: 90 3RF Dose Instruction: TAKE 1 TABLET BY MOUTH ONCE DAILY AT BEDTIME NEEDED FOR LEG CRAMPS Rx Instructions: TAKE 1 TABLET BY MOUTH ONCE DAILY AT BEDTIME NEEDED FOR LEG CRAMPS potassium chloride 20 mEq tablet,ER particles/crystals See Rx Instructions .ROUTE .COMPLEX Qty: 180 3RF Dose Instruction: Take 1 tablet by mouth twice daily Rx Instructions: Take 1 tablet by mouth twice daily famotidine 40 mg tablet 40 mg PO DAILY Qty: 90 3RF simvastatin 10 mg tablet 10 mg PO DAILY Qty: 90 3RF (DME) OneTouch Ultra Test Strip See Rx Instructions .Route Qty: 100 12RF Rx Instructions: As directed once a day sertraline 100 mg tablet 100 mg PO DAILY Qty: 90 3RF metformin 1,000 mg tablet 1,000 mg PO BID Qty: 180 3RF Rx Instructions: Take 1000 mg in the a.m. and 500 mg in the p.m. for 1 week, then increase to 1000 mg twice a day. metoprolol succinate 100 mg Tablet Extended Release 24 Hr 100 mg PO DAILY Qty: 30 0RF tramadol 50 mg tablet 50 mg PO TID PRN (Reason: Pain) aspirin [Aspir-81] 81 mg Tablet,Delayed Release (Dr/Ec) See Rx Instructions .ROUTE .COMPLEX Rx Instructions: 81 mg orally every 3 days acetaminophen [Tylenol Extra Strength] 500 mg Tablet 500 - 1,000 mg PO Q6H PRN (Reason: Pain) Cenforce-200 200 mg PO PRN PRN (Reason: Sexual Activity) losartan 25 mg tablet 25 mg PO DAILY Qty: 30 0RF gabapentin 300 mg capsule 300 mg PO TID Qty: 90 0RF furosemide [Lasix] 40 mg tablet 40 mg PO QAM Qty: 10 0RF Discharge Orders: Discharge ED (Routine); Ordered 03/27/23 Ordered By: Mich Merchant Referrals: Braxton Dobbins MD [Primary Care Provider] - 1-3 days Discharge Diet: Advance as tolerated Discharge Activity: Resume usual activity Patient Instructions: Chest Pain (ED) Coding Level of Care Code ED Senior Systems Programmer for Katherin Campos
[2023-03-27 17:00] LABS: Alanine Aminotransferase 20 U/L (0-41); Albumin Level 4.3 g/dL (3.5-5.2); Alkaline Phosphatase 100 U/L (40-130); Anion Gap 18.8 (5-19); Aspartate Amino Transferase 18 U/L (0-40); Blood Urea Nitrogen 17 mg/dL (8-23); Calcium 8.9 mg/dL (8.5-10.5); Carbon Dioxide 25 mmol/L (22-29); Chloride 100 mmol/L (98-107); Globulin 2.5 g/dL (1.3-4.6); Glucose 103 mg/dL (65-115); Osmolality Calculated 292 mOsm/kg (285-295); Potassium 3.8 mmol/L (3.5-5.1); Sodium 140 mmol/L (136-145); Total Bilirubin 0.5 mg/dL (0.15-1.2); Total Protein 6.8 g/dL (6.6-8.7)
[2023-03-27] MEDS: acetaminophen 500 mg Tablet 1000 MG PO (17:21)
[2023-03-27 17:56] LABS: Troponin(5th) Baseline 17 ng/L (0-15)
--- NOTE | 2023-03-27 18:04 | ECG_ITS ---
[facility] Test Date: 2023-03-27 Pat Name: Fabiola Matthew Department: Room: Gender: Male Therapist Respiratory: : 1950 Requested By: Diogenes Glasgow Order Number: [id number] Reading MD: Vladislav Barbour M.D. Measurements Intervals Cullen Rate: 80 P: 43 NV: 159 QRS: 181 QRSD: 133 T: 107 QT: 371 QTc: 430 Interpretive Statements Regular supraventricular rhythm. Heavy electrical artifact. Further interpretation is not possible. Defective EKG. Electronically Signed On 03-28-2023 22:35:22 CDT by Vladislav Barbour M.D. [email or web address]
[2023-03-27 18:19] VITALS: BP 129/83; O2SAT 97
--- NOTE | 2023-03-27 18:58 | PC.NURSE ---
Pt up to chair. This nurse encouraged pt to get back in bed and rest, pt refused at this time.
[2023-03-27] MEDS: ropinirole 1 mg Tablet PO (19:21)
[2023-03-27] MEDS: carbidopa-levodopa ER 50-200mg Tablet 1 EACH PO (19:22)
[2023-03-27 19:52] LABS: Troponin 5 2HR 18.07 ng/L (0-15)
[2023-03-27 19:59] LABS: Troponin 5 2HR Delta 1.07 ABS# (0-10)
[2023-03-27 20:18] VITALS: BP 126/84; PULSE 79; RESP 18; O2SAT 92
== END 2023-03-27 20:22 | disposition home or self-care (01) ==
PROVIDERS: Family Medicine; Emergency Provider Emergency Medicine; PCP Family Medicine
DX: R07.9 Chest pain, unspecified (principal); Z79.82 Long term (current) use of aspirin; Z79.84 Long term (current) use of oral hypoglycemic drugs; I11.0 Hypertensive heart disease with heart failure; I50.30 Unspecified diastolic (congestive) heart failure; G20 Parkinson's disease
CPT/HCPCS: 36415; 71045; 80053; 84484; 85025; 93005; 99285

== ENCOUNTER → 2023-03-29 09:19 | Outpatient (BNVA) | payer MEDICARE, SELFPAY | PROVIDERS: PCP Family Medicine; Visit Provider Family Medicine | DX: R35.0 Frequency of micturition (principal); R25.2 Cramp and spasm | CPT/HCPCS: 81000; 83735; 87077; 87086; 87184 ==

== ENCOUNTER 2023-04-05 06:00 | Outpatient (RCR) | payer MEDICARE, SELFPAY | END 2023-05-04 23:59 | disposition home or self-care (01) | LOC: SST 06:00 | PROVIDERS: PCP Family Medicine; Visit Provider Family Medicine | DX: G20 Parkinson's disease (principal); R49.8 Other voice and resonance disorders; R13.13 Dysphagia, pharyngeal phase; R47.1 Dysarthria and anarthria | CPT/HCPCS: 92507 ==

== ENCOUNTER 2023-05-05 06:00 | Outpatient (RCR) | payer MEDICARE, SELFPAY | END 2023-05-30 23:59 | disposition home or self-care (01) | LOC: SST 06:00 | PROVIDERS: PCP Family Medicine; Visit Provider Family Medicine | DX: G20 Parkinson's disease (principal); R47.1 Dysarthria and anarthria; R49.8 Other voice and resonance disorders; R13.13 Dysphagia, pharyngeal phase | CPT/HCPCS: 92507 ==

== ENCOUNTER → 2023-05-30 11:01 | Outpatient (BNVA) | payer MEDICARE, SELFPAY | PROVIDERS: PCP Family Medicine; Visit Provider Podiatrist Foot & Ankle Surgery | DX: E11.8 Type 2 diabetes mellitus with unspecified complications (principal); L60.3 Nail dystrophy; E11.21 Type 2 diabetes mellitus with diabetic nephropathy; G20 Parkinson's disease; R26.89 Other abnormalities of gait and mobility; M20.20 Hallux rigidus, unspecified foot; M20.41 Other hammer toe(s) (acquired), right foot; M20.42 Other hammer toe(s) (acquired), left foot; M21.42 Flat foot [pes planus] (acquired), left foot; M21.41 Flat foot [pes planus] (acquired), right foot; I73.9 Peripheral vascular disease, unspecified; Z79.84 Long term (current) use of oral hypoglycemic drugs | CPT/HCPCS: 11721; 73630; 80053; 80061; 83036; 85025; 99213 ==

== ENCOUNTER → 2023-08-29 10:37 | Outpatient (BNVA) | payer MEDICARE, SELFPAY | PROVIDERS: PCP Family Medicine; Visit Provider Podiatrist Foot & Ankle Surgery | DX: E11.21 Type 2 diabetes mellitus with diabetic nephropathy (principal); L60.3 Nail dystrophy; G20.A1 Parkinson's disease without dyskinesia, without mention of fluctuations; R26.89 Other abnormalities of gait and mobility; M20.20 Hallux rigidus, unspecified foot; M20.41 Other hammer toe(s) (acquired), right foot; M20.42 Other hammer toe(s) (acquired), left foot; I73.9 Peripheral vascular disease, unspecified; M21.42 Flat foot [pes planus] (acquired), left foot; M21.41 Flat foot [pes planus] (acquired), right foot; Z79.84 Long term (current) use of oral hypoglycemic drugs | CPT/HCPCS: 11721 ==

== ENCOUNTER → 2023-09-04 08:34 | Outpatient (BNVA) | payer MEDICARE, SELFPAY | PROVIDERS: PCP Family Medicine; Visit Provider Family Medicine | DX: I10 Essential (primary) hypertension (principal); E11.9 Type 2 diabetes mellitus without complications | CPT/HCPCS: 80053; 80061; 83036; 85025 ==

== ENCOUNTER → 2023-10-01 14:36 | Outpatient (BNVA) | payer MEDICARE, SELFPAY | PROVIDERS: PCP Family Medicine; Visit Provider Podiatrist Foot & Ankle Surgery | DX: E11.21 Type 2 diabetes mellitus with diabetic nephropathy; G20.A1 Parkinson's disease without dyskinesia, without mention of fluctuations; R26.89 Other abnormalities of gait and mobility; I73.9 Peripheral vascular disease, unspecified; E11.610 Type 2 diabetes mellitus with diabetic neuropathic arthropathy; Z79.84 Long term (current) use of oral hypoglycemic drugs; Z46.89 Encounter for fitting and adjustment of other specified devices | CPT/HCPCS: 73630; 97760; 99214; L4361 ==

== ENCOUNTER 2023-10-01 15:30 | Outpatient (CLI) | payer MEDICARE, SELFPAY | END 2023-10-01 15:31 | disposition home or self-care (01) | LOC: SPT 15:31 | PROVIDERS: PCP Family Medicine; Visit Provider Podiatrist Foot & Ankle Surgery | DX: Z46.89 Encounter for fitting and adjustment of other specified devices (principal); E11.610 Type 2 diabetes mellitus with diabetic neuropathic arthropathy | CPT/HCPCS: 97760; 99214; L4361 ==

== ENCOUNTER → 2023-10-16 15:25 | Outpatient (BNVA) | payer MEDICARE, SELFPAY | PROVIDERS: PCP Family Medicine; Visit Provider Podiatrist Foot & Ankle Surgery | DX: E11.21 Type 2 diabetes mellitus with diabetic nephropathy; G20.A1 Parkinson's disease without dyskinesia, without mention of fluctuations; R26.89 Other abnormalities of gait and mobility; I73.9 Peripheral vascular disease, unspecified; E11.610 Type 2 diabetes mellitus with diabetic neuropathic arthropathy; Z79.84 Long term (current) use of oral hypoglycemic drugs | CPT/HCPCS: 73630; 99213 ==

== ENCOUNTER → 2023-11-08 13:17 | Outpatient (BNVA) | payer MEDICARE, SELFPAY | PROVIDERS: PCP Family Medicine; Visit Provider Podiatrist Foot & Ankle Surgery | DX: E11.610 Type 2 diabetes mellitus with diabetic neuropathic arthropathy (principal); N39.0 Urinary tract infection, site not specified; E11.21 Type 2 diabetes mellitus with diabetic nephropathy; G20.A1 Parkinson's disease without dyskinesia, without mention of fluctuations; R26.89 Other abnormalities of gait and mobility; I73.9 Peripheral vascular disease, unspecified; Z79.84 Long term (current) use of oral hypoglycemic drugs | CPT/HCPCS: 73630; 81000; 87086; 99213 ==

== ENCOUNTER → 2023-12-06 12:17 | Outpatient (BNVA) | payer MEDICARE, SELFPAY | PROVIDERS: PCP Family Medicine; Visit Provider Family Medicine | DX: E11.9 Type 2 diabetes mellitus without complications (principal); I10 Essential (primary) hypertension | CPT/HCPCS: 80053; 80061; 83036; 85025 ==

== ENCOUNTER → 2023-12-10 13:11 | Outpatient (BNVA) | payer MEDICARE, SELFPAY | PROVIDERS: PCP Family Medicine; Visit Provider Podiatrist Foot & Ankle Surgery | DX: E11.21 Type 2 diabetes mellitus with diabetic nephropathy (principal); G20.A1 Parkinson's disease without dyskinesia, without mention of fluctuations; R26.89 Other abnormalities of gait and mobility; I73.9 Peripheral vascular disease, unspecified; E11.610 Type 2 diabetes mellitus with diabetic neuropathic arthropathy; Z79.84 Long term (current) use of oral hypoglycemic drugs | CPT/HCPCS: 73630; 99213 ==

== ENCOUNTER → 2023-12-13 11:17 | Outpatient (BNVA) | payer MEDICARE, SELFPAY | PROVIDERS: PCP Family Medicine; Visit Provider Family Medicine | DX: R30.0 Dysuria (principal) | CPT/HCPCS: 87086 ==

== ENCOUNTER → 2024-02-04 12:50 | Outpatient (BNVA) | payer MEDICARE, SELFPAY | PROVIDERS: PCP Family Medicine; Visit Provider Podiatrist Foot & Ankle Surgery | DX: E11.610 Type 2 diabetes mellitus with diabetic neuropathic arthropathy (principal); E11.21 Type 2 diabetes mellitus with diabetic nephropathy; G20.A1 Parkinson's disease without dyskinesia, without mention of fluctuations; R26.89 Other abnormalities of gait and mobility; I73.9 Peripheral vascular disease, unspecified; Z79.84 Long term (current) use of oral hypoglycemic drugs | CPT/HCPCS: 73630; 99213 ==

== ENCOUNTER → 2024-03-05 08:34 | Outpatient (BNVA) | payer MEDICARE, SELFPAY | PROVIDERS: PCP Family Medicine; Visit Provider Family Medicine | DX: I10 Essential (primary) hypertension (principal); R73.03 Prediabetes; N18.9 Chronic kidney disease, unspecified; G20.A1 Parkinson's disease without dyskinesia, without mention of fluctuations | CPT/HCPCS: 80053; 80061; 83036; 85025 ==

== ENCOUNTER 2024-04-04 06:28 | Outpatient (CLI) | payer MEDICARE, SELFPAY ==
--- NOTE | 2024-04-04 06:45 | US_ITS ---
WS: [id number] RENAL ULTRASOUND URINARY BLADDER ULTRASOUND HISTORY: Urinary incontinence [id number] COMPARISON: None available. TECHNIQUE: 2-D and color Doppler imaging of the kidney submitted. Right kidney: 11.0 cm x 6.0 cm x 5.5 cm. Normal echogenicity with no hydronephrosis or mass. Left kidney: 11.5 cm x 5.4 cm x 5.6 cm. Normal echogenicity with no hydronephrosis or mass. Aorta: Normal. Urinary Bladder: Minimally distended bladder. Prostate gland is heterogeneous and enlarged. Prostate measures 5.8 x 5.2 x 4.0 cm. Prevoid: 68 mL. Post void: 17 mL. US/US renal BI with PV bladder IMPRESSION: 1. Normal size kidneys with no hydronephrosis. 2. Enlarged prostate gland. 3. Minimal post void residual.
== END 2024-04-04 06:29 | disposition home or self-care (01) ==
LOC: RAD 06:28
PROVIDERS: PCP Family Medicine; Visit Provider Family Medicine
DX: R32 Unspecified urinary incontinence (principal); R35.0 Frequency of micturition
CPT/HCPCS: 76770; 76857

== ENCOUNTER → 2024-04-07 11:22 | Outpatient (BNVA) | payer MEDICARE, SELFPAY | PROVIDERS: PCP Family Medicine; Visit Provider Podiatrist Foot & Ankle Surgery | DX: E11.610 Type 2 diabetes mellitus with diabetic neuropathic arthropathy (principal); E11.21 Type 2 diabetes mellitus with diabetic nephropathy; G20.A1 Parkinson's disease without dyskinesia, without mention of fluctuations; R26.89 Other abnormalities of gait and mobility; I73.9 Peripheral vascular disease, unspecified; Z79.84 Long term (current) use of oral hypoglycemic drugs | CPT/HCPCS: 73630; 99213 ==

== ENCOUNTER 2024-05-13 08:52 | Emergency (ER) | payer MEDICARE, SELFPAY ==
[2024-05-13 08:53] VITALS: BP 152/75; PULSE 73; RESP 22; TEMP 36.4; O2SAT 95
--- NOTE | 2024-05-13 09:02 | CTR_ITS ---
PROCEDURE INFORMATION: Exam: CT Head Without Contrast Exam date and time: 05/13/2024 9:20 AM Age: 74 years old Clinical indication: Injury or trauma; Fall; Blunt trauma (contusions or hematomas); Without loss of consciousness; Prior surgery; Surgery date: 6+ months; Surgery type: Dbs; Additional info: Trauma/fall TECHNIQUE: Imaging protocol: Computed tomography of the head without contrast. Radiation optimization: All CT scans at this facility use at least one of these dose optimization techniques: automated exposure control; mA and/or kV adjustment per patient size (includes targeted exams where dose is matched to clinical indication); or iterative reconstruction. COMPARISON: CT neck w con* [id number] 01/24/2020 10:46 AM RADIATION DOSE METRICS: Total DLP (mGy-cm): 1576.13 FINDINGS: Tubes, catheters and devices: Bilateral DBS electrodes terminate in the basal ganglia. Brain: No intracranial hemorrhage. No acute infarct. No extra-axial fluid collection. Cerebral ventricles: No ventriculomegaly. Paranasal sinuses: Mucosal thickening in the bilateral maxillary sinuses. Mastoid air cells: Visualized mastoid air cells are well aerated. Bones: Unremarkable. No acute fracture. Soft tissues: Unremarkable. CT/CT head wo con* [id number] IMPRESSION: No acute intracranial abnormality.
--- NOTE | 2024-05-13 09:02 | W.ED.FALL ---
HPI - Fall General: Chief Complaint: Fall Stated Complaint: Fall Time Seen by Provider: 05/13/24 08:54 Source: patient and EMS Mode of arrival: EMS Limitations: no limitations History of Present Illness: Patient is a nice 74-year-old male who presents to ED today via EMS from his senior living for evaluation following a fall. Patient states he fell asleep upright in his recliner and states he fell out of it while asleep and struck the superior portion of his scalp. He states he was able to get himself up from the floor immediately. He questioned whether he should have even reported the fall to senior living staff, but he did thus they recommended coming to the ED for evaluation. He has no complaints of chest pain, shortness of breath, difficulty breathing, palpitations. He has no neck or back pain apart from his chronic discomforts. He has been ambulatory since the fall with the help of his walker which he normally uses. He does not complain of a headache. He states he is not sure if he is on anticoagulation. MD complaint: fall Onset (ago): hour(s) Fall from: chair Fall witnessed: no Place fall occurred: senior living/SNF Loss of consciousness: None Prolonged down time: no Symptoms prior to fall: none Context: other (asleep-fell out of recliner ) Location of injury: head Severity: mild Associated symptoms-after fall: Reports no associated symptoms; Denies abdominal pain, chest pain, headache(s), hematuria, lightheadedness or neck pain Review of Systems Eyes: Denies: change in vision, blurry vision, photophobia, eye discharge, floaters or seeing flashes ENMT: Denies: throat pain, odynophagia, ear or mastoid pain, ear discharge, nasal discharge, epistaxis or sinus pain Card: Denies: chest pain, palpitations, lightheadedness, syncope or pre-syncope Resp: Denies: dyspnea or pain on inspiration GI: Denies: abdominal pain : Denies: flank pain or hematuria Musc: Denies: neck pain, back pain, extremity pain or joint pain Skin/Breast: Reports: other (small abrasion top of scalp) Neuro: Denies: headache(s), numbness in extremities, weakness in extremities, sensory changes or dizziness [facility] PFSH: Medical History Venous stasis dermatitis Obstructive sleep apnea Chronic venous insufficiency Bilateral claudication of lower limb Hypersomnia Diastolic CHF Morbid obesity Presence of neurostimulator Airway obstruction Hypertension Parkinson disease Dysphasia Modified barium swallow done 3 days ago 04/13/2020 did not reveal any aspiration Surgical History S/P total knee arthroplasty Previous back surgery S/P cholecystectomy History of bronchoscopy Did not reveal retropharyngeal mass or swelling done in Family History Other Cancer Hypertension Denies family history of Diabetes Social History Smoking and tobacco/nicotine status: never used tobacco/nicotine Alcohol intake: current Alcohol intake frequency: few times a week Current occupational status: disabled 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 very minor scalp abrasion FACE & SINUS: normal facial exam TYMPANIC MEMBRANE: TM's normal bilaterally MOUTH: other (no intraoral injuries noted) Eye: COMMON NORMALS: Equal, round and reactive pupils present and EOMs intact bilaterally GENERAL EYE: appearance normal, both eyes and all related structures and normal light reflex PUPIL: Yes Equal, round and reactive pupils present DIRECT OPHTHALMOSCOPY: Yes normal light reflex Neck/C-Spine: COMMON NORMALS: full ROM GENERAL: Yes normal visual inspection CERVICAL SPINE: Yes cervical ROM normal, No pain with cervical ROM, No Cervical spine tenderness, No step off deformity and No Paracervical muscle tenderness Chest: COMMONS NORMALS: normal inspection of the chest and normal palpation of entire chest wall Resp: COMMON NORMALS: normal respiratory effort and clear to auscultation bilaterally AUSCULTATION: clear to auscultation bilaterally Cardio: COMMON NORMALS: regular rate and regular rhythm RATE: regular rate RHYTHM: regular rhythm GI: COMMON NORMALS: Normal to inspection, nondistended, normoactive bowel sounds present, Soft to palpation, non-tender, No hepatosplenomegaly present and no masses INSPECTION: Yes normal to inspection and No abdominal wall ecchymosis AUSCULTATION: Yes normoactive bowel sounds PALPATION: Yes Soft to palpation and Yes No hepatosplenomegaly present Back/Pelvis: COMMON NORMALS: thoracic and lumbar spine normal to inspection, no thoracic nor lumbar tenderness and thoraco-lumbar ROM normal Extremity: COMMON NORMALS: normal to inspection and full ROM NARRATIVE EXTREMITY EXAM: chronic lower extremity edema GENERAL: Yes normal exam except as noted Neuro: ERASTO COMA SCALE: document [facility] findings Erasto coma scale eye opening: Spontaneous Erasto coma scale verbal response: Orientated Erasto coma scale motor response: Obey commands Erasto coma scale total score: 15 COMMON NORMALS: patient oriented x3, CN's II-XII intact bilaterally, moves all extremities, no focal motor deficits and no sensory deficits noted SENSORIUM/ORIENTATION: Yes alert, Yes oriented to person, Yes oriented to place and Yes oriented to time SPEECH: speech normal GAIT: Yes Normal gait present Skin: COMMON NORMALS: no rashes or lesions noted GENERAL SKIN EXAM: no rashes or lesions noted TRAUMA: abrasion Course Vital Signs: Vital signs: Vital Signs Temperature 97.6 F 05/13/24 08:53 Pulse Rate 73 05/13/24 08:53 Respiratory Rate 22 H 05/13/24 08:53 Blood Pressure 152/75 05/13/24 08:53 Pulse Oximetry 95 05/13/24 08:53 Oxygen Delivery Me thod Room Air 05/13/24 08:53 MDM - Fall Medical Decision Making Head CT is negative. He has no physical complaints at this time. Patient will be allowed discharge back to his senior living. Medical Records I reviewed the patient's medical records. Lab Data Radiology Impressions Head CT 05/13/24 09:02 IMPRESSION: No acute intracranial abnormality. All radiology interpretation(s) finalized by discharge Discharge Plan Discharge Patient Disposition: Home Clinical Impression: Accidental fall from chair Qualifiers: Encounter type: initial encounter Qualified Code(s): W07.XXXA - Fall from chair, initial encounter Contusion of scalp Qualifiers: Encounter type: initial encounter Qualified Code(s): S00.03XA - Contusion of scalp, initial encounter Condition: Stable Prescriptions: No Action (DME) Diabetic shoes and Accommodative Orthotics See Rx Instructions .Route .MEDSUPPLY Qty: 1 0RF Rx Instructions: As directed J P & O ropinirole 1 mg tablet See Rx Instructions .ROUTE .COMPLEX Rx Instructions: Take 2 tabs PO TID and 3 tabs at bedtime (DME) diabetic shoes See Rx Instructions .Route .MEDSUPPLY Qty: 1 1RF Rx Instructions: Use diabetic shoes while ambulating. E11.9 DM2. Xofluza 80 mg tablet 80 mg PO ONCE Qty: 1 0RF ondansetron HCl 4 mg tablet 4 mg PO Q8H PRN (Reason: nausea and vomiting) Qty: 60 6RF (DME) [place] boot See Rx Instructions .Route .MEDSUPPLY Qty: 1 0RF Rx Instructions: As directed metoprolol succinate 50 mg tablet extended release 24 hr 50 mg PO DAILY Qty: 30 12RF (DME) CAM BOOT See Rx Instructions .Route .MEDSUPPLY Qty: 1 0RF Rx Instructions: As directed ([facility] [place]) Bedside Commode See Rx Instructions .Route .MEDSUPPLY Qty: 1 0RF Rx Instructions: HOME ([facility] [place]) Wheel Chair See Rx Instructions .Route .MEDSUPPLY Qty: 1 0RF Rx Instructions: As directed by HOME carbidopa-levodopa 50-200 mg tablet extended release See Rx Instructions .ROUTE .COMPLEX Rx Instructions: 2 tabs orally 3 times daily gabapentin 300 mg capsule 300 mg PO .QHS tamsulosin 0.4 mg capsule 0.4 mg PO DAILY Qty: 30 6RF cyanocobalamin (vitamin B-12) [Vitamin B-12] 1,000 mcg tablet 1,000 mcg PO DAILY Qty: 30 6RF clonazepam 1 mg tablet 1 mg PO BEDTIME PRN (Reason: Anxiety) Qty: 30 0RF Rx Instructions: (pt states he has not taken in a long time) famotidine 40 mg tablet See Rx Instructions .ROUTE .COMPLEX Qty: 90 3RF Dose Instruction: TAKE 1 TABLET BY MOUTH EVERY DAY Rx Instructions: TAKE 1 TABLET BY MOUTH EVERY DAY potassium chloride 20 mEq tablet extended release See Rx Instructions .ROUTE .COMPLEX Qty: 180 2RF Dose Instruction: TAKE 1 TABLET BY MOUTH TWICE A DAY Rx Instructions: TAKE 1 TABLET BY MOUTH TWICE A DAY tramadol 50 mg tablet 50 mg PO TID PRN (Reason: Pain) Qty: 90 0RF simvastatin 10 mg tablet 10 mg PO DAILY Qty: 90 3RF sertraline 100 mg tablet 100 mg PO DAILY Qty: 90 3RF (DME) OneTouch Ultra Test Strip See Rx Instructions .ROUTE .COMPLEX Qty: 100 12RF Dose Instruction: USE DIRECTED ONCE A DAY Rx Instructions: USE DIRECTED ONCE A DAY metformin 850 mg tablet 850 mg PO BID Qty: 60 6RF bumetanide 2 mg tablet 2 mg PO BID Qty: 180 3RF acetaminophen [Tylenol Extra Strength] 500 mg Tablet 500 - 1,000 mg PO Q6H PRN (Reason: Pain) Cenforce-200 200 mg PO PRN PRN (Reason: Sexual Activity) Discharge Orders: Discharge ED (Routine); Ordered 05/13/24 Ordered By: Parvin Howard Referrals: Braxton Dobbins MD [Primary Care Provider] - Activity Restrictions/Additional Instructions: We discussed your CT imaging of your head was negative. Coding Level of Care Code ED Field Sales Engineer for Katherin Campos
== END 2024-05-13 10:20 | disposition home or self-care (01) ==
PROVIDERS: Emergency Provider Physician Assistant; PCP Family Medicine
DX: S00.01XA Abrasion of scalp, initial encounter (principal); I11.0 Hypertensive heart disease with heart failure; I50.30 Unspecified diastolic (congestive) heart failure; G20.A1 Parkinson's disease without dyskinesia, without mention of fluctuations; Z79.84 Long term (current) use of oral hypoglycemic drugs; W07.XXXA Fall from chair, initial encounter
CPT/HCPCS: 70450; 99284

== ENCOUNTER 2024-05-14 16:22 | Emergency (ER) | payer MEDICARE, SELFPAY ==
[2024-05-14 16:38] VITALS: BP 151/67; PULSE 82; RESP 18; TEMP 36.7; O2SAT 94
--- NOTE | 2024-05-14 18:32 | CTR_ITS ---
PROCEDURE INFORMATION: Exam: CT Head Without Contrast Exam date and time: 05/14/2024 7:00 PM Age: 74 years old Clinical indication: Altered mental status/memory loss; Prior surgery; Surgery date: 6+ months; Surgery type: Deep brain stimulator 6/7 years ago; Patient HX: Patient was alert and aware; Additional info: Encephalopathy, altered mental status TECHNIQUE: Imaging protocol: Computed tomography of the head without contrast. Radiation optimization: All CT scans at this facility use at least one of these dose optimization techniques: automated exposure control; mA and/or kV adjustment per patient size (includes targeted exams where dose is matched to clinical indication); or iterative reconstruction. COMPARISON: CT head wo con* [id number] 05/13/2024 9:20 AM RADIATION DOSE METRICS: Total DLP (mGy-cm): 1204 FINDINGS: Brain: No evidence of intra-axial or extra-axial hemorrhage. No mass effect or midline shift. Terry-white differentiation is maintained. Basilar cisterns are patent. Deep brain stimulation leads in place with tips terminating in the region of the cerebral peduncles. Cerebral ventricles: No hydrocephalus. Paranasal sinuses: The visualized paranasal sinuses are well aerated. Mastoid air cells: The visualized mastoids and middle ears are clear. Bones: Calvarium is intact. No evidence of acute fracture. Soft tissues: No gross soft tissue abnormality. CT/CT head wo con* [id number] IMPRESSION: 1. No acute intracranial abnormality.
--- NOTE | 2024-05-14 18:32 | XRR_ITS ---
PROCEDURE INFORMATION: Exam: XR Chest Exam date and time: 05/14/2024 7:11 PM Age: 74 years old Clinical indication: Shortness of breath and other: Weakness; Prior surgery; Surgery date: 6+ months; Surgery type: Pacer TECHNIQUE: Imaging protocol: Radiologic exam of the chest. Views: 1 view. COMPARISON: CR XR chest 1V portable [id number] 03/27/2023 4:56 PM FINDINGS: Lungs: Airspace opacities in the mid right lung concerning for developing pneumonia. Pleural spaces: No evidence of pneumothorax. No evidence of pleural effusion. Heart/Mediastinum: Cardiomediastinal silhouette is within normal limits. Stimulator type devices visualized with leads coursing cephalad. Bones/joints: No evidence of acute osseous abnormality. XR/XR chest 1V portable [id number] IMPRESSION: 1. Airspace opacities in the mid right lung concerning for developing pneumonia.
[2024-05-14 18:54] VITALS: BP 126/65; PULSE 75; O2SAT 98
--- NOTE | 2024-05-14 18:55 | ECG_ITS ---
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 Measurements Intervals [place] Rate: 73 P: 0 MD: 0 QRS: 180 QRSD: 126 T: 110 QT: 393 QTc: 436 Interpretive Statements REGULAR SUPRAVENTRICULAR RHYTHM SIGNIFICANT BASELINE ARTIFACT. NO FURTHER INTERPRETATION POSSIBLE Electronically Signed On 05-14-2024 22:44:15 CDT by Landon Bone M.D. [id number]
[2024-05-14 19:00] LABS: Basophils # 0.1 10^3/uL (0.0-0.1); Basophils % 0.9 %; Eosinophils # 0.1 10^3/uL (0.0-0.8); Eosinophils % 0.7 %; Hematocrit 41.9 % (37-53); Lymphocytes # 2.3 10^3/uL (0.8-4.8); Lymphocytes % 20.5 %; Mean Corpuscular HGB Conc 34.1 g/dL (30-55); Mean Corpuscular Hemoglobin 30.6 pg (27-33); Mean Corpuscular Volume 89.5 fl (82-101); Mean Platelet Volume 10.3 fL (7.4-10.4); Monocytes # 1.1 10^3/uL (0.2-0.9); Monocytes % 10.3 %; Neutrophils # 7.23 10^3/uL (1.8-7.7); Nucleated Red Blood Cells % 0 %; Platelet Count 252 10^3/cmm (157-399); Red Blood Count 4.68 10^6/uL (3.85-5.65); Red Cell Distribution Width 12.6 % (12.1-15.1); White Blood Count 10.97 10^3/uL (3.29-11.43)
[2024-05-14 19:23] LABS: Alanine Aminotransferase < 5 U/L (0-41); Albumin Level 4.2 g/dL (3.5-5.2); Alkaline Phosphatase 115 U/L (40-130); Anion Gap 14.5 (5-19); Aspartate Amino Transferase 13 U/L (0-40); Blood Urea Nitrogen 18 mg/dL (8-23); C Reactive Protein 18.6 mg/L (0.0-4.9); Calcium 8.7 mg/dL (8.5-10.5); Carbon Dioxide 26 mmol/L (22-29); Chloride 102 mmol/L (98-107); Creatinine Clr Calc Pharmacy 109.5357; Globulin 2.8 g/dL (1.3-4.6); Glucose 120 mg/dL (65-115); Osmolality Calculated 291 mOsm/kg (285-295); Potassium 3.5 mmol/L (3.5-5.1); Sodium 139 mmol/L (136-145); Total Bilirubin 0.3 mg/dL (0.15-1.2)
[2024-05-14 19:24] LABS: Lactic Sepsis W/Reflex 1.7 mmol/L (0.5-2.2)
--- NOTE | 2024-05-14 19:24 | W.ED.GENADLT ---
HPI - General Adult General: Chief complaint: General Medical Stated complaint: disorientation, fall, leg pain Time Seen by Provider: 05/14/24 18:24 History of Present Illness: 74-year-old male with a history of Parkinson's and has had deep brain stimulators placed, venous stasis with venous stasis dermatitis, obstructive sleep apnea, diastolic CHF, obesity, hypertension who presents to the emergency room with worsening balance issues and confusion. He had a fall yesterday and was seen in the emergency room. His head CT was done showed no intracranial hemorrhage or abnormalities. No other workup was done at that time. called the neurologist with concern about the deep brain stimulator and they recommended she go to the emergency room for evaluation of other causes. Review of Systems Narrative: Constitutional symptoms: Negative except as documented in HPI. Skin symptoms: Negative except as documented in HPI. Eye symptoms: Negative except as documented in HPI. ENMT symptoms: Negative except as documented in HPI. Respiratory symptoms: Negative except as documented in HPI. Cardiovascular symptoms: Negative except as documented in HPI. Gastrointestinal symptoms: Negative except as documented in HPI. Genitourinary symptoms: Negative except as documented in HPI. Musculoskeletal symptoms: Negative except as documented in HPI. Neurologic symptoms: Negative except as documented in HPI. Psychiatric symptoms: Negative except as documented in HPI. Endocrine symptoms: Negative except as documented in HPI. [facility] ED PFSH: Medical History Venous stasis dermatitis Obstructive sleep apnea Chronic venous insufficiency Bilateral claudication of lower limb Hypersomnia Diastolic CHF Morbid obesity Presence of neurostimulator Airway obstruction Hypertension Parkinson disease Dysphasia Modified barium swallow done 3 days ago 04/13/2020 did not reveal any aspiration Surgical History S/P total knee arthroplasty Previous back surgery S/P cholecystectomy History of bronchoscopy Did not reveal retropharyngeal mass or swelling done in Family History Other Cancer Hypertension Denies family history of Diabetes Social History Smoking and tobacco/nicotine status: never used tobacco/nicotine Alcohol intake: current Alcohol intake frequency: few times a week Current occupational status: disabled 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 Skin: Warm, dry. Head: Normocephalic, atraumatic. Neck: Supple, trachea midline. Eye: Extraocular movements are intact. Ears, nose, mouth and throat: mucosa moist. Cardiovascular: Regular, Normal peripheral perfusion. Venous stasis/edema Respiratory: Lungs are clear to auscultation, respirations are non-labored, breath sounds are equal, Symmetrical chest wall expansion. Gastrointestinal: Soft, Nontender, Non distended Musculoskeletal: Normal ROM, no deformity. Neurological: Alert and oriented, No focal neurological deficit observed. Some parkinsonian speech patterns. Psychiatric: Cooperative, appropriate mood & affect. Course Vital Signs: Vital signs: Vital Signs Temperature 98.0 F 05/14/24 16:38 Pulse Rate 79 05/14/24 21:05 Respiratory Rate 16 05/14/24 21:05 Blood Pressure 150/76 05/14/24 21:05 Pulse Oximetry 98 05/14/24 21:05 Oxygen Delivery Me thod Room Air 05/14/24 16:38 MDM - General Adult Medical Decision Making Medical decision making: Differential diagnosis for patient presenting with generalized weakness including but not limited to and based on the above HPI, review of systems and physical exam: Sepsis. Dehydration. Renal failure. Electrolyte abnormalities. Anemia. Congestive heart failure. Hypotension. Coronary syndrome. Hepatitis. Cirrhosis. Infections such as pneumonia, urinary tract infection, [place] illness, Cellulitis, Viral infections including influenza and Covid-19. Workup: labwork and lab/exam driven imaging ordered to evaluate, rule in and rule out above pathologies. CT head: No acute intracranial process. no intracranial hemorrhage, no evidence of infarct. no evidence of acute fracture.This was reviewed and interpreted by myself the ER physician. Chest x-ray: Some concern for some new small infiltrative processes on the right side. No pneumothorax. This was reviewed and interpreted by myself the ER physician. Lab Review: Laboratory results were reviewed and interpreted by myself the emergency room physician. Lab work is unremarkable. The white count was a little bit elevated at 11. Hemoglobin stable at 14. BUN and creatinine are stable at 18 and 0.8. Urinalysis is negative for infection. I reviewed the patient's medical record. Reexamination: Patient remained stable. No increased work of breathing. says he actually looks better than he did earlier today. No altered mental status. No focal motor deficits. Assessment and plan: Pneumonia Weakness Parkinson's disease - Discharged home - Discussed findings and plan with patient. Answered any questions. - All laboratory values were reviewed and interpreted personally by myself, the ER physician - All imaging was reviewed and interpreted personally by myself, the ER physician. - Evaluation and treatment of this problem were appropriate in the emergency setting Lab Data 05/14/24 18:45 05/14/24 18:45 Radiology Impressions Chest X-Ray 05/14/24 18:32 IMPRESSION: 1. Airspace opacities in the mid right lung concerning for developing pneumonia. Head CT 05/14/24 18:32 IMPRESSION: 1. No acute intracranial abnormality. Laboratory Results WBC 10.97 10^3/uL (3.29-11.43) 05/14/24 18:45 RBC 4.68 10^6/uL (3.85-5.65) 05/14/24 18:45 Hgb 14.30 g/dL (11.27-16.99) 05/14/24 18:45 Hct 41.9 % (37-53) 05/14/24 18:45 MCV 89.5 fl (82-101) 05/14/24 18:45 MCH 30.6 pg (27-33) 05/14/24 18:45 MCHC 34.1 g/dL (30-55) 05/14/24 18:45 RDW 12.6 % (12.1-15.1) 05/14/24 18:45 Plt Count 252 10^3/cmm (157-399) 05/14/24 18:45 MPV 10.3 fL (7.4-10.4) 05/14/24 18:45 Neut % (Auto) 66.0 % 05/14/24 18:45 Lymph % (Auto) 20.5 % 05/14/24 18:45 [place] % (Auto) 10.3 % 05/14/24 18:45 Eos % (Auto) 0.7 % 05/14/24 18:45 Baso % (Auto) 0.9 % 05/14/24 18:45 Neut # (Auto) 7.23 10^3/uL (1.8-7.7) 05/14/24 18:45 Lymph # (Auto) 2.3 10^3/uL (0.8-4.8) 05/14/24 18:45 [place] # (Auto) 1.1 10^3/uL (0.2-0.9) H 05/14/24 18:45 Eos # (Auto) 0.1 10^3/uL (0.0-0.8) 05/14/24 18:45 Baso # (Auto) 0.1 10^3/uL (0.0-0.1) 05/14/24 18:45 Nucleated RBC % (auto) 0 % 05/14/24 18:45 Nucleated RBCs # 0.0 /100WBC 05/14/24 18:45 Sodium 139 mmol/L (136-145) 05/14/24 18:45 Potassium 3.5 mmol/L (3.5-5.1) 05/14/24 18:45 Chloride 102 mmol/L (98-107) 05/14/24 18:45 Carbon Dioxide 26 mmol/L (22-29) 05/14/24 18:45 Anion Gap 14.5 (5-19) 05/14/24 18:45 BUN 18 mg/dL (8-23) 05/14/24 18:45 Creatinine 0.8 mg/dL (0.7-1.2) 05/14/24 18:45 GFR Calculation Not Reportable 05/14/24 18:45 Glucose 120 mg/dL (65-115) H 05/14/24 18:45 Calculated Osmolality 291 mOsm/kg (285-295) 05/14/24 18:45 Lactic Acid 1.7 mmol/L (0.5-2.2) 05/14/24 18:45 Calcium 8.7 mg/dL (8.5-10.5) 05/14/24 18:45 Total Bilirubin 0.3 mg/dL (0.15-1.2) 05/14/24 18:45 AST 13 U/L (0-40) 05/14/24 18:45 ALT < 5 U/L (0-41) 05/14/24 18:45 Alkaline Phosphatase 115 U/L (40-130) 05/14/24 18:45 C-Reactive Protein 18.6 mg/L (0.0-4.9) H 05/14/24 18:45 Total Protein 7.0 g/dL (6.6-8.7) 05/14/24 18:45 Albumin 4.2 g/dL (3.5-5.2) 05/14/24 18:45 Globulin 2.8 g/dL (1.3-4.6) 05/14/24 18:45 Urine Color Yellow (Yellow) 05/14/24 18:34 Urine Appearance Clear (CLEAR) 05/14/24 18:34 Urine pH 6 (5-7) 05/14/24 18:34 Ur Specific [place] 1.015 (1.005-1.030) 05/14/24 18:34 Urine Protein Neg (Negative) 05/14/24 18:34 Urine Glucose (UA) Norm (Normal) 05/14/24 18:34 Urine Ketones Negative (Negative) 05/14/24 18:34 Urine Blood Neg (Negative) 05/14/24 18:34 Urine Nitrate Negative (Negative) 05/14/24 18:34 Urine Bilirubin Neg (Negative) 05/14/24 18:34 Urine Urobilinogen Norm mg/dL (Negative) 05/14/24 18:34 Ur Leukocyte Esterase Negative (Negative) 05/14/24 18:34 Urine RBC None /hpf (0-2) 05/14/24 18:34 Urine WBC None /hpf (0-5) 05/14/24 18:34 Ur Squamous Epith Cells 0-4 /hpf (0-5) H 05/14/24 18:34 Amorphous Sediment Not Reportable 05/14/24 18:34 Urine Bacteria None /hpf (NONE) 05/14/24 18:34 Urine Mucus None /hpf 05/14/24 18:34 All radiology interpretation(s) finalized by discharge Discharge Plan Discharge Patient Disposition: Home Clinical Impression: Pneumonia, Parkinson disease, Weakness Condition: Stable Prescriptions: New doxycycline hyclate 100 mg capsule 100 mg PO BID 7 Days Qty: 14 0RF No Action (DME) Diabetic shoes and Accommodative Orthotics See Rx Instructions .Route .MEDSUPPLY Qty: 1 0RF Rx Instructions: As directed [facility] P [facility] ropinirole 1 mg tablet See Rx Instructions .ROUTE .COMPLEX Rx Instructions: Take 2 tabs PO TID and 3 tabs at bedtime (DME) diabetic shoes See Rx Instructions .Route .MEDSUPPLY Qty: 1 1RF Rx Instructions: Use diabetic shoes while ambulating. E11.9 DM2. Xofluza 80 mg tablet 80 mg PO ONCE Qty: 1 0RF ondansetron HCl 4 mg tablet 4 mg PO Q8H PRN (Reason: nausea and vomiting) Qty: 60 6RF (DME) [place] boot See Rx Instructions .Route .MEDSUPPLY Qty: 1 0RF Rx Instructions: As directed metoprolol succinate 50 mg tablet extended release 24 hr 50 mg PO DAILY Qty: 30 12RF (DME) CAM BOOT See Rx Instructions .Route .MEDSUPPLY Qty: 1 0RF Rx Instructions: As directed ([facility] [place]) Bedside Commode See Rx Instructions .Route .MEDSUPPLY Qty: 1 0RF Rx Instructions: HOME ([facility] [place]) Wheel Chair See Rx Instructions .Route .MEDSUPPLY Qty: 1 0RF Rx Instructions: As directed by HOME carbidopa-levodopa 50-200 mg tablet extended release See Rx Instructions .ROUTE .COMPLEX Rx Instructions: 2 tabs orally 3 times daily gabapentin 300 mg capsule 300 mg PO .QHS tamsulosin 0.4 mg capsule 0.4 mg PO DAILY Qty: 30 6RF cyanocobalamin (vitamin B-12) [Vitamin B-12] 1,000 mcg tablet 1,000 mcg PO DAILY Qty: 30 6RF clonazepam 1 mg tablet 1 mg PO BEDTIME PRN (Reason: Anxiety) Qty: 30 0RF Rx Instructions: (pt states he has not taken in a long time) famotidine 40 mg tablet See Rx Instructions .ROUTE .COMPLEX Qty: 90 3RF Dose Instruction: TAKE 1 TABLET BY MOUTH EVERY DAY Rx Instructions: TAKE 1 TABLET BY MOUTH EVERY DAY potassium chloride 20 mEq tablet extended release See Rx Instructions .ROUTE .COMPLEX Qty: 180 2RF Dose Instruction: TAKE 1 TABLET BY MOUTH TWICE A DAY Rx Instructions: TAKE 1 TABLET BY MOUTH TWICE A DAY tramadol 50 mg tablet 50 mg PO TID PRN (Reason: Pain) Qty: 90 0RF simvastatin 10 mg tablet 10 mg PO DAILY Qty: 90 3RF sertraline 100 mg tablet 100 mg PO DAILY Qty: 90 3RF (DME) OneTouch Ultra Test Strip See Rx Instructions .ROUTE .COMPLEX Qty: 100 12RF Dose Instruction: USE DIRECTED ONCE A DAY Rx Instructions: USE DIRECTED ONCE A DAY metformin 850 mg tablet 850 mg PO BID Qty: 60 6RF bumetanide 2 mg tablet 2 mg PO BID Qty: 180 3RF acetaminophen [Tylenol Extra Strength] 500 mg Tablet 500 - 1,000 mg PO Q6H PRN (Reason: Pain) Cenforce-200 200 mg PO PRN PRN (Reason: Sexual Activity) Discharge Orders: Discharge ED (Routine); Ordered 05/14/24 Ordered By: Mya Frederick Referrals: Braxton Dobbins MD [Primary Care Provider] - 1-3 days Discharge Diet: Usual diet Discharge Activity: Increase activity as tolerated Patient Instructions: Opioid Safety, Pain Management Activity Restrictions/Additional Instructions: Thank you for choosing [facility] for your healthcare needs today. Please realize this is an emergency room and that we are providing you with a medical screening exam and this may not be complete and all inclusive of all the testing and or work up that you may need to determine your ailment or severity of your illness. You have been screened and evaluated and felt safe for discharge. Health conditions do change or evolve sometimes and as such it is important that you follow up with your Primary Doctor to be re checked, 3-5 days is a general good time frame for follow up. You are always welcome to return to the ED for re assessment if your symptoms are worsening or you have new concerns Coding Level of Care Code ED Baby Counselor for Katherin Campos
[2024-05-14 19:30] VITALS: BP 140/87; PULSE 79; RESP 18; O2SAT 96
[2024-05-14 19:31] LABS: Bilirubin Urine Neg (Negative); Blood Urine Neg (Negative); Glucose Urine UA Norm (Normal); Ketones Urine Negative (Negative); Leukocyte Esterase Urine Negative (Negative); Nitrate Urine Negative (Negative); Protein Urine Neg (Negative); Specific Gravity, Urine 1.015 (1.005-1.030); Urine Appearance Clear (CLEAR); Urine Color Yellow (Yellow); Urobilinogen Urine Norm (Negative); pH Urine 6 (5-7)
[2024-05-14 19:32] LABS: Add Urine Culture? No; Squamous Epithelial Cell Urine 0-4 /hpf (0-5)
[2024-05-14 20:00] VITALS: BP 136/85; PULSE 76; RESP 18; O2SAT 96
[2024-05-14] MEDS: doxycycline 100 MG in sodium chloride 0.9% (plus) 100 ML IV (20:15)
[2024-05-14 21:05] VITALS: BP 150/76; PULSE 79; RESP 16; O2SAT 98
== END 2024-05-14 21:33 | disposition home or self-care (01) ==
PROVIDERS: Emergency Provider Emergency Medicine; PCP Family Medicine
DX: J18.9 Pneumonia, unspecified organism (principal); G20.A1 Parkinson's disease without dyskinesia, without mention of fluctuations; R53.1 Weakness; Z79.84 Long term (current) use of oral hypoglycemic drugs; I11.0 Hypertensive heart disease with heart failure; I50.30 Unspecified diastolic (congestive) heart failure
CPT/HCPCS: 36415; 70450; 71045; 80053; 81001; 83605; 85025; 86140; 87040; 93005; 96365; 99285; J3490

== ENCOUNTER → 2024-06-18 08:39 | Outpatient (BNVA) | payer MEDICARE, SELFPAY | PROVIDERS: PCP Family Medicine; Visit Provider Family Medicine | DX: F41.9 Anxiety disorder, unspecified (principal); M77.40 Metatarsalgia, unspecified foot; E11.22 Type 2 diabetes mellitus with diabetic chronic kidney disease; I12.9 Hypertensive chronic kidney disease with stage 1 through stage 4 chronic kidney disease, or unspecified chronic kidney disease; N18.9 Chronic kidney disease, unspecified; E53.8 Deficiency of other specified B group vitamins; R35.0 Frequency of micturition; Z51.81 Encounter for therapeutic drug level monitoring; E55.9 Vitamin D deficiency, unspecified | CPT/HCPCS: 80053; 82306; 82607; 83036; 84153; 85025 ==

== ENCOUNTER → 2024-08-11 11:08 | Outpatient (BNVA) | payer MEDICARE, SELFPAY | PROVIDERS: PCP Family Medicine; Visit Provider Podiatrist Foot & Ankle Surgery | DX: E11.21 Type 2 diabetes mellitus with diabetic nephropathy (principal); G20.A1 Parkinson's disease without dyskinesia, without mention of fluctuations; R26.89 Other abnormalities of gait and mobility; I73.9 Peripheral vascular disease, unspecified; E11.610 Type 2 diabetes mellitus with diabetic neuropathic arthropathy; L60.3 Nail dystrophy; Z79.84 Long term (current) use of oral hypoglycemic drugs | CPT/HCPCS: 11721; 99213 ==

== ENCOUNTER → 2024-09-23 09:06 | Outpatient (BNVA) | payer MEDICARE, SELFPAY | PROVIDERS: PCP Family Medicine; Visit Provider Family Medicine | DX: I10 Essential (primary) hypertension (principal); R73.03 Prediabetes; F41.9 Anxiety disorder, unspecified; E11.9 Type 2 diabetes mellitus without complications; M77.40 Metatarsalgia, unspecified foot | CPT/HCPCS: 80053; 80061; 83036; 85025 ==

== ENCOUNTER → 2024-11-24 08:34 | Outpatient (BNVA) | payer MEDICARE, SELFPAY | PROVIDERS: PCP Family Medicine; Visit Provider Podiatrist Foot & Ankle Surgery | DX: E11.21 Type 2 diabetes mellitus with diabetic nephropathy; G20.A1 Parkinson's disease without dyskinesia, without mention of fluctuations; R26.89 Other abnormalities of gait and mobility; I73.9 Peripheral vascular disease, unspecified; E11.610 Type 2 diabetes mellitus with diabetic neuropathic arthropathy; L60.3 Nail dystrophy; M20.22 Hallux rigidus, left foot; M76.822 Posterior tibial tendinitis, left leg; Z79.84 Long term (current) use of oral hypoglycemic drugs; M79.671 Pain in right foot; M79.672 Pain in left foot | CPT/HCPCS: 73630 ==

== ENCOUNTER 2024-11-24 10:08 | Outpatient (CLI) | payer MEDICARE, SELFPAY | END 2024-11-24 10:09 | disposition home or self-care (01) | LOC: SPT 10:09 | PROVIDERS: PCP Family Medicine; Visit Provider Podiatrist Foot & Ankle Surgery | DX: Z46.89 Encounter for fitting and adjustment of other specified devices (principal); E11.610 Type 2 diabetes mellitus with diabetic neuropathic arthropathy | CPT/HCPCS: 97760; L4361 ==

== ENCOUNTER 2024-12-19 04:17 | Emergency (ER) | payer MEDICARE, SELFPAY ==
[2024-12-19 04:22] VITALS: BP 127/66; PULSE 79; RESP 20; TEMP 36.7; O2SAT 95; BMI 36.2
--- NOTE | 2024-12-19 04:28 | W.ED.NAVMDI ---
Documented by User: Mya Frederick MD 12/19/24 05:31 HPI - Nausea/Vomiting/Diarrhea General: Chief complaint: Nausea/Vomiting/Diarrhea Stated complaint: ABD Pain Time Seen by Provider: 12/19/24 04:22 History of Present Illness: 74-year-old male with a history of Parkinson's and has had deep brain stimulators placed, venous stasis with venous stasis dermatitis, obstructive sleep apnea, diastolic CHF, obesity, hypertension who presents to the emergency room from the skilled nursing by ambulance with nausea vomiting. Apparently they thought he might of had some coffee-ground emesis. He reports that he just woke up feeling weak. He had some mild mid abdominal pain that is no longer present. He currently says he feels fine. He has fairly advanced Parkinson's. Related Data Home Medications ?Medication ?Instructions ?Recorded ?Confirmed acetaminophen 500 mg tablet 500 - 1,000 mg PO Q6H PRN Pain 02/25/20 12/19/24 (Tylenol Extra Strength) ropinirole 1 mg tablet See Rx Instructions .Route .COMPLEX 06/13/22 12/19/24 carbidopa ER 50 mg-levodopa 200 mg See Rx Instructions .Route .COMPLEX 03/12/24 12/19/24 tablet,extended release gabapentin 300 mg capsule 300 mg PO .QHS 03/12/24 12/19/24 albuterol sulfate 2.5 mg/3 mL 2.5 mg continuous nebulization Q4H 12/19/24 12/19/24 (0.083 %) solution for nebulization albuterol sulfate 90 mcg/actuation 2 puff inhalation Q4H 12/19/24 12/19/24 aerosol inhaler aspirin 81 mg tablet,delayed 81 mg PO DAILY 12/19/24 12/19/24 release bisacodyl 10 mg rectal suppository 10 mg SC DAILY PRN Constipation 12/19/24 12/19/24 (Dulcolax (bisacodyl)) clonazepam 1 mg tablet 0.5 mg PO BEDTIME PRN Anxiety 12/19/24 12/19/24 cyclobenzaprine 10 mg tablet 10 mg PO BID 12/19/24 12/19/24 finasteride 5 mg tablet 5 mg PO DAILY 12/19/24 12/19/24 guaifenesin 100 mg/5 mL oral 200 mg PO Q4H 12/19/24 12/19/24 liquid (Robafen) magnesium hydroxide 400 mg/5 mL 30 ml PO DAILY PRN Constipation 12/19/24 12/19/24 oral suspension (Milk of Magnesia) potassium chloride 10 mEq 20 meq PO BID 12/19/24 12/19/24 capsule,extended release sodium phosphates 19 gram-7 118 ml SC DAILY PRN Constipation 12/19/24 12/19/24 gram/118 mL enema (Fleet Enema) Previous Rx's ?Medication ?Instructions ?Recorded ondansetron HCl 4 mg tablet 4 mg PO Q8H PRN nausea and 09/06/23 vomiting #60 tabs metoprolol succinate 50 mg 50 mg PO DAILY #30 tabs 12/13/23 tablet,extended release 24 hr sertraline 100 mg tablet 100 mg PO DAILY #90 tabs 12/17/23 tamsulosin 0.4 mg capsule 0.4 mg PO DAILY #30 caps 03/12/24 bumetanide 2 mg tablet 2 mg PO BID #180 tabs 05/12/24 famotidine 40 mg tablet See Rx Instructions .Route 08/19/24 .COMPLEX #90 tabs metformin 850 mg tablet 850 mg PO BID #180 tabs 09/25/24 simvastatin 10 mg tablet 10 mg PO DAILY #90 tabs 09/25/24 Allergies Allergy/AdvReac Type Severity Reaction Status Date / Time No Known Allergies Allergy Verified 11/24/24 08:47 Review of Systems Narrative: Constitutional symptoms: Negative except as documented in HPI. Skin symptoms: Negative except as documented in HPI. Eye symptoms: Negative except as documented in HPI. ENMT symptoms: Negative except as documented in HPI. Respiratory symptoms: Negative except as documented in HPI. Cardiovascular symptoms: Negative except as documented in HPI. Gastrointestinal symptoms: Negative except as documented in HPI. Genitourinary symptoms: Negative except as documented in HPI. Musculoskeletal symptoms: Negative except as documented in HPI. Neurologic symptoms: Negative except as documented in HPI. Psychiatric symptoms: Negative except as documented in HPI. Endocrine symptoms: Negative except as documented in HPI. PFSH ED PFSH: Medical History Venous stasis dermatitis Obstructive sleep apnea Chronic venous insufficiency Bilateral claudication of lower limb Hypersomnia Diastolic CHF Morbid obesity Presence of neurostimulator Airway obstruction Hypertension Parkinson disease Dysphasia Modified barium swallow done 3 days ago 04/13/2020 did not reveal any aspiration Surgical History S/P total knee arthroplasty Previous back surgery S/P cholecystectomy History of bronchoscopy Did not reveal retropharyngeal mass or swelling done in Family History Other Cancer Hypertension Denies family history of Diabetes Social History Smoking and tobacco/nicotine status: never used tobacco/nicotine Alcohol intake: current Alcohol intake frequency: few times a week Current occupational status: disabled 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 Skin: Warm, dry. Head: Normocephalic, atraumatic. Neck: Supple, trachea midline. Eye: Extraocular movements are intact. Ears, nose, mouth and throat: mucosa moist. Cardiovascular: Regular, Normal peripheral perfusion. Respiratory: Lungs are clear to auscultation, respirations are non-labored, breath sounds are equal, Symmetrical chest wall expansion. Gastrointestinal: Soft, Nontender, Non distended, currently no tenderness to palpation Musculoskeletal: Normal ROM, no deformity. Neurological: Alert and oriented, No focal neurological deficit observed. Psychiatric: Cooperative, appropriate mood & affect. Course Vital Signs: Vital signs: Vital Signs Temperature 98.1 F 12/19/24 04:22 Pulse Rate 78 12/19/24 06:40 Respiratory Rate 18 12/19/24 06:40 Blood Pressure 145/71 12/19/24 06:40 Pulse Oximetry 95 12/19/24 06:40 Oxygen Delivery Me thod Room Air 12/19/24 06:40 MDM - Nausea/Vomiting/Diarrhea Medical Decision Making Patient care transitioned Dr. Gomes at shift change. Lab Data 12/19/24 04:50 12/19/24 04:50 Radiology Impressions Chest X-Ray 12/19/24 05:32 IMPRESSION: 1. Findings of which can be seen in aspiration in the right lower lobe, superimposed infection is difficult to exclude. Correlate clinically. 2. Similar-appearing airspace disease is suggested in the retrocardiac region. Laboratory Results WBC 8.14 10^3/uL (3.29-11.43) 12/19/24 04:50 RBC 4.80 10^6/uL (3.85-5.65) 12/19/24 04:50 Hgb 14.00 g/dL (11.27-16.99) 12/19/24 04:50 Hct 42.1 % (37-53) 12/19/24 04:50 MCV 87.7 fl (82-101) 12/19/24 04:50 MCH 29.2 pg (27-33) 12/19/24 04:50 MCHC 33.3 g/dL (30-55) 12/19/24 04:50 RDW 12.5 % (12.1-15.1) 12/19/24 04:50 Plt Count 246 10^3/cmm (157-399) 12/19/24 04:50 MPV 10.2 fL (7.4-10.4) 12/19/24 04:50 Neut % (Auto) 78.5 % 12/19/24 04:50 Lymph % (Auto) 10.4 % 12/19/24 04:50 [place] % (Auto) 8.5 % 12/19/24 04:50 Eos % (Auto) 0.2 % 12/19/24 04:50 Baso % (Auto) 0.6 % 12/19/24 04:50 Neut # (Auto) 6.38 10^3/uL (1.8-7.7) 12/19/24 04:50 Lymph # (Auto) 0.9 10^3/uL (0.8-4.8) 12/19/24 04:50 [place] # (Auto) 0.7 10^3/uL (0.2-0.9) 12/19/24 04:50 Eos # (Auto) 0.0 10^3/uL (0.0-0.8) 12/19/24 04:50 Baso # (Auto) 0.1 10^3/uL (0.0-0.1) 12/19/24 04:50 Nucleated RBC % (auto) 0 % 12/19/24 04:50 Nucleated RBCs # 0.0 /100WBC 12/19/24 04:50 Sodium 134 mmol/L (136-145) L 12/19/24 04:50 Potassium 3.9 mmol/L (3.5-5.1) 12/19/24 04:50 Chloride 94 mmol/L (98-107) L 12/19/24 04:50 Carbon Dioxide 25 mmol/L (22-29) 12/19/24 04:50 Anion Gap 18.9 (5-19) 12/19/24 04:50 BUN 15 mg/dL (8-23) 12/19/24 04:50 Creatinine 0.8 mg/dL (0.7-1.2) 12/19/24 04:50 GFR Calculation Not Reportable 12/19/24 04:50 Glucose 202 mg/dL (65-115) H 12/19/24 04:50 Calculated Osmolality 285 mOsm/kg (285-295) 12/19/24 04:50 Lactic Acid 1.9 mmol/L (0.5-2.2) 12/19/24 04:50 Calcium 8.7 mg/dL (8.5-10.5) 12/19/24 04:50 Total Bilirubin 0.4 mg/dL (0.15-1.2) 12/19/24 04:50 AST 18 U/L (0-40) 12/19/24 04:50 ALT < 5 U/L (0-41) 12/19/24 04:50 Alkaline Phosphatase 87 U/L (40-130) 12/19/24 04:50 Total Protein 6.8 g/dL (6.6-8.7) 12/19/24 04:50 Albumin 3.8 g/dL (3.5-5.2) 12/19/24 04:50 Globulin 3.0 g/dL (1.3-4.6) 12/19/24 04:50 Lipase 23 U/L (13-60) 12/19/24 04:50 Urine Color Yellow (Yellow) 12/19/24 04:51 Urine Appearance Clear (CLEAR) 12/19/24 04:51 Urine pH 5.5 (5-7) 12/19/24 04:51 Ur Specific [place] 1.019 (1.005-1.030) 12/19/24 04:51 Urine Protein Negative (Negative) 12/19/24 04:51 Urine Glucose (UA) Negative (Normal) 12/19/24 04:51 Urine Ketones Trace (Negative) 12/19/24 04:51 Urine Blood Negative (Negative) 12/19/24 04:51 Urine Nitrate Negative (Negative) 12/19/24 04:51 Urine Bilirubin Negative (Negative) 12/19/24 04:51 Urine Urobilinogen 0.2 mg/dL (Negative) 12/19/24 04:51 Ur Leukocyte Esterase Negative (Negative) 12/19/24 04:51 Urine RBC 0-2 /hpf (0-2) 12/19/24 04:51 Urine WBC 0-5 /hpf (0-5) 12/19/24 04:51 Ur Squamous Epith Cells 0-5 /hpf (0-5) 12/19/24 04:51 Amorphous Sediment Not Reportable 12/19/24 04:51 Urine Bacteria None seen /hpf (NONE) 12/19/24 04:51 Hyaline Casts 0.81 /lpf 12/19/24 04:51 Coronavirus (PCR) Negative (Negative) 12/19/24 04:50 Influenza A (PCR) Positive (Negative) 12/19/24 04:50 Influenza Type B (PCR) Negative (Negative) 12/19/24 04:50 RSV (PCR) Negative (Negative) 12/19/24 04:50 Discharge Plan Discharge Patient Disposition: Home Clinical Impression: Influenza A Condition: Stable Prescriptions: No Action ropinirole 1 mg tablet See Rx Instructions .ROUTE .COMPLEX Rx Instructions: Take 2 tabs PO TID and 3 tabs at bedtime ondansetron HCl 4 mg tablet 4 mg PO Q8H PRN (Reason: nausea and vomiting) Qty: 60 6RF metoprolol succinate 50 mg tablet extended release 24 hr 50 mg PO DAILY Qty: 30 12RF carbidopa-levodopa 50-200 mg tablet extended release See Rx Instructions .ROUTE .COMPLEX Rx Instructions: 2 tabs orally 3 times daily gabapentin 300 mg capsule 300 mg PO .QHS tamsulosin 0.4 mg capsule 0.4 mg PO DAILY Qty: 30 6RF sertraline 100 mg tablet 100 mg PO DAILY Qty: 90 3RF bumetanide 2 mg tablet 2 mg PO BID Qty: 180 3RF famotidine 40 mg tablet See Rx Instructions .ROUTE .COMPLEX Qty: 90 3RF Dose Instruction: TAKE 1 TABLET BY MOUTH EVERY DAY Rx Instructions: TAKE 1 TABLET BY MOUTH EVERY DAY simvastatin 10 mg tablet 10 mg PO DAILY Qty: 90 3RF metformin 850 mg tablet 850 mg PO BID Qty: 180 3RF acetaminophen [Tylenol Extra Strength] 500 mg Tablet 500 - 1,000 mg PO Q6H PRN (Reason: Pain) cyclobenzaprine 10 mg Tablet 10 mg PO BID albuterol sulfate 2.5 mg /3 mL (0.083 %) solution for nebulization 2.5 mg continuous nebulization Q4H aspirin [Aspir-81] 81 mg Tablet,Delayed Release (Dr/Ec) 81 mg PO DAILY guaifenesin [Robafen] 100 mg/5 mL Liquid 200 mg PO Q4H bisacodyl [Dulcolax (bisacodyl)] 10 mg Suppository 10 mg SC DAILY PRN (Reason: Constipation) finasteride 5 mg Tablet 5 mg PO DAILY clonazepam 1 mg tablet 0.5 mg PO BEDTIME PRN (Reason: Anxiety) potassium chloride 10 mEq capsule, extended release 20 meq PO BID magnesium hydroxide [Milk of Magnesia] 400 mg/5 mL Suspension 30 ml PO DAILY PRN (Reason: Constipation) Fleet Enema 19-7 gram/118 mL Enema 118 ml SC DAILY PRN (Reason: Constipation) albuterol sulfate 90 mcg/actuation HFA aerosol inhaler 2 puff INHALATION Q4H Discharge Orders: Discharge ED (Routine); Ordered 12/19/24 Ordered By: Diogenes Gomes Referrals: Braxton Dobbins MD [Primary Care Provider] - Discharge Diet: Advance as tolerated Discharge Activity: Increase activity as tolerated Patient Instructions: Influenza (ED), Opioid Safety, Pain Management Activity Restrictions/Additional Instructions: Thank you for choosing [facility] for your healthcare needs today. It is very important that you follow up as instructed or that you return to the Emergency Department should you have concerns or if your condition changes or worsens in any way. Print Language: Jamaican Sign Out Sign Out Data: Patient Sign Out occurred on 12/19/24 at 05:43. Patient's care was discussed, and care was transferred from Mya Frederick MD to Diogenes Gomes DO. Coding Level of Care Code ED Director Telemetry for Chg Fwd Documented by User: Diogenes Gomes DO 12/19/24 08:42 HPI - Nausea/Vomiting/Diarrhea General: Chief complaint: Nausea/Vomiting/Diarrhea Stated complaint: ABD Pain Time Seen by Provider: 12/19/24 04:22 Related Data Home Medications ?Medication ?Instructions ?Recorded ?Confirmed acetaminophen 500 mg tablet 500 - 1,000 mg PO Q6H PRN Pain 02/25/20 12/19/24 (Tylenol Extra Strength) ropinirole 1 mg tablet See Rx Instructions .Route .COMPLEX 06/13/22 12/19/24 carbidopa ER 50 mg-levodopa 200 mg See Rx Instructions .Route .COMPLEX 03/12/24 12/19/24 tablet,extended release gabapentin 300 mg capsule 300 mg PO .QHS 03/12/24 12/19/24 albuterol sulfate 2.5 mg/3 mL 2.5 mg continuous nebulization Q4H 12/19/24 12/19/24 (0.083 %) solution for nebulization albuterol sulfate 90 mcg/actuation 2 puff inhalation Q4H 12/19/24 12/19/24 aerosol inhaler aspirin 81 mg tablet,delayed 81 mg PO DAILY 12/19/24 12/19/24 release bisacodyl 10 mg rectal suppository 10 mg SC DAILY PRN Constipation 12/19/24 12/19/24 (Dulcolax (bisacodyl)) clonazepam 1 mg tablet 0.5 mg PO BEDTIME PRN Anxiety 12/19/24 12/19/24 cyclobenzaprine 10 mg tablet 10 mg PO BID 12/19/24 12/19/24 finasteride 5 mg tablet 5 mg PO DAILY 12/19/24 12/19/24 guaifenesin 100 mg/5 mL oral 200 mg PO Q4H 12/19/24 12/19/24 liquid (Robafen) magnesium hydroxide 400 mg/5 mL 30 ml PO DAILY PRN Constipation 12/19/24 12/19/24 oral suspension (Milk of Magnesia) potassium chloride 10 mEq 20 meq PO BID 12/19/24 12/19/24 capsule,extended release sodium phosphates 19 gram-7 118 ml SC DAILY PRN Constipation 12/19/24 12/19/24 gram/118 mL enema (Fleet Enema) Previous Rx's ?Medication ?Instructions ?Recorded ondansetron HCl 4 mg tablet 4 mg PO Q8H PRN nausea and 09/06/23 vomiting #60 tabs metoprolol succinate 50 mg 50 mg PO DAILY #30 tabs 12/13/23 tablet,extended release 24 hr sertraline 100 mg tablet 100 mg PO DAILY #90 tabs 12/17/23 tamsulosin 0.4 mg capsule 0.4 mg PO DAILY #30 caps 03/12/24 bumetanide 2 mg tablet 2 mg PO BID #180 tabs 05/12/24 famotidine 40 mg tablet See Rx Instructions .Route 08/19/24 .COMPLEX #90 tabs metformin 850 mg tablet 850 mg PO BID #180 tabs 09/25/24 simvastatin 10 mg tablet 10 mg PO DAILY #90 tabs 09/25/24 Allergies Allergy/AdvReac Type Severity Reaction Status Date / Time No Known Allergies Allergy Verified 11/24/24 08:47 PFSH ED PFSH: Medical History Venous stasis dermatitis Obstructive sleep apnea Chronic venous insufficiency Bilateral claudication of lower limb Hypersomnia Diastolic CHF Morbid obesity Presence of neurostimulator Airway obstruction Hypertension Parkinson disease Dysphasia Modified barium swallow done 3 days ago 04/13/2020 did not reveal any aspiration Surgical History S/P total knee arthroplasty Previous back surgery S/P cholecystectomy History of bronchoscopy Did not reveal retropharyngeal mass or swelling done in Family History Other Cancer Hypertension Denies family history of Diabetes Social History Smoking and tobacco/nicotine status: never used tobacco/nicotine Alcohol intake: current Alcohol intake frequency: few times a week Current occupational status: disabled 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 Gomes at shift change. Care assumed at change of shift. Patient positive for influenza A the question of pneumonia on the chest x-ray however her his sats are good and auscultation lungs is clear. This point I do not believe he has an pneumonia is likely all influenza. Discussed risks and benefits of Tamiflu given he takes multiple diabetic patient preferred not to prescribe at this point. Supportive cares follow-up as needed Medical Records I reviewed the patient's medical records. Lab Data I reviewed the patient's lab results. 12/19/24 04:50 12/19/24 04:50 Radiology Impressions Chest X-Ray 12/19/24 05:32 IMPRESSION: 1. Findings of which can be seen in aspiration in the right lower lobe, superimposed infection is difficult to exclude. Correlate clinically. 2. Similar-appearing airspace disease is suggested in the retrocardiac region. Laboratory Results WBC 8.14 10^3/uL (3.29-11.43) 12/19/24 04:50 RBC 4.80 10^6/uL (3.85-5.65) 12/19/24 04:50 Hgb 14.00 g/dL (11.27-16.99) 12/19/24 04:50 Hct 42.1 % (37-53) 12/19/24 04:50 MCV 87.7 fl (82-101) 12/19/24 04:50 MCH 29.2 pg (27-33) 12/19/24 04:50 MCHC 33.3 g/dL (30-55) 12/19/24 04:50 RDW 12.5 % (12.1-15.1) 12/19/24 04:50 Plt Count 246 10^3/cmm (157-399) 12/19/24 04:50 MPV 10.2 fL (7.4-10.4) 12/19/24 04:50 Neut % (Auto) 78.5 % 12/19/24 04:50 Lymph % (Auto) 10.4 % 12/19/24 04:50 [place] % (Auto) 8.5 % 12/19/24 04:50 Eos % (Auto) 0.2 % 12/19/24 04:50 Baso % (Auto) 0.6 % 12/19/24 04:50 Neut # (Auto) 6.38 10^3/uL (1.8-7.7) 12/19/24 04:50 Lymph # (Auto) 0.9 10^3/uL (0.8-4.8) 12/19/24 04:50 [place] # (Auto) 0.7 10^3/uL (0.2-0.9) 12/19/24 04:50 Eos # (Auto) 0.0 10^3/uL (0.0-0.8) 12/19/24 04:50 Baso # (Auto) 0.1 10^3/uL (0.0-0.1) 12/19/24 04:50 Nucleated RBC % (auto) 0 % 12/19/24 04:50 Nucleated RBCs # 0.0 /100WBC 12/19/24 04:50 Sodium 134 mmol/L (136-145) L 12/19/24 04:50 Potassium 3.9 mmol/L (3.5-5.1) 12/19/24 04:50 Chloride 94 mmol/L (98-107) L 12/19/24 04:50 Carbon Dioxide 25 mmol/L (22-29) 12/19/24 04:50 Anion Gap 18.9 (5-19) 12/19/24 04:50 BUN 15 mg/dL (8-23) 12/19/24 04:50 Creatinine 0.8 mg/dL (0.7-1.2) 12/19/24 04:50 GFR Calculation Not Reportable 12/19/24 04:50 Glucose 202 mg/dL (65-115) H 12/19/24 04:50 Calculated Osmolality 285 mOsm/kg (285-295) 12/19/24 04:50 Lactic Acid 1.9 mmol/L (0.5-2.2) 12/19/24 04:50 Calcium 8.7 mg/dL (8.5-10.5) 12/19/24 04:50 Total Bilirubin 0.4 mg/dL (0.15-1.2) 12/19/24 04:50 AST 18 U/L (0-40) 12/19/24 04:50 ALT < 5 U/L (0-41) 12/19/24 04:50 Alkaline Phosphatase 87 U/L (40-130) 12/19/24 04:50 Total Protein 6.8 g/dL (6.6-8.7) 12/19/24 04:50 Albumin 3.8 g/dL (3.5-5.2) 12/19/24 04:50 Globulin 3.0 g/dL (1.3-4.6) 12/19/24 04:50 Lipase 23 U/L (13-60) 12/19/24 04:50 Urine Color Yellow (Yellow) 12/19/24 04:51 Urine Appearance Clear (CLEAR) 12/19/24 04:51 Urine pH 5.5 (5-7) 12/19/24 04:51 Ur Specific [place] 1.019 (1.005-1.030) 12/19/24 04:51 Urine Protein Negative (Negative) 12/19/24 04:51 Urine Glucose (UA) Negative (Normal) 12/19/24 04:51 Urine Ketones Trace (Negative) 12/19/24 04:51 Urine Blood Negative (Negative) 12/19/24 04:51 Urine Nitrate Negative (Negative) 12/19/24 04:51 Urine Bilirubin Negative (Negative) 12/19/24 04:51 Urine Urobilinogen 0.2 mg/dL (Negative) 12/19/24 04:51 Ur Leukocyte Esterase Negative (Negative) 12/19/24 04:51 Urine RBC 0-2 /hpf (0-2) 12/19/24 04:51 Urine WBC 0-5 /hpf (0-5) 12/19/24 04:51 Ur Squamous Epith Cells 0-5 /hpf (0-5) 12/19/24 04:51 Amorphous Sediment Not Reportable 12/19/24 04:51 Urine Bacteria None seen /hpf (NONE) 12/19/24 04:51 Hyaline Casts 0.81 /lpf 12/19/24 04:51 Coronavirus (PCR) Negative (Negative) 12/19/24 04:50 Influenza A (PCR) Positive (Negative) 12/19/24 04:50 Influenza Type B (PCR) Negative (Negative) 12/19/24 04:50 RSV (PCR) Negative (Negative) 12/19/24 04:50 All radiology interpretation(s) finalized by discharge Discharge Plan Discharge Patient Disposition: Home Clinical Impression: Influenza A Condition: Stable Prescriptions: No Action ropinirole 1 mg tablet See Rx Instructions .ROUTE .COMPLEX Rx Instructions: Take 2 tabs PO TID and 3 tabs at bedtime ondansetron HCl 4 mg tablet 4 mg PO Q8H PRN (Reason: nausea and vomiting) Qty: 60 6RF metoprolol succinate 50 mg tablet extended release 24 hr 50 mg PO DAILY Qty: 30 12RF carbidopa-levodopa 50-200 mg tablet extended release See Rx Instructions .ROUTE .COMPLEX Rx Instructions: 2 tabs orally 3 times daily gabapentin 300 mg capsule 300 mg PO .QHS tamsulosin 0.4 mg capsule 0.4 mg PO DAILY Qty: 30 6RF sertraline 100 mg tablet 100 mg PO DAILY Qty: 90 3RF bumetanide 2 mg tablet 2 mg PO BID Qty: 180 3RF famotidine 40 mg tablet See Rx Instructions .ROUTE .COMPLEX Qty: 90 3RF Dose Instruction: TAKE 1 TABLET BY MOUTH EVERY DAY Rx Instructions: TAKE 1 TABLET BY MOUTH EVERY DAY simvastatin 10 mg tablet 10 mg PO DAILY Qty: 90 3RF metformin 850 mg tablet 850 mg PO BID Qty: 180 3RF acetaminophen [Tylenol Extra Strength] 500 mg Tablet 500 - 1,000 mg PO Q6H PRN (Reason: Pain) cyclobenzaprine 10 mg Tablet 10 mg PO BID albuterol sulfate 2.5 mg /3 mL (0.083 %) solution for nebulization 2.5 mg continuous nebulization Q4H aspirin [Aspir-81] 81 mg Tablet,Delayed Release (Dr/Ec) 81 mg PO DAILY guaifenesin [Robafen] 100 mg/5 mL Liquid 200 mg PO Q4H bisacodyl [Dulcolax (bisacodyl)] 10 mg Suppository 10 mg SC DAILY PRN (Reason: Constipation) finasteride 5 mg Tablet 5 mg PO DAILY clonazepam 1 mg tablet 0.5 mg PO BEDTIME PRN (Reason: Anxiety) potassium chloride 10 mEq capsule, extended release 20 meq PO BID magnesium hydroxide [Milk of Magnesia] 400 mg/5 mL Suspension 30 ml PO DAILY PRN (Reason: Constipation) Fleet Enema 19-7 gram/118 mL Enema 118 ml SC DAILY PRN (Reason: Constipation) albuterol sulfate 90 mcg/actuation HFA aerosol inhaler 2 puff INHALATION Q4H Discharge Orders: Discharge ED (Routine); Ordered 12/19/24 Ordered By: Diogenes Gomes Referrals: Braxton Dobbins MD [Primary Care Provider] - Discharge Diet: Advance as tolerated Discharge Activity: Increase activity as tolerated Patient Instructions: Influenza (ED), Opioid Safety, Pain Management Activity Restrictions/Additional Instructions: Thank you for choosing [facility] for your healthcare needs today. It is very important that you follow up as instructed or that you return to the Emergency Department should you have concerns or if your condition changes or worsens in any way. Print Language: Jamaican Sign Out Sign Out Data: Patient Sign Out occurred on 12/19/24 at 05:43. Patient's care was discussed, and care was transferred from Mya Frederick MD to Diogenes Gomes DO. Coding Level of Care Code ED Director Telemetry for Katherin Campos
[2024-12-19 04:55] VITALS: BP 127/66; PULSE 75; RESP 18; O2SAT 94
[2024-12-19 04:58] LABS: Basophils # 0.1 10^3/uL (0.0-0.1); Basophils % 0.6 %; Eosinophils % 0.2 %; Hematocrit 42.1 % (37-53); Lymphocytes # 0.9 10^3/uL (0.8-4.8); Lymphocytes % 10.4 %; Mean Corpuscular HGB Conc 33.3 g/dL (30-55); Mean Corpuscular Hemoglobin 29.2 pg (27-33); Mean Corpuscular Volume 87.7 fl (82-101); Mean Platelet Volume 10.2 fL (7.4-10.4); Monocytes # 0.7 10^3/uL (0.2-0.9); Monocytes % 8.5 %; Neutrophils # 6.38 10^3/uL (1.8-7.7); Neutrophils % 78.5 %; Nucleated Red Blood Cells % 0 %; Platelet Count 246 10^3/cmm (157-399); Red Cell Distribution Width 12.5 % (12.1-15.1); White Blood Count 8.14 10^3/uL (3.29-11.43)
[2024-12-19 05:12] LABS: Alanine Aminotransferase < 5 U/L (0-41); Albumin Level 3.8 g/dL (3.5-5.2); Alkaline Phosphatase 87 U/L (40-130); Anion Gap 18.9 (5-19); Aspartate Amino Transferase 18 U/L (0-40); Blood Urea Nitrogen 15 mg/dL (8-23); Calcium 8.7 mg/dL (8.5-10.5); Carbon Dioxide 25 mmol/L (22-29); Chloride 94 mmol/L (98-107); Creatinine Clr Calc Pharmacy 107.4252; Glucose 202 mg/dL (65-115); Lipase 23 U/L (13-60); Osmolality Calculated 285 mOsm/kg (285-295); Potassium 3.9 mmol/L (3.5-5.1); Sodium 134 mmol/L (136-145); Total Bilirubin 0.4 mg/dL (0.15-1.2); Total Protein 6.8 g/dL (6.6-8.7)
[2024-12-19 05:13] LABS: Lactic Sepsis W/Reflex 1.9 mmol/L (0.5-2.2)
[2024-12-19] MEDS: pantoprazole 40 mg SDV 80 MG IVP (05:22)
--- NOTE | 2024-12-19 05:32 | XRR_ITS ---
PROCEDURE INFORMATION: Exam: XR Chest Exam date and time: 12/19/2024 5:33 AM Age: 74 years old Clinical indication: Other: Aspiration; Prior surgery; Surgery date: 6+ months; Surgery type: Dbs stimulator; Additional info: Concern for aspiration TECHNIQUE: Imaging protocol: Radiologic exam of the chest. Views: 1 view. COMPARISON: CR XR chest 1V portable [id number] 05/14/2024 7:11 PM FINDINGS: Tubes, catheters and devices: Bilateral nervous stimulator devices are seen, unchanged from prior comparison. Lungs: Mild hypoventilatory changes. Suggestion central right lower lobe infiltrative/early consolidative process with a few foci of air bronchograms, peribronchial cuffing. Suggestion of similar-appearing entity, however less severe in the retrocardiac region. Pleural spaces: Unremarkable. No pleural effusion. No pneumothorax. Heart/Mediastinum: Unremarkable. No cardiomegaly. Bones/joints: Unremarkable. XR/XR chest 1V portable [id number] IMPRESSION: 1. Findings of which can be seen in aspiration in the right lower lobe, superimposed infection is difficult to exclude. Correlate clinically. 2. Similar-appearing airspace disease is suggested in the retrocardiac region.
[2024-12-19 05:35] LABS: Bilirubin Urine Negative (Negative); Blood Urine Negative (Negative); Glucose Urine UA Negative (Normal); Ketones Urine Trace (Negative); Leukocyte Esterase Urine Negative (Negative); Nitrate Urine Negative (Negative); Protein Urine Negative (Negative); Specific Gravity, Urine 1.019 (1.005-1.030); Urine Appearance Clear (CLEAR); Urine Color Yellow (Yellow); Urobilinogen Urine 0.2 mg/dL (Negative); pH Urine 5.5 (5-7)
[2024-12-19 05:40] LABS: Bacteria Urine None Seen /hpf; Hyaline Casts Urine 0.81 /lpf; RBC Urine 0-2 /hpf (0-2); Squamous Epithelial Cell Urine 0-5 /hpf (0-5); WBC Urine 0-5 /hpf (0-5)
[2024-12-19 06:04] VITALS: BP 134/71; PULSE 74; RESP 18; O2SAT 92
[2024-12-19 06:25] LABS: Influenza A POSITIVE (Negative); Influenza B NEGATIVE (Negative); Respiratory Syncytial Virus Ce NEGATIVE (Negative); SARS-CoV-2 PCR NEGATIVE (Negative)
[2024-12-19 06:40] VITALS: BP 145/71; PULSE 78; RESP 18; O2SAT 95
[2024-12-19 08:52] VITALS: BP 120/55; PULSE 76; RESP 18; O2SAT 96
== END 2024-12-19 08:53 | disposition home or self-care (01) ==
PROVIDERS: Emergency Medicine; Emergency Provider Family Medicine; PCP Family Medicine
DX: J10.1 Influenza due to other identified influenza virus with other respiratory manifestations (principal); Z11.52 Encounter for screening for COVID-19; Z79.82 Long term (current) use of aspirin; I11.0 Hypertensive heart disease with heart failure; I50.30 Unspecified diastolic (congestive) heart failure
CPT/HCPCS: 36415; 71045; 80053; 81001; 83605; 83690; 85025; 87040; 87637; 96374; 99284; J2470

== ENCOUNTER → 2024-12-30 07:18 | Outpatient (BNVA) | payer MEDICARE, SELFPAY | PROVIDERS: PCP Family Medicine; Visit Provider Podiatrist Foot & Ankle Surgery | DX: E11.21 Type 2 diabetes mellitus with diabetic nephropathy (principal); L60.3 Nail dystrophy; G20.A1 Parkinson's disease without dyskinesia, without mention of fluctuations; R26.89 Other abnormalities of gait and mobility; I73.9 Peripheral vascular disease, unspecified; E11.610 Type 2 diabetes mellitus with diabetic neuropathic arthropathy; M20.22 Hallux rigidus, left foot; M76.822 Posterior tibial tendinitis, left leg; Z79.84 Long term (current) use of oral hypoglycemic drugs | CPT/HCPCS: 11721; 99213 ==

== ENCOUNTER → 2025-03-31 08:01 | Outpatient (BNVA) | payer MEDICARE, SELFPAY | PROVIDERS: PCP Family Medicine; Visit Provider Podiatrist Foot & Ankle Surgery | DX: E11.21 Type 2 diabetes mellitus with diabetic nephropathy (principal); L60.3 Nail dystrophy; G20.A1 Parkinson's disease without dyskinesia, without mention of fluctuations; R26.89 Other abnormalities of gait and mobility; I73.9 Peripheral vascular disease, unspecified; E11.610 Type 2 diabetes mellitus with diabetic neuropathic arthropathy; M20.22 Hallux rigidus, left foot; M76.822 Posterior tibial tendinitis, left leg; Z79.84 Long term (current) use of oral hypoglycemic drugs | CPT/HCPCS: 11721 ==

== ENCOUNTER → 2025-07-07 09:29 | Outpatient (BNVA) | payer MEDICARE, MEDICAID, SELFPAY | PROVIDERS: PCP Family Medicine; Visit Provider Podiatrist Foot & Ankle Surgery | DX: E11.21 Type 2 diabetes mellitus with diabetic nephropathy (principal); L60.3 Nail dystrophy; E11.8 Type 2 diabetes mellitus with unspecified complications; G20.A1 Parkinson's disease without dyskinesia, without mention of fluctuations; R26.89 Other abnormalities of gait and mobility; I73.9 Peripheral vascular disease, unspecified; E11.610 Type 2 diabetes mellitus with diabetic neuropathic arthropathy; M20.22 Hallux rigidus, left foot; M76.822 Posterior tibial tendinitis, left leg; Z79.84 Long term (current) use of oral hypoglycemic drugs | CPT/HCPCS: 11721 ==

== ENCOUNTER 2025-07-08 21:22 | Emergency (ER) | payer MEDICARE, MEDICAID, SELFPAY ==
--- NOTE | 2025-07-08 21:24 | ECG_ITS ---
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 Measurements Intervals [place] Rate: 82 P: 112 NM: 199 QRS: 218 QRSD: 138 T: 146 QT: 364 QTc: 427 Interpretive Statements Possible SINUS RHYTHM INTRAVENTRICULAR CONDUCTION DELAY [130+ ms QRS DURATION] Heavy baseline artifacts; Need to repeat the study. Electronically Signed On 07-08-2025 23:49:07 CDT by Vladislav Barbour M.D. [email or web address]
[2025-07-08 21:26] VITALS: BP 139/105; PULSE 87; RESP 16; TEMP 36.5; O2SAT 98; BMI 37.6
[2025-07-08 21:36] VITALS: BP 139/105; PULSE 163; O2SAT 96
--- NOTE | 2025-07-08 21:41 | XRR_ITS ---
PROCEDURE INFORMATION: Exam: XR Pelvis Exam date and time: 07/08/2025 9:54 PM Age: 75 years old Clinical indication: Injury or trauma; Fall; Blunt trauma (contusions or hematomas); Bilateral; Pelvic region TECHNIQUE: Imaging protocol: Radiologic exam of the pelvis. Views: 1 or 2 view. COMPARISON: CR XR hip RT 2-3V wo/w pel* [id number] 10/09/2018 11:39 AM FINDINGS: Bones/joints: Unremarkable. No acute fracture. Incidentally noted postoperative changes in the lumbar spine. Soft tissues: Unremarkable. XR/XR pelvis 1-2V* [id number] IMPRESSION: No acute findings.
--- NOTE | 2025-07-08 21:41 | XRR_ITS ---
PROCEDURE INFORMATION: Exam: XR Sacrum and Coccyx, 2 or More Views Exam date and time: 07/08/2025 9:51 PM Age: 75 years old Clinical indication: Injury or trauma; Fall; Blunt trauma (contusions or hematomas) TECHNIQUE: Imaging protocol: XR of the sacrum and coccyx, 2 or more views. Other technique: Underpenetrated lateral view. COMPARISON: CR XR hip RT 2-3V wo/w pel* [id number] 10/09/2018 11:39 AM FINDINGS: Bones/joints: Normal. No acute fracture. Incidentally noted postoperative changes in the lumbar spine. Soft tissues: Normal. XR/XR sacrum coccyx min 2V [id number] IMPRESSION: No acute findings.
[2025-07-08 21:58] LABS: Hematocrit 39.5 % (37-53); Hemoglobin 13.30 g/dL (11.27-16.99); Mean Corpuscular HGB Conc 33.7 g/dL (30-55); Mean Corpuscular Hemoglobin 29.7 pg (27-33); Mean Corpuscular Volume 88.2 fl (82-101); Nucleated Red Blood Cells % 0 %; Platelet Count 210 10^3/cmm (157-399); Red Blood Count 4.48 10^6/uL (3.85-5.65); White Blood Count 10.45 10^3/uL (3.29-11.43)
[2025-07-08 22:06] VITALS: BP 159/107; PULSE 90; O2SAT 92
--- NOTE | 2025-07-08 22:14 | W.ED.FALL ---
HPI - Fall General: Chief Complaint: Fall Stated Complaint: fall, confused Time Seen by Provider: 07/08/25 21:24 History of Present Illness: 75-year-old male presents emergency room from the skilled nursing. Unwitnessed fall at 230 this afternoon. Patient states he hurt his butt when he fell. He denies striking his head there is no loss of consciousness. jail reported that he was altered and they sent him for evaluation. Patient is awake alert denies striking his head denies any chest or abdominal pain. Associated symptoms-after fall: Denies abdominal pain, chest pain or neck pain Related Data Home Medications ?Medication ?Instructions ?Recorded ?Confirmed acetaminophen 500 mg tablet 500 - 1,000 mg PO Q6H PRN Pain 02/25/20 07/07/25 (Tylenol Extra Strength) ropinirole 1 mg tablet See Rx Instructions .Route .COMPLEX 06/13/22 07/07/25 carbidopa ER 50 mg-levodopa 200 mg See Rx Instructions .Route .COMPLEX 03/12/24 07/07/25 tablet,extended release gabapentin 300 mg capsule 300 mg PO .QHS 03/12/24 07/07/25 albuterol sulfate 2.5 mg/3 mL 2.5 mg continuous nebulization Q4H 12/19/24 07/07/25 (0.083 %) solution for nebulization albuterol sulfate 90 mcg/actuation 2 puff inhalation Q4H 12/19/24 07/07/25 aerosol inhaler aspirin 81 mg tablet,delayed 81 mg PO DAILY 12/19/24 07/07/25 release bisacodyl 10 mg rectal suppository 10 mg MS DAILY PRN Constipation 12/19/24 07/07/25 (Dulcolax (bisacodyl)) clonazepam 1 mg tablet 0.5 mg PO BEDTIME PRN Anxiety 12/19/24 07/07/25 cyclobenzaprine 10 mg tablet 10 mg PO BID 12/19/24 07/07/25 finasteride 5 mg tablet 5 mg PO DAILY 12/19/24 07/07/25 guaifenesin 100 mg/5 mL oral 200 mg PO Q4H 12/19/24 07/07/25 liquid (Robafen) magnesium hydroxide 400 mg/5 mL 30 ml PO DAILY PRN Constipation 12/19/24 07/07/25 oral suspension (Milk of Magnesia) potassium chloride 10 mEq 20 meq PO BID 12/19/24 07/07/25 capsule,extended release sodium phosphates 19 gram-7 118 ml MS DAILY PRN Constipation 12/19/24 07/07/25 gram/118 mL enema (Fleet Enema) Previous Rx's ?Medication ?Instructions ?Recorded ondansetron HCl 4 mg tablet 4 mg PO Q8H PRN nausea and 09/06/23 vomiting #60 tabs metoprolol succinate 50 mg 50 mg PO DAILY #30 tabs 12/13/23 tablet,extended release 24 hr sertraline 100 mg tablet 100 mg PO DAILY #90 tabs 12/17/23 tamsulosin 0.4 mg capsule 0.4 mg PO DAILY #30 caps 03/12/24 bumetanide 2 mg tablet 2 mg PO BID #180 tabs 05/12/24 famotidine 40 mg tablet See Rx Instructions .Route 08/19/24 .COMPLEX #90 tabs metformin 850 mg tablet 850 mg PO BID #180 tabs 09/25/24 simvastatin 10 mg tablet 10 mg PO DAILY #90 tabs 09/25/24 Allergies Allergy/AdvReac Type Severity Reaction Status Date / Time No Known Allergies Allergy Verified 07/07/25 09:32 Review of Systems Const: Denies: fever(s) or chills Card: Denies: chest pain Resp: Denies: dyspnea GI: Denies: abdominal pain : Denies: dysuria, urinary frequency or urinary urgency Musc: Denies: neck pain or back pain Skin/Breast: Denies: rash PFSH ED PFSH: Medical History Venous stasis dermatitis Obstructive sleep apnea Chronic venous insufficiency Bilateral claudication of lower limb Hypersomnia Diastolic CHF Morbid obesity Presence of neurostimulator Airway obstruction Hypertension Parkinson disease Dysphasia Modified barium swallow done 3 days ago 04/13/2020 did not reveal any aspiration Surgical History S/P total knee arthroplasty Previous back surgery S/P cholecystectomy History of bronchoscopy Did not reveal retropharyngeal mass or swelling done in Family History Other Cancer Hypertension Denies family history of Diabetes Social History Smoking and tobacco/nicotine status: never used tobacco/nicotine Alcohol intake: current Alcohol intake frequency: few times a week Current occupational status: disabled 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 [employer] Physical Exam Const: COMMON NORMALS: no acute distress GENERAL APPEARANCE: cooperative and comfortable ORIENTATION/CONSCIOUSNESS: Yes awake, Yes oriented to person, Yes oriented to place and Yes oriented to time HENMT: COMMON NORMALS: normocephalic, atraumatic and hearing grossly normal bilaterally HEAD & SCALP: normocephalic and atraumatic Chest: OTHER: Neurostimulator left upper chest wall Resp: COMMON NORMALS: normal respiratory effort, No retractions, No use of accessory muscles and clear to auscultation bilaterally AUSCULTATION: clear to auscultation bilaterally Cardio: COMMON NORMALS: regular rate, regular rhythm and No murmurs present (Cardio) RATE: regular rate RHYTHM: regular rhythm GI: COMMON NORMALS: Soft to palpation and No hepatosplenomegaly present AUSCULTATION: Yes normoactive bowel sounds PALPATION: Yes Soft to palpation, No Tenderness to palpation present (GI), No Guarding due to palpation present (GI) and Yes No hepatosplenomegaly present Extremity: COMMON NORMALS: normal to inspection, capillary refill normal, no clubbing, cyanosis or edema, no calf tenderness and no pedal edema Neuro: SENSORIUM/ORIENTATION: Yes oriented to person, Yes oriented to place and Yes oriented to time Skin: COMMON NORMALS: no rashes or lesions noted GENERAL SKIN EXAM: no rashes or lesions noted Course Vital Signs: Vital signs: Vital Signs Temperature 97.7 F 07/08/25 21:26 Pulse Rate 79 07/09/25 00:46 Respiratory Rate 16 07/08/25 21:26 Blood Pressure 127/100 07/09/25 00:46 Pulse Oximetry 98 07/09/25 00:46 Oxygen Delivery Me thod Room Air 07/08/25 23:06 MDM - Fall Medical Decision Making Labs and imaging are unremarkable. Suspect had a ground-level mechanical fall large part due to his Parkinson's. Talking to him and his family he does have frequent falls. There is no evidence of injury at this time CT of his head is negative discharge back to skilled nursing continue same medications at this time. Medical Records I reviewed the patient's medical records. Lab Data I reviewed the patient's lab results. 07/08/25 21:49 07/08/25 21:49 Radiology Impressions Pelvis X-Ray 07/08/25 21:41 IMPRESSION: No acute findings. Sacrum and Coccyx X-Ray 07/08/25 21:41 IMPRESSION: No acute findings. Head CT 07/08/25 22:17 IMPRESSION: No acute intracranial abnormality. Laboratory Results WBC 10.45 10^3/uL (3.29-11.43) 07/08/25 21:49 RBC 4.48 10^6/uL (3.85-5.65) 07/08/25 21:49 Hgb 13.30 g/dL (11.27-16.99) 07/08/25 21:49 Hct 39.5 % (37-53) 07/08/25 21:49 MCV 88.2 fl (82-101) 07/08/25 21:49 MCH 29.7 pg (27-33) 07/08/25 21:49 MCHC 33.7 g/dL (30-55) 07/08/25 21:49 RDW 13.0 % (12.1-15.1) 07/08/25 21:49 Plt Count 210 10^3/cmm (157-399) 07/08/25 21:49 MPV 10.1 fL (7.4-10.4) 07/08/25 21:49 Neut % (Auto) 65.8 % 07/08/25 21:49 Lymph % (Auto) 17.6 % 07/08/25 21:49 [place] % (Auto) 12.0 % 07/08/25 21:49 Eos % (Auto) 2.3 % 07/08/25 21:49 Baso % (Auto) 1.2 % 07/08/25 21:49 Neut # (Auto) 6.88 10^3/uL (1.8-7.7) 07/08/25 21:49 Lymph # (Auto) 1.8 10^3/uL (0.8-4.8) 07/08/25 21:49 [place] # (Auto) 1.3 10^3/uL (0.2-0.9) H 07/08/25 21:49 Eos # (Auto) 0.2 10^3/uL (0.0-0.8) 07/08/25 21:49 Baso # (Auto) 0.1 10^3/uL (0.0-0.1) 07/08/25 21:49 Nucleated RBC % (auto) 0 % 07/08/25 21:49 Nucleated RBCs # 0.0 /100WBC 07/08/25 21:49 Sodium 140 mmol/L (136-145) 07/08/25 21:49 Potassium 4.1 mmol/L (3.5-5.1) 07/08/25 21:49 Chloride 105 mmol/L (98-107) 07/08/25 21:49 Carbon Dioxide 25 mmol/L (22-29) 07/08/25 21:49 Anion Gap 14.1 (5-19) 07/08/25 21:49 BUN 18 mg/dL (8-23) 07/08/25 21:49 Creatinine 0.9 mg/dL (0.7-1.2) 07/08/25 21:49 GFR Calculation Not Reportable 07/08/25 21:49 Glucose 146 mg/dL (65-115) H 07/08/25 21:49 Calculated Osmolality 295 mOsm/kg (285-295) 07/08/25 21:49 Calcium 9.0 mg/dL (8.5-10.5) 07/08/25 21:49 Total Bilirubin 0.3 mg/dL (0.15-1.2) 07/08/25 21:49 AST 14 U/L (0-40) 07/08/25 21:49 ALT < 5 U/L (0-41) 07/08/25 21:49 Alkaline Phosphatase 112 U/L (40-130) 07/08/25 21:49 Total Protein 6.4 g/dL (6.6-8.7) L 07/08/25 21:49 Albumin 3.9 g/dL (3.5-5.2) 07/08/25 21:49 Globulin 2.5 g/dL (1.3-4.6) 07/08/25 21:49 Urine Color Yellow (Yellow) 07/09/25 00:06 Urine Appearance Clear (CLEAR) 07/09/25 00:06 Urine pH 6.0 (5-7) 07/09/25 00:06 Ur Specific [place] 1.026 (1.005-1.030) 07/09/25 00:06 Urine Protein Negative (Negative) 07/09/25 00:06 Urine Glucose (UA) Negative (Normal) 07/09/25 00:06 Urine Ketones Trace (Negative) 07/09/25 00:06 Urine Blood Negative (Negative) 07/09/25 00:06 Urine Nitrate Negative (Negative) 07/09/25 00:06 Urine Bilirubin Negative (Negative) 07/09/25 00:06 Urine Urobilinogen 1.0 mg/dL (Negative) 07/09/25 00:06 Ur Leukocyte Esterase Negative (Negative) 07/09/25 00:06 Urine RBC 0-2 /hpf (0-2) 07/09/25 00:06 Urine WBC 0-5 /hpf (0-5) 07/09/25 00:06 Ur Squamous Epith Cells 0-5 /hpf (0-5) 07/09/25 00:06 Amorphous Sediment Not Reportable 07/09/25 00:06 Urine Bacteria None seen /hpf (NONE) 07/09/25 00:06 Hyaline Casts 0-4 /lpf H 07/09/25 00:06 All radiology interpretation(s) finalized by discharge EKG Data EKG 1: Interpretation: EKG 07/08/20252137. Normal sinus rhythm. Ventricular rate of 82. [address] changes noted. Significant amount of artifact at the baseline due to patient's neurostimulator . Compared to EKG 05/14/2024 and 03/27/2023 previous EKGs are nearly unreadable due to the amount of underlying baseline static from his neurostimulator Discharge Plan Discharge Patient Disposition: Home Clinical Impression: Accident due to mechanical fall without injury, Parkinson disease, Diabetes mellitus type 2, controlled Condition: Stable Prescriptions: No Action ropinirole 1 mg tablet See Rx Instructions .ROUTE .COMPLEX Rx Instructions: Take 2 tabs PO TID and 3 tabs at bedtime ondansetron HCl 4 mg tablet 4 mg PO Q8H PRN (Reason: nausea and vomiting) Qty: 60 6RF metoprolol succinate 50 mg tablet extended release 24 hr 50 mg PO DAILY Qty: 30 12RF carbidopa-levodopa 50-200 mg tablet extended release See Rx Instructions .ROUTE .COMPLEX Rx Instructions: 2 tabs orally 3 times daily gabapentin 300 mg capsule 300 mg PO .QHS tamsulosin 0.4 mg capsule 0.4 mg PO DAILY Qty: 30 6RF sertraline 100 mg tablet 100 mg PO DAILY Qty: 90 3RF bumetanide 2 mg tablet 2 mg PO BID Qty: 180 3RF famotidine 40 mg tablet See Rx Instructions .ROUTE .COMPLEX Qty: 90 3RF Dose Instruction: TAKE 1 TABLET BY MOUTH EVERY DAY Rx Instructions: TAKE 1 TABLET BY MOUTH EVERY DAY simvastatin 10 mg tablet 10 mg PO DAILY Qty: 90 3RF metformin 850 mg tablet 850 mg PO BID Qty: 180 3RF acetaminophen [Tylenol Extra Strength] 500 mg Tablet 500 - 1,000 mg PO Q6H PRN (Reason: Pain) cyclobenzaprine 10 mg Tablet 10 mg PO BID albuterol sulfate 2.5 mg /3 mL (0.083 %) solution for nebulization 2.5 mg continuous nebulization Q4H aspirin [Aspir-81] 81 mg Tablet,Delayed Release (Dr/Ec) 81 mg PO DAILY guaifenesin [Robafen] 100 mg/5 mL Liquid 200 mg PO Q4H bisacodyl [Dulcolax (bisacodyl)] 10 mg Suppository 10 mg MS DAILY PRN (Reason: Constipation) finasteride 5 mg Tablet 5 mg PO DAILY clonazepam 1 mg tablet 0.5 mg PO BEDTIME PRN (Reason: Anxiety) potassium chloride 10 mEq capsule, extended release 20 meq PO BID magnesium hydroxide [Milk of Magnesia] 400 mg/5 mL Suspension 30 ml PO DAILY PRN (Reason: Constipation) Fleet Enema 19-7 gram/118 mL Enema 118 ml MS DAILY PRN (Reason: Constipation) albuterol sulfate 90 mcg/actuation HFA aerosol inhaler 2 puff INHALATION Q4H Discharge Orders: Discharge ED (Routine); Ordered 07/09/25 Ordered By: Diogenes Gomes Referrals: Juan Ulloa DO [Primary Care Provider, Internal Medicine] Discharge Diet: Usual diet Discharge Activity: Resume usual activity Patient Instructions: Opioid Safety, Pain Management, Patient Portal & Pablo Instructions Activity Restrictions/Additional Instructions: Thank you for choosing [facility] for your healthcare needs today. It is very important that you follow up as instructed or that you return to the Emergency Department should you have concerns or if your condition changes or worsens in any way. Emergency department visits are focused on emergent conditions, in some cases you may require further evaluation on an outpatient basis. You are seen emergency room after fall CT of the head and x-rays that pelvis and hips and coccyx were all normal your laboratory test otherwise unremarkable continue current medications follow-up with your primary care doctor through the skilled nursing (Please note that included in your discharge packet is information concerning opioid safety and pain management. This information is given to all patients were discharged from the ER regardless of their discharge diagnosis or the medicines they usually take or are prescribed.) Print Language: [place]an Coding Level of Care Code ED Cook Box Filler for Katherin Campos
--- NOTE | 2025-07-08 22:17 | CTR_ITS ---
PROCEDURE INFORMATION: Exam: CT Head Without Contrast Exam date and time: 07/08/2025 10:44 PM Age: 75 years old Clinical indication: Injury or trauma; Fall; Blunt trauma (contusions or hematomas); Prior surgery; Surgery date: 6+ months; Surgery type: Brain stimulator; Additional info: Confusion TECHNIQUE: Imaging protocol: Computed tomography of the head without contrast. Radiation optimization: All CT scans at this facility use at least one of these dose optimization techniques: automated exposure control; mA and/or kV adjustment per patient size (includes targeted exams where dose is matched to clinical indication); or iterative reconstruction. COMPARISON: CT head wo con* [id number] 05/14/2024 7:00 PM RADIATION DOSE METRICS: Total DLP (mGy-cm): 1259.78 FINDINGS: Tubes, catheters and devices: Bilateral deep brain thalamic electrodes noted in symmetrical positions. These were present on prior study. Brain: Mild patchy hypodensity in hemispheric white matter bilaterally most likely due to chronic microangiopathy. No acute intra-axial hemorrhage. No masses. Normal grossman-white matter differentiation. No midline shift or mass effect. Cerebral ventricles: No ventriculomegaly. Paranasal sinuses: [id number] bilateral sinusitis in maxillary sinuses characterized by mucosal thickening and bubbly mucus in the left. No air-fluid levels. Mastoid air cells: Visualized mastoid air cells are well aerated. Bones: Unremarkable. No acute fracture. Soft tissues: Unremarkable. CT/CT head wo con* [id number] IMPRESSION: No acute intracranial abnormality.
[2025-07-08 22:19] LABS: Alanine Aminotransferase < 5 U/L (0-41); Albumin Level 3.9 g/dL (3.5-5.2); Alkaline Phosphatase 112 U/L (40-130); Anion Gap 14.1 (5-19); Aspartate Amino Transferase 14 U/L (0-40); Blood Urea Nitrogen 18 mg/dL (8-23); Calcium 9.0 mg/dL (8.5-10.5); Carbon Dioxide 25 mmol/L (22-29); Chloride 105 mmol/L (98-107); Creatinine Clr Calc Pharmacy 95.9119; Globulin 2.5 g/dL (1.3-4.6); Glucose 146 mg/dL (65-115); Osmolality Calculated 295 mOsm/kg (285-295); Potassium 4.1 mmol/L (3.5-5.1); Sodium 140 mmol/L (136-145); Total Protein 6.4 g/dL (6.6-8.7)
[2025-07-08 23:06] VITALS: BP 150/82; PULSE 102; O2SAT 93
[2025-07-09 00:15] LABS: Glucose Urine UA Negative (Normal); Nitrate Urine Negative (Negative); Specific Gravity, Urine 1.026 (1.005-1.030)
[2025-07-09 00:19] LABS: Add Urine Microscopic? YES
[2025-07-09 00:46] VITALS: BP 127/100; PULSE 79; O2SAT 98
== END 2025-07-09 00:55 | disposition home or self-care (01) ==
PROVIDERS: Emergency Provider Family Medicine; PCP Internal Medicine
DX: G20.A1 Parkinson's disease without dyskinesia, without mention of fluctuations (principal); E11.9 Type 2 diabetes mellitus without complications; Z79.82 Long term (current) use of aspirin; Z79.84 Long term (current) use of oral hypoglycemic drugs; I11.0 Hypertensive heart disease with heart failure; I50.9 Heart failure, unspecified; W19.XXXA Unspecified fall, initial encounter
CPT/HCPCS: 36415; 70450; 72170; 72220; 80053; 81001; 85025; 93005; 99285

== ENCOUNTER → 2025-10-12 09:39 | Outpatient (BNVA) | payer MEDICARE, MEDICAID, SELFPAY | PROVIDERS: PCP Internal Medicine; Visit Provider Podiatrist Foot & Ankle Surgery | DX: E11.8 Type 2 diabetes mellitus with unspecified complications (principal); L60.3 Nail dystrophy; E11.21 Type 2 diabetes mellitus with diabetic nephropathy; G20.A1 Parkinson's disease without dyskinesia, without mention of fluctuations; R26.89 Other abnormalities of gait and mobility; I73.9 Peripheral vascular disease, unspecified; E11.610 Type 2 diabetes mellitus with diabetic neuropathic arthropathy; M20.22 Hallux rigidus, left foot; M76.822 Posterior tibial tendinitis, left leg; Z79.84 Long term (current) use of oral hypoglycemic drugs | CPT/HCPCS: 11721; 99213 ==